=== PATIENT | male | born 1950 | race Hispanic/Latino ===

== ENCOUNTER 2019-09-12 13:08 | Outpatient (CLI) | payer MEDICARE ==
--- NOTE | 2019-09-12 13:29 | RAD ---
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 No joint effusion. No fracture or ma lalignment. 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
== END 2019-09-12 13:09 | disposition home or self-care (01) ==
LOC: RAD-FRANK 13:08
PROVIDERS: ATTEND Nurse Practitioner Family
DX: M25.561 Pain in right knee (principal); M17.11 Unilateral primary osteoarthritis, right knee

== ENCOUNTER 2020-03-18 12:38 | Inpatient (IN) | payer MEDICARE ==
[~2020-03-18 12:38] MED LIST: Iopamidol-370 76% 500 ML 1 ML ONE
[2020-03-18] MEDS ORDERED: Azithromycin 500 MG VIAL ONE (12:49)
[2020-03-18] MEDS ORDERED: cefTRIAXone\\ROCEPHIN 2 GM VIAL ONE (12:49)
[2020-03-18] MEDS ORDERED: Aspirin 300 MG Suppository ONE (12:49)
[2020-03-18] MEDS ORDERED: Acetaminophen 650 MG Suppository ONE (13:00)
[2020-03-18 13:13] LABS: #Lymphocytes 0.9 thou/uL (1.20-3.40); #Monocytes 0.2 thou/uL (0.11-0.59); #Neutrophils 6.7 thou/uL (1.40-6.50); %Lymphocytes 11.2 % (21.0-51.0); %Neutrophils 85.8 % (42.0-75.0); Hemoglobin 14.4 g/dL (14.0-18.0); Mean Corpuscular HGB CONC 33.8 g/dL (32.0-36.0); Mean Corpuscular Hemoglobin 32.2 pg (27.0-31.0); Mean Corpuscular Volume 95.3 fL (78.0-98.0); Mean Platelet Volume 7.8 fL (7.4-10.4); Platelet Count 397 thou/uL (130-400); RBC Distribution Width 12.3 % (11.5-14.5); Red Blood Cell (RBC) Count 4.46 mill/uL (4.70-6.10); White Blood Cell (WBC) Count 7.8 thou/uL (4.8-10.8)
[2020-03-18 13:24] LABS: PTT 34.7 sec (22.9-36.1); Prothrombin Time 13.7 sec (12.0-14.7)
[2020-03-18] MEDS ORDERED: Lorazepam 2 MG/ML VIAL ONE ×2 (13:24→13:36)
[2020-03-18] MEDS ORDERED: Morphine 4 MG/ML VIAL ONE (13:27)
[2020-03-18 13:32] LABS: ALT (SGPT) 68 U/L (8-55); AST (SGOT) 77 U/L (5-34); Albumin 3.3 g/dL (3.4-4.8); Alkaline Phosphatase 125 U/L (40-110); Anion Gap 24 mmol/L (10-20); BUN (Urea Nitrogen) 20 mg/dL (8.4-25.7); Bilirubin, Total 0.9 mg/dL (0.2-1.2); CK (CPK) 133 U/L (30-200); Calc. Creatinine Clearance 0 mL/min (70-130); Calcium 8.3 mg/dL (7.8-10.44); Carbon Dioxide 18 mmol/L (23-31); Chloride 97 mmol/L (98-107); Globulin 4.3 g/dL (2.4-3.5); Glucose 112 mg/dL (83-110); Potassium 3.4 mmol/L (3.5-5.1); Protein, Total 7.6 g/dL (5.8-8.1); Sodium 136 mmol/L (136-145)
[2020-03-18] MEDS ORDERED: Naloxone HCl 0.4 mg/ml Vial ONE (13:43)
[2020-03-18] MEDS ORDERED: Dexamethasone 4 mg/ml Vial ONE (14:08)
--- NOTE | 2020-03-18 14:20 | RAD ---
XR Chest 1 View Portable History: Cough Comparison: None. Findings: Patchy peripheral and perihilar airspace opacities. No pneumothorax or effusion. No acute o sseous abnormality. Impression: Commonly reported imaging findings of COVID 19 pneumonia.
--- NOTE | 2020-03-18 15:35 | CT ---
CT Brain WO Con History: Confusion. Altered mental status Comparison: None. Findings: Moderate microangiopathic changes. No midline shift or mass effect. No acute hemorrhage. No large territorial acute infarction. Calvarium is intact. Prominent arachnoid granulations right sphenoid greater wing. Impression: No acute hemorrhage. Moderate microvascular ischemic changes.
--- NOTE | 2020-03-18 15:51 | CT ---
CTA Angio Chest W WO Con History: Cough Comparison: Chest radiograph same day Findings: CT angiogram chest performed after the intravenous administration of contrast. 3-D renderin g provided. No pulmonary embolism. Severe airspace consolidation. No pneumothorax or pneumomediastinum. Sternum and manubrium are intact. Thoracic spine is intact. Impression: 1. No pulmonary embolism. 2. Severe COVID pneumonia. No pneumothorax or pneumomediastinum.
[2020-03-18] MEDS ORDERED: Rocuronium Bromide 10 MG/ML (10ML VIAL) ONE (16:20)
[2020-03-18] MEDS ORDERED: Ketamine 50 MG/ML (10ML VIAL) ONE (16:20)
[2020-03-18] MEDS ORDERED: Norepinephrine 8 MG/0.9% NS 250 ML ONE (16:21)
[2020-03-18] MEDS ORDERED: fentaNYL Citrate/PF 2,000 MCG in Sodium Chloride 0.9% 60 ML IV SCH (16:45)
[2020-03-18 17:34] LABS: Lactic Acid 1.8 mmol/L (0.5-2.2)
--- NOTE | 2020-03-18 17:40 | PDOC.HHP ---
Hospitalist HPI - History of Present Illness Shortness of breath and productive cough History of Present Illness: Patient is a 70-year-old male with no past medical history and currently not on medications who was brought in by EMS for evaluation of respiratory symptoms. The onset of his symptoms started at least before March 06 when he was having persistent fever episodes. His T-max at the time was 102.5 degrees. He tested positive for COVID-19 on March 06 and was discharged with alternating doses of ibuprofen and Tylenol. His symptoms progressed to then has developed persistent chills and subsequently productive cough. He failed conservative treatment with antitussive. Family finally called EMS due to worsening of symptoms. For the past 2 days, he has been very restless and d isoriented, unable to sleep at nights or try to get out of the house at night. Is also been very nonspecific and reporting symptoms sometimes back pain, shoulder pain or abdominal pain. History obtained from his son Liam Macias. As stated above patient has no past medical history does not take any medications. Last time he was hospitalized was 30 years ago for gallbladder surgery. ED Course: He arrived in the ER agitated and confused. Received 2 doses of IV Ativan. Fever of 104 degrees in the ER He was hypoxic on room air. He failed nonrebreather therapy as he could not get his oxygen saturation above mid 80s Tested positive for COVID-19 Basic labs significant for lactic acid of 7.9. He received approximately 3 L of IV fluid in the ER Intubated in the ER. Right femoral vein central line was placed. CT head and CTA unremarkable - Exam General - other findings: Sedated Eye: PERRL ENT - other findings: Endotracheal tube in place Gastrointestinal: soft, non-tender, non-distended Extremities: no cyanosis, no clubbing, no edema Skin - other findings: Warm Psychiatric - other findings: Sedated Hospitalist Results - Labs Result Diagrams: 03/18/20 12:57 03/18/20 12:57 Lab results: WBC 7.8 thou/uL (4.8-10.8) 03/18/20 12:57 Hgb 14.4 g/dL (14.0-18.0) 03/18/20 12:57 Hct 42.5 % (42.0-52.0) 03/18/20 12:57 MCV 95.3 fL (78.0-98.0) 03/18/20 12:57 Plt Count 397 thou/uL (130-400) 03/18/20 12:57 Neutrophils % 85.8 % (42.0-75.0) H 03/18/20 12:57 Sodium 136 mmol/L (136-145) 03/18/20 12:57 Potassium 3.4 mmol/L (3.5-5.1) L 03/18/20 12:57 Chloride 97 mmol/L (98-107) L 03/18/20 12:57 Carbon Dioxide 18 mmol/L (23-31) L 03/18/20 12:57 BUN 20 mg/dL (8.4-25.7) 03/18/20 12:57 Creatinine 0.95 mg/dL (0.7-1.3) 03/18/20 12:57 Glucose 112 mg/dL (83-110) H 03/18/20 12:57 Lactic Acid 1.8 mmol/L (0.5-2.2) 03/18/20 15:48 Calcium 8.3 mg/dL (7.8-10.44) 03/18/20 12:57 Total Bilirubin 0.9 mg/dL (0.2-1.2) 03/18/20 12:57 AST 77 U/L (5-34) H 03/18/20 12:57 ALT 68 U/L (8-55) H 03/18/20 12:57 Alkaline Phosphatase 125 U/L (40-110) H 03/18/20 12:57 Creatine Kinase 133 U/L (30-200) 03/18/20 12:57 Troponin I 0.016 ng/mL (< 0.028) 03/18/20 12:00 Serum Total Protein 7.6 g/dL (5.8-8.1) 03/18/20 12:57 Albumin 3.3 g/dL (3.4-4.8) L 03/18/20 12:57 Hospitalist H&P A/P - Problem (1) Septic shock Code(s): A41.9 - SEPSIS, UNSPECIFIED ORGANISM; R65.21 - SEVERE SEPSIS WITH SEPTIC SHOCK Status: Acute (2) Pneumonia due to COVID-19 virus Code(s): U07.1 - COVID-19; J12.82 - PNEUMONIA DUE TO CORONAVIRUS DISEASE 2019 Status: Acute (3) Acute hypoxemic respiratory failure due to COVID-19 Code(s): U07.1 - COVID-19; J96.01 - ACUTE RESPIRATORY FAILURE WITH HYPOXIA Status: Acute (4) Metabolic encephalopathy Code(s): G93.41 - METABOLIC ENCEPHALOPATHY Status: Acute - Plan Plan: Assessment 70-year-old male without past medical history currently admitted with acute hypoxemic respiratory failure secondary to COVID-19 pneumonia. There is a high chance of superimposed bacterial pneumonia given the degree of consolidation on chest imaging. He is currently intubated. He received 1 dose of IV dexamethasone 10 mg. Acute hypoxemic respiratory failure COVID-19 pneumonia Septic shock Metabolic encephalopathy Hypokalemia Plan: Admit to ICU Post intubation sedation with fentanyl and propofol. Order placed Follow-up post intubation ABG and adjust vent settings as needed. Empirically start patient on Zosyn for superimposed bacterial infection Follow-up blood and sputum cultures Also start patient on vitamins B1, C, D and zinc DVT prophylaxis with Lovenox Stress ulcer prophylaxis with famotidine Trend CRP and D-dimers daily Replace potassium Trend lactic acid every 4 hours until negative
[2020-03-18 17:42] LABS: Troponin I 0.067 ng/mL (< 0.028)
--- NOTE | 2020-03-18 17:43 | RAD ---
CHEST ONE VIEW: History: Covid pneumonia Comparison: Same day FINDINGS: Patient's endotracheal tube tip is above the eduardo 2 cm. Enteric tube tip in the gastric fundus. Ext ensive airspace opacities. No pneumothorax. IMPRESSION: Satisfactory appearance of enteric and endotracheal tubes. POS: HOME
[2020-03-18] MEDS ORDERED: Norepinephrine 8 MG/0.9% NS 250 ML IVPB PRN (17:49)
[2020-03-18] MEDS ORDERED: DISCONTINUE PREVIOUS NARCOTIC PAIN MEDICATIONS AND BENZODIAZEPINES FS SCH (18:00)
[2020-03-18] MEDS ORDERED: Fentanyl BOLUS 250 ML IVPB PRN (18:00)
[2020-03-18] MEDS ORDERED: Potassium Chloride 20 MEQ TAB PO SCH (18:00)
[2020-03-18] MEDS ORDERED: Propofol BOLUS 1,000 MG/100 ML VIAL IV PRN (18:00)
[2020-03-18] MEDS ORDERED: Morphine 2 MG/ML VIAL SLOW IVP PRN (18:00)
[2020-03-18] MEDS ORDERED: Ventilator Sedation Protocol 1 EACH FS SCH (18:00)
[2020-03-18 18:11] LABS: Lactic Acid 1.8 mmol/L (0.5-2.2)
[2020-03-18 19:07] LABS: Bacteria/HPF None Seen HPF (None Seen); Bilirubin Negative (Negative); Blood, Urine Trace (Negative); Clarity Clear (Clear); Glucose, Urine (Dipstick) Normal (Negative); Ketone, Urine Negative (Negative); Leukocyte Negative Leu/uL (Negative); Nitrite Negative (Negative); Protein, Urine (Dipstick) 30 mg/dL (Neg-Trace); RBC/HPF None Seen HPF (0-3); Squamous Epithelial None Seen HPF (0-3); WBC/HPF 0-3 HPF (0-3); pH, Urine 6.5 (5.0-9.0)
[2020-03-18 19:08] LABS: Specific Gravity, Urine 1.056 (1.002-1.036)
[2020-03-18 20:18] LABS: Troponin I 0.047 ng/mL (< 0.028)
[2020-03-18] MEDS: Famotidine/PF 20 mg/2ml Vial SLOW IVP SCH (21:55)
[2020-03-18] MEDS: Piperacillin/Tazobactam 3.375 GM in Sodium Chloride 0.9% 100 ML IVPB SCH (21:55)
[2020-03-18] MEDS: Enoxaparin Sodium 40 MG/0.4 ML SYRINGE SC SCH (21:55)
[2020-03-19] MEDS: Piperacillin/Tazobactam 3.375 GM in Sodium Chloride 0.9% 100 ML IVPB SCH (03:35)
--- NOTE | 2020-03-19 07:56 | RAD ---
Portable frontal chest radiograph: 03/19/2020 COMPARISON: 03/18/2020 HISTORY: Intubated patient FINDINGS: Stable endotracheal tube and nasogastric tube. The eduardo is difficult to visualize. The en dotracheal tube is probably within 1.7 cm of the eduardo. No discrete pneumothorax. Dense airspace disease noted bilaterally with a perihilar/bibasilar predominance, right greater than left, not signi ficantly changed. IMPRESSION: No significant interval change.
[2020-03-19] MEDS ORDERED: Dexamethasone 4 mg/ml Vial SLOW IVP SCH (09:00)
--- NOTE | 2020-03-19 09:14 | CON ---
DATE OF CONSULTATION: HISTORY OF PRESENT ILLNESS: Farrukh Macias is a 70-year-old gentleman, intubated in the vent, sedated. There is no number to contact any family members. He is admitted on the after he presented with severe hypoxemia, mental status change. His temperature 104, respiratory rate 28, his sats on room air 76, non-rebreather were 90%. He was intubated. Unable to get any additional information says that he apparently had some history of smoking in the past. It is unclear what medicine he was taking. I am in the process of contacting the Social Service Department to contact family members to get additional information. PHYSICAL EXAMINATION: VITAL SIGNS: Temperature 98, pulse 80, blood pressure 106/64, respiratory rate 18, he is on 50% FiO2, sats 95%. CHEST: No wheezing. No crackles. CARDIAC: Normal S1, S2. No gallops. ABDOMEN: No masses. LABORATORY DATA: His D-dimer is 17. His C-reactive protein is 29. X-ray shows diffuse infiltrates. Serology was positive. His renal function shows BUN and creatinine are normal. ASSESSMENT: 1. Simmons positive pneumonia. 2. Respiratory failure. 3. Metabolic encephalopathy. PLAN: I am in the process of trying to contact family members. In the meantime, he is on broad-spectrum antibiotics, high-dose steroids, supportive care. He is going to get a convalescent plasma. Infectious Disease has been consulted. He will be prone for 3 days to improve his oxygenation. His prognosis is grave. This is a 45-minute critical care time. Job ID: [id number]
[2020-03-19 09:40] LABS: #Lymphocytes 0.5 thou/uL (1.20-3.40); #Monocytes 0.2 thou/uL (0.11-0.59); %Basophils 0.5 % (0.0-1.0); %Eosinophils 0.1 % (0.0-10.0); %Lymphocytes 10.9 % (21.0-51.0); %Monocytes 3.7 % (0.0-10.0); %Neutrophils 84.8 % (42.0-75.0); Hemoglobin 11.4 g/dL (14.0-18.0); Mean Corpuscular HGB CONC 32.3 g/dL (32.0-36.0); Mean Corpuscular Hemoglobin 30.9 pg (27.0-31.0); Mean Corpuscular Volume 95.4 fL (78.0-98.0); Mean Platelet Volume 7.6 fL (7.4-10.4); Platelet Count 354 thou/uL (130-400); RBC Distribution Width 12.3 % (11.5-14.5); Red Blood Cell (RBC) Count 3.71 mill/uL (4.70-6.10); White Blood Cell (WBC) Count 4.7 thou/uL (4.8-10.8)
[2020-03-19 09:58] LABS: Anion Gap 14 mmol/L (10-20); BUN (Urea Nitrogen) 19 mg/dL (8.4-25.7); Calc. Creatinine Clearance 99 mL/min (70-130); Calcium 7.5 mg/dL (7.8-10.44); Carbon Dioxide 25 mmol/L (23-31); Chloride 108 mmol/L (98-107); Glucose 96 mg/dL (83-110); Potassium 3.8 mmol/L (3.5-5.1); Sodium 143 mmol/L (136-145)
[2020-03-19] MEDS: Zinc Sulfate 220 MG CAP PO SCH (11:09)
[2020-03-19] MEDS: Dexamethasone 4 mg/ml Vial SLOW IVP SCH ×2 (11:09→21:19)
[2020-03-19] MEDS: Thiamine 100 MG TAB PO SCH (11:12)
[2020-03-19] MEDS: Cholecalciferol (Vitamin D3) 400 UNITS TAB PO SCH (11:12)
[2020-03-19] MEDS: Ascorbic Acid 500 mg Chewable Tablet PO SCH (11:12)
[2020-03-19] MEDS: Famotidine/PF 20 mg/2ml Vial SLOW IVP SCH ×2 (11:12→21:20)
[2020-03-19] MEDS: Enoxaparin Sodium 40 MG/0.4 ML SYRINGE SC SCH ×2 (11:13→21:19)
[2020-03-19] MEDS: Cefepime 1 GM in Sodium Chloride 0.9% 100 ML IVPB SCH ×2 (11:14→22:11)
[2020-03-19] MEDS: Propofol 1,000 MG/100 ML VIAL IV PRN ×2 (11:29→16:41)
--- NOTE | 2020-03-19 14:52 | PDOC.HOSPP ---
- Subjective Encounter Date: 03/19/20 Subjective: Overnight. Patient is still on mechanical ventilator and sedated - Objective Vital Signs & Weight: Vital Signs (12 hours) Temp Pulse Resp BP Pulse Ox 03/19/20 14:00 20 03/19/20 12:10 95 03/19/20 12:00 101.4 F H 23 H 03/19/20 11:55 97 108/55 L 03/19/20 10:00 20 03/19/20 08:00 99.6 F 20 93 L 03/19/20 07:57 88 03/19/20 06:00 20 03/19/20 04:00 98.1 F 20 Weight Admit Weight 155 lb 6.814 oz Weight 155 lb 6.814 oz Most Recent Monitor Data Heart Rate from ECG 114 NIBP 127/76 NIBP BP-Mean 93 Respiration from ECG 22 SpO2 94 I&O: 03/18/20 03/19/20 03/20/20 06:59 06:59 06:59 Intake Total 482.2 Output Total 940 235 Balance -457.8 -235 Result Diagrams: 03/19/20 09:27 03/19/20 09:27 Hospitalist ROS - Review of Systems ROS unobtainable: due to endotracheal tube - Medication Medications: Active Medications Generic Name Dose Route Start Last Admin Trade Name Mila PRN Reason Stop Dose Admin Ascorbic Acid 500 mg 03/19/20 09:00 03/19/20 11:12 Ascorbic Acid 500 Mg Chewable Tablet PO 500 mg DAILY BETTY Administration Cholecalciferol 400 units 03/19/20 09:00 03/19/20 11:12 Cholecalciferol (Vitamin D3) 400 Units Tab PO 400 units DAILY BETTY Administration Dexamethasone 10 mg 03/19/20 09:00 03/19/20 11:09 Dexamethasone 4 Mg/Ml Vial SLOW IVP 10 mg BID BETTY Administration Enoxaparin Sodium 40 mg 03/18/20 21:00 03/19/20 11:13 Enoxaparin Sodium 40 Mg/0.4 Ml Syringe SC 40 mg 0900,2100 BETTY Administration Famotidine 20 mg 03/18/20 21:00 03/19/20 11:12 Famotidine/Pf 20 Mg/2ml Vial SLOW IVP 20 mg BID BETTY Administration Cefepime HCl 1 gm/ Sodium 100 mls @ 200 mls/hr 03/19/20 10:00 03/19/20 11:14 Chloride IVPB 100 mls 1000,2200 BETTY Administration Doxycycline Hyclate 100 mg/ 100 mls @ 100 mls/hr 03/19/20 09:00 03/19/20 11:16 Sodium Chloride IVPB 03/29/20 09:01 100 mls Q12HR BETTY Administration Propofol 1,000 mg 03/18/20 18:00 03/19/20 11:29 Propofol 1,000 Mg/100 Ml Vial IV 04/17/20 18:00 1,000 mg INF PRN Administration TO ACHIEVE GOAL RASS Protocol Sodium Chloride 10 ml 03/19/20 09:00 03/19/20 11:16 Flush - Normal Saline 10 Ml Syringe IVF 10 ml Q12HR BETTY Administration Thiamine HCl 100 mg 03/19/20 09:00 03/19/20 11:12 Thiamine 100 Mg Tab PO 100 mg DAILY BETTY Administration Zinc Sulfate 220 mg 03/19/20 09:00 03/19/20 11:09 Zinc Sulfate 220 Mg Cap PO 220 mg DAILY BETTY Administration - Exam General - other findings: Sedated Eye: anicteric sclera ENT: normocephalic atraumatic Heart: RRR, no murmur, no gallops, no rubs Heart - other findings: Left-sided subclavian vein central line Respiratory: no wheezes Respiratory - other findings: Bilateral crackles Gastrointestinal: soft, non-tender, non-distended, normal bowel sounds Extremities: no clubbing, no edema Psychiatric - other findings: Sedated Hosp A/P (1) Septic shock Code(s): A41.9 - SEPSIS, UNSPECIFIED ORGANISM; R65.21 - SEVERE SEPSIS WITH SEPTIC SHOCK Status: Acute (2) Pneumonia due to COVID-19 virus Code(s): U07.1 - COVID-19; J12.82 - PNEUMONIA DUE TO CORONAVIRUS DISEASE 2019 Status: Acute (3) Acute hypoxemic respiratory failure due to COVID-19 Code(s): U07.1 - COVID-19; J96.01 - ACUTE RESPIRATORY FAILURE WITH HYPOXIA Status: Acute (4) Metabolic encephalopathy Code(s): G93.41 - METABOLIC ENCEPHALOPATHY Status: Acute - Plan Assessment This is a 70-year-old male with no past medical history or chronic medications failed outpatient therapy for COVID-19 diagnosed on March 06, 2020. He presented to the ER with worsening shortness of breath and productive cough and was found to have septic shock with a lactic acid of 7.9. He had extensive airspace consolidation on his CT chest. Pulmonary embolism was ruled out. Is currently on mechanical ventilator acute hypoxemic respiratory failure and receiving systemic corticosteroids. Critical care is recommending convalescent plasma and prone positioning. Blood culture and urine cultures are negative to date Acute hypoxemic respiratory failure COVID-19 pneumonia Septic shock Plan: Vent settings as per critical care. Currently on respiratory rate of 12, tidal volume of 450, FiO2 of 50 and PEEP of 5 Day 2 of Zosyn for possible superimposed bacterial pneumonia Day 2 of dexamethasone along with thiamine, vitamin C, vitamin D and zinc Continue DVT prophylaxis PPI for stress ulcer prophylaxis Daily CRP, ABG and chest x-ray
[2020-03-19 15:30] LABS: Actual Bicarbonate (HCO3a) 24.3 mEq/L (22-28); Base Excess (BEa) 0.3 mEq/L (-2.0 to +3.0); CO2 Tension 37.7 mmHg (35.0-45.0); Calcium, Ionized (arterial) 1.13 mmol/L (1.12-1.30); Potassium - ABG Lab 3.93 mmol/L (3.70-5.30); pH, Arterial 7.43 (7.35-7.45)
[2020-03-19 15:33] LABS: Puncture Site RRA
[2020-03-19 15:34] LABS: ALV-art Gradient 181.075 mmHg (0-20)
[2020-03-19] MEDS ORDERED: Fentanyl CADD 100 ML ONE (16:05)
[2020-03-19] MEDS: Acetaminophen 325 MG TAB PO PRN (17:36)
[2020-03-19] MEDS: Lorazepam 2 MG/ML VIAL SLOW IVP PRN (23:28)
[2020-03-20] MEDS: Propofol 1,000 MG/100 ML VIAL IV PRN ×3 (01:06→17:05)
[2020-03-20 04:42] LABS: #Lymphocytes 0.5 thou/uL (1.20-3.40); #Monocytes 0.1 thou/uL (0.11-0.59); #Neutrophils 3.9 thou/uL (1.40-6.50); %Eosinophils 0.2 % (0.0-10.0); %Neutrophils 85.8 % (42.0-75.0); Hemoglobin 10.8 g/dL (14.0-18.0); Mean Corpuscular HGB CONC 33.4 g/dL (32.0-36.0); Mean Corpuscular Hemoglobin 31.3 pg (27.0-31.0); Mean Corpuscular Volume 93.9 fL (78.0-98.0); Mean Platelet Volume 8.1 fL (7.4-10.4); Platelet Count 386 thou/uL (130-400); RBC Distribution Width 12.5 % (11.5-14.5); Red Blood Cell (RBC) Count 3.44 mill/uL (4.70-6.10); White Blood Cell (WBC) Count 4.6 thou/uL (4.8-10.8)
[2020-03-20 05:10] LABS: Anion Gap 14 mmol/L (10-20); BUN (Urea Nitrogen) 26 mg/dL (8.4-25.7); CRP (Inflammatory) 16.48 mg/dL (= or < 0.5); Calc. Creatinine Clearance 103 mL/min (70-130); Calcium 7.6 mg/dL (7.8-10.44); Carbon Dioxide 24 mmol/L (23-31); Chloride 109 mmol/L (98-107); Glucose 188 mg/dL (83-110); Potassium 3.9 mmol/L (3.5-5.1); Sodium 143 mmol/L (136-145)
--- NOTE | 2020-03-20 08:05 | RAD ---
Portable frontal chest radiograph: 03/20/2020 COMPARISON: 03/18/2020 HISTORY: Ventilated patient FINDINGS: Stable endotracheal tube and nasogastric tube. No pneumothorax is evident. Extensive patchy airspace disease noted bilaterally, right greater than left, including both lung bases, the mid lung zones, and the right upper lobe region. IMPRESSION: No significant interval change.
--- NOTE | 2020-03-20 09:03 | PRG ---
DATE OF SERVICE: 03/20/2020 SUBJECTIVE: Farrukh Macias remains intubated in the vent, sedated. OBJECTIVE: VITAL SIGNS: Temperature 98, pulse is 90, sats are 90%, blood pressure 110/80. His I's and O's have been consistently even. CHEST: No wheezing. No crackles. CARDIAC: Normal S1, S2. No gallops. ABDOMEN: No masses. LABORATORY DATA: White count 4000, H and H 10 and 32, platelet count 386. His lytes are normal. His blood gas; PO2 was 57, pCO2 of 36.43 on 40% rate of 20, PEEP of 5, pressure support of 10. ASSESSMENT: Respiratory failure, krause positive pneumonia. PLAN: Vent is being adjusted. We will start nutrition and supportive care. Not weanable. One-half hour of critical time. Job ID: [id number]
[2020-03-20] MEDS: Dexamethasone 4 mg/ml Vial SLOW IVP SCH ×2 (09:31→20:31)
[2020-03-20] MEDS: Zinc Sulfate 220 MG CAP PO SCH (09:31)
[2020-03-20] MEDS: Famotidine/PF 20 mg/2ml Vial SLOW IVP SCH ×2 (09:31→20:32)
[2020-03-20] MEDS: Cholecalciferol (Vitamin D3) 400 UNITS TAB PO SCH (09:31)
[2020-03-20] MEDS: Ascorbic Acid 500 mg Chewable Tablet PO SCH (09:33)
[2020-03-20] MEDS: Thiamine 100 MG TAB PO SCH (09:33)
[2020-03-20] MEDS: Enoxaparin Sodium 40 MG/0.4 ML SYRINGE SC SCH ×2 (09:33→20:32)
[2020-03-20] MEDS: Cefepime 1 GM in Sodium Chloride 0.9% 100 ML IVPB SCH ×2 (11:11→22:41)
[2020-03-20] MEDS ORDERED: Sodium Bicarbonate Tab 325 MG TAB PER TUBE PRN (13:00)
[2020-03-20] MEDS ORDERED: Pancrelipase DR 12,000 1 CAP FS PRN (13:00)
[2020-03-20] MEDS ORDERED: Fentanyl CADD 100 ML ONE (13:23)
--- NOTE | 2020-03-20 13:31 | PDOC.HOSPP ---
- Subjective Encounter Date: 03/27/20 Subjective: Episodes of oxygen desaturation overnight. Lowest sat 86%. FiO2 and PEEP increased. - Objective Vital Signs & Weight: Vital Signs (12 hours) Temp Pulse Resp 03/20/20 12:00 96.7 F L 19 03/20/20 10:55 76 03/20/20 10:00 26 H 03/20/20 08:00 96.0 F L 22 H 03/20/20 07:13 100 03/20/20 06:00 20 03/20/20 04:00 97.5 F L 20 03/20/20 02:01 95 03/20/20 02:00 20 Weight Admit Weight 155 lb 6.814 oz Weight 156 lb 1.396 oz Most Recent Monitor Data Heart Rate from ECG 82 NIBP 105/72 NIBP BP-Mean 83 Respiration from ECG 20 SpO2 92 I&O: 03/19/20 03/20/20 03/21/20 06:59 06:59 06:59 Intake Total 482.2 491.3 134.5 Output Total 940 855 215 Balance -457.8 -363.7 -80.5 Result Diagrams: 03/20/20 03:00 03/20/20 03:00 Hospitalist ROS - Medication Medications: Active Medications Generic Name Dose Route Start Last Admin Trade Name Freq PRN Reason Stop Dose Admin Acetaminophen 650 mg 03/19/20 16:49 03/19/20 17:36 Acetaminophen 325 Mg Tab PO 650 mg Q6H PRN Administration Fever or Pain Ascorbic Acid 500 mg 03/19/20 09:00 03/20/20 09:33 Ascorbic Acid 500 Mg Chewable Tablet PO 500 mg DAILY BETTY Administration Cholecalciferol 400 units 03/19/20 09:00 03/20/20 09:31 Cholecalciferol (Vitamin D3) 400 Units Tab PO 400 units DAILY BETTY Administration Dexamethasone 10 mg 03/19/20 09:00 03/20/20 09:31 Dexamethasone 4 Mg/Ml Vial SLOW IVP 10 mg BID BETTY Administration Enoxaparin Sodium 40 mg 03/18/20 21:00 03/20/20 09:33 Enoxaparin Sodium 40 Mg/0.4 Ml Syringe SC 40 mg 0900,2100 BETTY Administration Famotidine 20 mg 03/18/20 21:00 03/20/20 09:31 Famotidine/Pf 20 Mg/2ml Vial SLOW IVP 20 mg BID BETTY Administration Cefepime HCl 1 gm/ Sodium 100 mls @ 200 mls/hr 03/19/20 10:00 03/20/20 11:11 Chloride IVPB 100 mls 1000,2200 BETTY Administration Doxycycline Hyclate 100 mg/ 100 mls @ 100 mls/hr 03/19/20 09:00 03/20/20 09:33 Sodium Chloride IVPB 03/29/20 09:01 100 mls Q12HR BETTY Administration Lorazepam 2 mg 03/18/20 18:00 03/19/20 23:28 Lorazepam 2 Mg/Ml Vial SLOW IVP 04/17/20 18:00 2 mg Q1H PRN Administration Breakthrough agitation Propofol 1,000 mg 03/18/20 18:00 03/20/20 08:20 Propofol 1,000 Mg/100 Ml Vial IV 04/17/20 18:00 1,000 mg INF PRN Administration TO ACHIEVE GOAL RASS Protocol Sodium Chloride 10 ml 03/19/20 09:00 03/20/20 09:33 Flush - Normal Saline 10 Ml Syringe IVF 10 ml Q12HR BETTY Administration Thiamine HCl 100 mg 03/19/20 09:00 03/20/20 09:33 Thiamine 100 Mg Tab PO 100 mg DAILY BETTY Administration Zinc Sulfate 220 mg 03/19/20 09:00 03/20/20 09:31 Zinc Sulfate 220 Mg Cap PO 220 mg DAILY BETTY Administration - Exam General - other findings: Sedated while on mechanical ventilation Eye: anicteric sclera ENT: normocephalic atraumatic Heart: RRR, no murmur, no gallops, no rubs Respiratory: no wheezes, rales Respiratory - other findings: Diminished air entry bilaterally Extremities: no clubbing, no edema Hosp A/P (1) Septic shock Code(s): A41.9 - SEPSIS, UNSPECIFIED ORGANISM; R65.21 - SEVERE SEPSIS WITH SEPTIC SHOCK Status: Acute (2) Pneumonia due to COVID-19 virus Code(s): U07.1 - COVID-19; J12.82 - PNEUMONIA DUE TO CORONAVIRUS DISEASE 2019 Status: Acute (3) Acute hypoxemic respiratory failure due to COVID-19 Code(s): U07.1 - COVID-19; J96.01 - ACUTE RESPIRATORY FAILURE WITH HYPOXIA Status: Acute (4) Metabolic encephalopathy Code(s): G93.41 - METABOLIC ENCEPHALOPATHY Status: Acute - Plan Assessment This is a 70-year-old male with no past medical history or chronic medications failed who outpatient therapy for COVID-19, which was diagnosed on March 06, 2020. He presented to the ER with worsening shortness of breath and productive cough and was found to have septic shock with a lactic acid of 7.9. He had extensive airspace consolidation on his CT chest. Pulmonary embolism was ruled out. He is still on mechanical ventilator for acute hypoxemic respiratory failure and receiving systemic corticosteroids. Blood culture and urine cultures are negative to date Acute hypoxemic respiratory failure COVID-19 pneumonia Septic shock Plan: Vent settings as per critical care. PEEP increased to 10, FiO2 increased to 50%. No ventilatory issues Day 3 of Zosyn for possible superimposed bacterial pneumonia Day 3 of dexamethasone along with thiamine, vitamin C, vitamin D and zinc Continue DVT prophylaxis PPI for stress ulcer prophylaxis Nutrition started Daily CRP, ABG and chest x-ray
--- NOTE | 2020-03-20 22:49 | CON ---
DATE OF CONSULTATION: 03/20/2020 REASON FOR CONSULTATION: COVID pneumonia. HISTORY OF PRESENT ILLNESS: A 70-year-old, looks like first admission to [facility], history of no past medical issues, who was not taking medication and then developed respiratory symptoms, which started before March 06. It basically started with fever initially and chills, temperature up to 102.5. He tested positive for COVID. He was discharged with symptomatic medication and then symptoms progressed with cough and dyspnea. So on arrival, his BP was 150/90, pulse 147, breathing 28 times a minute, temperature 104, saturating 90% on non- rebreather Ventimask. Subsequently, he had to be intubated and was saturating 95 on the ventilator, so he was intubated from the outset in the emergency room. He was given doxycycline, cefepime, famotidine, enoxaparin, thiamine, zinc sulfate, Decadron, not felt to be eligible for remdesivir. Over the past few days, the patient has remained on the mechanical ventilator. He is saturating kind of borderline 92-95. His FiO2 is at 60, heart rate 74. He has an indwelling Goetz catheter. He has a peripheral IV access as well as a triple-lumen catheter inserted on the . PAST MEDICAL HISTORY: Pretty much negative, which is surprising for men of his age. ALLERGY HISTORY: Negative. FAMILY HISTORY: Not available. CURRENT MEDICATIONS: 1. Cefepime. 2. Vitamin D. 3. Decadron. 4. Doxycycline. 5. Lovenox. 6. Pepcid. 7. Fentanyl. 8. Creon. 9. Ativan. 10. Morphine. 11. Levophed. 12. Diprivan. PHYSICAL EXAMINATION: VITAL SIGNS: T-max 101.4, he is now down to 97.6, blood pressure 102/68, 60% intubated FiO2, respiratory rate 26. SKIN: As above shows triple-lumen catheter, peripheral IV access, and Goetz catheter. HEENT: His pupils are constricted. Orotracheal intubation. LUNGS: With coarse breath sounds. HEART: S1, S2, regular rate. ABDOMEN: Soft, not distended or tender. Bowel sounds are not audible. GENITOURINARY: No genital abnormalities other than Goetz catheter. EXTREMITIES: Pulses are 1+ in dorsalis pedis. I cannot check his mobility due to sedation, neither mental state is assessable. LABORATORY DATA: WBC 7.8 and 4.6, hemoglobin 10.8, platelets 386, 85% neutrophils, creatinine 0.66, sodium 143. The CRP is down from 29 to 16. Urinalysis not remarkable. Microbiology, negative cultures thus far. CT angio, no evidence of deep vein thrombosis, pronounced areas of consolidation, ground-glass opacities throughout lung ruelas, but predominantly in dependent areas. ASSESSMENT: No major past medical history, now with severe COVID pneumonia requiring mechanical ventilation. DISCUSSION: The patient has been started on treatment with Decadron. He is on broad-spectrum coverage with antimicrobials too at this point in time, borderline saturation even with high levels of ventilatory support. Due to the distribution of the infiltrates, he might benefit significantly from prone positioning. I would recommend changing him to prone positioning to take advantage of the less involved areas of lung in the anterior locations that would be perfused with prone positioning and potentially lead to marked improvement in oxygenation. I think that is the main measure to be undertaken at this point. The antimicrobial therapy is probably not necessary and can be discontinued. Job ID: [id number] [facility]
[2020-03-21] MEDS: Propofol 1,000 MG/100 ML VIAL IV PRN (01:59)
[2020-03-21] MEDS: Lorazepam 2 MG/ML VIAL SLOW IVP PRN (03:01)
[2020-03-21 05:32] LABS: Hemoglobin 10.6 g/dL (14.0-18.0); Mean Corpuscular HGB CONC 32.5 g/dL (32.0-36.0); Mean Corpuscular Hemoglobin 30.5 pg (27.0-31.0); Mean Corpuscular Volume 93.7 fL (78.0-98.0); Mean Platelet Volume 7.9 fL (7.4-10.4); Platelet Count 460 thou/uL (130-400); RBC Distribution Width 12.5 % (11.5-14.5); Red Blood Cell (RBC) Count 3.49 mill/uL (4.70-6.10); White Blood Cell (WBC) Count 7.9 thou/uL (4.8-10.8)
[2020-03-21 05:44] LABS: Anion Gap 14 mmol/L (10-20); BUN (Urea Nitrogen) 30 mg/dL (8.4-25.7); CRP (Inflammatory) 6.55 mg/dL (= or < 0.5); Calc. Creatinine Clearance 98 mL/min (70-130); Carbon Dioxide 24 mmol/L (23-31); Chloride 111 mmol/L (98-107); Glucose 189 mg/dL (83-110); Potassium 4.1 mmol/L (3.5-5.1); Sodium 145 mmol/L (136-145)
[2020-03-21 06:11] LABS: Band 7 % (5-11); Lymphocytes 2 % (21-51); MDiff Complete? YES; Monocytes 3 % (0-10); Neutrophil 88 % (42-75); Nucleated RBC 2 % (0)
--- NOTE | 2020-03-21 08:01 | RAD ---
EXAM: Portable chest PROVIDED CLINICAL HISTORY: Respiratory insufficiency COMPARISON: 03/20/2020 FINDINGS: Significant interval change with respect to the prior examination is not apparent. IMPRESSION: As above.
[2020-03-21] MEDS ORDERED: Furosemide 20 MG/2 ML VIAL IVP SCH (08:30)
[2020-03-21] MEDS ORDERED: Fentanyl CADD 100 ML ONE (08:41)
[2020-03-21] MEDS: Fentanyl CADD 100 ML IV SCH (08:43)
[2020-03-21] MEDS: Zinc Sulfate 220 MG CAP PO SCH (08:45)
[2020-03-21] MEDS: Ascorbic Acid 500 mg Chewable Tablet PO SCH (08:45)
[2020-03-21] MEDS: Thiamine 100 MG TAB PO SCH (08:45)
[2020-03-21] MEDS: Dexamethasone 4 mg/ml Vial SLOW IVP SCH ×2 (08:45→21:32)
[2020-03-21] MEDS: Cholecalciferol (Vitamin D3) 400 UNITS TAB PO SCH (08:45)
[2020-03-21] MEDS ORDERED: Famotidine 20 MG TAB PER TUBE SCH (09:00)
--- NOTE | 2020-03-21 09:04 | PRG ---
DATE OF SERVICE: 03/21/2020 SUBJECTIVE: Farrukh Macias remains intubated in the vent. Unfortunately, his sats dropped last night. He is now on 70% and PEEP of 10. OBJECTIVE: VITAL SIGNS: Temperature 98, pulse 71, respirations 16, blood pressure 120/72. His I's and O's are slightly positive. CHEST: No wheezing, no crackles. CARDIAC: Normal S1. ABDOMEN: No masses. DIAGNOSTIC DATA: X-ray still shows bilateral infiltrates krause positive pneumonia, respiratory failure. PLAN: 1. Continue high-dose steroids, empiric antibiotics, supportive care. He received one bag of plasma. I am going to increase a dose of Lovenox. 2. Awaiting reports on his D-dimer. Try and adjust vent. 3. Otherwise, nutrition, PT. One-half hour of critical time. Job ID: [id number]
[2020-03-21] MEDS: Cefepime 1 GM in Sodium Chloride 0.9% 100 ML IVPB SCH ×2 (10:41→21:32)
--- NOTE | 2020-03-21 16:59 | PDOC.HOSPP ---
- Subjective Encounter Date: 03/21/20 Encounter Time: 13:00 Subjective: Patient continues to be intubated - Objective Vital Signs & Weight: Vital Signs (12 hours) Temp Pulse Resp Pulse Ox 03/21/20 16:00 22 H 03/21/20 15:10 93 03/21/20 15:00 98 F 03/21/20 14:00 21 H 03/21/20 12:00 97.6 F 28 H 03/21/20 11:32 83 03/21/20 10:00 22 H 03/21/20 08:00 18 92 L 03/21/20 07:32 71 03/21/20 07:00 98.0 F 03/21/20 06:00 16 Weight Admit Weight 155 lb 6.814 oz Weight 159 lb 6.307 oz Most Recent Monitor Data Heart Rate from ECG 81 NIBP 114/70 NIBP BP-Mean 84 Respiration from ECG 17 SpO2 90 I&O: 03/20/20 03/21/20 03/22/20 06:59 06:59 06:59 Intake Total 491.3 2002.7 3 Output Total 855 880 880 Balance -363.7 1122.7 -877 Result Diagrams: 03/21/20 05:00 03/21/20 05:00 Hospitalist ROS - Review of Systems Other: Intubated - Medication Medications: Active Medications Generic Name Dose Route Start Last Admin Trade Name Freq PRN Reason Stop Dose Admin Acetaminophen 650 mg 03/19/20 16:49 03/19/20 17:36 Acetaminophen 325 Mg Tab PO 650 mg Q6H PRN Administration Fever or Pain Ascorbic Acid 500 mg 03/19/20 09:00 03/21/20 08:45 Ascorbic Acid 500 Mg Chewable Tablet PO 500 mg DAILY BETTY Administration Cholecalciferol 400 units 03/19/20 09:00 03/21/20 08:45 Cholecalciferol (Vitamin D3) 400 Units Tab PO 400 units DAILY BETTY Administration Dexamethasone 10 mg 03/19/20 09:00 03/21/20 08:45 Dexamethasone 4 Mg/Ml Vial SLOW IVP 10 mg BID BETTY Administration Famotidine 20 mg 03/21/20 09:00 03/21/20 08:44 Famotidine 20 Mg Tab PER TUBE 20 mg BID BETTY Administration Fentanyl 100 mls @ 0 mls/hr 03/18/20 18:00 03/21/20 08:43 Fentanyl Cadd IV 04/17/20 18:00 100 mls INF BETTY Administration Protocol Per Protocol Cefepime HCl 1 gm/ Sodium 100 mls @ 200 mls/hr 03/19/20 10:00 03/21/20 10:41 Chloride IVPB 100 mls 1000,2200 BETTY Administration Doxycycline Hyclate 100 mg/ 100 mls @ 100 mls/hr 03/19/20 09:00 03/21/20 08:44 Sodium Chloride IVPB 03/29/20 09:01 100 mls Q12HR BETTY Administration Lorazepam 2 mg 03/18/20 18:00 03/21/20 03:01 Lorazepam 2 Mg/Ml Vial SLOW IVP 04/17/20 18:00 2 mg Q1H PRN Administration Breakthrough agitation Propofol 1,000 mg 03/18/20 18:00 03/21/20 01:59 Propofol 1,000 Mg/100 Ml Vial IV 04/17/20 18:00 1,000 mg INF PRN Administration TO ACHIEVE GOAL RASS Protocol Sodium Chloride 10 ml 03/19/20 09:00 03/21/20 08:45 Flush - Normal Saline 10 Ml Syringe IVF 10 ml Q12HR BETTY Administration Thiamine HCl 100 mg 03/19/20 09:00 03/21/20 08:45 Thiamine 100 Mg Tab PO 100 mg DAILY BETTY Administration Zinc Sulfate 220 mg 03/19/20 09:00 03/21/20 08:45 Zinc Sulfate 220 Mg Cap PO 220 mg DAILY BETTY Administration - Exam Neck: negative: supple, symmetric, no JVD, no thyromegaly, no lymphadenopathy, no carotid bruit, JVD Heart: negative: RRR, no murmur, no gallops, no rubs, normal peripheral pulses, irregular, diminshed peripheral pulses, murmur present, II/IV, III/IV Respiratory: negative: CTAB, no wheezes, no rales, no ronchi, normal chest expansion, no tachypnea, normal percussion, rales, rhonchi, tachypneic, wheezes Gastrointestinal: negative: soft, non-tender, non-distended, normal bowel sounds, no palpable masses, no hepatomegaly, no splenomegaly, no bruit, no guarding, no rigidity, tender to palpation, distended, diminished bowl sounds, voluntary guarding Hosp A/P - Plan (1) Septic shock Code(s): A41.9 - SEPSIS, UNSPECIFIED ORGANISM; R65.21 - SEVERE SEPSIS WITH SEPTIC SHOCK Status: Acute (2) Pneumonia due to COVID-19 virus Code(s): U07.1 - COVID-19; J12.82 - PNEUMONIA DUE TO CORONAVIRUS DISEASE 2018 Status: Acute (3) Acute hypoxemic respiratory failure due to COVID-19 Code(s): U07.1 - COVID-19; J96.01 - ACUTE RESPIRATORY FAILURE WITH HYPOXIA Status: Acute (4) Metabolic encephalopathy Code(s): G93.41 - METABOLIC ENCEPHALOPATHY Status: Acute - Plan Assessment This is a 70-year-old male with no past medical history or chronic medications failed who outpatient therapy for COVID-19, which was diagnosed on March 06, 2020. He presented to the ER with worsening shortness of breath and productive cough and was found to have septic shock with a lactic acid of 7.9. He had extensive airspace consolidation on his CT chest. Pulmonary embolism was ruled out. He is still on mechanical ventilator for acute hypoxemic respiratory failure and receiving systemic corticosteroids. Blood culture and urine cultures are negative to date Acute hypoxemic respiratory failure COVID-19 pneumonia Septic shock Plan: Vent settings as per critical care. PEEP increased to 10, FiO2 increased to 60% No ventilatory issues Day 3 of Zosyn for possible superimposed bacterial pneumonia Day 3 of dexamethasone along with thiamine, vitamin C, vitamin D and zinc Continue DVT prophylaxis PPI for stress ulcer prophylaxis Nutrition started Daily CRP, chest x-ray
[2020-03-21] MEDS: Enoxaparin Sodium 60 MG/0.6 ML SYRINGE SC SCH (21:38)
[2020-03-22] MEDS: Propofol 1,000 MG/100 ML VIAL IV PRN ×3 (02:44→22:11)
[2020-03-22] MEDS ORDERED: Fentanyl CADD 100 ML ONE (04:05)
[2020-03-22 05:48] LABS: Anion Gap 12 mmol/L (10-20); BUN (Urea Nitrogen) 27 mg/dL (8.4-25.7); CRP (Inflammatory) 2.74 mg/dL (= or < 0.5); Calc. Creatinine Clearance 99 mL/min (70-130); Calcium 7.7 mg/dL (7.8-10.44); Carbon Dioxide 26 mmol/L (23-31); Chloride 111 mmol/L (98-107); Glucose 183 mg/dL (83-110); Potassium 4.2 mmol/L (3.5-5.1); Sodium 145 mmol/L (136-145)
[2020-03-22 06:14] LABS: Band 10 % (5-11); Hemoglobin 10.9 g/dL (14.0-18.0); Lymphocytes 8 % (21-51); MDiff Complete? YES; Mean Corpuscular HGB CONC 32.6 g/dL (32.0-36.0); Mean Corpuscular Hemoglobin 30.6 pg (27.0-31.0); Mean Platelet Volume 7.8 fL (7.4-10.4); Monocytes 1 % (0-10); Myelocyte 2 % (0-0); Neutrophil 79 % (42-75); Platelet Count 496 thou/uL (130-400); RBC Distribution Width 12.6 % (11.5-14.5); Red Blood Cell (RBC) Count 3.57 mill/uL (4.70-6.10); White Blood Cell (WBC) Count 8.6 thou/uL (4.8-10.8)
[2020-03-22] MEDS: Dexamethasone 4 mg/ml Vial SLOW IVP SCH ×2 (07:29→22:09)
[2020-03-22] MEDS: Ascorbic Acid 500 mg Chewable Tablet PO SCH (07:30)
[2020-03-22] MEDS: Enoxaparin Sodium 60 MG/0.6 ML SYRINGE SC SCH ×2 (07:30→22:09)
[2020-03-22] MEDS: Zinc Sulfate 220 MG CAP PO SCH (07:30)
[2020-03-22] MEDS: Cholecalciferol (Vitamin D3) 400 UNITS TAB PO SCH (07:30)
[2020-03-22] MEDS: Thiamine 100 MG TAB PO SCH (07:30)
--- NOTE | 2020-03-22 08:24 | RAD ---
PORTABLE CHEST: HISTORY: Intubation. COMPARISON: 03/21/2020. FINDINGS: ET tube and NG tube remain in place. Patchy infiltrate throughout the right lung. There is patchy i nfiltrate in the left mid and lower lung. No significant change from yesterday. POS: AGW
[2020-03-22] MEDS: Cefepime 1 GM in Sodium Chloride 0.9% 100 ML IVPB SCH ×2 (09:25→22:03)
--- NOTE | 2020-03-22 09:35 | PRG ---
DATE OF SERVICE: 03/22/2020 SUBJECTIVE: Farrukh Macias is a 70-year-old gentleman. Last night, his oxygen had to be increased. OBJECTIVE: VITAL SIGNS: Temperature 97, saturations 100%, respiratory rate 18, and blood pressure 105/70. CHEST: Bilateral crackles. CARDIAC: Normal S1 and S2. No gallops. ABDOMEN: No masses. LABORATORY DATA: Unremarkable. X-ray shows worsening bilateral infiltrates. ASSESSMENT: 1. Respiratory failure. 2. Simmons positive pneumonia. PLAN: He is clearly not weanable. He is on high-dose Lovenox. Supportive care, antibiotics, and steroids. Vent being adjusted. TIME SPENT: One-half hour of critical care time. Job ID: [id number]
--- NOTE | 2020-03-22 18:46 | PDOC.HOSPP ---
- Subjective Encounter Date: 03/22/20 Encounter Time: 12:00 Subjective: pt intubated - Objective Vital Signs & Weight: Vital Signs (12 hours) Temp Pulse Resp BP Pulse Ox 03/22/20 18:00 22 H 03/22/20 16:00 97.6 F 22 H 03/22/20 14:50 85 130/79 03/22/20 14:00 22 H 03/22/20 12:00 98.1 F 27 H 03/22/20 11:22 99 127/73 03/22/20 10:00 23 H 03/22/20 08:00 97.8 F 18 03/22/20 07:51 96 03/22/20 07:33 83 121/77 Weight Admit Weight 155 lb 6.814 oz Weight 159 lb 6.307 oz Most Recent Monitor Data Heart Rate from ECG 91 NIBP 118/72 NIBP BP-Mean 87 Respiration from ECG 16 SpO2 92 I&O: 03/21/20 03/22/20 03/23/20 06:59 06:59 06:59 Intake Total 2002.7 1696 1026 Output Total 880 1575 575 Balance 1122.7 121 451 Result Diagrams: 04/11/20 04:05 04/11/20 04:05 Additional Labs: Accuchecks 03/21/20 22:09 POC Glucose 161 H Hospitalist ROS - Review of Systems Other: intubated - Medication Medications: Active Medications Generic Name Dose Route Start Last Admin Trade Name Freq PRN Reason Stop Dose Admin Acetaminophen 650 mg 03/19/20 16:49 03/19/20 17:36 Acetaminophen 325 Mg Tab PO 650 mg Q6H PRN Administration Fever or Pain Ascorbic Acid 500 mg 03/19/20 09:00 03/22/20 07:30 Ascorbic Acid 500 Mg Chewable Tablet PO 500 mg DAILY BETTY Administration Cholecalciferol 400 units 03/19/20 09:00 03/22/20 07:30 Cholecalciferol (Vitamin D3) 400 Units Tab PO 400 units DAILY BETTY Administration Dexamethasone 10 mg 03/19/20 09:00 03/22/20 07:29 Dexamethasone 4 Mg/Ml Vial SLOW IVP 10 mg BID BETTY Administration Enoxaparin Sodium 60 mg 03/21/20 21:00 03/22/20 07:30 Enoxaparin Sodium 60 Mg/0.6 Ml Syringe SC 60 mg 0900,2100 BETTY Administration Fentanyl 100 mls @ 0 mls/hr 03/18/20 18:00 03/21/20 08:43 Fentanyl Cadd IV 04/17/20 18:00 100 mls INF BETTY Administration Protocol Per Protocol Cefepime HCl 1 gm/ Sodium 100 mls @ 200 mls/hr 03/19/20 10:00 03/22/20 09:25 Chloride IVPB 100 mls 1000,2200 BETTY Administration Doxycycline Hyclate 100 mg/ 100 mls @ 100 mls/hr 03/19/20 09:00 03/22/20 09:25 Sodium Chloride IVPB 03/29/20 09:01 100 mls Q12HR BETTY Administration Lorazepam 2 mg 03/18/20 18:00 03/21/20 03:01 Lorazepam 2 Mg/Ml Vial SLOW IVP 04/17/20 18:00 2 mg Q1H PRN Administration Breakthrough agitation Pantoprazole Sodium 40 mg 03/21/20 21:00 03/22/20 07:32 Pantoprazole 40 Mg Tab PO 40 mg BID BETTY Administration Propofol 1,000 mg 03/18/20 18:00 03/22/20 09:27 Propofol 1,000 Mg/100 Ml Vial IV 04/17/20 18:00 1,000 mg INF PRN Administration TO ACHIEVE GOAL RASS Protocol Sodium Chloride 10 ml 03/19/20 09:00 03/22/20 07:32 Flush - Normal Saline 10 Ml Syringe IVF 10 ml Q12HR BETTY Administration Thiamine HCl 100 mg 03/19/20 09:00 03/22/20 07:30 Thiamine 100 Mg Tab PO 100 mg DAILY BETTY Administration Zinc Sulfate 220 mg 03/19/20 09:00 03/22/20 07:30 Zinc Sulfate 220 Mg Cap PO 220 mg DAILY BETTY Administration Hospitalist Exam Neck: negative: supple, symmetric, no JVD, no thyromegaly, no lymphadenopathy, no carotid bruit, JVD Heart: negative: RRR, no murmur, no gallops, no rubs, normal peripheral pulses, irregular, diminshed peripheral pulses, murmur present, II/IV, III/IV Respiratory: negative: CTAB, no wheezes, no rales, no ronchi, normal chest expansion, no tachypnea, normal percussion, rales, rhonchi, tachypneic, wheezes Gastrointestinal: negative: soft, non-tender, non-distended, normal bowel sounds, no palpable masses, no hepatomegaly, no splenomegaly, no bruit, no guarding, no rigidity, tender to palpation, distended, diminished bowl sounds, voluntary guarding Hosp A/P - Plan (1) Septic shock Code(s): A41.9 - SEPSIS, UNSPECIFIED ORGANISM; R65.21 - SEVERE SEPSIS WITH SEPTIC SHOCK Status: Acute (2) Pneumonia due to COVID-19 virus Code(s): U07.1 - COVID-19; J12.82 - PNEUMONIA DUE TO CORONAVIRUS DISEASE 2019 Status: Acute (3) Acute hypoxemic respiratory failure due to COVID-19 Code(s): U07.1 - COVID-19; J96.01 - ACUTE RESPIRATORY FAILURE WITH HYPOXIA Status: Acute (4) Metabolic encephalopathy Code(s): G93.41 - METABOLIC ENCEPHALOPATHY Status: Acute - Plan Assessment This is a 70-year-old male with no past medical history or chronic medications failed who outpatient therapy for COVID-19, which was diagnosed on March 06, 2020. He presented to the ER with worsening shortness of breath and productive cough and was found to have septic shock with a lactic acid of 7.9. He had extensive airspace consolidation on his CT chest. Pulmonary embolism was ruled out. He is still on mechanical ventilator for acute hypoxemic respiratory failure and receiving systemic corticosteroids. Blood culture and urine cultures are negative to date Acute hypoxemic respiratory failure COVID-19 pneumonia Septic shock Plan: Vent settings as per critical care. PEEP increased to 10, FiO2 increased to 60% No ventilatory issues Day 4of Zosyn for possible superimposed bacterial pneumonia Day 4 of dexamethasone along with thiamine, vitamin C, vitamin D and zinc Continue DVT prophylaxis PPI for stress ulcer prophylaxis Nutrition started Daily CRP, chest x-ray 03/22 pt intubated not weanable. will continue current tx.
[2020-03-22] MEDS: Fentanyl CADD 100 ML IV SCH (21:29)
[2020-03-23] MEDS: Acetaminophen 325 MG TAB PO PRN (04:11)
[2020-03-23] MEDS: Propofol 1,000 MG/100 ML VIAL IV PRN ×4 (05:00→22:41)
--- NOTE | 2020-03-23 08:12 | RAD ---
EXAM: CHEST ONE VIEW HISTORY: Intubated. Follow-up evaluation. COMPARISON: 03/22/2020 FINDINGS: Endotracheal tube and nasogastric tube remain in place. Tip of the endotracheal is tube just above th e level of the eduardo. Increased interstitial opacities are seen diffusely throughout the lungs. Greater degree of coarse interstitial and alveolar opacities were seen bilaterally on prior exam. The se alveolar opacities do appear mildly improved compared to prior study. No other interval change. IMPRESSION: Mild improvement in bilateral pneumonia.
--- NOTE | 2020-03-23 09:29 | PRG ---
DATE OF SERVICE: 03/23/2020 SUBJECTIVE: Farrukh Macias remains in the ICU on day #5, he is doing better. He has received a bag of convalescent plasma. His x-ray looks much improved. OBJECTIVE: VITAL SIGNS: His temperature is 100, blood pressure 109/77, and sats are 97%. CHEST: No wheezing. No crackles. CARDIAC: Normal S1 and S2. No gallops. ABDOMEN: No masses. ASSESSMENT AND PLAN: Simmons positive pneumonia, respiratory failure. Slightly better x-ray. Continue high-dose Decadron until Thursday. Thereafter, we will decrease the dose. Empiric antibiotics, supportive care, nutrition, PT. One-half hour of critical care time. Job ID: [id number]
[2020-03-23] MEDS: Thiamine 100 MG TAB PO SCH (09:35)
[2020-03-23] MEDS: Zinc Sulfate 220 MG CAP PO SCH (09:35)
[2020-03-23] MEDS: Ascorbic Acid 500 mg Chewable Tablet PO SCH (09:35)
[2020-03-23] MEDS: Cefepime 1 GM in Sodium Chloride 0.9% 100 ML IVPB SCH ×2 (09:35→20:52)
[2020-03-23] MEDS: Enoxaparin Sodium 60 MG/0.6 ML SYRINGE SC SCH ×2 (09:36→20:53)
[2020-03-23] MEDS: Dexamethasone 4 mg/ml Vial SLOW IVP SCH ×2 (09:36→20:53)
[2020-03-23] MEDS: Cholecalciferol (Vitamin D3) 400 UNITS TAB PO SCH (10:59)
[2020-03-23] MEDS ORDERED: Fentanyl CADD 100 ML ONE (14:11)
[2020-03-23] MEDS: Lorazepam 2 MG/ML VIAL SLOW IVP PRN (15:16)
--- NOTE | 2020-03-23 15:25 | PDOC.HOSPP ---
- Subjective Encounter Date: 03/23/20 Encounter Time: 10:30 Subjective: Patient continues to be intubated - Objective Vital Signs & Weight: Vital Signs (12 hours) Temp Pulse Resp BP Pulse Ox 03/23/20 15:05 110 H 03/23/20 12:00 19 03/23/20 11:24 94 03/23/20 10:00 28 H 03/23/20 08:00 90 L 03/23/20 07:55 21 H 03/23/20 07:29 85 03/23/20 06:00 100.0 F H 20 03/23/20 05:00 100.0 F H 03/23/20 04:41 100.0 F H 102 H 18 97/71 03/23/20 04:11 99.8 F H 102 H 20 93/65 03/23/20 04:00 99.8 F H 20 Weight Admit Weight 155 lb 6.814 oz Weight 158 lb 15.253 oz Most Recent Monitor Data Heart Rate from ECG 104 NIBP 173/113 NIBP BP-Mean 133 Respiration from ECG 19 SpO2 100 I&O: 03/22/20 03/23/20 03/24/20 06:59 06:59 06:59 Intake Total 1696 1958 294.7 Output Total 1575 1270 345 Balance 121 688 -50.3 Result Diagrams: 03/22/20 05:00 03/22/20 05:00 Additional Labs: Accuchecks 03/23/20 03/23/20 11:06 01:57 POC Glucose 166 H 149 H Hospitalist ROS - Review of Systems Other: Patient intubated - Medication Medications: Active Medications Generic Name Dose Route Start Last Admin Trade Name Freq PRN Reason Stop Dose Admin Acetaminophen 650 mg 03/19/20 16:49 03/23/20 04:11 Acetaminophen 325 Mg Tab PO 650 mg Q6H PRN Administration Fever or Pain Ascorbic Acid 500 mg 03/19/20 09:00 03/23/20 09:35 Ascorbic Acid 500 Mg Chewable Tablet PO 500 mg DAILY BETTY Administration Cholecalciferol 400 units 03/19/20 09:00 03/23/20 10:59 Cholecalciferol (Vitamin D3) 400 Units Tab PO Not Given DAILY BETTY Dexamethasone 10 mg 03/19/20 09:00 03/23/20 09:36 Dexamethasone 4 Mg/Ml Vial SLOW IVP 10 mg BID BETTY Administration Enoxaparin Sodium 60 mg 03/21/20 21:00 03/23/20 09:36 Enoxaparin Sodium 60 Mg/0.6 Ml Syringe SC 60 mg 0900,2100 BETTY Administration Fentanyl 100 mls @ 0 mls/hr 03/18/20 18:00 03/22/20 21:29 Fentanyl Cadd IV 04/17/20 18:00 100 mls INF BETTY Administration Protocol Per Protocol Cefepime HCl 1 gm/ Sodium 100 mls @ 200 mls/hr 03/19/20 10:00 03/23/20 09:35 Chloride IVPB 100 mls 1000,2200 BETTY Administration Doxycycline Hyclate 100 mg/ 100 mls @ 100 mls/hr 03/19/20 09:00 03/23/20 09:36 Sodium Chloride IVPB 03/29/20 09:01 100 mls Q12HR BETTY Administration Lorazepam 2 mg 03/18/20 18:00 03/23/20 15:16 Lorazepam 2 Mg/Ml Vial SLOW IVP 04/17/20 18:00 2 mg Q1H PRN Administration Breakthrough agitation Pantoprazole Sodium 40 mg 03/21/20 21:00 03/23/20 09:35 Pantoprazole 40 Mg Tab PO 40 mg BID BETTY Administration Propofol 1,000 mg 03/18/20 18:00 03/23/20 11:02 Propofol 1,000 Mg/100 Ml Vial IV 04/17/20 18:00 1,000 mg INF PRN Administration TO ACHIEVE GOAL RASS Protocol Sodium Chloride 10 ml 03/19/20 09:00 03/23/20 09:36 Flush - Normal Saline 10 Ml Syringe IVF 10 ml Q12HR BETTY Administration Thiamine HCl 100 mg 03/19/20 09:00 03/23/20 09:35 Thiamine 100 Mg Tab PO 100 mg DAILY BETTY Administration Zinc Sulfate 220 mg 03/19/20 09:00 03/23/20 09:35 Zinc Sulfate 220 Mg Cap PO 220 mg DAILY BETTY Administration - Exam Heart: negative: RRR, no murmur, no gallops, no rubs, normal peripheral pulses, irregular, diminshed peripheral pulses, murmur present, II/IV, III/IV Respiratory: negative: CTAB, no wheezes, no rales, no ronchi, normal chest expansion, no tachypnea, normal percussion, rales, rhonchi, tachypneic, wheezes Gastrointestinal: negative: soft, non-tender, non-distended, normal bowel sound s, no palpable masses, no hepatomegaly, no splenomegaly, no bruit, no guarding, no rigidity, tender to palpation, distended, diminished bowl sounds, voluntary guarding Extremities: negative: no cyanosis, no clubbing, no edema, 1+ LE edema, 2+ LE edema, clubbing Hosp A/P - Plan (1) Septic shock Code(s): A41.9 - SEPSIS, UNSPECIFIED ORGANISM; R65.21 - SEVERE SEPSIS WITH SEPTIC SHOCK Status: Acute (2) Pneumonia due to COVID-19 virus Code(s): U07.1 - COVID-19; J12.82 - PNEUMONIA DUE TO CORONAVIRUS DISEASE 2019 Status: Acute (3) Acute hypoxemic respiratory failure due to COVID-19 Code(s): U07.1 - COVID-19; J96.01 - ACUTE RESPIRATORY FAILURE WITH HYPOXIA Status: Acute (4) Metabolic encephalopathy Code(s): G93.41 - METABOLIC ENCEPHALOPATHY Status: Acute - Plan Assessment This is a 70-year-old male with no past medical history or chronic medications failed who outpatient therapy for COVID-19, which was diagnosed on March 06, 2020. He presented to the ER with worsening shortness of breath and productive cough and was found to have septic shock with a lactic acid of 7.9. He had extensive airspace consolidation on his CT chest. Pulmonary embolism was ruled out. He is still on mechanical ventilator for acute hypoxemic respiratory failure and receiving systemic corticosteroids. Blood culture and urine cultures are negative to date Acute hypoxemic respiratory failure COVID-19 pneumonia Septic shock Plan: Vent settings as per critical care. PEEP increased to 10, FiO2 increased to 60% No ventilatory issues Zosyn for possible superimposed bacterial pneumonia dexamethasone along with thiamine, vitamin C, vitamin D and zinc Continue DVT prophylaxis PPI for stress ulcer prophylaxis Nutrition started Daily CRP, chest x-ray 03/22 pt intubated not weanable. will continue current tx. 03/23 patient continues to be intubated. His PEEP has been decreased to 8 and FiO2 off 60%. We will continue to monitor.
[2020-03-24] MEDS ORDERED: Fentanyl CADD 100 ML ONE ×2 (00:13→11:33)
[2020-03-24] MEDS: Propofol 1,000 MG/100 ML VIAL IV PRN ×3 (04:55→15:45)
[2020-03-24] MEDS: Cholecalciferol (Vitamin D3) 400 UNITS TAB PO SCH (10:00)
[2020-03-24] MEDS: Thiamine 100 MG TAB PO SCH (10:00)
[2020-03-24] MEDS: Zinc Sulfate 220 MG CAP PO SCH (10:00)
[2020-03-24] MEDS: Enoxaparin Sodium 60 MG/0.6 ML SYRINGE SC SCH ×2 (10:00→21:05)
[2020-03-24] MEDS: Ascorbic Acid 500 mg Chewable Tablet PO SCH (10:01)
[2020-03-24] MEDS: Dexamethasone 4 mg/ml Vial SLOW IVP SCH ×2 (10:02→21:04)
[2020-03-24] MEDS: Cefepime 1 GM in Sodium Chloride 0.9% 100 ML IVPB SCH ×2 (10:06→21:04)
[2020-03-24] MEDS: Lorazepam 2 MG/ML VIAL SLOW IVP PRN ×3 (10:08→18:03)
--- NOTE | 2020-03-24 16:45 | PRG ---
DATE OF SERVICE: 03/24/2020 SUBJECTIVE: Farrukh Macias remains mechanically ventilated. He has had his PEEP at 8 today and decreased his FiO2 to 40%. OBJECTIVE: VITAL SIGNS: Heart rates in 80s, FiO2 was at 50 earlier, blood pressure 139/80, respiratory rates in the teens. LUNGS: Clear. HEART: Regular rhythm. ABDOMEN: Soft. LABORATORY DATA: There has been no lab for a couple of days. We will reorder lab and x-rays. IMPRESSION: COVID pneumonia, respiratory failure. Continue with supportive care. He appears to be stable at this time. Job ID: [id number]
--- NOTE | 2020-03-24 16:57 | PDOC.HOSPP ---
- Subjective Encounter Date: 03/24/20 Encounter Time: 10:30 Subjective: Patient intubated - Objective Vital Signs & Weight: Vital Signs (12 hours) Temp Pulse Resp 03/24/20 16:00 27 H 03/24/20 15:43 83 03/24/20 12:00 97.4 F L 22 H 03/24/20 11:56 83 03/24/20 10:00 26 H 03/24/20 08:00 98.4 F 21 H 03/24/20 07:18 69 03/24/20 06:00 97.2 F L 20 03/24/20 05:00 97.2 F L Weight Admit Weight 155 lb 6.814 oz Weight 160 lb 7.944 oz Most Recent Monitor Data Heart Rate from ECG 86 NIBP 109/68 NIBP BP-Mean 81 Respiration from ECG 16 SpO2 97 I&O: 03/23/20 03/24/20 03/25/20 06:59 06:59 06:59 Intake Total 1958 1337.2 157.8 Output Total 1270 1615 400 Balance 688 -277.8 -242.2 Result Diagrams: 03/22/20 05:00 03/22/20 05:00 Additional Labs: Accuchecks 03/23/20 21:48 POC Glucose 208 H Hospitalist ROS - Review of Systems Other: Patient intubated - Medication Medications: Active Medications Generic Name Dose Route Start Last Admin Trade Name Freq PRN Reason Stop Dose Admin Acetaminophen 650 mg 03/19/20 16:49 03/23/20 04:11 Acetaminophen 325 Mg Tab PO 650 mg Q6H PRN Administration Fever or Pain Ascorbic Acid 500 mg 03/19/20 09:00 03/24/20 10:01 Ascorbic Acid 500 Mg Chewable Tablet PO 500 mg DAILY BETTY Administration Cholecalciferol 400 units 03/19/20 09:00 03/24/20 10:00 Cholecalciferol (Vitamin D3) 400 Units Tab PO 400 units DAILY BETTY Administration Dexamethasone 10 mg 03/19/20 09:00 03/24/20 10:02 Dexamethasone 4 Mg/Ml Vial SLOW IVP 10 mg BID BETTY Administration Enoxaparin Sodium 60 mg 03/21/20 21:00 03/24/20 10:00 Enoxaparin Sodium 60 Mg/0.6 Ml Syringe SC 60 mg 0900,2100 BETTY Administration Fentanyl 100 mls @ 0 mls/hr 03/18/20 18:00 03/22/20 21:29 Fentanyl Cadd IV 04/17/20 18:00 100 mls INF BETTY Administration Protocol Per Protocol Cefepime HCl 1 gm/ Sodium 100 mls @ 200 mls/hr 03/19/20 10:00 03/24/20 10:06 Chloride IVPB 100 mls 1000,2200 BETTY Administration Doxycycline Hyclate 100 mg/ 100 mls @ 100 mls/hr 03/19/20 09:00 03/24/20 10:02 Sodium Chloride IVPB 03/29/20 09:01 100 mls Q12HR BETTY Administration Lorazepam 2 mg 03/18/20 18:00 03/24/20 12:49 Lorazepam 2 Mg/Ml Vial SLOW IVP 04/17/20 18:00 2 mg Q1H PRN Administration Breakthrough agitation Pantoprazole Sodium 40 mg 03/21/20 21:00 03/24/20 10:04 Pantoprazole 40 Mg Tab PO Not Given BID BETTY Propofol 1,000 mg 03/18/20 18:00 03/24/20 15:45 Propofol 1,000 Mg/100 Ml Vial IV 04/17/20 18:00 1,000 mg INF PRN Administration TO ACHIEVE GOAL RASS Protocol Sodium Chloride 10 ml 03/19/20 09:00 03/24/20 10:03 Flush - Normal Saline 10 Ml Syringe IVF 10 ml Q12HR BETTY Administration Thiamine HCl 100 mg 03/19/20 09:00 03/24/20 10:00 Thiamine 100 Mg Tab PO 100 mg DAILY BETTY Administration Zinc Sulfate 220 mg 03/19/20 09:00 03/24/20 10:00 Zinc Sulfate 220 Mg Cap PO 220 mg DAILY BETTY Administration - Exam Neck: negative: supple, symmetric, no JVD, no thyromegaly, no lymphadenopathy, no carotid bruit, JVD Heart: negative: RRR, no murmur, no gallops, no rubs, normal peripheral pulses, irregular, diminshed peripheral pulses, murmur present, II/IV, III/IV Respiratory: negative: CTAB, no wheezes, no rales, no ronchi, normal chest expansion, no tachypnea, normal percussion, rales, rhonchi, tachypneic, wheezes Gastrointestinal: negative: soft, non-tender, non-distended, normal bowel sounds, no palpable masses, no hepatomegaly, no splenomegaly, no bruit, no guarding, no rigidity, tender to palpation, distended, diminished bowl sounds, voluntary guarding Extremities: 1+ LE edema Hosp A/P - Plan (1) Septic shock Code(s): A41.9 - SEPSIS, UNSPECIFIED ORGANISM; R65.21 - SEVERE SEPSIS WITH SEPTIC SHOCK Status: Acute (2) Pneumonia due to COVID-19 virus Code(s): U07.1 - COVID-19; J12.82 - PNEUMONIA DUE TO CORONAVIRUS DISEASE 2019 Status: Acute (3) Acute hypoxemic respiratory failure due to COVID-19 Code(s): U07.1 - COVID-19; J96.01 - ACUTE RESPIRATORY FAILURE WITH HYPOXIA Status: Acute (4) Metabolic encephalopathy Code(s): G93.41 - METABOLIC ENCEPHALOPATHY Status: Acute - Plan Assessment This is a 70-year-old male with no past medical history or chronic medications failed who outpatient therapy for COVID-19, which was diagnosed on March 06, 2020. He presented to the ER with worsening shortness of breath and productive cough and was found to have septic shock with a lactic acid of 7.9. He had extensive airspace consolidation on his CT chest. Pulmonary embolism was ruled out. He is still on mechanical ventilator for acute hypoxemic respiratory failure and receiving systemic corticosteroids. Blood culture and urine cultures are negative to date Acute hypoxemic respiratory failure COVID-19 pneumonia Septic shock Plan: Vent settings as per critical care. PEEP increased to 10, FiO2 increased to 60% No ventilatory issues Zosyn for possible superimposed bacterial pneumonia dexamethasone along with thiamine, vitamin C, vitamin D and zinc Continue DVT prophylaxis PPI for stress ulcer prophylaxis Nutrition started Daily CRP, chest x-ray 03/22 pt intubated not weanable. will continue current tx. 03/23 patient continues to be intubated. His PEEP has been decreased to 8 and FiO2 off 60%. We will continue to monitor. 03/24 patient continues to be intubated. PEEP is currently at 8 FiO2 of 50%. Patient on DVT prophylaxis. We will call the son and updated him.
[2020-03-25] MEDS: Propofol 1,000 MG/100 ML VIAL IV PRN ×4 (00:26→18:03)
[2020-03-25] MEDS ORDERED: Fentanyl CADD 100 ML ONE ×2 (00:59→14:32)
[2020-03-25 05:03] LABS: Anion Gap 11 mmol/L (10-20); BUN (Urea Nitrogen) 33 mg/dL (8.4-25.7); Calc. Creatinine Clearance 111 mL/min (70-130); Calcium 7.8 mg/dL (7.8-10.44); Carbon Dioxide 27 mmol/L (23-31); Chloride 108 mmol/L (98-107); Glucose 246 mg/dL (83-110); Potassium 4.7 mmol/L (3.5-5.1); Sodium 141 mmol/L (136-145)
[2020-03-25 06:02] LABS: Hemoglobin 11.7 g/dL (14.0-18.0); Lymphocytes 2 % (21-51); MDiff Complete? YES; Mean Corpuscular HGB CONC 31.5 g/dL (32.0-36.0); Mean Corpuscular Hemoglobin 30.6 pg (27.0-31.0); Mean Platelet Volume 8.5 fL (7.4-10.4); Metamyelocyte 2 % (0-0); Monocytes 2 % (0-10); Neutrophil 94 % (42-75); Platelet Count 487 thou/uL (130-400); Platelet Morphology Comment Appears Increased; RBC Distribution Width 13.4 % (11.5-14.5); RBC Morphology Normal; Red Blood Cell (RBC) Count 3.82 mill/uL (4.70-6.10)
--- NOTE | 2020-03-25 09:10 | RAD ---
PORTABLE CHEST: 03/25/20 PROVIDED CLINICAL HISTORY: Respiratory insufficiency. COMPARISON: 03/23/2020 FINDINGS: There is more dense opacification of the right lung base with obscuration of the right hemidiaphragm. Additional significant interval change with respect to the prior study is not apparent. IMPRESSION: As above. POS: IVAN
[2020-03-25] MEDS: Ascorbic Acid 500 mg Chewable Tablet PO SCH (09:51)
[2020-03-25] MEDS: Dexamethasone 4 mg/ml Vial SLOW IVP SCH ×2 (09:52→21:29)
[2020-03-25] MEDS: Cholecalciferol (Vitamin D3) 400 UNITS TAB PO SCH (09:52)
[2020-03-25] MEDS: Thiamine 100 MG TAB PO SCH (09:52)
[2020-03-25] MEDS: Zinc Sulfate 220 MG CAP PO SCH (09:52)
[2020-03-25] MEDS: Enoxaparin Sodium 60 MG/0.6 ML SYRINGE SC SCH ×2 (09:54→21:28)
[2020-03-25] MEDS: Cefepime 1 GM in Sodium Chloride 0.9% 100 ML IVPB SCH ×2 (09:55→21:27)
--- NOTE | 2020-03-25 14:29 | PDOC.HOSPP ---
- Subjective Encounter Date: 03/25/20 Encounter Time: 10:00 Subjective: pt intubated - Objective Vital Signs & Weight: Vital Signs (12 hours) Temp Pulse Resp 03/25/20 12:00 98.3 F 17 03/25/20 11:37 75 03/25/20 10:00 21 H 03/25/20 08:00 98.1 F 21 H 03/25/20 06:46 82 03/25/20 06:00 98.6 F 16 03/25/20 05:00 98.6 F 03/25/20 04:00 98.7 F 16 03/25/20 03:09 79 03/25/20 03:00 98.7 F Weight Admit Weight 155 lb 6.814 oz Weight 2.593 oz Most Recent Monitor Data Heart Rate from ECG 70 NIBP 117/68 NIBP BP-Mean 84 Respiration from ECG 16 SpO2 100 I&O: 03/24/20 03/25/20 03/26/20 06:59 06:59 06:59 Intake Total 1337.2 2256.8 180 Output Total 1615 1515 345 Balance -277.8 741.8 -165 Result Diagrams: 03/25/20 04:22 03/25/20 04:22 Additional Labs: Accuchecks 03/24/20 21:51 POC Glucose 160 H Hospitalist ROS - Review of Systems Other: intubated - Medication Medications: Active Medications Generic Name Dose Route Start Last Admin Trade Name Freq PRN Reason Stop Dose Admin Acetaminophen 650 mg 03/19/20 16:49 03/23/20 04:11 Acetaminophen 325 Mg Tab PO 650 mg Q6H PRN Administration Fever or Pain Ascorbic Acid 500 mg 03/19/20 09:00 03/25/20 09:51 Ascorbic Acid 500 Mg Chewable Tablet PO 500 mg DAILY BETTY Administration Cholecalciferol 400 units 03/19/20 09:00 03/25/20 09:52 Cholecalciferol (Vitamin D3) 400 Units Tab PO 400 units DAILY BETTY Administration Dexamethasone 10 mg 03/19/20 09:00 03/25/20 09:52 Dexamethasone 4 Mg/Ml Vial SLOW IVP 10 mg BID BETTY Administration Enoxaparin Sodium 60 mg 03/21/20 21:00 03/25/20 09:54 Enoxaparin Sodium 60 Mg/0.6 Ml Syringe SC 60 mg 0900,2100 BETTY Administration Fentanyl 100 mls @ 0 mls/hr 03/18/20 18:00 03/22/20 21:29 Fentanyl Cadd IV 04/17/20 18:00 100 mls INF BETTY Administration Protocol Per Protocol Cefepime HCl 1 gm/ Sodium 100 mls @ 200 mls/hr 03/19/20 10:00 03/25/20 09:55 Chloride IVPB 100 mls 1000,2200 BETTY Administration Doxycycline Hyclate 100 mg/ 100 mls @ 100 mls/hr 03/19/20 09:00 03/25/20 09:54 Sodium Chloride IVPB 03/29/20 09:01 100 mls Q12HR BETTY Administration Lorazepam 2 mg 03/18/20 18:00 03/24/20 18:03 Lorazepam 2 Mg/Ml Vial SLOW IVP 04/17/20 18:00 2 mg Q1H PRN Administration Breakthrough agitation Pantoprazole Sodium 40 mg 03/21/20 21:00 03/25/20 09:56 Pantoprazole 40 Mg Tab PO Not Given BID BETTY Propofol 1,000 mg 03/18/20 18:00 03/25/20 08:55 Propofol 1,000 Mg/100 Ml Vial IV 04/17/20 18:00 1,000 mg INF PRN Administration TO ACHIEVE GOAL RASS Protocol Sodium Chloride 10 ml 03/19/20 09:00 03/25/20 09:54 Flush - Normal Saline 10 Ml Syringe IVF 10 ml Q12HR BETTY Administration Thiamine HCl 100 mg 03/19/20 09:00 03/25/20 09:52 Thiamine 100 Mg Tab PO 100 mg DAILY BETTY Administration Zinc Sulfate 220 mg 03/19/20 09:00 03/25/20 09:52 Zinc Sulfate 220 Mg Cap PO 220 mg DAILY BETTY Administration - Exam Neck: negative: supple, symmetric, no JVD, no thyromegaly, no lymphadenopathy, no carotid bruit, JVD Heart: negative: RRR, no murmur, no gallops, no rubs, normal peripheral pulses, irregular, diminshed peripheral pulses, murmur present, II/IV, III/IV Respiratory: negative: CTAB, no wheezes, no rales, no ronchi, normal chest expansion, no tachypnea, normal percussion, rales, rhonchi, tachypneic, wheezes Gastrointestinal: negative: soft, non-tender, non-distended, normal bowel sounds, no palpable masses, no hepatomegaly, no splenomegaly, no bruit, no guarding, no rigidity, tender to palpation, distended, diminished bowl sounds, voluntary guarding Hosp A/P - Plan (1) Septic shock Code(s): A41.9 - SEPSIS, UNSPECIFIED ORGANISM; R65.21 - SEVERE SEPSIS WITH SEPTIC SHOCK Status: Acute (2) Pneumonia due to COVID-19 virus Code(s): U07.1 - COVID-19; J12.82 - PNEUMONIA DUE TO CORONAVIRUS DISEASE 2019 Status: Acute (3) Acute hypoxemic respiratory failure due to COVID-19 Code(s): U07.1 - COVID-19; J96.01 - ACUTE RESPIRATORY FAILURE WITH HYPOXIA Status: Acute (4) Metabolic encephalopathy Code(s): G93.41 - METABOLIC ENCEPHALOPATHY Status: Acute - Plan Assessment This is a 70-year-old male with no past medical history or chronic medications failed who outpatient therapy for COVID-19, which was diagnosed on March 06, 2020. He presented to the ER with worsening shortness of breath and productive cough and was found to have septic shock with a lactic acid of 7 .9. He had extensive airspace consolidation on his CT chest. Pulmonary embolism was ruled out. He is still on mechanical ventilator for acute hypoxemic respiratory failure and receiving systemic corticosteroids. Blood culture and urine cultures are negative to date Acute hypoxemic respiratory failure COVID-19 pneumonia Septic shock Plan: Vent settings as per critical care. PEEP increased to 10, FiO2 increased to 60% No ventilatory issues Zosyn for possible superimposed bacterial pneumonia dexamethasone along with thiamine, vitamin C, vitamin D and zinc Continue DVT prophylaxis PPI for stress ulcer prophylaxis Nutrition started Daily CRP, chest x-ray 03/22 pt intubated not weanable. will continue current tx. 03/23 patient continues to be intubated. His PEEP has been decreased to 8 and FiO2 off 60%. We will continue to monitor. 03/24 patient continues to be intubated. PEEP is currently at 8 FiO2 of 50%. Patient on DVT prophylaxis. We will call the son and updated him. 03/25 pt is intubated. pulmonary is going down on his oxygen. pt on dvt ppx.
[2020-03-25] MEDS: Fentanyl CADD 100 ML IV SCH (14:46)
--- NOTE | 2020-03-25 15:36 | PRG ---
DATE OF SERVICE: 03/25/2020 SUBJECTIVE: Mr. Macias remains clinically stable. OBJECTIVE: VITAL SIGNS: Heart rate is in 70s, blood pressure 140/79, oximetry is 100%, FiO2 is at 45%. LUNGS: Remarkable for equal breath sounds. HEART: Regular rhythm. ABDOMEN: Soft, nontender. EXTREMITIES: Without edema. LABORATORY DATA: White count 9, hemoglobin 11.7, platelets 47. Sodium 141, potassium 4.7, chloride 108, bicarb 27, BUN 33, creatinine 0.63, glucose is 246 this morning. Chest radiograph shows bilateral infiltrates. IMPRESSION: COVID pneumonia and respiratory failure. He is relatively stable at this point in time. Job ID: [id number]
[2020-03-26] MEDS: Propofol 1,000 MG/100 ML VIAL IV PRN ×3 (01:31→17:39)
[2020-03-26 04:41] LABS: Band 9 % (5-11); Hemoglobin 11.4 g/dL (14.0-18.0); Lymphocytes 8 % (21-51); MDiff Complete? YES; Mean Corpuscular HGB CONC 32.5 g/dL (32.0-36.0); Mean Corpuscular Volume 95.5 fL (78.0-98.0); Mean Platelet Volume 8.5 fL (7.4-10.4); Metamyelocyte 2 % (0-0); Monocytes 2 % (0-10); Neutrophil 79 % (42-75); Platelet Count 470 thou/uL (130-400); Platelet Morphology Comment Appears Increased; RBC Distribution Width 13.3 % (11.5-14.5); Red Blood Cell (RBC) Count 3.68 mill/uL (4.70-6.10); White Blood Cell (WBC) Count 7.3 thou/uL (4.8-10.8)
[2020-03-26 04:46] LABS: Anion Gap 10 mmol/L (10-20); BUN (Urea Nitrogen) 30 mg/dL (8.4-25.7); Calc. Creatinine Clearance 0 mL/min (70-130); Calcium 7.8 mg/dL (7.8-10.44); Carbon Dioxide 29 mmol/L (23-31); Chloride 107 mmol/L (98-107); Glucose 241 mg/dL (83-110); Potassium 4.8 mmol/L (3.5-5.1); Sodium 141 mmol/L (136-145)
[2020-03-26] MEDS: Lorazepam 2 MG/ML VIAL SLOW IVP PRN ×2 (06:52→12:59)
--- NOTE | 2020-03-26 08:48 | PRG ---
DATE OF SERVICE: 03/26/2020 SUBJECTIVE: Mr. Macias this morning is intubated in the vent, sedated. His I's and O's have been good. OBJECTIVE: VITAL SIGNS: His temperature is 98, pulse 79, 40% FiO2, . CHEST: No wheezing, no crackles. CARDIAC: Normal S1. ABDOMEN: No masses. LABORATORY DATA: Unremarkable. BUN is 30. ASSESSMENT: 1. Respiratory failure. 2. Simmons positive pneumonia, slowly improving. PLAN: We will slowly try and decrease his sedation. Start wean the vent as tolerated. Otherwise, continue PT, supportive care. One-half hour of critical time. Job ID: [id number]
[2020-03-26] MEDS: Fentanyl CADD 100 ML IV SCH (09:05)
[2020-03-26] MEDS: Dexamethasone 4 mg/ml Vial SLOW IVP SCH ×2 (09:35→21:24)
[2020-03-26] MEDS: Cholecalciferol (Vitamin D3) 400 UNITS TAB PO SCH (09:35)
[2020-03-26] MEDS: Thiamine 100 MG TAB PO SCH (09:35)
[2020-03-26] MEDS: Zinc Sulfate 220 MG CAP PO SCH (09:35)
[2020-03-26] MEDS: Ascorbic Acid 500 mg Chewable Tablet PO SCH (09:35)
[2020-03-26] MEDS: Enoxaparin Sodium 60 MG/0.6 ML SYRINGE SC SCH ×2 (09:37→21:25)
[2020-03-26] MEDS: Cefepime 1 GM in Sodium Chloride 0.9% 100 ML IVPB SCH ×2 (09:40→21:25)
--- NOTE | 2020-03-26 09:50 | RAD ---
CHEST 1 VIEW: Date: 03/26/2020 HISTORY: Respiratory insufficiency. COMPARISON: 03/25/2020. FINDINGS: NG tube and endotracheal tube in position. The tip of the endotracheal tube appears to have advanced slightly into the distal trachea with the tip now approximately 1.0 cm from the level of the eduardo. Stable patchy bilateral linear, interstitial, and ground-glass opacity changes, particularly in the m id and lower lung zones. IMPRESSION: 1. Overall stable appearing bilateral pneumonia. 2. Endotracheal tube has advanced somewhat, the tip of which is now within 1.0 cm of the eduardo. POS: OFF
--- NOTE | 2020-03-26 12:56 | PDOC.HOSPP ---
- Subjective Encounter Date: 03/26/20 Encounter Time: 12:48 Subjective: intubated, sedated - Objective Vital Signs & Weight: Vital Signs (12 hours) Temp Pulse Resp BP 03/26/20 12:08 71 03/26/20 08:23 79 100/56 L 03/26/20 06:00 98.3 F 12 03/26/20 05:00 98.3 F 03/26/20 04:00 98.2 F 03/26/20 03:00 98.4 F 03/26/20 02:00 98.4 F 13 03/26/20 01:00 98.4 F Weight Admit Weight 155 lb 6.814 oz Weight 160 lb 14.999 oz Most Recent Monitor Data Heart Rate from ECG 69 NIBP 137/83 NIBP BP-Mean 101 Respiration from ECG 14 SpO2 95 I&O: 03/25/20 03/26/20 03/27/20 06:59 06:59 06:59 Intake Total 2256.8 2278.8 Output Total 1515 1655 Balance 741.8 623.8 Result Diagrams: 03/26/20 03:56 03/26/20 03:56 Radiology Reviewed by me: Yes (CXR- ET tube, decreased imfiltrate compared to 03/22) Hospitalist ROS - Medication Medications: Active Medications Generic Name Dose Route Start Last Admin Trade Name Freq PRN Reason Stop Dose Admin Acetaminophen 650 mg 03/19/20 16:49 03/23/20 04:11 Acetaminophen 325 Mg Tab PO 650 mg Q6H PRN Administration Fever or Pain Ascorbic Acid 500 mg 03/19/20 09:00 03/26/20 09:35 Ascorbic Acid 500 Mg Chewable Tablet PO 500 mg DAILY BETTY Administration Cholecalciferol 400 units 03/19/20 09:00 03/26/20 09:35 Cholecalciferol (Vitamin D3) 400 Units Tab PO 400 units DAILY BETTY Administration Dexamethasone 10 mg 03/19/20 09:00 03/26/20 09:35 Dexamethasone 4 Mg/Ml Vial SLOW IVP 10 mg BID BETTY Administration Enoxaparin Sodium 60 mg 03/21/20 21:00 03/26/20 09:37 Enoxaparin Sodium 60 Mg/0.6 Ml Syringe SC 60 mg 0900,2100 BETTY Administration Fentanyl 100 mls @ 0 mls/hr 03/18/20 18:00 03/26/20 09:05 Fentanyl Cadd IV 04/17/20 18:00 100 mls INF BETTY Administration Protocol Per Protocol Cefepime HCl 1 gm/ Sodium 100 mls @ 200 mls/hr 03/19/20 10:00 03/26/20 09:40 Chloride IVPB 100 mls 1000,2200 BETTY Administration Doxycycline Hyclate 100 mg/ 100 mls @ 100 mls/hr 03/19/20 09:00 03/26/20 09:40 Sodium Chloride IVPB 03/29/20 09:01 100 mls Q12HR BETTY Administration Lorazepam 2 mg 03/18/20 18:00 03/26/20 06:52 Lorazepam 2 Mg/Ml Vial SLOW IVP 04/17/20 18:00 2 mg Q1H PRN Administration Breakthrough agitation Pantoprazole Sodium 40 mg 03/21/20 21:00 03/26/20 09:42 Pantoprazole 40 Mg Tab PO Not Given BID BETTY Propofol 1,000 mg 03/18/20 18:00 03/26/20 09:43 Propofol 1,000 Mg/100 Ml Vial IV 04/17/20 18:00 1,000 mg INF PRN Administration TO ACHIEVE GOAL RASS Protocol Sodium Chloride 10 ml 03/19/20 09:00 03/26/20 09:36 Flush - Normal Saline 10 Ml Syringe IVF 10 ml Q12HR BETTY Administration Thiamine HCl 100 mg 03/19/20 09:00 03/26/20 09:35 Thiamine 100 Mg Tab PO 100 mg DAILY BETTY Administration Zinc Sulfate 220 mg 03/19/20 09:00 03/26/20 09:35 Zinc Sulfate 220 Mg Cap PO 220 mg DAILY BETTY Administration - Exam Neck: no JVD Heart: RRR, no murmur Respiratory - other findings: coarse BS with rhonchi bilat Gastrointestinal: soft, normal bowel sounds Extremities: 2+ LE edema Hosp A/P (1) Acute hypoxemic respiratory failure due to COVID-19 Code(s): U07.1 - COVID-19; J96.01 - ACUTE RESPIRATORY FAILURE WITH HYPOXIA Status: Acute (2) Metabolic encephalopathy Code(s): G93.41 - METABOLIC ENCEPHALOPATHY Status: Acute (3) Pneumonia due to COVID-19 virus Code(s): U07.1 - COVID-19; J12.82 - PNEUMONIA DUE TO CORONAVIRUS DISEASE 2019 Status: Acute (4) Septic shock Code(s): A41.9 - SEPSIS, UNSPECIFIED ORGANISM; R65.21 - SEVERE SEPSIS WITH SEPTIC SHOCK Status: Acute - Plan cont vent cont O2 support, cont iv steroids interval improvement in infiltrates, not weanable at this point
--- NOTE | 2020-03-26 13:17 | PDOC.PALCO ---
Palliative Care Consult - Consult Details Requesting Physician: Dr Martin/Hospitalist Reason for Consult: goals of care, complex decision-making - Pertinent HPI 70 year old male who had not significant medical history as per family. Onset of symptoms prior to Mar 06 include fever, when he tested positive for Covid. Symptoms progressed and cough paired with shortness of breath and chills onset. Despite conservative treatment his symptoms worsened and he was brought to the hospital by EMS secondary to confusion, and disorientation. Failed non rebreather in emergency room and was intubated. Admitted to CCU for higher level fo care and medical management. - Social History Smoking Status: Unknown if ever smoked Living Situation: - Medications MAR Reviewed: Yes - Allergies Allergies/Adverse Reactions: Allergies Allergy/AdvReac Type Severity Reaction Status Date / Time No Known Allergies Allergy Unverified 03/18/20 16:33 - Subjective Intubated with ventilatory support. Steroids, abx, DVT Prophylaxis, not currently weanable. - ROS Non Response: due to endotracheal tube, due to mental status - Objective Vital Signs: Vital Signs - Most Recent Temp Pulse Resp BP Pulse Ox 98.3 F 71 12 100/56 L 98 03/26/20 06:00 03/26/20 12:08 03/26/20 06:00 03/26/20 08:23 03/25/20 17:00 Palliative Performance Scale: 20 - Physical Exam Constitutional: encephalitic, ill appearing HEENT: moist MMs, sclera anicteric Respiratory: no rhonchi, no wheezing, diminished lung sound Deviation from normal: intubated Cardiovascular: RRR Gastrointestinal: soft, non-tender, no distention, positive bowel sounds Genitourinary: lópez catheter Musculoskeletal: no cyanosis, no clubbing Deviation from normal: Sedated Skin: cap refill <2 seconds, no lesions, no rash Deviation from normal: encephalopathic - Problem List (1) Palliative care encounter Code(s): Z51.5 - ENCOUNTER FOR PALLIATIVE CARE Current Visit: Yes Status: Acute (2) Acute hypoxemic respiratory failure due to COVID-19 Code(s): U07.1 - COVID-19; J96.01 - ACUTE RESPIRATORY FAILURE WITH HYPOXIA Current Visit: Yes Status: Acute (3) Metabolic encephalopathy Code(s): G93.41 - METABOLIC ENCEPHALOPATHY Current Visit: Yes Status: Acute (4) Pneumonia due to COVID-19 virus Code(s): U07.1 - COVID-19; J12.82 - PNEUMONIA DUE TO CORONAVIRUS DISEASE 2018 Current Visit: Yes Status: Acute (5) Septic shock Code(s): A41.9 - SEPSIS, UNSPECIFIED ORGANISM; R65.21 - SEVERE SEPSIS WITH SEPTIC SHOCK Current Visit: Yes Status: Acute - Plan/Recommendations Plan: Palliative care communicates with patient son as is Frisian speaking. GOALS: *Continue with full resuscitation *Hopeful for patient to tolerate being weaned from the vent with continued rec overy. *Reinforced long recovery process. Secondary to current goals established Palliative care will sign off. Should goals of care need to be revisited or complex decision making occur please reconsult our team. Thank you for this very appropriate consult, it has been our pleasure to participate in the care of Mr Macias [50] minutes spent on this encounter with >50% of the time in counseling and coordination of care. Thank you for this very appropriate consult.
[2020-03-26] MEDS: Pantoprazole 40 MG GRANULES PACKET PO SCH (21:26)
[2020-03-27] MEDS: Lorazepam 2 MG/ML VIAL SLOW IVP PRN ×3 (00:05→23:36)
[2020-03-27] MEDS: Propofol 1,000 MG/100 ML VIAL IV PRN ×4 (00:48→18:38)
[2020-03-27] MEDS ORDERED: Fentanyl CADD 100 ML ONE ×2 (03:25→23:15)
[2020-03-27 04:41] LABS: Band 4 % (5-11); Hemoglobin 12.1 g/dL (14.0-18.0); Hypochromia SLIGHT = 6-15 cells (100X) (0-5/hpf); Lymphocytes 13 % (21-51); MDiff Complete? YES; Mean Corpuscular HGB CONC 32.6 g/dL (32.0-36.0); Mean Corpuscular Hemoglobin 31.2 pg (27.0-31.0); Mean Corpuscular Volume 95.7 fL (78.0-98.0); Mean Platelet Volume 8.7 fL (7.4-10.4); Monocytes 8 % (0-10); Neutrophil 75 % (42-75); Nucleated RBC 1 % (0); Platelet Count 481 thou/uL (130-400); Platelet Morphology Comment Appears Increased; RBC Distribution Width 13.5 % (11.5-14.5); Red Blood Cell (RBC) Count 3.87 mill/uL (4.70-6.10); White Blood Cell (WBC) Count 8.9 thou/uL (4.8-10.8)
[2020-03-27 04:48] LABS: Anion Gap 11 mmol/L (10-20); BUN (Urea Nitrogen) 26 mg/dL (8.4-25.7); Calc. Creatinine Clearance 115 mL/min (70-130); Calcium 7.6 mg/dL (7.8-10.44); Carbon Dioxide 28 mmol/L (23-31); Chloride 104 mmol/L (98-107); Glucose 230 mg/dL (83-110); Sodium 138 mmol/L (136-145)
--- NOTE | 2020-03-27 09:05 | RAD ---
CHEST 1 VIEW PORTABLE: HISTORY: Respiratory insufficiency. COMPARISON: 03/27/2020. FINDINGS: Life support tubes remain in place and stable. Again noted are patchy interstitial alveolar ground-g lass opacity changes throughout both lungs, certainly evidence for bilateral COVID pneumonia. No sig nificant new process. IMPRESSION: Overall stable chest. Continue short-term followup. POS: OFF
--- NOTE | 2020-03-27 09:19 | PRG ---
DATE OF SERVICE: 03/27/2020 SUBJECTIVE: Farrukh Macias is a 70-year-old gentleman, remains intubated in the vent. He is doing better. OBJECTIVE: VITAL SIGNS: His temperature is 97, blood pressure 127/79, sats 90% on 30% FiO2. His I's and O's have been consistently positive. CHEST: No wheezing. No crackles. CARDIAC: Normal S1. ABDOMEN: No masses. LABORATORY DATA: Unremarkable. Potassium 5, sodium 138. ASSESSMENT: Simmons positive pneumonia, respiratory failure, encephalopathy. Did minimize sedation. Decrease steroids, complete antibiotics. Hopefully, we can start weaning the vent. One-half hour of critical time. Job ID: [id number]
[2020-03-27] MEDS: Pantoprazole 40 MG GRANULES PACKET PO SCH ×2 (09:54→21:06)
[2020-03-27] MEDS: Enoxaparin Sodium 60 MG/0.6 ML SYRINGE SC SCH ×2 (09:54→21:06)
[2020-03-27] MEDS: Ascorbic Acid 500 mg Chewable Tablet PO SCH (09:54)
[2020-03-27] MEDS: Cholecalciferol (Vitamin D3) 400 UNITS TAB PO SCH (09:54)
[2020-03-27] MEDS: Dexamethasone 4 mg/ml Vial SLOW IVP SCH ×2 (09:55→21:04)
[2020-03-27] MEDS: Thiamine 100 MG TAB PO SCH (09:56)
[2020-03-27] MEDS: Cefepime 1 GM in Sodium Chloride 0.9% 100 ML IVPB SCH ×2 (09:56→21:59)
[2020-03-27] MEDS: Zinc Sulfate 220 MG CAP PO SCH (09:57)
--- NOTE | 2020-03-27 17:11 | PDOC.HOSPP ---
- Subjective Encounter Date: 03/27/20 Encounter Time: 17:11 Subjective: intubated,sedated - Objective Vital Signs & Weight: Vital Signs (12 hours) Temp Pulse Resp BP Pulse Ox 03/27/20 17:00 97 03/27/20 16:00 17 03/27/20 15:06 67 132/83 03/27/20 14:00 15 03/27/20 12:00 99.2 F 24 H 03/27/20 10:53 73 124/82 03/27/20 10:00 14 03/27/20 08:00 97.0 F L 16 99 03/27/20 07:59 61 122/76 03/27/20 06:00 20 Weight Admit Weight 155 lb 6.814 oz Weight 2.561 oz Most Recent Monitor Data Heart Rate from ECG 65 NIBP 135/84 NIBP BP-Mean 101 Respiration from ECG 15 SpO2 98 I&O: 03/26/20 03/27/20 03/28/20 06:59 06:59 06:59 Intake Total 2278.8 2173.8 180 Output Total 1655 1775 620 Balance 623.8 398.8 -440 Result Diagrams: 03/27/20 04:00 03/27/20 04:00 Additional Labs: Accuchecks 03/26/20 21:51 POC Glucose 200 H Hospitalist ROS - Medication Medications: Active Medications Generic Name Dose Route Start Last Admin Trade Name Freq PRN Reason Stop Dose Admin Acetaminophen 650 mg 03/19/20 16:49 03/23/20 04:11 Acetaminophen 325 Mg Tab PO 650 mg Q6H PRN Administration Fever or Pain Ascorbic Acid 500 mg 03/19/20 09:00 03/27/20 09:54 Ascorbic Acid 500 Mg Chewable Tablet PO 500 mg DAILY BETTY Administration Cholecalciferol 400 units 03/19/20 09:00 03/27/20 09:54 Cholecalciferol (Vitamin D3) 400 Units Tab PO 400 units DAILY BETTY Administration Dexamethasone 6 mg 03/27/20 08:28 03/27/20 09:55 Dexamethasone 4 Mg/Ml Vial SLOW IVP 6 mg BID BETTY Administration Enoxaparin Sodium 60 mg 03/21/20 21:00 03/27/20 09:54 Enoxaparin Sodium 60 Mg/0.6 Ml Syringe SC 60 mg 0900,2100 BETTY Administration Fentanyl 100 mls @ 0 mls/hr 03/18/20 18:00 03/26/20 09:05 Fentanyl Cadd IV 04/17/20 18:00 100 mls INF BETTY Administration Protocol Per Protocol Cefepime HCl 1 gm/ Sodium 100 mls @ 200 mls/hr 03/19/20 10:00 03/27/20 09:56 Chloride IVPB 100 mls 1000,2200 BETTY Administration Doxycycline Hyclate 100 mg/ 100 mls @ 100 mls/hr 03/19/20 09:00 03/27/20 09:55 Sodium Chloride IVPB 03/29/20 09:01 100 mls Q12HR BETTY Administration Lorazepam 2 mg 03/18/20 18:00 03/27/20 13:05 Lorazepam 2 Mg/Ml Vial SLOW IVP 04/17/20 18:00 2 mg Q1H PRN Administration Breakthrough agitation Pantoprazole Sodium 40 mg 03/26/20 21:00 03/27/20 09:54 Pantoprazole 40 Mg Granules Packet PO 40 mg BID BETTY Administration Propofol 1,000 mg 03/18/20 18:00 03/27/20 14:11 Propofol 1,000 Mg/100 Ml Vial IV 04/17/20 18:00 1,000 mg INF PRN Administration TO ACHIEVE GOAL RASS Protocol Sodium Chloride 10 ml 03/19/20 09:00 03/27/20 09:56 Flush - Normal Saline 10 Ml Syringe IVF 10 ml Q12HR BETTY Administration Thiamine HCl 100 mg 03/19/20 09:00 03/27/20 09:56 Thiamine 100 Mg Tab PO 100 mg DAILY BETTY Administration Zinc Sulfate 220 mg 03/19/20 09:00 03/27/20 09:57 Zinc Sulfate 220 Mg Cap PO 220 mg DAILY BETTY Administration Hospitalist Exam Vitals: Vital Signs (12 hours) Temp Pulse Resp BP Pulse Ox 03/27/20 17:00 97 03/27/20 16:00 17 03/27/20 15:06 67 132/83 03/27/20 14:00 15 03/27/20 12:00 99.2 F 24 H 03/27/20 10:53 73 124/82 03/27/20 10:00 14 03/27/20 08:00 97.0 F L 16 99 03/27/20 07:59 61 122/76 01/26/21 06:00 20 Weight Admit Weight 155 lb 6.814 oz Weight 2.561 oz Most Recent Monitor Data Heart Rate from ECG 65 NIBP 135/84 NIBP BP-Mean 101 Respiration from ECG 15 SpO2 98 Neck: no JVD Heart: RRR, no murmur Respiratory - other findings: diffuse rhonchi Gastrointestinal: soft, non-tender, normal bowel sounds Extremities: 1+ LE edema Hosp A/P (1) Acute hypoxemic respiratory failure due to COVID-19 Code(s): U07.1 - COVID-19; J96.01 - ACUTE RESPIRATORY FAILURE WITH HYPOXIA Status: Acute (2) Metabolic encephalopathy Code(s): G93.41 - METABOLIC ENCEPHALOPATHY Status: Acute (3) Pneumonia due to COVID-19 virus Code(s): U07.1 - COVID-19; J12.82 - PNEUMONIA DUE TO CORONAVIRUS DISEASE 2019 Status: Acute (4) Septic shock Code(s): A41.9 - SEPSIS, UNSPECIFIED ORGANISM; R65.21 - SEVERE SEPSIS WITH SEPTIC SHOCK Status: Acute - Plan cont vent cont O2 support, cont iv steroids interval improvement in infiltrates, not weanable at this point
[2020-03-28] MEDS: Propofol 1,000 MG/100 ML VIAL IV PRN (03:13)
[2020-03-28 04:30] LABS: Band 3 % (5-11); Hemoglobin 12.3 g/dL (14.0-18.0); Lymphocytes 5 % (21-51); MDiff Complete? YES; Mean Corpuscular HGB CONC 33.1 g/dL (32.0-36.0); Mean Corpuscular Volume 96.9 fL (78.0-98.0); Mean Platelet Volume 8.7 fL (7.4-10.4); Monocytes 1 % (0-10); Neutrophil 91 % (42-75); Nucleated RBC 1 % (0); Platelet Count 424 thou/uL (130-400); Platelet Morphology Comment Appears Increased; RBC Distribution Width 13.3 % (11.5-14.5); Red Blood Cell (RBC) Count 3.83 mill/uL (4.70-6.10); White Blood Cell (WBC) Count 10.1 thou/uL (4.8-10.8)
[2020-03-28 04:41] LABS: Anion Gap 12 mmol/L (10-20); BUN (Urea Nitrogen) 23 mg/dL (8.4-25.7); Calc. Creatinine Clearance 0 mL/min (70-130); Calcium 7.6 mg/dL (7.8-10.44); Carbon Dioxide 27 mmol/L (23-31); Chloride 101 mmol/L (98-107); Glucose 228 mg/dL (83-110); Potassium 4.8 mmol/L (3.5-5.1); Sodium 135 mmol/L (136-145)
--- NOTE | 2020-03-28 08:38 | RAD ---
CHEST 1 VIEW: INDICATION: History of intubation. COMPARISON: Prior exam dated 03/27/2020. IMPRESSION: Interstitial and ground-glass airspace opacities affecting both lungs are similar. ET tube tip is at the eduardo. Gastric catheter projects in the region of the gastric body. Surgical clips are seen w ithin the right upper quadrant. No definite pneumothorax is evident. RECOMMENDATION: Recommend retraction of the ET tube tip approximately 9 mm which would put the catheter slightly over 1 cm from the level of the eduardo. Findings called to Adonay Sanchez RN caring for this patient, at 4:43 a.m. on 03/28/2020. CODE CR POS: BH
--- NOTE | 2020-03-28 08:39 | PRG ---
DATE OF SERVICE: 03/28/2020 SUBJECTIVE: This morning intubated on the vent. He is encephalopathic sedation. He is tachypneic, tachycardic. OBJECTIVE: VITAL SIGNS: Temperature 98, pulse 65, blood pressure 107/70, saturations are 90% on 40% FiO2, PEEP of 6. CHEST: No wheezing. No crackles. CARDIAC: Normal S1. ABDOMEN: No masses. LABORATORY DATA: X-ray looks much improved. ASSESSMENT: 1. Respiratory failure, krause positive pneumonia. 2. Encephalopathy. We want to minimize his sedation. I am going to start him on low-dose Demadex and risperidone day 10 in the hospital. Continue empiric antibiotics and supportive care. One-half hour of critical care time. Job ID: [id number]
[2020-03-28] MEDS: Enoxaparin Sodium 60 MG/0.6 ML SYRINGE SC SCH ×2 (09:54→21:18)
[2020-03-28] MEDS: Zinc Sulfate 220 MG CAP PO SCH (09:54)
[2020-03-28] MEDS: Thiamine 100 MG TAB PO SCH (09:54)
[2020-03-28] MEDS: Dexamethasone 4 mg/ml Vial SLOW IVP SCH ×2 (09:54→21:18)
[2020-03-28] MEDS: Cholecalciferol (Vitamin D3) 400 UNITS TAB PO SCH (09:54)
[2020-03-28] MEDS: Ascorbic Acid 500 mg Chewable Tablet PO SCH (09:54)
[2020-03-28] MEDS: Cefepime 1 GM in Sodium Chloride 0.9% 100 ML IVPB SCH ×2 (09:55→21:51)
[2020-03-28] MEDS: risperiDONE 0.25 MG TAB PO SCH ×2 (09:55→21:18)
[2020-03-28] MEDS: Pantoprazole 40 MG GRANULES PACKET PO SCH ×2 (09:55→21:18)
[2020-03-28] MEDS: Lorazepam 2 MG/ML VIAL SLOW IVP PRN (12:37)
--- NOTE | 2020-03-28 16:36 | PDOC.HOSPP ---
- Subjective Encounter Date: 03/28/20 Encounter Time: 16:34 Subjective: intubated, sedated - Objective Vital Signs & Weight: Vital Signs (12 hours) Temp Pulse Resp BP Pulse Ox 03/28/20 15:56 63 109/69 03/28/20 14:00 15 03/28/20 12:00 97.9 F 16 03/28/20 10:00 15 03/28/20 08:00 98.1 F 16 98 03/28/20 07:52 65 107/70 03/28/20 06:00 15 Weight Admit Weight 155 lb 6.814 oz Weight 2.571 oz Most Recent Monitor Data Heart Rate from ECG 65 NIBP 109/69 NIBP BP-Mean 82 Respiration from ECG 21 SpO2 95 I&O: 03/27/20 03/28/20 03/29/20 06:59 06:59 06:59 Intake Total 2173.8 2198.3 180 Output Total 1775 1970 600 Balance 398.8 228.3 -420 Result Diagrams: 03/28/20 03:30 03/28/20 03:30 Radiology Reviewed by me: Yes (cxr-dense bilat infiltrates persist) Hospitalist ROS - Medication Medications: Active Medications Generic Name Dose Route Start Last Admin Trade Name Freq PRN Reason Stop Dose Admin Acetaminophen 650 mg 03/19/20 16:49 03/23/20 04:11 Acetaminophen 325 Mg Tab PO 650 mg Q6H PRN Administration Fever or Pain Ascorbic Acid 500 mg 03/19/20 09:00 03/28/20 09:54 Ascorbic Acid 500 Mg Chewable Tablet PO 500 mg DAILY BETTY Administration Cholecalciferol 400 units 03/19/20 09:00 03/28/20 09:54 Cholecalciferol (Vitamin D3) 400 Units Tab PO 400 units DAILY BETTY Administration Dexamethasone 6 mg 03/27/20 08:28 03/28/20 09:54 Dexamethasone 4 Mg/Ml Vial SLOW IVP 6 mg BID BETTY Administration Enoxaparin Sodium 60 mg 03/21/20 21:00 03/28/20 09:54 Enoxaparin Sodium 60 Mg/0.6 Ml Syringe SC 60 mg 0900,2100 BETTY Administration Fentanyl 100 mls @ 0 mls/hr 03/18/20 18:00 03/26/20 09:05 Fentanyl Cadd IV 04/17/20 18:00 100 mls INF BETTY Administration Protocol Per Protocol Cefepime HCl 1 gm/ Sodium 100 mls @ 200 mls/hr 03/19/20 10:00 03/28/20 09:55 Chloride IVPB 100 mls 1000,2200 BETTY Administration Doxycycline Hyclate 100 mg/ 100 mls @ 100 mls/hr 03/19/20 09:00 03/28/20 09:59 Sodium Chloride IVPB 03/29/20 09:01 100 mls Q12HR BETTY Administration Dexmedetomidine HCl 400 mcg/ 100 mls @ 0 mls/hr 03/28/20 08:15 03/28/20 10:50 Sodium Chloride IVPB 100 mls INF BETTY Administration Protocol Per Protocol Lorazepam 2 mg 03/18/20 18:00 03/28/20 12:37 Lorazepam 2 Mg/Ml Vial SLOW IVP 04/17/20 18:00 2 mg Q1H PRN Administration Breakthrough agitation Pantoprazole Sodium 40 mg 03/26/20 21:00 03/28/20 09:55 Pantoprazole 40 Mg Granules Packet PO 40 mg BID BETTY Administration Propofol 1,000 mg 03/18/20 18:00 03/28/20 03:13 Propofol 1,000 Mg/100 Ml Vial IV 04/17/20 18:00 1,000 mg INF PRN Administration TO ACHIEVE GOAL RASS Protocol Risperidone 0.25 mg 03/28/20 09:00 03/28/20 09:55 Risperidone 0.25 Mg Tab PO 0.25 mg BID BETTY Administration Sodium Chloride 10 ml 03/19/20 09:00 03/28/20 09:55 Flush - Normal Saline 10 Ml Syringe IVF 10 ml Q12HR BETTY Administration Thiamine HCl 100 mg 03/19/20 09:00 03/28/20 09:54 Thiamine 100 Mg Tab PO 100 mg DAILY BETTY Administration Zinc Sulfate 220 mg 03/19/20 09:00 03/28/20 09:54 Zinc Sulfate 220 Mg Cap PO 220 mg DAILY BETTY Administration Hospitalist Exam Vitals: Vital Signs (12 hours) Temp Pulse Resp BP Pulse Ox 03/28/20 15:56 63 109/69 03/28/20 14:00 15 03/28/20 12:00 97.9 F 16 03/28/20 10:00 15 03/28/20 08:00 98.1 F 16 98 03/28/20 07:52 65 107/70 03/28/20 06:00 15 Weight Admit Weight 155 lb 6.814 oz Weight 2.571 oz Most Recent Monitor Data Heart Rate from ECG 65 NIBP 109/69 NIBP BP-Mean 82 Respiration from ECG 21 SpO2 95 Neck: no JVD Heart: RRR, no murmur Respiratory - other findings: coarse with rhonchi Gastrointestinal: soft, normal bowel sounds Extremities: no edema Hosp A/P (1) Acute hypoxemic respiratory failure due to COVID-19 Code(s): U07.1 - COVID-19; J96.01 - ACUTE RESPIRATORY FAILURE WITH HYPOXIA Status: Acute (2) Metabolic encephalopathy Code(s): G93.41 - METABOLIC ENCEPHALOPATHY Status: Acute (3) Pneumonia due to COVID-19 virus Code(s): U07.1 - COVID-19; J12.82 - PNEUMONIA DUE TO CORONAVIRUS DISEASE 2019 Status: Acute (4) Septic shock Code(s): A41.9 - SEPSIS, UNSPECIFIED ORGANISM; R65.21 - SEVERE SEPSIS WITH SEPTIC SHOCK Status: Acute - Plan cont vent cont O2 support, cont iv steroids cont nutrition i
[2020-03-28] MEDS ORDERED: Fentanyl CADD 100 ML ONE (19:50)
[2020-03-29] MEDS: Propofol 1,000 MG/100 ML VIAL IV PRN ×2 (04:00→14:32)
[2020-03-29 04:50] LABS: Band 15 % (5-11); Hemoglobin 12.7 g/dL (14.0-18.0); Hypochromia SLIGHT = 6-15 cells (100X) (0-5/hpf); Lymphocytes 9 % (21-51); MDiff Complete? YES; Mean Corpuscular HGB CONC 32.3 g/dL (32.0-36.0); Mean Corpuscular Hemoglobin 30.8 pg (27.0-31.0); Mean Corpuscular Volume 95.2 fL (78.0-98.0); Mean Platelet Volume 8.6 fL (7.4-10.4); Metamyelocyte 1 % (0-0); Monocytes 3 % (0-10); Neutrophil 70 % (42-75); Platelet Count 420 thou/uL (130-400); Platelet Morphology Comment Appears Adequate; RBC Distribution Width 13.6 % (11.5-14.5); Reactive Lymphocytes 2 % (0-10); Red Blood Cell (RBC) Count 4.12 mill/uL (4.70-6.10); White Blood Cell (WBC) Count 9.1 thou/uL (4.8-10.8)
[2020-03-29 04:55] LABS: Anion Gap 9 mmol/L (10-20); BUN (Urea Nitrogen) 22 mg/dL (8.4-25.7); Calc. Creatinine Clearance 0 mL/min (70-130); Calcium 7.5 mg/dL (7.8-10.44); Carbon Dioxide 28 mmol/L (23-31); Chloride 103 mmol/L (98-107); Glucose 186 mg/dL (83-110); Potassium 4.5 mmol/L (3.5-5.1); Sodium 135 mmol/L (136-145)
--- NOTE | 2020-03-29 08:34 | RAD ---
EXAM: CHEST ONE VIEW HISTORY: On ventilator. Follow-up evaluation. COMPARISON: 03/28/2020 FINDINGS: Endotracheal tube has been withdrawn with tip overlying the T6 vertebral body and above the level of the eduardo. The nasogastric tube remains unchanged in position. Cardiac silhouette is within normal limits. Interstitial and groundglass opacities in the lungs bilaterally are overall similar to prior exam. No other interval change. IMPRESSION: 1. Endotracheal tube has been slightly withdrawn and is now above the level of the eduardo. 2. Persistent interstitial and groundglass airspace opacities with radiographic appearance which can be seen with Covid pneumonia.
[2020-03-29] MEDS ORDERED: Fentanyl BOLUS 250 ML IVPB PRN ×3 (08:52)
[2020-03-29] MEDS ORDERED: Morphine 2 MG/ML VIAL SLOW IVP PRN (08:54)
--- NOTE | 2020-03-29 09:04 | PRG ---
DATE OF SERVICE: 03/29/2020 SUBJECTIVE: This morning, the patient is still on the vent. OBJECTIVE: VITAL SIGNS: Temperature is 98, pulse 90, respiratory rate 10, blood pressure , sats 100%, PEEP of 5. CHEST: Decreased breath sounds. No wheezing. CARDIAC: Normal S1, S2. ABDOMEN: No masses. LABORATORY DATA: White count 9000, H and H unremarkable. Lytes are normal. IMAGING STUDIES: X-ray still shows bilateral infiltrates, though somewhat stable. ASSESSMENT: Respiratory failure, Simmons-positive pneumonia. Continue empiric antibiotics. Minimize sedation. He was started on low-dose risperidone. I am going to start Reglan, improve GI motility. Still has a large residue. supportive care. One-half hour of critical time. Job ID: [id number]
[2020-03-29] MEDS: Cefepime 1 GM in Sodium Chloride 0.9% 100 ML IVPB SCH (09:56)
[2020-03-29] MEDS: Cholecalciferol (Vitamin D3) 400 UNITS TAB PO SCH (09:57)
[2020-03-29] MEDS: Zinc Sulfate 220 MG CAP PO SCH (09:57)
[2020-03-29] MEDS: risperiDONE 0.25 MG TAB PO SCH ×2 (09:57→20:58)
[2020-03-29] MEDS: Thiamine 100 MG TAB PO SCH (09:57)
[2020-03-29] MEDS: Ascorbic Acid 500 mg Chewable Tablet PO SCH (09:57)
[2020-03-29] MEDS: Pantoprazole 40 MG GRANULES PACKET PO SCH ×2 (09:58→20:58)
[2020-03-29] MEDS: Enoxaparin Sodium 60 MG/0.6 ML SYRINGE SC SCH ×2 (09:58→20:58)
[2020-03-29] MEDS: Dexamethasone 4 mg/ml Vial SLOW IVP SCH ×2 (10:38→20:57)
--- NOTE | 2020-03-29 14:24 | PDOC.HOSPP ---
- Subjective Encounter Date: 03/29/20 Encounter Time: 14:16 non-verbal Subjective: intubated - Objective Vital Signs & Weight: Vital Signs (12 hours) Temp Pulse Resp BP 03/29/20 12:00 98.7 F 03/29/20 10:43 88 112/75 03/29/20 08:00 98.6 F 10 L 03/29/20 07:27 59 L 121/70 03/29/20 05:51 14 03/29/20 04:00 98.3 F 25 H Weight Admit Weight 155 lb 6.814 oz Weight 167 lb 8.821 oz Most Recent Monitor Data Heart Rate from ECG 57 NIBP 133/84 NIBP BP-Mean 100 Respiration from ECG 14 SpO2 100 I&O: 03/28/20 03/29/20 03/30/20 06:59 06:59 06:59 Intake Total 2198.3 2156.5 270 Output Total 1970 2495 355 Balance 228.3 -338.5 -85 Result Diagrams: 03/29/20 03:30 03/29/20 03:30 Hospitalist ROS - Medication Medications: Active Medications Generic Name Dose Route Start Last Admin Trade Name Freq PRN Reason Stop Dose Admin Acetaminophen 650 mg 03/19/20 16:49 03/23/20 04:11 Acetaminophen 325 Mg Tab PO 650 mg Q6H PRN Administration Fever or Pain Ascorbic Acid 500 mg 03/19/20 09:00 03/29/20 09:57 Ascorbic Acid 500 Mg Chewable Tablet PO 500 mg DAILY BETTY Administration Cholecalciferol 400 units 03/19/20 09:00 03/29/20 09:57 Cholecalciferol (Vitamin D3) 400 Units Tab PO 400 units DAILY BETTY Administration Dexamethasone 6 mg 03/27/20 08:28 03/29/20 10:38 Dexamethasone 4 Mg/Ml Vial SLOW IVP 6 mg BID BETTY Administration Enoxaparin Sodium 60 mg 03/21/20 21:00 03/29/20 09:58 Enoxaparin Sodium 60 Mg/0.6 Ml Syringe SC 60 mg 0900,2100 BETTY Administration Cefepime HCl 1 gm/ Sodium 100 mls @ 200 mls/hr 03/19/20 10:00 03/29/20 09:56 Chloride IVPB 100 mls 1000,2200 BETTY Administration Dexmedetomidine HCl 400 mcg/ 100 mls @ 0 mls/hr 03/28/20 08:15 03/29/20 10:55 Sodium Chloride IVPB 100 mls INF BETTY Administration Protocol Per Protocol Pantoprazole Sodium 40 mg 03/26/20 21:00 03/29/20 09:58 Pantoprazole 40 Mg Granules Packet PO 40 mg BID BETTY Administration Propofol 1,000 mg 03/18/20 18:00 03/29/20 04:00 Propofol 1,000 Mg/100 Ml Vial IV 04/17/20 18:00 1,000 mg INF PRN Administration TO ACHIEVE GOAL RASS Protocol Risperidone 0.25 mg 03/28/20 09:00 03/29/20 09:57 Risperidone 0.25 Mg Tab PO 0.25 mg BID BETTY Administration Sodium Chloride 10 ml 03/19/20 09:00 03/29/20 09:58 Flush - Normal Saline 10 Ml Syringe IVF 10 ml Q12HR BETTY Administration Thiamine HCl 100 mg 03/19/20 09:00 03/29/20 09:57 Thiamine 100 Mg Tab PO 100 mg DAILY BETTY Administration Zinc Sulfate 220 mg 03/19/20 09:00 03/29/20 09:57 Zinc Sulfate 220 Mg Cap PO 220 mg DAILY BETTY Administration Hospitalist Exam Vitals: Vital Signs (12 hours) Temp Pulse Resp BP 03/29/20 12:00 98.7 F 03/29/20 10:43 88 112/75 03/29/20 08:00 98.6 F 10 L 03/29/20 07:27 59 L 121/70 03/29/20 05:51 14 03/29/20 04:00 98.3 F 25 H Weight Admit Weight 155 lb 6.814 oz Weight 167 lb 8.821 oz Most Recent Monitor Data Heart Rate from ECG 57 NIBP 133/84 NIBP BP-Mean 100 Respiration from ECG 14 SpO2 100 Neck: no JVD Heart: RRR, no murmur Respiratory - other findings: coarse BS, rhonchi Gastrointestinal: soft, diminished bowl sounds Extremities: 1+ LE edema Hosp A/P (1) Acute hypoxemic respiratory failure due to COVID-19 Code(s): U07.1 - COVID-19; J96.01 - ACUTE RESPIRATORY FAILURE WITH HYPOXIA Status: Acute (2) Metabolic encephalopathy Code(s): G93.41 - METABOLIC ENCEPHALOPATHY Status: Acute (3) Pneumonia due to COVID-19 virus Code(s): U07.1 - COVID-19; J12.82 - PNEUMONIA DUE TO CORONAVIRUS DISEASE 2018 Status: Acute (4) Septic shock Code(s): A41.9 - SEPSIS, UNSPECIFIED ORGANISM; R65.21 - SEVERE SEPSIS WITH SEPTIC SHOCK Status: Acute - Plan CXR- infiltrates diffuse, unchanged cont vent cont O2 support, cont iv steroids cont nutrition i
[2020-03-29] MEDS: Metoclopramide HCl 10 MG/2 ML VIAL IVP SCH ×2 (14:33→22:10)
[2020-03-29] MEDS ORDERED: Fentanyl CADD 100 ML ONE (20:55)
[2020-03-30] MEDS: Propofol 1,000 MG/100 ML VIAL IV PRN ×3 (01:41→20:31)
[2020-03-30 05:06] LABS: Anion Gap 10 mmol/L (10-20); BUN (Urea Nitrogen) 20 mg/dL (8.4-25.7); Calc. Creatinine Clearance 123 mL/min (70-130); Calcium 7.6 mg/dL (7.8-10.44); Carbon Dioxide 28 mmol/L (23-31); Chloride 103 mmol/L (98-107); Glucose 188 mg/dL (83-110); Potassium 4.6 mmol/L (3.5-5.1); Sodium 136 mmol/L (136-145)
[2020-03-30 05:09] LABS: Band 6 % (5-11); Hemoglobin 13.1 g/dL (14.0-18.0); Lymphocytes 3 % (21-51); MDiff Complete? YES; Mean Corpuscular HGB CONC 32.3 g/dL (32.0-36.0); Mean Corpuscular Hemoglobin 30.8 pg (27.0-31.0); Mean Corpuscular Volume 95.2 fL (78.0-98.0); Mean Platelet Volume 8.9 fL (7.4-10.4); Monocytes 1 % (0-10); Myelocyte 1 % (0-0); Neutrophil 89 % (42-75); Platelet Count 403 thou/uL (130-400); RBC Distribution Width 13.8 % (11.5-14.5); Red Blood Cell (RBC) Count 4.25 mill/uL (4.70-6.10); White Blood Cell (WBC) Count 11.5 thou/uL (4.8-10.8)
[2020-03-30] MEDS: Metoclopramide HCl 10 MG/2 ML VIAL IVP SCH ×3 (05:35→21:32)
[2020-03-30] MEDS ORDERED: Bisacodyl 5 MG TAB PO PRN (08:10)
[2020-03-30] MEDS ORDERED: GUAIFENESIN SF SOLN 200 MG/10 ML UDCUP PO PRN (08:10)
[2020-03-30] MEDS ORDERED: Loperamide HCl 2 MG CAP PO PRN (08:10)
[2020-03-30] MEDS ORDERED: Senokot S 8.6-50 MG TAB PO PRN (08:10)
[2020-03-30] MEDS ORDERED: Bisacodyl 10 MG SUPP PR PRN (08:10)
[2020-03-30] MEDS ORDERED: hydrALAZINE 20 MG/ML VIAL SLOW IVP PRN (08:10)
[2020-03-30] MEDS ORDERED: Polyethylene Glycol 3350 17 GM Packet PO PRN (08:11)
[2020-03-30] MEDS: Enoxaparin Sodium 60 MG/0.6 ML SYRINGE SC SCH ×2 (08:48→20:33)
[2020-03-30] MEDS: Zinc Sulfate 220 MG CAP PO SCH (08:49)
[2020-03-30] MEDS: Thiamine 100 MG TAB PO SCH (08:49)
[2020-03-30] MEDS: Cholecalciferol (Vitamin D3) 400 UNITS TAB PO SCH (08:49)
[2020-03-30] MEDS: Pantoprazole 40 MG GRANULES PACKET PO SCH ×2 (08:49→20:33)
[2020-03-30] MEDS: risperiDONE 0.25 MG TAB PO SCH ×2 (08:50→20:33)
[2020-03-30] MEDS: Dexamethasone 4 mg/ml Vial SLOW IVP SCH ×2 (08:50→20:32)
[2020-03-30] MEDS: Ascorbic Acid 500 mg Chewable Tablet PO SCH (08:50)
--- NOTE | 2020-03-30 09:06 | RAD ---
CHEST ONE VIEW: History: Ventilated patient. Comparison: Prior day. FINDINGS: Endotracheal tube tip just above the eduardo approximately 1.5 cm. Enteric tube tip below the diaphrag m out of the field of view. Airspace consolidation is similar. No pneumothorax. No acute osseous abno rmalities. IMPRESSION: No significant interval improvement of lung aeration. POS: HOME
--- NOTE | 2020-03-30 09:13 | PRG ---
DATE OF SERVICE: 03/30/2020 SUBJECTIVE: Farrukh Macias remains intubated in the vent, still encephalopathic. OBJECTIVE: VITAL SIGNS: Temperature 98, pulse 57, on 45% he saturates 98%, PEEP of 5, blood pressure 90/60. His I's and O's remain good. CHEST: No wheezing, no crackles. CARDIAC: Normal S1. ABDOMEN: No masses. IMAGING DATA: X-ray looks better. LABORATORY DATA: White count 11,000. ASSESSMENT: Simmons positive pneumonia, respiratory failure, encephalopathy. PLAN: Antibiotics have been discontinued. Started Demadex, can slow down his overall status. Hopefully, once the Respiratory is on board, we can start weaning his vent and his sedation. One-half hour of critical care time. Job ID: [id number]
--- NOTE | 2020-03-30 11:39 | PDOC.HOSPP ---
- Subjective Encounter Date: 03/30/20 Encounter Time: 10:00 Subjective: Patient seen and examined bedside today, patient is on ventilator, no overnight event - Objective Vital Signs & Weight: Vital Signs (12 hours) Temp Pulse Resp 03/30/20 10:28 55 L 03/30/20 08:00 98.6 F 03/30/20 06:52 57 L 03/30/20 05:47 16 03/30/20 04:00 97.9 F 19 03/30/20 02:26 60 03/30/20 02:00 20 03/30/20 00:44 60 03/30/20 00:00 98.8 F 03/29/20 23:58 13 Weight Admit Weight 155 lb 6.814 oz Weight 2.649 oz Most Recent Monitor Data Heart Rate from ECG 67 NIBP 90/57 NIBP BP-Mean 68 Respiration from ECG 11 SpO2 93 I&O: 03/29/20 03/30/20 03/31/20 06:59 06:59 06:59 Intake Total 2156.5 1495 30 Output Total 2495 2610 150 Balance -338.5 -1115 -120 Result Diagrams: 03/30/20 03:55 03/30/20 03:55 Radiology Reviewed by me: Yes (Chest x-ray reviewed) EKG Reviewed by me: Yes (Sinus rhythm) Hospitalist ROS - Review of Systems ROS unobtainable: due to endotracheal tube - Medication Medications: Active Medications Generic Name Dose Route Start Last Admin Trade Name Freq PRN Reason Stop Dose Admin Acetaminophen 650 mg 03/19/20 16:49 03/23/20 04:11 Acetaminophen 325 Mg Tab PO 650 mg Q6H PRN Administration Fever or Pain Ascorbic Acid 500 mg 03/19/20 09:00 03/30/20 08:50 Ascorbic Acid 500 Mg Chewable Tablet PO 500 mg DAILY BETTY Administration Cholecalciferol 400 units 03/19/20 09:00 03/30/20 08:49 Cholecalciferol (Vitamin D3) 400 Units Tab PO 400 units DAILY BETTY Administration Dexamethasone 6 mg 03/27/20 08:28 03/30/20 08:50 Dexamethasone 4 Mg/Ml Vial SLOW IVP 6 mg BID BETTY Administration Enoxaparin Sodium 60 mg 03/21/20 21:00 03/30/20 08:48 Enoxaparin Sodium 60 Mg/0.6 Ml Syringe SC 60 mg 0900,2100 BETTY Administration Dexmedetomidine HCl 400 mcg/ 100 mls @ 0 mls/hr 03/28/20 08:15 03/30/20 06:31 Sodium Chloride IVPB 100 mls INF BETTY Administration Protocol Per Protocol Metoclopramide HCl 10 mg 03/29/20 14:00 03/30/20 05:35 Metoclopramide Hcl 10 Mg/2 Ml Vial IVP 04/01/20 14:01 10 mg Q8HR BETTY Administration Pantoprazole Sodium 40 mg 03/26/20 21:00 03/30/20 08:49 Pantoprazole 40 Mg Granules Packet PO 40 mg BID BETTY Administration Propofol 1,000 mg 03/18/20 18:00 03/30/20 08:50 Propofol 1,000 Mg/100 Ml Vial IV 04/17/20 18:00 1,000 mg INF PRN Administration TO ACHIEVE GOAL RASS Protocol Risperidone 0.25 mg 03/28/20 09:00 03/30/20 08:50 Risperidone 0.25 Mg Tab PO 0.25 mg BID BETTY Administration Sodium Chloride 10 ml 03/19/20 09:00 03/30/20 08:51 Flush - Normal Saline 10 Ml Syringe IVF 10 ml Q12HR BETTY Administration Thiamine HCl 100 mg 03/19/20 09:00 03/30/20 08:49 Thiamine 100 Mg Tab PO 100 mg DAILY BETTY Administration Zinc Sulfate 220 mg 03/19/20 09:00 03/30/20 08:49 Zinc Sulfate 220 Mg Cap PO 220 mg DAILY BETTY Administration Hospitalist Exam Vitals: Vital Signs (12 hours) Temp Pulse Resp 03/30/20 10:28 55 L 03/30/20 08:00 98.6 F 03/30/20 06:52 57 L 03/30/20 05:47 16 03/30/20 04:00 97.9 F 19 03/30/20 02:26 60 03/30/20 02:00 20 03/30/20 00:44 60 03/30/20 00:00 98.8 F 03/29/20 23:58 13 Weight Admit Weight 155 lb 6.814 oz Weight 2.649 oz Most Recent Monitor Data Heart Rate from ECG 67 NIBP 90/57 NIBP BP-Mean 68 Respiration from ECG 11 SpO2 93 General Appearance: NAD Eye: PERRL Eye - other findings: Intubated ENT: normocephalic atraumatic Neck: supple, symmetric, no JVD Heart: RRR, no murmur, no gallops Respiratory: no wheezes, no rales, no ronchi Respiratory - other findings: Anterior auscultation appears normal Gastrointestinal: soft, non-distended, normal bowel sounds Extremities: no clubbing, no edema Skin: normal turgor Hosp A/P (1) Acute hypoxemic respiratory failure due to COVID-19 Code(s): U07.1 - COVID-19; J96.01 - ACUTE RESPIRATORY FAILURE WITH HYPOXIA [facility]: Acute (2) Metabolic encephalopathy Code(s): G93.41 - METABOLIC ENCEPHALOPATHY Status: Acute (3) Pneumonia due to COVID-19 virus Code(s): U07.1 - COVID-19; J12.82 - PNEUMONIA DUE TO CORONAVIRUS DISEASE 2019 Status: Acute - Plan old records reviewed/req, respiratory therapy, DVT proph w/lovenox Continue Precedex drip for sedation Continue vitamin supplementation Continue dexamethasone, patient did not qualify for remdesivir, he was given convalescent plasma Continue Lovenox therapeutic dose for elevated D-dimer Ventilator as per pulmonology Medication reviewed and continue for symptomatic and supportive care
[2020-03-30] MEDS ORDERED: Fentanyl CADD 100 ML ONE (17:57)
[2020-03-31 05:15] LABS: Anion Gap 11 mmol/L (10-20); BUN (Urea Nitrogen) 20 mg/dL (8.4-25.7); Calc. Creatinine Clearance 0 mL/min (70-130); Calcium 7.7 mg/dL (7.8-10.44); Carbon Dioxide 26 mmol/L (23-31); Chloride 102 mmol/L (98-107); Glucose 180 mg/dL (83-110); Potassium 4.8 mmol/L (3.5-5.1); Sodium 134 mmol/L (136-145)
[2020-03-31 05:27] LABS: Band 12 % (5-11); Lymphocytes 8 % (21-51); MDiff Complete? YES; Mean Corpuscular Hemoglobin 31.8 pg (27.0-31.0); Mean Corpuscular Volume 96.4 fL (78.0-98.0); Mean Platelet Volume 8.6 fL (7.4-10.4); Monocytes 5 % (0-10); Neutrophil 75 % (42-75); Platelet Count 369 thou/uL (130-400); RBC Distribution Width 13.9 % (11.5-14.5); White Blood Cell (WBC) Count 9.7 thou/uL (4.8-10.8)
[2020-03-31] MEDS: Propofol 1,000 MG/100 ML VIAL IV PRN ×2 (05:31→14:26)
[2020-03-31] MEDS: Metoclopramide HCl 10 MG/2 ML VIAL IVP SCH ×3 (05:44→22:15)
[2020-03-31] MEDS ORDERED: Dextrose 5% in Water 1,000 ML IV PRN (08:25)
[2020-03-31] MEDS ORDERED: Dextrose 50% Abboject 50 ML SYRINGE SLOW IVP PRN (08:25)
--- NOTE | 2020-03-31 08:41 | PRG ---
DATE OF SERVICE: 03/31/2020 SUBJECTIVE: The patient remains on mechanical ventilation through endotracheal tube. OBJECTIVE: VITAL SIGNS: Temperature 98.6, pulse 53, blood pressure 95/63. He is currently on a Precedex drip, propofol drip and fentanyl drip. His total intake for the last 24 hours has been 1816, output 2400. NEUROLOGICAL: He will wake up and shake his head and nod his head appropriately. He will follow commands by squeezing the extremities and pressing with his feet. HEENT: Otherwise unremarkable except for the endotracheal tube and orogastric tube in place. NECK: No JVD. LUNGS: Coarse rhonchi anteriorly. CARDIOVASCULAR: S1 and S2. Slightly tachycardic. ABDOMEN: Soft and nontender. EXTREMITIES: Trace edema throughout. LABORATORY DATA: White blood cell count 9.7, hematocrit 39.5, and platelet count 369. Sodium 134, potassium 4.8, chloride 102, CO2 of 26, BUN 20, creatinine 0.5, glucose 180. His x-ray shows diffuse bilateral infiltrates. His endotracheal tube is about 1 cm above the eduardo. ASSESSMENT: 1. Coronavirus pneumonia. 2. Acute hypoxic respiratory failure requiring mechanical ventilation. 3. Hyperglycemia from steroids. PLAN: 1. Increase his insulin. 2. I tried to go down his FiO2, but the patient desaturated. Therefore, I do not think any formal weaning is possible at this time. 3. He is on IV corticosteroid and full-dose anticoagulation. Prognosis is guarded. Job ID: [id number]
[2020-03-31] MEDS: Dexamethasone 4 mg/ml Vial SLOW IVP SCH ×2 (08:49→20:43)
[2020-03-31] MEDS: Lorazepam 2 MG/ML VIAL SLOW IVP PRN ×3 (08:49→23:25)
[2020-03-31] MEDS: Enoxaparin Sodium 60 MG/0.6 ML SYRINGE SC SCH (09:29)
[2020-03-31] MEDS: Ascorbic Acid 500 mg Chewable Tablet PO SCH (09:29)
[2020-03-31] MEDS: Zinc Sulfate 220 MG CAP PO SCH (09:30)
[2020-03-31] MEDS: Pantoprazole 40 MG GRANULES PACKET PO SCH ×2 (09:30→20:44)
[2020-03-31] MEDS: Cholecalciferol (Vitamin D3) 400 UNITS TAB PO SCH (09:30)
[2020-03-31] MEDS: Thiamine 100 MG TAB PO SCH (09:30)
[2020-03-31] MEDS: risperiDONE 0.25 MG TAB PO SCH ×2 (09:30→20:44)
--- NOTE | 2020-03-31 10:06 | PDOC.HOSPP ---
- Subjective Encounter Date: 03/31/20 Encounter Time: 09:20 Subjective: Patient seen and examined. Patient is on ventilator, no overnight events - Objective Vital Signs & Weight: Vital Signs (12 hours) Temp Pulse Resp 03/31/20 08:00 98.7 F 03/31/20 07:15 64 03/31/20 06:00 20 03/31/20 04:00 98.6 F 16 03/31/20 03:38 52 L 03/31/20 02:00 16 03/31/20 00:00 98.6 F 03/30/20 23:55 17 03/30/20 22:55 55 L Weight Admit Weight 155 lb 6.814 oz Weight 2.684 oz Most Recent Monitor Data Heart Rate from ECG 76 NIBP 84/67 NIBP BP-Mean 72 Respiration from ECG 18 SpO2 92 I&O: 03/30/20 03/31/20 04/01/20 06:59 06:59 06:59 Intake Total 1495 1816 Output Total 2610 2400 Balance -1115 -521 Result Diagrams: 03/31/20 04:15 03/31/20 03:30 Radiology Reviewed by me: Yes (Chest x-ray reviewed) EKG Reviewed by me: Yes (Sinus rhythm) Hospitalist ROS - Review of Systems ROS unobtainable: due to endotracheal tube - Medication Medications: Active Medications Generic Name Dose Route Start Last Admin Trade Name Freq PRN Reason Stop Dose Admin Acetaminophen 650 mg 03/19/20 16:49 03/23/20 04:11 Acetaminophen 325 Mg Tab PO 650 mg Q6H PRN Administration Fever or Pain Ascorbic Acid 500 mg 03/19/20 09:00 03/31/20 09:29 Ascorbic Acid 500 Mg Chewable Tablet PO 500 mg DAILY BETTY Administration Cholecalciferol 400 units 03/19/20 09:00 03/31/20 09:30 Cholecalciferol (Vitamin D3) 400 Units Tab PO 400 units DAILY BETTY Administration Dexamethasone 6 mg 03/27/20 08:28 03/31/20 08:49 Dexamethasone 4 Mg/Ml Vial SLOW IVP 6 mg BID BETTY Administration Dexmedetomidine HCl 400 mcg/ 100 mls @ 0 mls/hr 03/28/20 08:15 03/31/20 09:28 Sodium Chloride IVPB 100 mls INF BETTY Administration Protocol Per Protocol Lorazepam 2 mg 03/29/20 08:54 03/31/20 08:49 Lorazepam 2 Mg/Ml Vial SLOW IVP 2 mg Q1H PRN Administration Breakthrough agitation Metoclopramide HCl 10 mg 03/29/20 14:00 03/31/20 05:44 Metoclopramide Hcl 10 Mg/2 Ml Vial IVP 04/01/20 14:01 10 mg Q8HR BETTY Administration Pantoprazole Sodium 40 mg 03/26/20 21:00 03/31/20 09:30 Pantoprazole 40 Mg Granules Packet PO 40 mg BID BETTY Administration Propofol 1,000 mg 03/18/20 18:00 03/31/20 05:31 Propofol 1,000 Mg/100 Ml Vial IV 04/17/20 18:00 1,000 mg INF PRN Administration TO ACHIEVE GOAL RASS Protocol Risperidone 0.25 mg 03/28/20 09:00 03/31/20 09:30 Risperidone 0.25 Mg Tab PO 0.25 mg BID BETTY Administration Sodium Chloride 10 ml 03/19/20 09:00 03/31/20 09:30 Flush - Normal Saline 10 Ml Syringe IVF 10 ml Q12HR BETTY Administration Thiamine HCl 100 mg 03/19/20 09:00 03/31/20 09:30 Thiamine 100 Mg Tab PO 100 mg DAILY BETTY Administration Zinc Sulfate 220 mg 03/19/20 09:00 03/31/20 09:30 Zinc Sulfate 220 Mg Cap PO 220 mg DAILY BETTY Administration Hospitalist Exam Vitals: Vital Signs (12 hours) Temp Pulse Resp 03/31/20 08:00 98.7 F 03/31/20 07:15 64 03/31/20 06:00 20 03/31/20 04:00 98.6 F 16 03/31/20 03:38 52 L 03/31/20 02:00 16 03/31/20 00:00 98.6 F 03/30/20 23:55 17 03/30/20 22:55 55 L Weight Admit Weight 155 lb 6.814 oz Weight 2.684 oz Most Recent Monitor Data Heart Rate from ECG 76 NIBP 84/67 NIBP BP-Mean 72 Respiration from ECG 18 SpO2 92 General Appearance: NAD General - other findings: On ventilator Eye: PERRL ENT: normocephalic atraumatic Neck: symmetric, no JVD Heart: RRR, no murmur, no gallops Respiratory: no wheezes, no rales, no ronchi Gastrointestinal: soft, non-distended, normal bowel sounds Extremities: no clubbing, no edema Skin: normal turgor Hosp A/P (1) Acute hypoxemic respiratory failure due to COVID-19 Code(s): U07.1 - COVID-19; J96.01 - ACUTE RESPIRATORY FAILURE WITH HYPOXIA Status: Acute (2) Metabolic encephalopathy Code(s): G93.41 - METABOLIC ENCEPHALOPATHY Status: Acute (3) Pneumonia due to COVID-19 virus Code(s): U07.1 - COVID-19; J12.82 - PNEUMONIA DUE TO CORONAVIRUS DISEASE 2019 Status: Acute - Plan old records reviewed/req, respiratory therapy, DVT proph w/lovenox Continue Precedex drip for sedation Continue vitamin supplementation Continue dexamethasone, patient did not qualify for remdesivir, he was given convalescent plasma Continue Lovenox therapeutic dose for elevated D-dimer Ventilator as per pulmonology Medication reviewed and continue for symptomatic and supportive care Tomorrow we will repeat inflammatory markers along with routine laboratory test
[2020-03-31] MEDS: Insulin Regular 300 UNITS/3 ML VIAL SC PRN (12:30)
[2020-03-31] MEDS ORDERED: Pancrelipase DR 12,000 1 CAP FS PRN (13:45)
[2020-03-31] MEDS ORDERED: Sodium Bicarbonate Tab 325 MG TAB PER TUBE PRN (13:45)
[2020-03-31] MEDS ORDERED: Fentanyl CADD 100 ML ONE (14:41)
--- NOTE | 2020-03-31 15:20 | RAD ---
RADIOGRAPH CHEST 1 VIEW: DATE: 03/31/2020 TIME: 4:48 AM HISTORY: 70-year-old male in respiratory failure COMPARISON: 03/30/2020 FINDINGS: ETT distal tip is at or near the origin of the right mainstem bronchus. Esophagogastric tube remains. Diffuse bilateral mixed interstitial and alveolar infiltrates, right more extensive than left. No pneumothorax. No interval change in lungs. IMPRESSION: 1) endotracheal tube distal tip is directed at the right mainstem bronchus. 2) no interval change in the diffuse bilateral infiltrates
[2020-04-01] MEDS: Propofol 1,000 MG/100 ML VIAL IV PRN ×3 (00:35→17:13)
[2020-04-01 04:34] LABS: Anion Gap 9 mmol/L (10-20); BUN (Urea Nitrogen) 21 mg/dL (8.4-25.7); Calc. Creatinine Clearance 0 mL/min (70-130); Calcium 7.6 mg/dL (7.8-10.44); Carbon Dioxide 27 mmol/L (23-31); Chloride 102 mmol/L (98-107); Glucose 153 mg/dL (83-110); Potassium 4.4 mmol/L (3.5-5.1); Sodium 134 mmol/L (136-145)
[2020-04-01 04:38] LABS: ALT (SGPT) 108 U/L (8-55); AST (SGOT) 45 U/L (5-34); Albumin 2.5 g/dL (3.4-4.8); Alkaline Phosphatase 85 U/L (40-110); Bilirubin, Direct 0.3 mg/dL (0.1-0.3); Bilirubin, Total 0.4 mg/dL (0.2-1.2); Protein, Total 5.4 g/dL (5.8-8.1)
[2020-04-01 05:01] LABS: Band 7 % (5-11); Hemoglobin 12.4 g/dL (14.0-18.0); Lymphocytes 6 % (21-51); MDiff Complete? YES; Mean Corpuscular HGB CONC 33.9 g/dL (32.0-36.0); Mean Corpuscular Hemoglobin 32.6 pg (27.0-31.0); Mean Corpuscular Volume 96.4 fL (78.0-98.0); Monocytes 2 % (0-10); Neutrophil 85 % (42-75); Platelet Count 347 thou/uL (130-400); RBC Distribution Width 14.1 % (11.5-14.5); White Blood Cell (WBC) Count 10.8 thou/uL (4.8-10.8)
[2020-04-01] MEDS: Metoclopramide HCl 10 MG/2 ML VIAL IVP SCH ×2 (05:23→15:00)
[2020-04-01] MEDS: Dexamethasone 4 mg/ml Vial SLOW IVP SCH ×2 (09:10→20:49)
[2020-04-01] MEDS: Zinc Sulfate 220 MG CAP PO SCH (09:10)
[2020-04-01] MEDS: Thiamine 100 MG TAB PO SCH (09:10)
[2020-04-01] MEDS: risperiDONE 0.25 MG TAB PO SCH ×2 (09:10→20:49)
[2020-04-01] MEDS: Cholecalciferol (Vitamin D3) 400 UNITS TAB PO SCH (09:10)
[2020-04-01] MEDS: Pantoprazole 40 MG GRANULES PACKET PO SCH ×2 (09:10→20:49)
[2020-04-01] MEDS: Ascorbic Acid 500 mg Chewable Tablet PO SCH (09:11)
[2020-04-01] MEDS: Lorazepam 2 MG/ML VIAL SLOW IVP PRN ×2 (09:14→21:13)
--- NOTE | 2020-04-01 10:00 | PDOC.HOSPP ---
- Subjective Encounter Date: 04/01/20 Encounter Time: 09:10 Subjective: Patient seen and examined bedside today, patient is on ventilator, no overnight event, - Objective Vital Signs & Weight: Vital Signs (12 hours) Temp Pulse Resp BP 04/01/20 08:10 92 88/70 L 04/01/20 07:45 98.7 F 04/01/20 06:00 19 04/01/20 04:00 98.6 F 16 04/01/20 02:45 72 04/01/20 02:00 20 04/01/20 00:00 98.6 F 03/31/20 23:44 16 03/31/20 22:03 56 L 03/31/20 22:00 17 Weight Admit Weight 155 lb 6.814 oz Weight 2.677 oz Most Recent Monitor Data Heart Rate from ECG 64 NIBP 100/71 NIBP BP-Mean 80 Respiration from ECG 13 SpO2 98 I&O: 03/31/20 04/01/20 04/02/20 06:59 06:59 06:59 Intake Total 1816 1637 90 Output Total 2400 1470 140 Balance -584 167 -50 Result Diagrams: 04/01/20 04:00 04/01/20 04:00 Additional Labs: Accuchecks 03/31/20 03/31/20 23:32 12:10 POC Glucose 145 H 164 H EKG Reviewed by me: Yes (Sinus rhythm) Hospitalist ROS - Review of Systems ROS unobtainable: due to endotracheal tube - Medication Medications: Active Medications Generic Name Dose Route Start Last Admin Trade Name Freq PRN Reason Stop Dose Admin Acetaminophen 650 mg 03/19/20 16:49 03/23/20 04:11 Acetaminophen 325 Mg Tab PO 650 mg Q6H PRN Administration Fever or Pain Ascorbic Acid 500 mg 03/19/20 09:00 04/01/20 09:11 Ascorbic Acid 500 Mg Chewable Tablet PO 500 mg DAILY BETTY Administration Cholecalciferol 400 units 03/19/20 09:00 04/01/20 09:10 Cholecalciferol (Vitamin D3) 400 Units Tab PO 400 units DAILY BETTY Administration Dexamethasone 6 mg 03/27/20 08:28 04/01/20 09:10 Dexamethasone 4 Mg/Ml Vial SLOW IVP 6 mg BID BETTY Administration Guaifenesin 200 mg 03/30/20 08:10 04/01/20 00:06 Guaifenesin Sf Soln 200 Mg/10 Ml Udcup PO 200 mg Q4H PRN Administration Cough Dexmedetomidine HCl 400 mcg/ 100 mls @ 0 mls/hr 03/28/20 08:15 04/01/20 06:25 Sodium Chloride IVPB 100 mls INF BETTY Administration Protocol Per Protocol Insulin Human Regular 0 units 03/31/20 08:25 03/31/20 12:30 Insulin Regular 300 Units/3 Ml Vial SC 2 unit .MODERATE SLIDING SC PRN Administration Moderate Correctional Scale Lorazepam 2 mg 03/29/20 08:54 04/01/20 09:14 Lorazepam 2 Mg/Ml Vial SLOW IVP 2 mg Q1H PRN Administration Breakthrough agitation Metoclopramide HCl 10 mg 03/29/20 14:00 04/01/20 05:23 Metoclopramide Hcl 10 Mg/2 Ml Vial IVP 04/01/20 14:01 10 mg Q8HR BETTY Administration Pantoprazole Sodium 40 mg 03/26/20 21:00 04/01/20 09:10 Pantoprazole 40 Mg Granules Packet PO 40 mg BID BETTY Administration Polyethylene Glycol 17 gm 03/30/20 08:11 03/31/20 13:34 Polyethylene Glycol 3350 17 Gm Packet PO 17 gm DAILYPRN PRN Administration Constipation Propofol 1,000 mg 03/18/20 18:00 04/01/20 09:29 Propofol 1,000 Mg/100 Ml Vial IV 04/17/20 18:00 1,000 mg INF PRN Administration TO ACHIEVE GOAL RASS Protocol Risperidone 0.25 mg 03/28/20 09:00 04/01/20 09:10 Risperidone 0.25 Mg Tab PO 0.25 mg BID BETTY Administration Sodium Chloride 10 ml 03/19/20 09:00 04/01/20 09:11 Flush - Normal Saline 10 Ml Syringe IVF 10 ml Q12HR BETTY Administration Thiamine HCl 100 mg 03/19/20 09:00 04/01/20 09:10 Thiamine 100 Mg Tab PO 100 mg DAILY BETTY Administration Zinc Sulfate 220 mg 03/19/20 09:00 04/01/20 09:10 Zinc Sulfate 220 Mg Cap PO 220 mg DAILY BETTY Administration Hospitalist Exam Vitals: Vital Signs (12 hours) Temp Pulse Resp BP 04/01/20 08:10 92 88/70 L 04/01/20 07:45 98.7 F 04/01/20 06:00 19 04/01/20 04:00 98.6 F 16 04/01/20 02:45 72 04/01/20 02:00 20 04/01/20 00:00 98.6 F 03/31/20 23:44 16 03/31/20 22:03 56 L 03/31/20 22:00 17 Weight Admit Weight 155 lb 6.814 oz Weight 2.677 oz Most Recent Monitor Data Heart Rate from ECG 64 NIBP 100/71 NIBP BP-Mean 80 Respiration from ECG 13 SpO2 98 General Appearance: NAD General - other findings: On ventilator Eye: PERRL ENT: normocephalic atraumatic, no oropharyngeal lesions Neck: supple, symmetric, no JVD Heart: RRR, no murmur, no gallops, no rubs Respiratory: no wheezes, no rales, no ronchi Gastrointestinal: soft, non-distended, normal bowel sounds Extremities: no cyanosis, no clubbing, no edema Skin: normal turgor, no lesions Hosp A/P (1) Acute hypoxemic respiratory failure due to COVID-19 Code(s): U07.1 - COVID-19; J96.01 - ACUTE RESPIRATORY FAILURE WITH HYPOXIA Status: Acute Plan: On ventilator, (2) Metabolic encephalopathy Code(s): G93.41 - METABOLIC ENCEPHALOPATHY Status: Acute (3) Pneumonia due to COVID-19 virus Code(s): U07.1 - COVID-19; J12.82 - PNEUMONIA DUE TO CORONAVIRUS DISEASE 2019 Status: Acute Plan: S/p convalescent plasma (4) Transaminitis Code(s): R74.01 - ELEVATION OF LEVELS OF LIVER TRANSAMINASE LEVELS Status: Acute Plan: Due to COVID-19 (5) Low blood pressure Status: Acute Qualifiers: Hypotension type: idiopathic hypotension Qualified Code(s): I95.0 - Idiopathic hypotension (6) Elevated d-dimer Code(s): R79.89 - OTHER SPECIFIED ABNORMAL FINDINGS OF BLOOD CHEMISTRY Status: Acute Plan: Due to inflammatory process, continue therapeutic dose of Lovenox - Plan old records reviewed/req, plan discussed w/ family, DVT proph w/lovenox Ventilatory management as per pulmonology, Continue vitamin supplementation I have called his son and updated about plan of care Continue tube feeding
[2020-04-01] MEDS ORDERED: Fentanyl CADD 100 ML ONE (10:55)
--- NOTE | 2020-04-01 11:30 | PRG ---
DATE OF SERVICE: 04/01/2020 35 minutes critical care time. SUBJECTIVE: The patient remains intubated on mechanical ventilation for COVID-19 pneumonia. He is currently on SIMV rate 18, tidal volume 450, PEEP 10, pressure support 10, FiO2 of 65%. OBJECTIVE: VITAL SIGNS: His O2 saturations running around 91%, pulse is 99, blood pressure 101/72. He does have times where he becomes agitated through his propofol and fentanyl. HEENT: Otherwise unremarkable. NECK: No JVD. LUNGS: Inspiratory crackles bilaterally. CARDIAC: S1 and S2. Regular. ABDOMEN: Soft. EXTREMITIES: Edematous hands. LABORATORY DATA: Sodium 134, potassium 4.4, chloride 102, CO2 of 27, BUN 21, creatinine 0.6, glucose 153. Ferritin level is 464. White blood cell count 10.8, hematocrit 36.6, and platelet count 347. X-ray was not done today. ASSESSMENT: 1. COVID-19 pneumonia. 2. Acute hypoxic respiratory failure, requiring mechanical ventilation. 3. Hyperglycemia, that is under better control. PLAN: We will go ahead and add a Versed drip to help improve his sedation. This will probably allow the Precedex to be weaned off. Anticipate this gentleman being intubated for a long time. I have increased respiratory rate on the vent to compensate for his increased work of breathing. Job ID: [id number]
[2020-04-01] MEDS: Insulin Regular 300 UNITS/3 ML VIAL SC PRN (17:13)
[2020-04-01] MEDS: Enoxaparin Sodium 60 MG/0.6 ML SYRINGE SC SCH (20:49)
[2020-04-02] MEDS ORDERED: Fentanyl CADD 100 ML ONE ×2 (00:23→14:15)
[2020-04-02 04:54] LABS: Anion Gap 10 mmol/L (10-20); BUN (Urea Nitrogen) 20 mg/dL (8.4-25.7); Calc. Creatinine Clearance 137 mL/min (70-130); Calcium 7.4 mg/dL (7.8-10.44); Carbon Dioxide 27 mmol/L (23-31); Chloride 101 mmol/L (98-107); Glucose 134 mg/dL (83-110); Potassium 4.1 mmol/L (3.5-5.1); Sodium 134 mmol/L (136-145)
[2020-04-02 05:00] LABS: Band 26 % (5-11); Lymphocytes 3 % (21-51); MDiff Complete? YES; Mean Corpuscular HGB CONC 33.4 g/dL (32.0-36.0); Mean Corpuscular Hemoglobin 32.1 pg (27.0-31.0); Mean Corpuscular Volume 96.1 fL (78.0-98.0); Neutrophil 71 % (42-75); Platelet Count 297 thou/uL (130-400); RBC Distribution Width 13.9 % (11.5-14.5); Red Blood Cell (RBC) Count 3.74 mill/uL (4.70-6.10); White Blood Cell (WBC) Count 11.3 thou/uL (4.8-10.8)
[2020-04-02] MEDS: Propofol 1,000 MG/100 ML VIAL IV PRN ×2 (05:48→08:34)
--- NOTE | 2020-04-02 08:08 | RAD ---
Portable frontal chest radiograph: 04/02/2020 COMPARISON: 03/31/2020 HISTORY: Pneumonia FINDINGS: There is new subcutaneous emphysema within the neck/supraclavicular regions. Stable endotra cheal tube and nasogastric tube. Pneumomediastinum is again noted, more prominent than on the 03/31/2020 exam. There is interstitial and alveolar opacity consistent with the provided history of pn eumonia, presumably on the basis of Covid pneumonia. No obvious pneumothorax is seen although assessment is limited by subcutaneous gas. There is a area of linear density in the lateral upper rig ht hemithorax and the axillary region which could represent artifact or a very tiny pneumothorax. IMPRESSION: New subcutaneous emphysema in the supraclavicular regions and left chest wall. Worsening pneumomediastinum. Linear density in the lateral aspect of the right upper lobe region which could represent a very tiny pneumothorax or artifact. Dr. You made aware at 8:00 AM 04/02/2020 via [employer] connect
[2020-04-02] MEDS: Cholecalciferol (Vitamin D3) 400 UNITS TAB PO SCH (08:34)
[2020-04-02] MEDS: Thiamine 100 MG TAB PO SCH (08:34)
[2020-04-02] MEDS: risperiDONE 0.25 MG TAB PO SCH ×2 (08:34→20:53)
[2020-04-02] MEDS: Enoxaparin Sodium 60 MG/0.6 ML SYRINGE SC SCH ×2 (08:34→20:54)
[2020-04-02] MEDS: Ascorbic Acid 500 mg Chewable Tablet PO SCH (08:34)
[2020-04-02] MEDS: Dexamethasone 4 mg/ml Vial SLOW IVP SCH ×2 (08:35→20:53)
[2020-04-02] MEDS: Pantoprazole 40 MG GRANULES PACKET PO SCH ×2 (08:35→20:53)
[2020-04-02] MEDS: Zinc Sulfate 220 MG CAP PO SCH (08:38)
--- NOTE | 2020-04-02 09:15 | PRG ---
DATE OF SERVICE: 04/02/2020 SUBJECTIVE: Farrukh Macias remains in the ICU intubated in the vent. OBJECTIVE: VITAL SIGNS: Temperature 98, pulse 53, blood pressure 90/60. He is on 60% FiO2, saturations 98%, PEEP of 10. CHEST: Rhonchi, crackles. CARDIAC: Normal S1, S2. ABDOMEN: No masses. LABORATORY DATA: Labs are unremarkable. X-ray shows a small right-sided pneumothorax. ASSESSMENT: Respiratory failure, krause positive pneumonia, day 15 in the hospital. PLAN: Continue high-dose steroids. Supportive care. Decrease PEEP. Nutrition, PT. Less encephalopathic. One-half hour of critical care time. Job ID: [id number]
[2020-04-02] MEDS: Lorazepam 2 MG/ML VIAL SLOW IVP PRN (11:10)
--- NOTE | 2020-04-02 11:22 | PDOC.HOSPP ---
- Subjective Encounter Date: 04/02/20 Encounter Time: 09:40 Subjective: Patient seen and examined. Patient is on ventilator, today chest x-ray showing subcutaneous emphysema and pneumomediastinum, pulmonology adjusted ventilator today, - Objective Vital Signs & Weight: Vital Signs (12 hours) Temp Pulse Resp BP Pulse Ox 04/02/20 10:48 120 H 125/70 04/02/20 08:00 96.2 F L 100 04/02/20 07:42 53 L 93/62 04/02/20 05:58 18 04/02/20 04:00 98.3 F 18 04/02/20 02:16 67 103/66 04/02/20 02:00 19 04/02/20 00:00 99.2 F 19 Weight Admit Weight 155 lb 6.814 oz Weight 162 lb 0.636 oz Most Recent Monitor Data Heart Rate from ECG 108 NIBP 116/73 NIBP BP-Mean 87 Respiration from ECG 19 SpO2 93 I&O: 04/01/20 04/02/20 04/03/20 06:59 06:59 06:59 Intake Total 1637 1696.8 60 Output Total 1470 1665 100 Balance 167 31.8 -40 Result Diagrams: 04/02/20 04:00 04/02/20 04:00 Additional Labs: Accuchecks 04/02/20 04/02/20 04/02/20 08:45 06:14 00:06 POC Glucose 114 H 116 H 115 H 04/01/20 04/01/20 03/31/20 17:06 12:22 18:06 POC Glucose 176 H 156 H 147 H Radiology Reviewed by me: Yes (Chest x-ray showing subcutaneous emphysema and pneumomediastinum) EKG Reviewed by me: Yes (Sinus rhythm) Hospitalist ROS - Review of Systems ROS unobtainable: due to endotracheal tube - Medication Medications: Active Medications Generic Name Dose Route Start Last Admin Trade Name Freq PRN Reason Stop Dose Admin Acetaminophen 650 mg 03/19/20 16:49 03/23/20 04:11 Acetaminophen 325 Mg Tab PO 650 mg Q6H PRN Administration Fever or Pain Ascorbic Acid 500 mg 03/19/20 09:00 04/02/20 08:34 Ascorbic Acid 500 Mg Chewable Tablet PO 500 mg DAILY BETTY Administration Cholecalciferol 400 units 03/19/20 09:00 04/02/20 08:34 Cholecalciferol (Vitamin D3) 400 Units Tab PO 400 units DAILY BETTY Administration Dexamethasone 6 mg 03/27/20 08:28 04/02/20 08:35 Dexamethasone 4 Mg/Ml Vial SLOW IVP 6 mg BID BETTY Administration Enoxaparin Sodium 60 mg 04/01/20 21:00 04/02/20 08:34 Enoxaparin Sodium 60 Mg/0.6 Ml Syringe SC 60 mg 0900,2100 BETTY Administration Guaifenesin 200 mg 03/30/20 08:10 04/01/20 00:06 Guaifenesin Sf Soln 200 Mg/10 Ml Udcup PO 200 mg Q4H PRN Administration Cough Dexmedetomidine HCl 400 mcg/ 100 mls @ 0 mls/hr 03/28/20 08:15 04/02/20 09:42 Sodium Chloride IVPB 100 mls INF BETTY Administration Protocol Per Protocol Insulin Human Regular 0 units 03/31/20 08:25 04/01/20 17:13 Insulin Regular 300 Units/3 Ml Vial SC 2 unit .MODERATE SLIDING SC PRN Administration Moderate Correctional Scale Lorazepam 2 mg 03/29/20 08:54 04/02/20 11:10 Lorazepam 2 Mg/Ml Vial SLOW IVP 2 mg Q1H PRN Administration Breakthrough agitation Pantoprazole Sodium 40 mg 03/26/20 21:00 04/02/20 08:35 Pantoprazole 40 Mg Granules Packet PO 40 mg BID BETTY Administration Polyethylene Glycol 17 gm 03/30/20 08:11 03/31/20 13:34 Polyethylene Glycol 3350 17 Gm Packet PO 17 gm DAILYPRN PRN Administration Constipation Propofol 1,000 mg 03/18/20 18:00 04/02/20 08:34 Propofol 1,000 Mg/100 Ml Vial IV 04/17/20 18:00 1,000 mg INF PRN Administration TO ACHIEVE GOAL RASS Protocol Risperidone 0.25 mg 03/28/20 09:00 04/02/20 08:34 Risperidone 0.25 Mg Tab PO 0.25 mg BID BETTY Administration Sodium Chloride 10 ml 03/19/20 09:00 04/02/20 08:35 Flush - Normal Saline 10 Ml Syringe IVF 10 ml Q12HR BETTY Administration Thiamine HCl 100 mg 03/19/20 09:00 04/02/20 08:34 Thiamine 100 Mg Tab PO 100 mg DAILY BETTY Administration Zinc Sulfate 220 mg 03/19/20 09:00 04/02/20 08:38 Zinc Sulfate 220 Mg Cap PO 220 mg DAILY BETTY Administration Hospitalist Exam Vitals: Vital Signs (12 hours) Temp Pulse Resp BP Pulse Ox 04/02/20 10:48 120 H 125/70 04/02/20 08:00 96.2 F L 100 04/02/20 07:42 53 L 93/62 04/02/20 05:58 18 04/02/20 04:00 98.3 F 18 04/02/20 02:16 67 103/66 04/02/20 02:00 19 04/02/20 00:00 99.2 F 19 Weight Admit Weight 155 lb 6.814 oz Weight 162 lb 0.636 oz Most Recent Monitor Data Heart Rate from ECG 108 NIBP 116/73 NIBP BP-Mean 87 Respiration from ECG 19 SpO2 93 General Appearance: NAD General - other findings: On ventilator Eye: PERRL, anicteric sclera ENT: normocephalic atraumatic Neck: supple, symmetric, no JVD, no thyromegaly Heart: RRR, no murmur, no gallops, no rubs Respiratory: no wheezes, no rales, no ronchi Respiratory - other findings: Auscultation clear anteriorly, Gastrointestinal: soft, non-distended, normal bowel sounds Extremities: no edema Hosp A/P (1) Acute hypoxemic respiratory failure due to COVID-19 Code(s): U07.1 - COVID-19; J96.01 - ACUTE RESPIRATORY FAILURE WITH HYPOXIA Status: Acute (2) Metabolic encephalopathy Code(s): G93.41 - METABOLIC ENCEPHALOPATHY Status: Acute (3) Pneumonia due to COVID-19 virus Code(s): U07.1 - COVID-19; J12.82 - PNEUMONIA DUE TO CORONAVIRUS DISEASE 2019 Status: Acute (4) Transaminitis Code(s): R74.01 - ELEVATION OF LEVELS OF LIVER TRANSAMINASE LEVELS Status: Acute (5) Low blood pressure Status: Acute Qualifiers: Hypotension type: idiopathic hypotension Qualified Code(s): I95.0 - Idiopathic hypotension (6) Elevated d-dimer Code(s): R79.89 - OTHER SPECIFIED ABNORMAL FINDINGS OF BLOOD CHEMISTRY Status: Acute (7) Pneumomediastinum Code(s): J98.2 - INTERSTITIAL EMPHYSEMA Status: Acute - Plan old records reviewed/req, respiratory therapy, DVT proph w/lovenox Continue ventilator management as per pulmonology Patient is not amenable Plan of care updated to family member Medication reviewed and continue provide symptomatic and supportive care
[2020-04-02] MEDS: Fentanyl CADD 100 ML IV SCH (14:23)
[2020-04-03] MEDS: Propofol 1,000 MG/100 ML VIAL IV PRN ×2 (00:43→11:56)
[2020-04-03] MEDS ORDERED: Fentanyl CADD 100 ML ONE ×2 (02:53→15:49)
[2020-04-03 04:17] LABS: Anion Gap 14 mmol/L (10-20); BUN (Urea Nitrogen) 16 mg/dL (8.4-25.7); Calc. Creatinine Clearance 126 mL/min (70-130); Calcium 8.4 mg/dL (7.8-10.44); Carbon Dioxide 25 mmol/L (23-31); Chloride 99 mmol/L (98-107); Glucose 172 mg/dL (83-110); Potassium 4.2 mmol/L (3.5-5.1); Sodium 134 mmol/L (136-145)
[2020-04-03 04:23] LABS: Actual Bicarbonate (HCO3a) 26.5 mEq/L (22-28); Base Excess (BEa) 3.8 mEq/L (-2.0 to +3.0); CO2 Tension 33.7 mmHg (35.0-45.0); Calcium, Ionized (arterial) 1.16 mmol/L (1.12-1.30); Carboxyhemoglobin (COHb) 0.4 gm% (0.0-3.0); Hemoglobin (Hb) 13.8 g/dL (14.0-18.0); Potassium - ABG Lab 3.87 mmol/L (3.70-5.30); pH, Arterial 7.51 (7.35-7.45)
[2020-04-03 04:30] LABS: O2 Tension (PaO2), arterial 42.2 mmHg (> 70.0)
[2020-04-03 04:31] LABS: Puncture Site RRA
[2020-04-03 04:32] LABS: ALV-art Gradient 628.675 mmHg (0-20)
[2020-04-03] MEDS: Insulin Regular 300 UNITS/3 ML VIAL SC PRN ×2 (04:34→15:58)
[2020-04-03 04:51] LABS: Band 12 % (5-11); Hemoglobin 13.4 g/dL (14.0-18.0); Lymphocytes 2 % (21-51); MDiff Complete? YES; Mean Corpuscular HGB CONC 31.8 g/dL (32.0-36.0); Mean Corpuscular Hemoglobin 30.3 pg (27.0-31.0); Mean Corpuscular Volume 95.1 fL (78.0-98.0); Monocytes 2 % (0-10); Neutrophil 84 % (42-75); Platelet Count 374 thou/uL (130-400); RBC Distribution Width 14.1 % (11.5-14.5); Red Blood Cell (RBC) Count 4.41 mill/uL (4.70-6.10); White Blood Cell (WBC) Count 14.1 thou/uL (4.8-10.8)
[2020-04-03] MEDS: Vecuronium 10 MG VIAL IVP PRN ×3 (04:59→15:00)
--- NOTE | 2020-04-03 07:56 | RAD ---
XR Chest 1 View Portable HISTORY: Respiratory failure, pneumonia COMPARISON: Previous day FINDINGS: The probable tiny pneumothorax in the right lateral chest noted on the previous study is no t definitely seen on the current exam. Remainder the exam is otherwise stable.
[2020-04-03] MEDS: Ascorbic Acid 500 mg Chewable Tablet PO SCH (08:01)
[2020-04-03] MEDS: Enoxaparin Sodium 60 MG/0.6 ML SYRINGE SC SCH ×2 (08:01→20:40)
[2020-04-03] MEDS: risperiDONE 0.25 MG TAB PO SCH ×2 (08:01→20:40)
[2020-04-03] MEDS: Dexamethasone 4 mg/ml Vial SLOW IVP SCH ×2 (08:01→20:39)
[2020-04-03] MEDS: Cholecalciferol (Vitamin D3) 400 UNITS TAB PO SCH (08:01)
[2020-04-03] MEDS: Pantoprazole 40 MG GRANULES PACKET PO SCH ×2 (08:01→20:40)
[2020-04-03] MEDS: Zinc Sulfate 220 MG CAP PO SCH (08:01)
[2020-04-03] MEDS: Thiamine 100 MG TAB PO SCH (08:01)
[2020-04-03] MEDS: Norepinephrine 8 MG/0.9% NS 250 ML IVPB SCH (08:02)
--- NOTE | 2020-04-03 09:04 | PRG ---
DATE OF SERVICE: 04/03/2020 SUBJECTIVE: Farrukh Macias remains intubated in the vent. Apparently, he had a problem last night. He was placed back on 100%. ABG shows severe hypoxemia. He was paralyzed. OBJECTIVE: VITAL SIGNS: This morning, down to 55%, PEEP of 8, he is 100%, respirations 20, blood pressure 100/69. CHEST: No wheezing. No crackles. CARDIAC: Normal S1, S2. No gallops. ABDOMEN: No mass. LABORATORY DATA: White count 14,000, H and H are 13 and 42, and platelet count 374. His lytes are normal. Sodium 134. X-ray shows extensive infiltrate in the right lung. ASSESSMENT: Respiratory failure, krause positive pneumonia. PLAN: I have added meropenem for hospital-acquired infection . Continue supportive care, PT, high-dose steroids. He is day #16 in the hospital. One-half hour of critical care time. Job ID: [id number]
[2020-04-03 09:15] LABS: Phosphorus 2.6 mg/dL (2.3-4.7)
[2020-04-03] MEDS: MEROPENEM 1 GM/50 ML 1 GM in Premix Bag 1 BAG IVPB SCH ×2 (10:24→19:26)
--- NOTE | 2020-04-03 10:35 | PDOC.HOSPP ---
- Subjective Encounter Date: 04/03/20 Encounter Time: 09:30 Subjective: This morning patient was agitated, increased requirement for sedation and subsequently patient was hypotensive, Levophed drip started, - Objective Vital Signs & Weight: Vital Signs (12 hours) Temp Pulse Resp Pulse Ox 04/03/20 07:27 100 04/03/20 06:00 20 04/03/20 04:00 96.1 F L 20 04/03/20 02:56 137 H 04/03/20 02:00 24 H 04/03/20 00:00 96.9 F L 15 Weight Admit Weight 155 lb 6.814 oz Weight 160 lb 11.472 oz Most Recent Monitor Data Heart Rate from ECG 111 NIBP 101/69 NIBP BP-Mean 79 Respiration from ECG 19 SpO2 95 I&O: 04/02/20 04/03/20 04/04/20 06:59 06:59 06:59 Intake Total 1696.8 1655.4 30 Output Total 1665 2150 Balance 31.8 -494.6 30 Result Diagrams: 04/03/20 03:29 04/03/20 03:29 Additional Labs: Accuchecks 04/03/20 04/03/20 04/02/20 08:16 03:28 21:02 POC Glucose 110 H 178 H 150 H 04/02/20 04/02/20 16:49 11:49 POC Glucose 134 H 142 H Radiology Reviewed by me: Yes (Chest x-ray reviewed) EKG Reviewed by me: Yes Hospitalist ROS - Review of Systems ROS unobtainable: due to endotracheal tube - Medication Medications: Active Medications Generic Name Dose Route Start Last Admin Trade Name Freq PRN Reason Stop Dose Admin Acetaminophen 650 mg 03/19/20 16:49 03/23/20 04:11 Acetaminophen 325 Mg Tab PO 650 mg Q6H PRN Administration Fever or Pain Ascorbic Acid 500 mg 03/19/20 09:00 04/03/20 08:01 Ascorbic Acid 500 Mg Chewable Tablet PO 500 mg DAILY BETTY Administration Cholecalciferol 400 units 03/19/20 09:00 04/03/20 08:01 Cholecalciferol (Vitamin D3) 400 Units Tab PO 400 units DAILY BETTY Administration Dexamethasone 6 mg 03/27/20 08:28 04/03/20 08:01 Dexamethasone 4 Mg/Ml Vial SLOW IVP 6 mg BID BETTY Administration Enoxaparin Sodium 60 mg 04/01/20 21:00 04/03/20 08:01 Enoxaparin Sodium 60 Mg/0.6 Ml Syringe SC 60 mg 0900,2100 BETTY Administration Guaifenesin 200 mg 03/30/20 08:10 04/01/20 00:06 Guaifenesin Sf Soln 200 Mg/10 Ml Udcup PO 200 mg Q4H PRN Administration Cough Dexmedetomidine HCl 400 mcg/ 100 mls @ 0 mls/hr 03/28/20 08:15 04/03/20 05:15 Sodium Chloride IVPB 100 mls INF BETTY Administration Protocol Per Protocol Fentanyl 100 mls @ 0 mls/hr 03/29/20 09:00 04/02/20 14:23 Fentanyl Cadd IV 100 mls INF BETTY Administration Protocol Per Protocol Norepinephrine Bitartrate 250 mls @ 0 mls/hr 04/03/20 08:00 04/03/20 08:02 Levophed IVPB 250 mls INF BETTY Administration Protocol Titrate Meropenem 1 gm/ Device 50 mls @ 100 mls/hr 04/03/20 10:00 04/03/20 10:24 IVPB 50 mls 0200,1000,1800 BETTY Administration Insulin Human Regular 0 units 03/31/20 08:25 04/03/20 04:34 Insulin Regular 300 Units/3 Ml Vial SC 2 unit .MODERATE SLIDING SC PRN Administration Moderate Correctional Scale Lorazepam 2 mg 03/29/20 08:54 04/02/20 11:10 Lorazepam 2 Mg/Ml Vial SLOW IVP 2 mg Q1H PRN Administration Breakthrough agitation Pantoprazole Sodium 40 mg 03/26/20 21:00 04/03/20 08:01 Pantoprazole 40 Mg Granules Packet PO 40 mg BID BETTY Administration Polyethylene Glycol 17 gm 03/30/20 08:11 03/31/20 13:34 Polyethylene Glycol 3350 17 Gm Packet PO 17 gm DAILYPRN PRN Administration Constipation Propofol 1,000 mg 03/18/20 18:00 04/03/20 00:43 Propofol 1,000 Mg/100 Ml Vial IV 04/17/20 18:00 1,000 mg INF PRN Administration TO ACHIEVE GOAL RASS Protocol Risperidone 0.25 mg 03/28/20 09:00 04/03/20 08:01 Risperidone 0.25 Mg Tab PO 0.25 mg BID BETTY Administration Sodium Chloride 10 ml 03/19/20 09:00 04/03/20 08:02 Flush - Normal Saline 10 Ml Syringe IVF 10 ml Q12HR BETTY Administration Thiamine HCl 100 mg 03/19/20 09:00 04/03/20 08:01 Thiamine 100 Mg Tab PO 100 mg DAILY BETTY Administration Vecuronium [place] 10 mg 04/03/20 04:46 04/03/20 04:59 Vecuronium 10 Mg Vial IVP 10 mg Q1H PRN Administration MOVEMENT Zinc Sulfate 220 mg 03/19/20 09:00 04/03/20 08:01 Zinc Sulfate 220 Mg Cap PO 220 mg DAILY BETTY Administration Hospitalist Exam Vitals: Vital Signs (12 hours) Temp Pulse Resp Pulse Ox 04/03/20 07:27 100 04/03/20 06:00 20 04/03/20 04:00 96.1 F L 20 04/03/20 02:56 137 H 04/03/20 02:00 24 H 04/03/20 00:00 96.9 F L 15 Weight Admit Weight 155 lb 6.814 oz Weight 160 lb 11.472 oz Most Recent Monitor Data Heart Rate from ECG 111 NIBP 101/69 NIBP BP-Mean 79 Respiration from ECG 19 SpO2 95 General Appearance: NAD General - other findings: On ventilator Eye: PERRL, anicteric sclera ENT: normocephalic atraumatic, no oropharyngeal lesions Neck: symmetric, no JVD Heart: RRR, no murmur, no gallops, no rubs Respiratory: no wheezes, no rales, no ronchi Gastrointestinal: soft, non-distended, normal bowel sounds Extremities: no clubbing, no edema Hosp A/P (1) Septic shock Code(s): A41.9 - SEPSIS, UNSPECIFIED ORGANISM; R65.21 - SEVERE SEPSIS WITH SEPTIC SHOCK Status: Acute Plan: Sepsis with acute organ dysfunction due to COVID-19 infection, hypotension is also related with increased use of sedation (2) Acute hypoxemic respiratory failure due to COVID-19 Code(s): U07.1 - COVID-19; J96.01 - ACUTE RESPIRATORY FAILURE WITH HYPOXIA Status: Acute (3) Metabolic encephalopathy Code(s): G93.41 - METABOLIC ENCEPHALOPATHY Status: Acute (4) Pneumonia due to COVID-19 virus Code(s): U07.1 - COVID-19; J12.82 - PNEUMONIA DUE TO CORONAVIRUS DISEASE 2019 Status: Acute (5) Transaminitis Code(s): R74.01 - ELEVATION OF LEVELS OF LIVER TRANSAMINASE LEVELS Status: Acute (6) Elevated d-dimer Code(s): R79.89 - OTHER SPECIFIED ABNORMAL FINDINGS OF BLOOD CHEMISTRY Status: Acute (7) Pneumomediastinum Code(s): J98.2 - INTERSTITIAL EMPHYSEMA Status: Acute - Plan old records reviewed/req, continue antibiotics, DVT proph w/lovenox Levophed drip started Meropenem added Continue ventilator management as per pulmonology Patient is not amenable Medication reviewed and continue provide symptomatic and supportive care Prognosis guarded
[2020-04-03] MEDS: Fentanyl CADD 100 ML IV SCH (15:57)
[2020-04-04] MEDS ORDERED: Vecuronium 10 MG VIAL ONE (04:09)
[2020-04-04] MEDS ORDERED: Fentanyl CADD 100 ML ONE ×2 (04:09→17:36)
[2020-04-04] MEDS ORDERED: Bacteriostatic Normal Saline 30 ML VIAL ONE (04:09)
[2020-04-04 07:22] LABS: Anion Gap 13 mmol/L (10-20); BUN (Urea Nitrogen) 17 mg/dL (8.4-25.7); Calc. Creatinine Clearance 140 mL/min (70-130); Calcium 7.9 mg/dL (7.8-10.44); Carbon Dioxide 26 mmol/L (23-31); Chloride 100 mmol/L (98-107); Glucose 187 mg/dL (83-110); Potassium 4.1 mmol/L (3.5-5.1); Sodium 135 mmol/L (136-145)
--- NOTE | 2020-04-04 07:36 | RAD ---
Exam: Chest one view HISTORY:Ventilated patient. Respiratory distress. Pneumonia. Comparison: 04/03/2020 FINDINGS: Lines and tubes: Redemonstration of endotracheal tube, nasogastric tube. Cardiac silhouette: Normal Aorta: Unremarkable Pulmonary vessels: Normal Costophrenic angles: Small bibasilar effusions, once again demonstrated LUNGS: Stable multi lobar interstitial and alveolar opacities. Pneumothorax: No pneumothorax. Redemonstration of subcutaneous emphysema involving the chest soft tis sues and left and right lower neck. Osseous abnormalities: None IMPRESSION: No significant interval change.
--- NOTE | 2020-04-04 08:29 | PRG ---
DATE OF SERVICE: 04/04/2020 SUBJECTIVE: Farrukh Macias was intubated in the vent, sedated. OBJECTIVE: VITAL SIGNS: Temperature 97, saturations are 98% on 60% FiO2, blood pressure 114/72, pulse 80, and respiratory rate 20. CHEST: Rhonchi. No wheezing. CARDIAC: Normal S1 and S2. No gallops. ABDOMEN: No masses. LABORATORY DATA: Unremarkable. X-ray still shows mainly right-sided infiltrate, left side appears to be relatively clear. His I's and O's have been negative. ASSESSMENT: 1. Respiratory failure. 2. Simmons positive pneumonia. PLAN: Continue broad-spectrum antibiotics, steroids, supportive care, and PT. Still not weanable. TIME SPENT: One-half hour of critical care time. Job ID: [id number]
[2020-04-04 08:37] LABS: Hemoglobin 12.4 g/dL (14.0-18.0); Mean Corpuscular HGB CONC 32.9 g/dL (32.0-36.0); Mean Corpuscular Hemoglobin 31.4 pg (27.0-31.0); Mean Corpuscular Volume 95.4 fL (78.0-98.0); Platelet Count 301 thou/uL (130-400); RBC Distribution Width 14.3 % (11.5-14.5); Red Blood Cell (RBC) Count 3.94 mill/uL (4.70-6.10)
[2020-04-04 08:42] LABS: Band 18 % (5-11); Lymphocytes 4 % (21-51); MDiff Complete? YES; Neutrophil 76 % (42-75); RBC Morphology Normal; Reactive Lymphocytes 2 % (0-10)
[2020-04-04] MEDS: Enoxaparin Sodium 60 MG/0.6 ML SYRINGE SC SCH ×2 (09:02→21:00)
[2020-04-04] MEDS: Zinc Sulfate 220 MG CAP PO SCH (09:03)
[2020-04-04] MEDS: Propofol 1,000 MG/100 ML VIAL IV PRN ×2 (09:03→17:40)
[2020-04-04] MEDS: Thiamine 100 MG TAB PO SCH (09:03)
[2020-04-04] MEDS: Ascorbic Acid 500 mg Chewable Tablet PO SCH (09:03)
[2020-04-04] MEDS: Cholecalciferol (Vitamin D3) 400 UNITS TAB PO SCH (09:03)
[2020-04-04] MEDS: MEROPENEM 1 GM/50 ML 1 GM in Premix Bag 1 BAG IVPB SCH ×2 (09:03→17:41)
[2020-04-04] MEDS: Dexamethasone 4 mg/ml Vial SLOW IVP SCH ×2 (09:04→20:58)
[2020-04-04] MEDS: risperiDONE 0.25 MG TAB PO SCH ×2 (09:04→20:58)
[2020-04-04] MEDS: Pantoprazole 40 MG GRANULES PACKET PO SCH ×2 (09:04→20:58)
[2020-04-04] MEDS: Fentanyl CADD 100 ML IV SCH (17:40)
--- NOTE | 2020-04-04 18:31 | PDOC.HOSPP ---
- Subjective Encounter Date: 04/04/20 Subjective: sedated - Objective Vital Signs & Weight: Vital Signs (12 hours) Temp Pulse BP Pulse Ox 04/04/20 16:00 96.1 F L 04/04/20 15:12 119 H 04/04/20 12:00 96.5 F L 04/04/20 10:57 40 L 137/78 04/04/20 08:23 43 L 04/04/20 08:00 96.2 F L 04/04/20 07:59 98 Weight Admit Weight 155 lb 6.814 oz Weight 160 lb 11.472 oz Most Recent Monitor Data Heart Rate from ECG 58 NIBP 110/65 NIBP BP-Mean 80 Respiration from ECG 25 SpO2 99 I&O: 04/03/20 04/04/20 04/05/20 06:59 06:59 06:59 Intake Total 1655.4 636.8 580 Output Total 2150 1370 955 Balance -494.6 -733.2 -375 Result Diagrams: 04/04/20 03:36 04/04/20 03:30 Additional Labs: Accuchecks 04/04/20 04/03/20 09:15 20:47 POC Glucose 125 H 124 H Hospitalist ROS - Medication Medications: Active Medications Generic Name Dose Route Start Last Admin Trade Name Freq PRN Reason Stop Dose Admin Acetaminophen 650 mg 03/19/20 16:49 03/23/20 04:11 Acetaminophen 325 Mg Tab PO 650 mg Q6H PRN Administration Fever or Pain Ascorbic Acid 500 mg 03/19/20 09:00 04/04/20 09:03 Ascorbic Acid 500 Mg Chewable Tablet PO 500 mg DAILY BETTY Administration Cholecalciferol 400 units 03/19/20 09:00 04/04/20 09:03 Cholecalciferol (Vitamin D3) 400 Units Tab PO 400 units DAILY BETTY Administration Dexamethasone 6 mg 03/27/20 08:28 04/04/20 09:04 Dexamethasone 4 Mg/Ml Vial SLOW IVP 6 mg BID BETTY Administration Enoxaparin Sodium 60 mg 04/01/20 21:00 04/04/20 09:02 Enoxaparin Sodium 60 Mg/0.6 Ml Syringe SC 60 mg 0900,2100 BETTY Administration Guaifenesin 200 mg 03/30/20 08:10 04/01/20 00:06 Guaifenesin Sf Soln 200 Mg/10 Ml Udcup PO 200 mg Q4H PRN Administration Cough Dexmedetomidine HCl 400 mcg/ 100 mls @ 0 mls/hr 03/28/20 08:15 04/04/20 17:44 Sodium Chloride IVPB 100 mls INF BETTY Administration Protocol Per Protocol Fentanyl 100 mls @ 0 mls/hr 03/29/20 09:00 04/04/20 17:40 Fentanyl Cadd IV 100 mls INF BETTY Administration Protocol Per Protocol Midazolam HCl 100 mls @ 0 mls/hr 04/01/20 11:15 04/04/20 11:03 Versed IVPB 100 mls INF BETTY Administration Protocol Titrate Norepinephrine Bitartrate 250 mls @ 0 mls/hr 04/03/20 08:00 04/03/20 08:02 Levophed IVPB 250 mls INF BETTY Administration Protocol Titrate Meropenem 1 gm/ Device 50 mls @ 100 mls/hr 04/03/20 10:00 04/04/20 17:41 IVPB 50 mls 0200,1000,1800 BETTY Administration Insulin Human Regular 0 units 03/31/20 08:25 04/03/20 15:58 Insulin Regular 300 Units/3 Ml Vial SC 2 unit .MODERATE SLIDING SC PRN Administration Moderate Correctional Scale Lorazepam 2 mg 03/29/20 08:54 04/02/20 11:10 Lorazepam 2 Mg/Ml Vial SLOW IVP 2 mg Q1H PRN Administration Breakthrough agitation Pantoprazole Sodium 40 mg 03/26/20 21:00 04/04/20 09:04 Pantoprazole 40 Mg Granules Packet PO 40 mg BID BETTY Administration Polyethylene Glycol 17 gm 03/30/20 08:11 03/31/20 13:34 Polyethylene Glycol 3350 17 Gm Packet PO 17 gm DAILYPRN PRN Administration Constipation Propofol 1,000 mg 03/18/20 18:00 04/04/20 17:40 Propofol 1,000 Mg/100 Ml Vial IV 04/17/20 18:00 1,000 mg INF PRN Administration TO ACHIEVE GOAL RASS Protocol Risperidone 0.25 mg 03/28/20 09:00 04/04/20 09:04 Risperidone 0.25 Mg Tab PO 0.25 mg BID BETTY Administration Sodium Chloride 10 ml 03/19/20 09:00 04/04/20 09:04 Flush - Normal Saline 10 Ml Syringe IVF 10 ml Q12HR BETTY Administration Thiamine HCl 100 mg 03/19/20 09:00 04/04/20 09:03 Thiamine 100 Mg Tab PO 100 mg DAILY BETTY Administration Vecuronium [place] 10 mg 04/03/20 04:46 04/03/20 15:00 Vecuronium 10 Mg Vial IVP 10 mg Q1H PRN Administration MOVEMENT Zinc Sulfate 220 mg 03/19/20 09:00 04/04/20 09:03 Zinc Sulfate 220 Mg Cap PO 220 mg DAILY BETTY Administration Hospitalist Exam Vitals: Vital Signs (12 hours) Temp Pulse BP Pulse Ox 04/04/20 16:00 96.1 F L 04/04/20 15:12 119 H 04/04/20 12:00 96.5 F L 04/04/20 10:57 40 L 137/78 04/04/20 08:23 43 L 04/04/20 08:00 96.2 F L 04/04/20 07:59 98 Weight Admit Weight 155 lb 6.814 oz Weight 160 lb 11.472 oz Most Recent Monitor Data Heart Rate from ECG 58 NIBP 110/65 NIBP BP-Mean 80 Respiration from ECG 25 SpO2 99 General Appearance: NAD (sedated) Eye: PERRL ENT: normocephalic atraumatic Neck: supple, symmetric, no JVD, no thyromegaly Heart: RRR, no murmur, no gallops, no rubs Respiratory: CTAB, no wheezes, no rales, no ronchi Gastrointestinal: soft, non-tender, non-distended Extremities: no cyanosis, no clubbing Skin: normal turgor Hosp A/P (1) Acute hypoxemic respiratory failure due to COVID-19 Code(s): U07.1 - COVID-19; J96.01 - ACUTE RESPIRATORY FAILURE WITH HYPOXIA Status: Acute (2) Pneumonia due to COVID-19 virus Code(s): U07.1 - COVID-19; J12.82 - PNEUMONIA DUE TO CORONAVIRUS DISEASE 2019 Status: Acute (3) Septic shock Code(s): A41.9 - SEPSIS, UNSPECIFIED ORGANISM; R65.21 - SEVERE SEPSIS WITH SEPTIC SHOCK Status: Acute - Plan plan for today 2/3 Levophed drip Meropenem Continue ventilator management as per pulmonology IMV mode Medication reviewed and continue provide symptomatic and supportive care Prognosis guarded
[2020-04-05] MEDS: MEROPENEM 1 GM/50 ML 1 GM in Premix Bag 1 BAG IVPB SCH ×3 (01:48→19:40)
[2020-04-05] MEDS: Vecuronium 10 MG VIAL IVP PRN (04:20)
[2020-04-05] MEDS: Lorazepam 2 MG/ML VIAL SLOW IVP PRN ×2 (04:35→23:51)
[2020-04-05 04:36] LABS: Anion Gap 11 mmol/L (10-20); BUN (Urea Nitrogen) 17 mg/dL (8.4-25.7); Calc. Creatinine Clearance 125 mL/min (70-130); Calcium 8.2 mg/dL (7.8-10.44); Carbon Dioxide 29 mmol/L (23-31); Chloride 98 mmol/L (98-107); Glucose 140 mg/dL (83-110); Potassium 4.4 mmol/L (3.5-5.1); Sodium 134 mmol/L (136-145)
[2020-04-05 05:07] LABS: Band 7 % (5-11); Hemoglobin 12.7 g/dL (14.0-18.0); Lymphocytes 4 % (21-51); MDiff Complete? YES; Mean Corpuscular HGB CONC 32.6 g/dL (32.0-36.0); Mean Corpuscular Hemoglobin 31.5 pg (27.0-31.0); Mean Corpuscular Volume 96.6 fL (78.0-98.0); Mean Platelet Volume 8.7 fL (7.4-10.4); Monocytes 4 % (0-10); Neutrophil 85 % (42-75); Platelet Count 291 thou/uL (130-400); Red Blood Cell (RBC) Count 4.03 mill/uL (4.70-6.10); White Blood Cell (WBC) Count 14.2 thou/uL (4.8-10.8)
[2020-04-05] MEDS: Acetaminophen 650 MG/20.3 ML UDCUP PER TUBE PRN (05:09)
[2020-04-05] MEDS ORDERED: Metoprolol Tartrate 5 MG/5 ML VIAL IVP SCH (05:30)
[2020-04-05] MEDS ORDERED: Metoprolol Tartrate 5 MG/5 ML VIAL IVP PRN (05:35)
[2020-04-05] MEDS ORDERED: Fentanyl CADD 100 ML ONE ×2 (07:39→20:17)
[2020-04-05] MEDS: Fentanyl CADD 100 ML IV SCH ×2 (07:41→20:21)
[2020-04-05] MEDS: Propofol 1,000 MG/100 ML VIAL IV PRN ×3 (07:42→23:24)
--- NOTE | 2020-04-05 08:17 | RAD ---
PORTABLE CHEST: Date: 04/05/2020 HISTORY: Pneumonia. CCU follow-up. COMPARISON: 04/04/2020. FINDINGS: ET tube and NG tube unchanged. ET tube has tip at the eduardo. Hazy bilateral infiltrates, slightly more prominent in the right lung, again noted. Subcutaneous emph ysema in the neck and upper chest region again noted. IMPRESSION: No significant interval change. POS: AGW
[2020-04-05] MEDS: Dexamethasone 4 mg/ml Vial SLOW IVP SCH ×2 (09:01→20:22)
[2020-04-05] MEDS: Enoxaparin Sodium 60 MG/0.6 ML SYRINGE SC SCH ×2 (09:01→20:22)
[2020-04-05] MEDS: Ascorbic Acid 500 mg Chewable Tablet PO SCH (09:02)
[2020-04-05] MEDS: Zinc Sulfate 220 MG CAP PO SCH (09:02)
[2020-04-05] MEDS: Cholecalciferol (Vitamin D3) 400 UNITS TAB PO SCH (09:02)
[2020-04-05] MEDS: Pantoprazole 40 MG GRANULES PACKET PO SCH ×2 (09:02→20:22)
[2020-04-05] MEDS: risperiDONE 0.25 MG TAB PO SCH ×2 (09:02→20:22)
[2020-04-05] MEDS: Thiamine 100 MG TAB PO SCH (09:02)
--- NOTE | 2020-04-05 09:51 | PRG ---
DATE OF SERVICE: 04/05/2020 SUBJECTIVE: Farrukh Macias remains intubated on the vent. OBJECTIVE: VITAL SIGNS: Temperature 98, pulse 113, blood pressure respiratory rate 18. His I's and O's have been consistently negative. CHEST: No rhonchi or crackles. CARDIAC: Normal S1, S2. ABDOMEN: No masses. DIAGNOSTIC STUDIES: White count is unremarkable. X-ray still shows persistent right-sided infiltrate respiratory failure, krause positive pneumonia. PLAN: He is on Demadex and broad-spectrum antibiotics. PT supportive care. Still encephalopathic, still not weanable. We will follow. One-half hour of critical time. Job ID: [id number]
--- NOTE | 2020-04-05 18:10 | PDOC.HOSPP ---
- Subjective Encounter Date: 04/05/20 Subjective: still on sedation, but he does open his eyes. - Objective Vital Signs & Weight: Vital Signs (12 hours) Temp Pulse Resp Pulse Ox 04/05/20 16:00 98.1 F 04/05/20 14:52 56 L 04/05/20 12:00 97.5 F L 04/05/20 11:10 112 H 04/05/20 08:37 113 H 04/05/20 08:00 98.6 F 4 L 91 L Weight Admit Weight 155 lb 6.814 oz Weight 155 lb 3.287 oz Most Recent Monitor Data Heart Rate from ECG 108 NIBP 134/86 NIBP BP-Mean 102 Respiration from ECG 18 SpO2 96 I&O: 04/04/20 04/05/20 04/06/20 06:59 06:59 06:59 Intake Total 636.8 1354.8 389 Output Total 1370 2190 450 Balance -733.2 -835.2 -61 Result Diagrams: 04/05/20 03:40 04/05/20 03:40 Additional Labs: Accuchecks 04/05/20 04/04/20 09:10 21:05 POC Glucose 124 H 98 Hospitalist ROS - Medication Medications: Active Medications Generic Name Dose Route Start Last Admin Trade Name Freq PRN Reason Stop Dose Admin Acetaminophen 650 mg 04/05/20 05:02 04/05/20 05:09 Acetaminophen 650 Mg/20.3 Ml Udcup PER TUBE 650 mg Q6H PRN Administration Fever or Pain Ascorbic Acid 500 mg 03/19/20 09:00 04/05/20 09:02 Ascorbic Acid 500 Mg Chewable Tablet PO 500 mg DAILY BETTY Administration Bisacodyl 10 mg 03/30/20 08:10 04/05/20 05:09 Bisacodyl 10 Mg Supp MS 10 mg DAILYPRN PRN Administration Constipation Cholecalciferol 400 units 03/19/20 09:00 04/05/20 09:02 Cholecalciferol (Vitamin D3) 400 Units Tab PO 400 units DAILY BETTY Administration Dexamethasone 6 mg 03/27/20 08:28 04/05/20 09:01 Dexamethasone 4 Mg/Ml Vial SLOW IVP 6 mg BID BETTY Administration Enoxaparin Sodium 60 mg 04/01/20 21:00 04/05/20 09:01 Enoxaparin Sodium 60 Mg/0.6 Ml Syringe SC 60 mg 0900,2100 BETTY Administration Guaifenesin 200 mg 03/30/20 08:10 04/01/20 00:06 Guaifenesin Sf Soln 200 Mg/10 Ml Udcup PO 200 mg Q4H PRN Administration Cough Dexmedetomidine HCl 400 mcg/ 100 mls @ 0 mls/hr 03/28/20 08:15 04/05/20 17:08 Sodium Chloride IVPB 100 mls INF BETTY Administration Protocol Per Protocol Fentanyl 100 mls @ 0 mls/hr 03/29/20 09:00 04/05/20 07:41 Fentanyl Cadd IV 100 mls INF BETTY Administration Protocol Per Protocol Midazolam HCl 100 mls @ 0 mls/hr 04/01/20 11:15 04/04/20 11:03 Versed IVPB 100 mls INF BETTY Administration Protocol Titrate Norepinephrine Bitartrate 250 mls @ 0 mls/hr 04/03/20 08:00 04/03/20 08:02 Levophed IVPB 250 mls INF BETTY Administration Protocol Titrate Meropenem 1 gm/ Device 50 mls @ 100 mls/hr 04/03/20 10:00 04/05/20 09:00 IVPB 50 mls 0200,1000,1800 BETTY Administration Insulin Human Regular 0 units 03/31/20 08:25 04/03/20 15:58 Insulin Regular 300 Units/3 Ml Vial SC 2 unit .MODERATE SLIDING SC PRN Administration Moderate Correctional Scale Lorazepam 2 mg 03/29/20 08:54 04/05/20 04:35 Lorazepam 2 Mg/Ml Vial SLOW IVP 2 mg Q1H PRN Administration Breakthrough agitation Pantoprazole Sodium 40 mg 03/26/20 21:00 04/05/20 09:02 Pantoprazole 40 Mg Granules Packet PO 40 mg BID BETTY Administration Polyethylene Glycol 17 gm 03/30/20 08:11 03/31/20 13:34 Polyethylene Glycol 3350 17 Gm Packet PO 17 gm DAILYPRN PRN Administration Constipation Propofol 1,000 mg 03/18/20 18:00 04/05/20 17:08 Propofol 1,000 Mg/100 Ml Vial IV 04/17/20 18:00 1,000 mg INF PRN Administration TO ACHIEVE GOAL RASS Protocol Risperidone 0.25 mg 03/28/20 09:00 04/05/20 09:02 Risperidone 0.25 Mg Tab PO 0.25 mg BID BETTY Administration Sodium Chloride 10 ml 03/19/20 09:00 04/05/20 09:02 Flush - Normal Saline 10 Ml Syringe IVF 10 ml Q12HR BETTY Administration Thiamine HCl 100 mg 03/19/20 09:00 04/05/20 09:02 Thiamine 100 Mg Tab PO 100 mg DAILY BETTY Administration Vecuronium [place] 10 mg 04/03/20 04:46 04/05/20 04:20 Vecuronium 10 Mg Vial IVP 10 mg Q1H PRN Administration MOVEMENT Zinc Sulfate 220 mg 03/19/20 09:00 04/05/20 09:02 Zinc Sulfate 220 Mg Cap PO 220 mg DAILY BETTY Administration Hospitalist Exam Vitals: Vital Signs (12 hours) Temp Pulse Resp Pulse Ox 04/05/20 16:00 98.1 F 04/05/20 14:52 56 L 04/05/20 12:00 97.5 F L 04/05/20 11:10 112 H 04/05/20 08:37 113 H 04/05/20 08:00 98.6 F 4 L 91 L Weight Admit Weight 155 lb 6.814 oz Weight 155 lb 3.287 oz Most Recent Monitor Data Heart Rate from ECG 108 NIBP 134/86 NIBP BP-Mean 102 Respiration from ECG 18 SpO2 96 General Appearance: ill appearing (on sedation) Eye: PERRL ENT: normocephalic atraumatic Neck: supple Heart: RRR, no murmur Respiratory: CTAB, no wheezes Gastrointestinal: soft, non-tender Extremities: no cyanosis, no clubbing Hosp A/P (1) Acute hypoxemic respiratory failure due to COVID-19 Code(s): U07.1 - COVID-19; J96.01 - ACUTE RESPIRATORY FAILURE WITH HYPOXIA Status: Acute (2) Pneumonia due to COVID-19 virus Code(s): U07.1 - COVID-19; J12.82 - PNEUMONIA DUE TO CORONAVIRUS DISEASE 2019 Status: Acute (3) Septic shock Code(s): A41.9 - SEPSIS, UNSPECIFIED ORGANISM; R65.21 - SEVERE SEPSIS WITH SEPTIC SHOCK Status: Acute - Plan plan for today 2/3 Levophed drip Meropenem Continue ventilator management as per pulmonology IMV mode Medication reviewed and continue provide symptomatic and supportive care Prognosis guarded plan for today 04/05 he still requires sedation and his saturation do go own also he becomes tachycardic when off Precedex. He also still on Fentanyl, propofol.
[2020-04-06] MEDS: Vecuronium 10 MG VIAL IVP PRN ×3 (00:13→11:41)
[2020-04-06] MEDS: MEROPENEM 1 GM/50 ML 1 GM in Premix Bag 1 BAG IVPB SCH ×4 (02:31→17:33)
[2020-04-06 04:14] LABS: Band 9 % (5-11); Lymphocytes 3 % (21-51); MDiff Complete? YES; Mean Corpuscular Hemoglobin 30.6 pg (27.0-31.0); Mean Corpuscular Volume 95.7 fL (78.0-98.0); Mean Platelet Volume 8.4 fL (7.4-10.4); Metamyelocyte 1 % (0-0); Monocytes 2 % (0-10); Neutrophil 85 % (42-75); Platelet Count 302 thou/uL (130-400); Platelet Morphology Comment Appears Adequate; RBC Distribution Width 14.1 % (11.5-14.5); Red Blood Cell (RBC) Count 3.58 mill/uL (4.70-6.10); White Blood Cell (WBC) Count 10.1 thou/uL (4.8-10.8)
[2020-04-06 04:27] LABS: Anion Gap 12 mmol/L (10-20); BUN (Urea Nitrogen) 15 mg/dL (8.4-25.7); Calc. Creatinine Clearance 134 mL/min (70-130); Calcium 7.7 mg/dL (7.8-10.44); Carbon Dioxide 28 mmol/L (23-31); Chloride 100 mmol/L (98-107); Glucose 150 mg/dL (83-110); Potassium 4.1 mmol/L (3.5-5.1); Sodium 136 mmol/L (136-145)
[2020-04-06] MEDS: Propofol 1,000 MG/100 ML VIAL IV PRN ×3 (06:04→20:30)
[2020-04-06] MEDS: Enoxaparin Sodium 60 MG/0.6 ML SYRINGE SC SCH ×2 (08:33→20:25)
[2020-04-06] MEDS: risperiDONE 0.25 MG TAB PO SCH ×2 (08:33→20:25)
[2020-04-06] MEDS: Dexamethasone 4 mg/ml Vial SLOW IVP SCH ×2 (08:33→20:24)
[2020-04-06] MEDS: Thiamine 100 MG TAB PO SCH (08:34)
[2020-04-06] MEDS: Lorazepam 2 MG/ML VIAL SLOW IVP PRN (08:34)
[2020-04-06] MEDS: Pantoprazole 40 MG GRANULES PACKET PO SCH ×2 (08:34→20:25)
[2020-04-06] MEDS: Zinc Sulfate 220 MG CAP PO SCH (08:34)
[2020-04-06] MEDS: Ascorbic Acid 500 mg Chewable Tablet PO SCH (08:34)
[2020-04-06] MEDS: Cholecalciferol (Vitamin D3) 400 UNITS TAB PO SCH (09:03)
--- NOTE | 2020-04-06 09:39 | PRG ---
DATE OF SERVICE: 04/06/2020 SUBJECTIVE: Farrukh Macias remains in the ICU. OBJECTIVE: VITAL SIGNS: Pulse 50, sats are 90% on 50%, low PEEP of 8, blood pressure 101/65. He is on bilevel. CHEST: No wheezing. No crackles. CARDIAC: Normal S1, S2. No gallops. ABDOMEN: Soft. NEUROLOGIC: He is encephalopathic. IMAGING STUDIES: His x-ray today shows mainly right-sided infiltrate. ASSESSMENT: Respiratory failure, coronavirus positive pneumonia, prolonged intubation, and encephalopathy. PLAN: Still not sync with the vent, still on high-dose steroids, Lovenox, supportive care. We will probably plan a trach and a PEG next week. I told the nurse to minimize sedation if possible. One-half hour of critical care time. Job ID: [id number]
[2020-04-06] MEDS ORDERED: Fentanyl CADD 100 ML ONE ×2 (09:52→22:28)
[2020-04-06] MEDS: Fentanyl CADD 100 ML IV SCH ×2 (09:56→22:35)
--- NOTE | 2020-04-06 10:14 | RAD ---
SINGLE VIEW CHEST: Date; 04/06/2020 INDICATION: History of intubation. COMPARISON: Prior exam dated 04/05/2020. IMPRESSION: The ET tube tip is extending beyond into the right mainstem bronchus. Recommend retraction 2.5 cm. Fi ndings called to Shiela Nash RN, at 0814 hours on 04/06/2020. Bilateral pneumonia is stable. No pneumothorax is evident. Subcutaneous emphysema involving the neck base with mild pneumomediastinum is similar. CODE CR. POS: BH
--- NOTE | 2020-04-06 19:16 | PDOC.HOSPP ---
- Subjective Subjective: sedated - Objective Vital Signs & Weight: Vital Signs (12 hours) Temp Pulse Pulse Ox 04/06/20 16:00 98 F 04/06/20 14:50 72 04/06/20 12:00 97.6 F 04/06/20 10:37 101 H 04/06/20 08:00 98.1 F 04/06/20 07:33 99 04/06/20 07:30 40 L Weight Admit Weight 155 lb 6.814 oz Weight 151 lb 0.266 oz Most Recent Monitor Data Heart Rate from ECG 109 NIBP 128/76 NIBP BP-Mean 93 Respiration from ECG 18 SpO2 93 I&O: 04/05/20 04/06/20 04/07/20 06:59 06:59 06:59 Intake Total 1354.8 2040.4 628.2 Output Total 2190 2570 1230 Balance -835.2 -529.6 -601.8 Result Diagrams: 04/06/20 03:15 04/06/20 03:15 Additional Labs: Accuchecks 04/05/20 21:05 POC Glucose 132 H Hospitalist ROS - Medication Medications: Active Medications Generic Name Dose Route Start Last Admin Trade Name Freq PRN Reason Stop Dose Admin Acetaminophen 650 mg 04/05/20 05:02 04/05/20 05:09 Acetaminophen 650 Mg/20.3 Ml Udcup PER TUBE 650 mg Q6H PRN Administration Fever or Pain Ascorbic Acid 500 mg 03/19/20 09:00 04/06/20 08:34 Ascorbic Acid 500 Mg Chewable Tablet PO 500 mg DAILY BETTY Administration Bisacodyl 10 mg 03/30/20 08:10 04/05/20 05:09 Bisacodyl 10 Mg Supp [place] 10 mg DAILYPRN PRN Administration Constipation Cholecalciferol 400 units 03/19/20 09:00 04/06/20 09:03 Cholecalciferol (Vitamin D3) 400 Units Tab PO 400 units DAILY BETTY Administration Dexamethasone 6 mg 03/27/20 08:28 04/06/20 08:33 Dexamethasone 4 Mg/Ml Vial SLOW IVP 6 mg BID BETTY Administration Enoxaparin Sodium 60 mg 04/01/20 21:00 04/06/20 08:33 Enoxaparin Sodium 60 Mg/0.6 Ml Syringe SC 60 mg 0900,2100 BETTY Administration Guaifenesin 200 mg 03/30/20 08:10 04/01/20 00:06 Guaifenesin Sf Soln 200 Mg/10 Ml Udcup PO 200 mg Q4H PRN Administration Cough Dexmedetomidine HCl 400 mcg/ 100 mls @ 0 mls/hr 03/28/20 08:15 04/06/20 17:40 Sodium Chloride IVPB 100 mls INF BETTY Administration Protocol Per Protocol Fentanyl 100 mls @ 0 mls/hr 03/29/20 09:00 04/06/20 09:56 Fentanyl Cadd IV 100 mls INF BETTY Administration Protocol Per Protocol Midazolam HCl 100 mls @ 0 mls/hr 04/01/20 11:15 04/04/20 11:03 Versed IVPB 100 mls INF BETTY Administration Protocol Titrate Norepinephrine Bitartrate 250 mls @ 0 mls/hr 04/03/20 08:00 04/03/20 08:02 Levophed IVPB 250 mls INF BETTY Administration Protocol Titrate Meropenem 1 gm/ Device 50 mls @ 100 mls/hr 04/03/20 10:00 04/06/20 17:33 IVPB 50 mls 0200,1000,1800 BETTY Administration Insulin Human Regular 0 units 03/31/20 08:25 04/03/20 15:58 Insulin Regular 300 Units/3 Ml Vial SC 2 unit .MODERATE SLIDING SC PRN Administration Moderate Correctional Scale Lorazepam 2 mg 03/29/20 08:54 04/06/20 08:34 Lorazepam 2 Mg/Ml Vial SLOW IVP 2 mg Q1H PRN Administration Breakthrough agitation Pantoprazole Sodium 40 mg 03/26/20 21:00 04/06/20 08:34 Pantoprazole 40 Mg Granules Packet PO 40 mg BID BETTY Administration Polyethylene Glycol 17 gm 03/30/20 08:11 03/31/20 13:34 Polyethylene Glycol 3350 17 Gm Packet PO 17 gm DAILYPRN PRN Administration Constipation Propofol 1,000 mg 03/18/20 18:00 04/06/20 13:04 Propofol 1,000 Mg/100 Ml Vial IV 04/17/20 18:00 1,000 mg INF PRN Administration TO ACHIEVE GOAL RASS Protocol Sodium Chloride 10 ml 03/19/20 09:00 04/06/20 08:34 Flush - Normal Saline 10 Ml Syringe IVF 10 ml Q12HR BETTY Administration Thiamine HCl 100 mg 03/19/20 09:00 04/06/20 08:34 Thiamine 100 Mg Tab PO 100 mg DAILY BETTY Administration Vecuronium [place] 10 mg 04/03/20 04:46 04/06/20 11:41 Vecuronium 10 Mg Vial IVP 10 mg Q1H PRN Administration MOVEMENT Zinc Sulfate 220 mg 03/19/20 09:00 04/06/20 08:34 Zinc Sulfate 220 Mg Cap PO 220 mg DAILY BETTY Administration Hospitalist Exam Vitals: Vital Signs (12 hours) Temp Pulse Pulse Ox 04/06/20 16:00 98 F 04/06/20 14:50 72 04/06/20 12:00 97.6 F 04/06/20 10:37 101 H 04/06/20 08:00 98.1 F 04/06/20 07:33 99 04/06/20 07:30 40 L Weight Admit Weight 155 lb 6.814 oz Weight 151 lb 0.266 oz Most Recent Monitor Data Heart Rate from ECG 109 NIBP 128/76 NIBP BP-Mean 93 Respiration from ECG 18 SpO2 93 General Appearance: ill appearing Eye: PERRL ENT: normocephalic atraumatic Neck: supple, symmetric, no JVD Heart: RRR, no murmur, no gallops Respiratory: CTAB, no wheezes, no rales Gastrointestinal: soft, non-tender, non-distended Hosp A/P (1) Acute hypoxemic respiratory failure due to COVID-19 Code(s): U07.1 - COVID-19; J96.01 - ACUTE RESPIRATORY FAILURE WITH HYPOXIA Status: Acute (2) Pneumonia due to COVID-19 virus Code(s): U07.1 - COVID-19; J12.82 - PNEUMONIA DUE TO CORONAVIRUS DISEASE 2019 Status: Acute (3) Septic shock Code(s): A41.9 - SEPSIS, UNSPECIFIED ORGANISM; R65.21 - SEVERE SEPSIS WITH SEPTIC SHOCK Status: Acute - Plan plan for today 04/04 Levophed drip Meropenem Continue ventilator management as per pulmonology IMV mode Medication reviewed and continue provide symptomatic and supportive care Prognosis guarded plan for today 04/05 he still requires sedation and his saturation do go own also he becomes tachycardic when off Precedex. He also still on Fentanyl, propofol. plan for today 2/5 doing a bit better with the decrease of sedation, not getting as tachycardic. Levophed drip Meropenem will continue with IV steroids might need to be trached.
[2020-04-06] MEDS: Norepinephrine 8 MG/0.9% NS 250 ML IVPB SCH (20:34)
[2020-04-07] MEDS: MEROPENEM 1 GM/50 ML 1 GM in Premix Bag 1 BAG IVPB SCH ×3 (01:06→17:15)
[2020-04-07 04:30] LABS: Anion Gap 10 mmol/L (10-20); BUN (Urea Nitrogen) 15 mg/dL (8.4-25.7); Calc. Creatinine Clearance 131 mL/min (70-130); Calcium 7.8 mg/dL (7.8-10.44); Carbon Dioxide 30 mmol/L (23-31); Chloride 99 mmol/L (98-107); Glucose 132 mg/dL (83-110); Potassium 4.3 mmol/L (3.5-5.1); Sodium 135 mmol/L (136-145)
[2020-04-07 04:53] LABS: Band 3 % (5-11); Hemoglobin 11.1 g/dL (14.0-18.0); Hypochromia SLIGHT = 6-15 cells (100X) (0-5/hpf); Lymphocytes 13 % (21-51); MDiff Complete? YES; Mean Corpuscular HGB CONC 31.9 g/dL (32.0-36.0); Mean Corpuscular Hemoglobin 30.7 pg (27.0-31.0); Mean Corpuscular Volume 96.1 fL (78.0-98.0); Mean Platelet Volume 8.4 fL (7.4-10.4); Monocytes 5 % (0-10); Neutrophil 79 % (42-75); Platelet Count 277 thou/uL (130-400); Platelet Morphology Comment Appears Adequate; RBC Distribution Width 14.2 % (11.5-14.5); Red Blood Cell (RBC) Count 3.63 mill/uL (4.70-6.10); White Blood Cell (WBC) Count 11.2 thou/uL (4.8-10.8)
[2020-04-07] MEDS: Propofol 1,000 MG/100 ML VIAL IV PRN ×2 (05:18→12:08)
[2020-04-07] MEDS: Cholecalciferol (Vitamin D3) 400 UNITS TAB PO SCH (08:44)
[2020-04-07] MEDS: Enoxaparin Sodium 60 MG/0.6 ML SYRINGE SC SCH ×2 (08:44→21:02)
[2020-04-07] MEDS: Ascorbic Acid 500 mg Chewable Tablet PO SCH (08:44)
[2020-04-07] MEDS: Thiamine 100 MG TAB PO SCH (08:45)
[2020-04-07] MEDS: risperiDONE 0.25 MG TAB PO SCH ×2 (08:45→21:04)
[2020-04-07] MEDS: Pantoprazole 40 MG GRANULES PACKET PO SCH ×2 (08:45→21:03)
[2020-04-07] MEDS: Zinc Sulfate 220 MG CAP PO SCH (08:48)
[2020-04-07] MEDS: Dexamethasone 4 mg/ml Vial SLOW IVP SCH ×2 (08:48→21:03)
--- NOTE | 2020-04-07 09:18 | RAD ---
CHEST 1 VIEW: Date: 04/07/2020 INDICATION: History of pneumonia. COMPARISON: Prior exam dated 04/06/2020. IMPRESSION: The ET tube tip has been retracted. Gastric catheter is unchanged. Right lung and left lower lobe pne umonia is stable. No pneumothorax is evident. Osseous structures are unchanged. POS: BH
[2020-04-07] MEDS ORDERED: Fentanyl CADD 100 ML ONE (12:04)
[2020-04-07] MEDS: Fentanyl CADD 100 ML IV SCH (12:08)
--- NOTE | 2020-04-07 14:49 | PRG ---
DATE OF SERVICE: 04/07/2020 SUBJECTIVE: Farrukh Macias remains ventilated. OBJECTIVE: VITAL SIGNS: His heart rate is 114. Blood pressure 118/72, respiratory rates in the 20s, O2 saturations 90%. LUNGS: He has bilateral equal breath sounds. HEART: Regular rhythm. ABDOMEN: Soft. EXTREMITIES: Without edema. LABORATORY DATA: White count 11.2, hemoglobin 11.1, platelets 277. Sodium 135, potassium 4.3, chloride 99, bicarb 30, BUN 15, creatinine 0.5. IMPRESSION: COVID pneumonia, respiratory failure, currently not weanable. He will need a tracheostomy and PEG placement next week. Critical care time 30 min. Job ID: [id number] [id number]
--- NOTE | 2020-04-07 17:59 | PDOC.HOSPP ---
- Subjective Encounter Date: 04/07/20 Encounter Time: 10:00 Subjective: is on vent, sedated, does not respond to verbal stimuli (on precedex and fentanyl) - Objective Vital Signs & Weight: Vital Signs (12 hours) Temp Pulse Pulse Pulse Resp BP BP 04/07/20 16:33 81 04/07/20 16:00 12 04/07/20 15:15 104 H 107 H 103/70 113/69 04/07/20 15:08 81 04/07/20 14:00 13 04/07/20 12:00 97.5 F L 12 04/07/20 11:00 43 L 04/07/20 08:00 97.2 F L 04/07/20 07:33 04/07/20 06:46 49 L 04/07/20 06:00 15 Pulse Ox Pulse Ox Pulse Ox 04/07/20 16:33 04/07/20 16:00 04/07/20 15:15 95 95 04/07/20 15:08 04/07/20 14:00 04/07/20 12:00 04/07/20 11:00 04/07/20 08:00 04/07/20 07:33 100 04/07/20 06:46 04/07/20 06:00 Weight Admit Weight 155 lb 6.814 oz Weight 149 lb 7.574 oz Most Recent Monitor Data Heart Rate from ECG 67 NIBP 84/54 NIBP BP-Mean 64 Respiration from ECG 13 SpO2 100 I&O: 04/06/20 04/07/20 04/08/20 06:59 06:59 06:59 Intake Total 2040.4 1462.2 200 Output Total 3620 2995 1325 Balance -529.6 -1532.8 -1125 Result Diagrams: 04/07/20 03:20 04/07/20 03:20 Additional Labs: Accuchecks 04/06/20 21:21 POC Glucose 105 H Hospitalist ROS - Medication Medications: Active Medications Generic Name Dose Route Start Last Admin Trade Name Freq PRN Reason Stop Dose Admin Acetaminophen 650 mg 04/05/20 05:02 04/05/20 05:09 Acetaminophen 650 Mg/20.3 Ml Udcup PER TUBE 650 mg Q6H PRN Administration Fever or Pain Ascorbic Acid 500 mg 03/19/20 09:00 04/07/20 08:44 Ascorbic Acid 500 Mg Chewable Tablet PO 500 mg DAILY BETTY Administration Bisacodyl 10 mg 03/30/20 08:10 04/05/20 05:09 Bisacodyl 10 Mg Supp [place] 10 mg DAILYPRN PRN Administration Constipation Cholecalciferol 400 units 03/19/20 09:00 04/07/20 08:44 Cholecalciferol (Vitamin D3) 400 Units Tab PO 400 units DAILY BETTY Administration Dexamethasone 6 mg 03/27/20 08:28 04/07/20 08:48 Dexamethasone 4 Mg/Ml Vial SLOW IVP 6 mg BID BETTY Administration Enoxaparin Sodium 60 mg 04/01/20 21:00 04/07/20 08:44 Enoxaparin Sodium 60 Mg/0.6 Ml Syringe SC 60 mg 09,2099 BETTY Administration Guaifenesin 200 mg 03/30/20 08:10 04/01/20 00:06 Guaifenesin Sf Soln 200 Mg/10 Ml Udcup PO 200 mg Q4H PRN Administration Cough Dexmedetomidine HCl 400 mcg/ 100 mls @ 0 mls/hr 03/28/20 08:15 04/07/20 17:14 Sodium Chloride IVPB 100 mls INF BETTY Administration Protocol Per Protocol Fentanyl 100 mls @ 0 mls/hr 03/29/20 09:00 04/07/20 12:08 Fentanyl Cadd IV 100 mls INF BETTY Administration Protocol Per Protocol Midazolam HCl 100 mls @ 0 mls/hr 04/01/20 11:15 04/04/20 11:03 Versed IVPB 100 mls INF BETTY Administration Protocol Titrate Norepinephrine Bitartrate 250 mls @ 0 mls/hr 04/03/20 08:00 04/06/20 20:34 Levophed IVPB 250 mls INF BETTY Administration Protocol Titrate Meropenem 1 gm/ Device 50 mls @ 100 mls/hr 04/03/20 10:00 04/07/20 17:15 IVPB 50 mls 0200,1000,1800 EBTTY Administration Insulin Human Regular 0 units 03/31/20 08:25 04/03/20 15:58 Insulin Regular 300 Units/3 Ml Vial SC 2 unit .MODERATE SLIDING SC PRN Administration Moderate Correctional Scale Lorazepam 2 mg 03/29/20 08:54 04/06/20 08:34 Lorazepam 2 Mg/Ml Vial SLOW IVP 2 mg Q1H PRN Administration Breakthrough agitation Pantoprazole Sodium 40 mg 03/26/20 21:00 04/07/20 08:45 Pantoprazole 40 Mg Granules Packet PO 40 mg BID BETTY Administration Polyethylene Glycol 17 gm 03/30/20 08:11 03/31/20 13:34 Polyethylene Glycol 3350 17 Gm Packet PO 17 gm DAILYPRN PRN Administration Constipation Propofol 1,000 mg 03/18/20 18:00 04/07/20 12:08 Propofol 1,000 Mg/100 Ml Vial IV 04/17/20 18:00 1,000 mg INF PRN Administration TO ACHIEVE GOAL RASS Protocol Risperidone 0.5 mg 04/06/20 21:00 04/07/20 08:45 Risperidone 0.25 Mg Tab PO 0.5 mg BID BETTY Administration Sodium Chloride 10 ml 03/19/20 09:00 04/07/20 08:45 Flush - Normal Saline 10 Ml Syringe IVF 10 ml Q12HR BETTY Administration Thiamine HCl 100 mg 03/19/20 09:00 04/07/20 08:45 Thiamine 100 Mg Tab PO 100 mg DAILY BETTY Administration Vecuronium [place] 10 mg 04/03/20 04:46 04/06/20 11:41 Vecuronium 10 Mg Vial IVP 10 mg Q1H PRN Administration MOVEMENT Zinc Sulfate 220 mg 03/19/20 09:00 04/07/20 08:48 Zinc Sulfate 220 Mg Cap PO 220 mg DAILY BETTY Administration Hospitalist Exam Vitals: Vital Signs (12 hours) Temp Pulse Pulse Pulse Resp BP BP 04/07/20 16:33 81 04/07/20 16:00 12 04/07/20 15:15 104 H 107 H 103/70 113/69 04/07/20 15:08 81 04/07/20 14:00 13 04/07/20 12:00 97.5 F L 12 04/07/20 11:00 43 L 04/07/20 08:00 97.2 F L 04/07/20 07:33 04/07/20 06:46 49 L 04/07/20 06:00 15 Pulse Ox Pulse Ox Pulse Ox 04/07/20 16:33 04/07/20 16:00 04/07/20 15:15 95 95 04/07/20 15:08 04/07/20 14:00 04/07/20 12:00 04/07/20 11:00 04/07/20 08:00 04/07/20 07:33 100 04/07/20 06:46 04/07/20 06:00 Weight Admit Weight 155 lb 6.814 oz Weight 149 lb 7.574 oz Most Recent Monitor Data Heart Rate from ECG 67 NIBP 84/54 NIBP BP-Mean 64 Respiration from ECG 13 SpO2 100 Eye: PERRL, anicteric sclera ENT: no oropharyngeal lesions, moist mucosa Neck: supple, no JVD Heart: RRR, no murmur Respiratory: no wheezes, no rales, rhonchi Gastrointestinal: soft, non-tender, non-distended, normal bowel sounds Extremities: no cyanosis, no edema Neurological: cranial nerve grossly intact, no focal deficits Hosp A/P (1) Pneumonia due to COVID-19 virus Code(s): U07.1 - COVID-19; J12.82 - PNEUMONIA DUE TO CORONAVIRUS DISEASE 2019 Status: Acute (2) Acute respiratory failure with hypoxia Code(s): J96.01 - ACUTE RESPIRATORY FAILURE WITH HYPOXIA Status: Acute (3) Metabolic encephalopathy Code(s): G93.41 - METABOLIC ENCEPHALOPATHY Status: Acute (4) Pneumomediastinum Code(s): J98.2 - INTERSTITIAL EMPHYSEMA Status: Resolved (5) Septic shock Code(s): A41.9 - SEPSIS, UNSPECIFIED ORGANISM; R65.21 - SEVERE SEPSIS WITH SEPTIC SHOCK Status: Acute - Plan is on dexamethasone, merrem, protonix, precedex, lovenox full dose, risperdone bid, thiamine is coming off levophed with stable BP for trach and peg next week, he got intubated on 03/18/2020. is on simv, 50% fio2. crp is down to 4.4 from 30, bands have come down to 3% from 21%. d/w son [phone] and gave full updates including plans for trach and peg.
--- NOTE | 2020-04-07 19:11 | EKG ---
Test Reason : Blood Pressure : / mmHG Vent. Rate : 152 BPM Atrial Rate : 152 BPM P-R Int : 130 ms QRS Dur : 074 ms QT Int : 268 ms P-R-T Axes : 056 -34 059 degrees QTc Int : 426 ms Sinus tachycardia Left axis deviation Abnormal ECG Confirmed by JOSS MOURA DO ([id number]), news assignment editor JUMANA REGALADO ([id number]) on 04/07/2020 7:11:11 PM Referred By: Confirmed By:JOSS MOURA DO
[2020-04-07] MEDS: Lorazepam 2 MG/ML VIAL SLOW IVP PRN (22:37)
[2020-04-08] MEDS: MEROPENEM 1 GM/50 ML 1 GM in Premix Bag 1 BAG IVPB SCH ×3 (02:15→18:08)
[2020-04-08 04:33] LABS: Band 19 % (5-11); Hemoglobin 11.7 g/dL (14.0-18.0); Lymphocytes 6 % (21-51); MDiff Complete? YES; Mean Corpuscular HGB CONC 32.3 g/dL (32.0-36.0); Mean Corpuscular Hemoglobin 30.9 pg (27.0-31.0); Mean Corpuscular Volume 95.6 fL (78.0-98.0); Metamyelocyte 1 % (0-0); Monocytes 7 % (0-10); Neutrophil 67 % (42-75); Platelet Count 242 thou/uL (130-400); Platelet Morphology Comment Appears Adequate; RBC Distribution Width 14.2 % (11.5-14.5); Red Blood Cell (RBC) Count 3.78 mill/uL (4.70-6.10); White Blood Cell (WBC) Count 14.7 thou/uL (4.8-10.8)
[2020-04-08 04:35] LABS: Anion Gap 12 mmol/L (10-20); BUN (Urea Nitrogen) 15 mg/dL (8.4-25.7); Calc. Creatinine Clearance 125 mL/min (70-130); Calcium 7.7 mg/dL (7.8-10.44); Carbon Dioxide 28 mmol/L (23-31); Chloride 99 mmol/L (98-107); Glucose 129 mg/dL (83-110); Sodium 135 mmol/L (136-145)
[2020-04-08] MEDS: Fentanyl CADD 100 ML IV SCH (04:57)
[2020-04-08] MEDS: Propofol 1,000 MG/100 ML VIAL IV PRN (04:57)
[2020-04-08] MEDS: Acetaminophen 650 MG/20.3 ML UDCUP PER TUBE PRN ×2 (07:00→12:43)
[2020-04-08] MEDS: risperiDONE 0.25 MG TAB PO SCH ×2 (08:27→21:00)
[2020-04-08] MEDS: Dexamethasone 4 mg/ml Vial SLOW IVP SCH ×2 (08:28→20:59)
[2020-04-08] MEDS: Enoxaparin Sodium 60 MG/0.6 ML SYRINGE SC SCH ×2 (08:28→21:04)
[2020-04-08] MEDS: Thiamine 100 MG TAB PO SCH (08:28)
[2020-04-08] MEDS: Zinc Sulfate 220 MG CAP PO SCH (08:28)
[2020-04-08] MEDS: Pantoprazole 40 MG GRANULES PACKET PO SCH ×2 (08:28→21:00)
[2020-04-08] MEDS: Ascorbic Acid 500 mg Chewable Tablet PO SCH (08:28)
[2020-04-08] MEDS: Cholecalciferol (Vitamin D3) 400 UNITS TAB PO SCH (08:28)
[2020-04-08] MEDS ORDERED: Vancomycin 1.5 GRAM/300 ML BAG 1.5 GM in Premix Bag 1 BAG IVPB SCH (08:30)
--- NOTE | 2020-04-08 08:31 | RAD ---
CHEST 1 VIEW: Date: 04/08/2020 INDICATION: History of pneumonia. COMPARISON: Prior exam dated 04/07/2020. IMPRESSION: Bilateral pneumonia stable. Patient remains intubated with gastric catheter placement. No definite pn eumothorax is evident. Subcu emphysema involving the left neck base is similar. POS: BH
--- NOTE | 2020-04-08 14:47 | PRG ---
DATE OF SERVICE: 04/08/2020 SUBJECTIVE: The ventilatory mechanics seemed to have improved over the weekend. Still mechanically ventilated. He will awaken. He is febrile today. OBJECTIVE: VITAL SIGNS: Respiratory rate is 18, FiO2 is 50, blood pressure 121/73, heart rate 110. LUNGS: Clear. HEART: Regular rhythm. ABDOMEN: Soft. EXTREMITIES: Without asymmetry. IMAGING: Chest x-ray is essentially unchanged. LABORATORY DATA: White count 14.7. He has 19% bands on his peripheral smear, hemoglobin 11.7. Electrolytes are unremarkable. IMPRESSION: 1. COVID pneumonia, respiratory failure. 2. New fever. We will order cultures today. Critical care time 30 min. Job ID: [id number] MTDD
--- NOTE | 2020-04-08 16:08 | PDOC.HOSPP ---
- Subjective Encounter Date: 04/08/20 Encounter Time: 09:45 Subjective: is on vent, awakens to touch and moves extremities, is on sedation - Objective Vital Signs & Weight: Vital Signs (12 hours) Temp Pulse Resp BP Pulse Ox 04/08/20 14:00 14 04/08/20 13:13 99.2 F 04/08/20 12:00 101.1 F H 18 04/08/20 10:53 104 H 04/08/20 10:00 23 H 04/08/20 08:00 22 H 96 04/08/20 07:00 99.6 F 115 H 21 H 114/79 04/08/20 06:34 114 H Weight Admit Weight 2.392 oz Weight 148 lb 9.465 oz Most Recent Monitor Data Heart Rate from ECG 96 NIBP 112/75 NIBP BP-Mean 87 Respiration from ECG 13 SpO2 100 I&O: 04/07/20 04/08/20 04/09/20 06:59 06:59 06:59 Intake Total 1462.2 2480.7 595.5 Output Total 2995 2875 1560 Balance -1532.8 -394.3 -964.5 Result Diagrams: 04/08/20 03:25 04/08/20 03:25 Additional Labs: Accuchecks 04/08/20 04/08/20 04/08/20 12:17 05:43 00:51 POC Glucose 132 H 130 H 144 H 04/07/20 18:19 POC Glucose 130 H Hospitalist ROS - Medication Medications: Active Medications Generic Name Dose Route Start Last Admin Trade Name Freq PRN Reason Stop Dose Admin Acetaminophen 650 mg 04/05/20 05:02 04/08/20 12:43 Acetaminophen 650 Mg/20.3 Ml Udcup PER TUBE 650 mg Q6H PRN Administration Fever or Pain Ascorbic Acid 500 mg 03/19/20 09:00 04/08/20 08:28 Ascorbic Acid 500 Mg Chewable Tablet PO 500 mg DAILY BETTY Administration Bisacodyl 10 mg 03/30/20 08:10 04/05/20 05:09 Bisacodyl 10 Mg Supp [place] 10 mg DAILYPRN PRN Administration Constipation Cholecalciferol 400 units 03/19/20 09:00 04/08/20 08:28 Cholecalciferol (Vitamin D3) 400 Units Tab PO 400 units DAILY BETTY Administration Dexamethasone 6 mg 03/27/20 08:28 04/08/20 08:28 Dexamethasone 4 Mg/Ml Vial SLOW IVP 6 mg BID BETTY Administration Enoxaparin Sodium 60 mg 04/01/20 21:00 04/08/20 08:28 Enoxaparin Sodium 60 Mg/0.6 Ml Syringe SC 60 mg 0900,2100 BETTY Administration Guaifenesin 200 mg 03/30/20 08:10 04/01/20 00:06 Guaifenesin Sf Soln 200 Mg/10 Ml Udcup PO 200 mg Q4H PRN Administration Cough Dexmedetomidine HCl 400 mcg/ 100 mls @ 0 mls/hr 03/28/20 08:15 04/08/20 05:29 Sodium Chloride IVPB 100 mls INF BETTY Administration Protocol Per Protocol Midazolam HCl 100 mls @ 0 mls/hr 04/01/20 11:15 04/04/20 11:03 Versed IVPB 100 mls INF BETTY Administration Protocol Titrate Norepinephrine Bitartrate 250 mls @ 0 mls/hr 04/03/20 08:00 04/06/20 20:34 Levophed IVPB 250 mls INF BETTY Administration Protocol Titrate Meropenem 1 gm/ Device 50 mls @ 100 mls/hr 04/03/20 10:00 04/08/20 08:29 IVPB 50 mls 0200,1000,1800 BETTY Administration Insulin Human Regular 0 units 03/31/20 08:25 04/03/20 15:58 Insulin Regular 300 Units/3 Ml Vial SC 2 unit .MODERATE SLIDING SC PRN Administration Moderate Correctional Scale Pantoprazole Sodium 40 mg 03/26/20 21:00 04/08/20 08:28 Pantoprazole 40 Mg Granules Packet PO 40 mg BID BETTY Administration Polyethylene Glycol 17 gm 03/30/20 08:11 03/31/20 13:34 Polyethylene Glycol 3350 17 Gm Packet PO 17 gm DAILYPRN PRN Administration Constipation Propofol 1,000 mg 03/18/20 18:00 04/08/20 04:57 Propofol 1,000 Mg/100 Ml Vial IV 04/17/20 18:00 1,000 mg INF PRN Administration TO ACHIEVE GOAL RASS Protocol Risperidone 0.5 mg 04/06/20 21:00 04/08/20 08:27 Risperidone 0.25 Mg Tab PO 0.5 mg BID BETTY Administration Sodium Chloride 10 ml 03/19/20 09:00 04/08/20 08:29 Flush - Normal Saline 10 Ml Syringe IVF 10 ml Q12HR BETTY Administration Thiamine HCl 100 mg 03/19/20 09:00 04/08/20 08:28 Thiamine 100 Mg Tab PO 100 mg DAILY BETTY Administration Vecuronium [place] 10 mg 04/03/20 04:46 04/06/20 11:41 Vecuronium 10 Mg Vial IVP 10 mg Q1H PRN Administration MOVEMENT Zinc Sulfate 220 mg 03/19/20 09:00 04/08/20 08:28 Zinc Sulfate 220 Mg Cap PO 220 mg DAILY BETTY Administration Hospitalist Exam Vitals: Vital Signs (12 hours) Temp Pulse Resp BP Pulse Ox 04/08/20 14:00 14 04/08/20 13:13 99.2 F 04/08/20 12:00 101.1 F H 18 04/08/20 10:53 104 H 04/08/20 10:00 23 H 04/08/20 08:00 22 H 96 04/08/20 07:00 99.6 F 115 H 21 H 114/79 04/08/20 06:34 114 H Weight Admit Weight 2.392 oz Weight 148 lb 9.465 oz Most Recent Monitor Data Heart Rate from ECG 96 NIBP 112/75 NIBP BP-Mean 87 Respiration from ECG 13 SpO2 100 Eye: PERRL, anicteric sclera ENT: no oropharyngeal lesions, dry oral mucosa Neck: supple, no JVD Heart: RRR, no murmur Respiratory: no wheezes, no rales, rhonchi Gastrointestinal: soft, non-tender, non-distended, normal bowel sounds Extremities: no cyanosis, no edema Neurological: cranial nerve grossly intact, no focal deficits Hosp A/P (1) Pneumonia due to COVID-19 virus Code(s): U07.1 - COVID-19; J12.82 - PNEUMONIA DUE TO CORONAVIRUS DISEASE 2019 Status: Acute (2) Acute respiratory failure with hypoxia Code(s): J96.01 - ACUTE RESPIRATORY FAILURE WITH HYPOXIA Status: Acute (3) Metabolic encephalopathy Code(s): G93.41 - METABOLIC ENCEPHALOPATHY Status: Acute (4) Pneumomediastinum Code(s): J98.2 - INTERSTITIAL EMPHYSEMA Status: Resolved (5) Septic shock Code(s): A41.9 - SEPSIS, UNSPECIFIED ORGANISM; R65.21 - SEVERE SEPSIS WITH SEPTIC SHOCK Status: Acute - Plan is on dexamethasone, merrem, vanc, protonix, precedex, lovenox full dose, risperdone bid, thiamine for trach and peg this week, he got intubated on 03/18/2020. is on simv, 50% fio2. crp is down to 4.4 from 30, has fever with bands back into 17%, is on merrem from 04/03 and vanc was added 04/08. d/w Mr.Paul mondragon [phone] and gave full updates including plans for trach and peg 04/07, 04/08/20.
[2020-04-08] MEDS: Vancomycin 1 GM in Premix Bag 1 BAG IVPB SCH (21:00)
[2020-04-08] MEDS ORDERED: Fentanyl CADD 100 ML ONE (23:06)
[2020-04-09] MEDS: Propofol 1,000 MG/100 ML VIAL IV PRN ×2 (00:45→13:04)
[2020-04-09] MEDS: MEROPENEM 1 GM/50 ML 1 GM in Premix Bag 1 BAG IVPB SCH ×3 (02:35→18:30)
[2020-04-09 05:00] LABS: Hemoglobin 10.9 g/dL (14.0-18.0); Mean Corpuscular HGB CONC 32.2 g/dL (32.0-36.0); Mean Corpuscular Hemoglobin 30.9 pg (27.0-31.0); Mean Corpuscular Volume 95.9 fL (78.0-98.0); Mean Platelet Volume 7.9 fL (7.4-10.4); Platelet Count 223 thou/uL (130-400); RBC Distribution Width 14.4 % (11.5-14.5); Red Blood Cell (RBC) Count 3.53 mill/uL (4.70-6.10); White Blood Cell (WBC) Count 11.8 thou/uL (4.8-10.8)
[2020-04-09 05:01] LABS: Band 14 % (5-11); Eosinophils 1 % (0-10); Hypochromia SLIGHT = 6-15 cells (100X) (0-5/hpf); Lymphocytes 4 % (21-51); MDiff Complete? YES; Neutrophil 81 % (42-75); Nucleated RBC 1 % (0); Platelet Morphology Comment Appears Adequate
[2020-04-09 05:08] LABS: Anion Gap 10 mmol/L (10-20); BUN (Urea Nitrogen) 16 mg/dL (8.4-25.7); Calc. Creatinine Clearance 124 mL/min (70-130); Calcium 7.6 mg/dL (7.8-10.44); Carbon Dioxide 27 mmol/L (23-31); Chloride 100 mmol/L (98-107); Glucose 136 mg/dL (83-110); Sodium 133 mmol/L (136-145)
[2020-04-09] MEDS: Enoxaparin Sodium 60 MG/0.6 ML SYRINGE SC SCH ×2 (08:40→20:29)
[2020-04-09] MEDS: Dexamethasone 4 mg/ml Vial SLOW IVP SCH ×2 (08:41→20:29)
[2020-04-09] MEDS: Ascorbic Acid 500 mg Chewable Tablet PO SCH (08:41)
[2020-04-09] MEDS: risperiDONE 0.25 MG TAB PO SCH ×2 (08:41→20:30)
[2020-04-09] MEDS: Pantoprazole 40 MG GRANULES PACKET PO SCH ×2 (08:41→20:29)
[2020-04-09] MEDS: Cholecalciferol (Vitamin D3) 400 UNITS TAB PO SCH (08:41)
[2020-04-09] MEDS: Zinc Sulfate 220 MG CAP PO SCH (08:41)
[2020-04-09] MEDS: Thiamine 100 MG TAB PO SCH (08:41)
[2020-04-09] MEDS: Vancomycin 1 GM in Premix Bag 1 BAG IVPB SCH ×2 (09:04→20:30)
--- NOTE | 2020-04-09 09:06 | RAD ---
PORTABLE CHEST: HISTORY: Pneumonia. CCU followup. COMPARISON: 04/08/2020. FINDINGS: ET tube and NG tube unchanged. Bilateral infiltrates appear stable. IMPRESSION: Stable chest finding. POS: AGW
--- NOTE | 2020-04-09 09:47 | PRG ---
DATE OF SERVICE: 04/09/2020 SUBJECTIVE: Farrukh Macias is day #22 in the hospital. He is less encephalopathic this morning, but clearly de-saturating. OBJECTIVE: VITAL SIGNS: Temperature 101 yesterday, blood pressure 112/62, pulse 80, respiratory rate 18, sats are 99%, he is still on 70% FiO2, 70 PEEP. CHEST: Rhonchi, crackles. CARDIAC: Normal S1, S2. No gallops. ABDOMEN: No masses. LABORATORY DATA: White count 11,000. Lytes are normal. X-ray still shows bilateral infiltrates. ASSESSMENT: Coronavirus positive pneumonia, respiratory failure, prolonged intubation. PLAN: He is going to need a trach and PEG. Antibiotic, steroids on board. PT will follow. One-half hour of critical care time. Job ID: [id number]
[2020-04-09] MEDS ORDERED: Fentanyl BOLUS 250 ML IVPB PRN (10:47)
[2020-04-09] MEDS ORDERED: Lorazepam 2 MG/ML VIAL SLOW IVP PRN (10:48)
[2020-04-09] MEDS ORDERED: Morphine 2 MG/ML VIAL SLOW IVP PRN (10:48)
[2020-04-09] MEDS ORDERED: Fentanyl CADD 100 ML IV SCH (11:00)
[2020-04-09] MEDS ORDERED: Fentanyl CADD 100 ML ONE (15:16)
--- NOTE | 2020-04-09 16:09 | PDOC.HOSPP ---
- Subjective Encounter Date: 04/09/20 Encounter Time: 09:40 Subjective: is on vent, follows verbal stimuli, on mild sedation - Objective Vital Signs & Weight: Vital Signs (12 hours) Temp Pulse Pulse Pulse Resp BP BP 04/09/20 14:35 91 04/09/20 14:00 13 04/09/20 12:00 98.6 F 12 04/09/20 10:41 77 93 100/67 04/09/20 10:37 97 95/62 04/09/20 10:00 19 04/09/20 08:00 99.1 F 26 H 04/09/20 07:49 71 04/09/20 06:00 98.7 F 16 BP Pulse Ox Pulse Ox Pulse Ox 04/09/20 14:35 04/09/20 14:00 04/09/20 12:00 04/09/20 10:41 95/62 92 L 95 04/09/20 10:37 04/09/20 10:00 04/09/20 08:00 92 L 04/09/20 07:49 04/09/20 06:00 Weight Admit Weight 2.392 oz Weight 145 lb 15.136 oz Most Recent Monitor Data Heart Rate from ECG 89 NIBP 99/65 NIBP BP-Mean 76 Respiration from ECG 19 SpO2 89 I&O: 04/08/20 04/09/20 04/10/20 06:59 06:59 06:59 Intake Total 2480.7 2046.4 500.5 Output Total 2875 3050 935 Balance -394.3 -1003.6 -434.5 Result Diagrams: 04/09/20 04:00 04/09/20 04:00 Additional Labs: Accuchecks 04/09/20 04/09/20 04/08/20 12:37 06:19 23:52 POC Glucose 136 H 134 H 134 H Hospitalist ROS - Medication Medications: Active Medications Generic Name Dose Route Start Last Admin Trade Name Freq PRN Reason Stop Dose Admin Acetaminophen 650 mg 04/05/20 05:02 04/08/20 12:43 Acetaminophen 650 Mg/20.3 Ml Udcup PER TUBE 650 mg Q6H PRN Administration Fever or Pain Ascorbic Acid 500 mg 03/19/20 09:00 04/09/20 08:41 Ascorbic Acid 500 Mg Chewable Tablet PO 500 mg DAILY BETTY Administration Bisacodyl 10 mg 03/30/20 08:10 04/05/20 05:09 Bisacodyl 10 Mg Supp [place] 10 mg DAILYPRN PRN Administration Constipation Cholecalciferol 400 units 03/19/20 09:00 04/09/20 08:41 Cholecalciferol (Vitamin D3) 400 Units Tab PO 400 units DAILY BETTY Administration Dexamethasone 6 mg 03/27/20 08:28 04/09/20 08:41 Dexamethasone 4 Mg/Ml Vial SLOW IVP 6 mg BID BETTY Administration Enoxaparin Sodium 60 mg 04/01/20 21:00 04/09/20 08:40 Enoxaparin Sodium 60 Mg/0.6 Ml Syringe SC 60 mg 0900,2100 BETTY Administration Guaifenesin 200 mg 03/30/20 08:10 04/01/20 00:06 Guaifenesin Sf Soln 200 Mg/10 Ml Udcup PO 200 mg Q4H PRN Administration Cough Dexmedetomidine HCl 400 mcg/ 100 mls @ 0 mls/hr 03/28/20 08:15 04/09/20 14:44 Sodium Chloride IVPB 100 mls INF BETTY Administration Protocol Per Protocol Midazolam HCl 100 mls @ 0 mls/hr 04/01/20 11:15 04/04/20 11:03 Versed IVPB 100 mls INF BETTY Administration Protocol Titrate Norepinephrine Bitartrate 250 mls @ 0 mls/hr 04/03/20 08:00 04/06/20 20:34 Levophed IVPB 250 mls INF BETTY Administration Protocol Titrate Meropenem 1 gm/ Device 50 mls @ 100 mls/hr 04/03/20 10:00 04/09/20 08:40 IVPB 50 mls 0200,1000,1800 BETTY Administration Vancomycin HCl 1 gm/ Device 200 mls @ 200 mls/hr 04/08/20 21:00 04/09/20 09:04 IVPB 200 mls Q12HR BETTY Administration Insulin Human Regular 0 units 03/31/20 08:25 04/03/20 15:58 Insulin Regular 300 Units/3 Ml Vial SC 2 unit .MODERATE SLIDING SC PRN Administration Moderate Correctional Scale Pantoprazole Sodium 40 mg 03/26/20 21:00 04/09/20 08:41 Pantoprazole 40 Mg Granules Packet PO 40 mg BID BETTY Administration Polyethylene Glycol 17 gm 03/30/20 08:11 03/31/20 13:34 Polyethylene Glycol 3350 17 Gm Packet PO 17 gm DAILYPRN PRN Administration Constipation Propofol 1,000 mg 03/18/20 18:00 04/09/20 13:04 Propofol 1,000 Mg/100 Ml Vial IV 04/17/20 18:00 1,000 mg INF PRN Administration TO ACHIEVE GOAL RASS Protocol Risperidone 0.5 mg 04/06/20 21:00 04/09/20 08:41 Risperidone 0.25 Mg Tab PO 0.5 mg BID BETTY Administration Sodium Chloride 10 ml 03/19/20 09:00 04/09/20 08:42 Flush - Normal Saline 10 Ml Syringe IVF 10 ml Q12HR BETTY Administration Thiamine HCl 100 mg 03/19/20 09:00 04/09/20 08:41 Thiamine 100 Mg Tab PO 100 mg DAILY BETTY Administration Vecuronium [place] 10 mg 04/03/20 04:46 04/06/20 11:41 Vecuronium 10 Mg Vial IVP 10 mg Q1H PRN Administration MOVEMENT Zinc Sulfate 220 mg 03/19/20 09:00 04/09/20 08:41 Zinc Sulfate 220 Mg Cap PO 220 mg DAILY BETTY Administration Hospitalist Exam Vitals: Vital Signs (12 hours) Temp Pulse Pulse Pulse Resp BP BP 04/09/20 14:35 91 04/09/20 14:00 13 04/09/20 12:00 98.6 F 12 04/09/20 10:41 77 93 100/67 04/09/20 10:37 97 95/62 04/09/20 10:00 19 04/09/20 08:00 99.1 F 26 H 04/09/20 07:49 71 04/09/20 06:00 98.7 F 16 BP Pulse Ox Pulse Ox Pulse Ox 04/09/20 14:35 04/09/20 14:00 04/09/20 12:00 04/09/20 10:41 95/62 92 L 95 04/09/20 10:37 04/09/20 10:00 04/09/20 08:00 92 L 04/09/20 07:49 04/09/20 06:00 Weight Admit Weight 2.392 oz Weight 145 lb 15.136 oz Most Recent Monitor Data Heart Rate from ECG 89 NIBP 99/65 NIBP BP-Mean 76 Respiration from ECG 19 SpO2 89 Eye: PERRL, anicteric sclera ENT: no oropharyngeal lesions, moist mucosa Neck: supple, no JVD Heart: RRR, no murmur Respiratory: no wheezes, no rales, rhonchi Gastrointestinal: soft, non-tender, non-distended, normal bowel sounds Extremities: no cyanosis, no edema Neurological: cranial nerve grossly intact, no focal deficits Hosp A/P (1) Pneumonia due to COVID-19 virus Code(s): U07.1 - COVID-19; J12.82 - PNEUMONIA DUE TO CORONAVIRUS DISEASE 2019 Status: Acute (2) Acute respiratory failure with hypoxia Code(s): J96.01 - ACUTE RESPIRATORY FAILURE WITH HYPOXIA Status: Acute (3) Metabolic encephalopathy Code(s): G93.41 - METABOLIC ENCEPHALOPATHY Status: Acute (4) Pneumomediastinum Code(s): J98.2 - INTERSTITIAL EMPHYSEMA Status: Resolved (5) Septic shock Code(s): A41.9 - SEPSIS, UNSPECIFIED ORGANISM; R65.21 - SEVERE SEPSIS WITH S EPTIC SHOCK Status: Resolved - Plan is on dexamethasone, merrem, vanc, protonix, precedex, lovenox full dose, risperdone bid, thiamine for trach and peg this week likely thursday per staff, he got intubated on 03/18/2020. is on simv, 50% fio2. crp is down to 4.4 from 30, is on merrem from 04/03 and vanc was added 04/08. d/w Mr.Paul mondragon [phone] and gave full updates including plans for trach and peg 04/07, 04/08/20, 04/09 (discussed code status, wants everything done for now).
[2020-04-10] MEDS: Propofol 1,000 MG/100 ML VIAL IV PRN (00:52)
[2020-04-10] MEDS: MEROPENEM 1 GM/50 ML 1 GM in Premix Bag 1 BAG IVPB SCH ×3 (01:28→17:31)
[2020-04-10 04:30] LABS: Anion Gap 12 mmol/L (10-20); BUN (Urea Nitrogen) 12 mg/dL (8.4-25.7); Calc. Creatinine Clearance 122 mL/min (70-130); Calcium 8.1 mg/dL (7.8-10.44); Carbon Dioxide 28 mmol/L (23-31); Chloride 98 mmol/L (98-107); Glucose 149 mg/dL (83-110); Sodium 134 mmol/L (136-145)
[2020-04-10 04:35] LABS: Band 5 % (5-11); Hemoglobin 12.6 g/dL (14.0-18.0); Lymphocytes 6 % (21-51); MDiff Complete? YES; Mean Corpuscular HGB CONC 33.3 g/dL (32.0-36.0); Mean Corpuscular Hemoglobin 31.5 pg (27.0-31.0); Mean Corpuscular Volume 94.6 fL (78.0-98.0); Mean Platelet Volume 7.8 fL (7.4-10.4); Monocytes 1 % (0-10); Neutrophil 88 % (42-75); Platelet Count 263 thou/uL (130-400); Platelet Morphology Comment Appears Adequate; RBC Distribution Width 14.3 % (11.5-14.5); Red Blood Cell (RBC) Count 3.99 mill/uL (4.70-6.10); White Blood Cell (WBC) Count 12.9 thou/uL (4.8-10.8)
[2020-04-10] MEDS ORDERED: Fentanyl CADD 100 ML ONE ×2 (04:37→23:23)
--- NOTE | 2020-04-10 08:13 | RAD ---
Portable chest: HISTORY: CCU follow-up with pneumonia COMPARISON: 04/09/2020 FINDINGS:Bilateral lung infiltrates again noted. ET tube and NG tube unchanged. IMPRESSION:No significant interval change
[2020-04-10] MEDS: Cholecalciferol (Vitamin D3) 400 UNITS TAB PO SCH (08:38)
[2020-04-10] MEDS: Enoxaparin Sodium 60 MG/0.6 ML SYRINGE SC SCH ×2 (08:38→20:33)
[2020-04-10] MEDS: Pantoprazole 40 MG GRANULES PACKET PO SCH ×2 (08:39→20:33)
[2020-04-10] MEDS: Ascorbic Acid 500 mg Chewable Tablet PO SCH (08:39)
[2020-04-10] MEDS: Zinc Sulfate 220 MG CAP PO SCH (08:39)
[2020-04-10] MEDS: risperiDONE 0.25 MG TAB PO SCH ×2 (08:39→20:33)
[2020-04-10] MEDS: Thiamine 100 MG TAB PO SCH (08:39)
[2020-04-10] MEDS: Dexamethasone 4 mg/ml Vial SLOW IVP SCH ×2 (08:40→20:34)
[2020-04-10] MEDS: Vancomycin 1.5 GRAM/300 ML BAG 1.5 GM in Premix Bag 1 BAG IVPB SCH ×2 (08:41→20:50)
--- NOTE | 2020-04-10 09:31 | PRG ---
DATE OF SERVICE: 04/10/2020 SUBJECTIVE: This morning, he is awake, alert, responsive, less agitated. OBJECTIVE: VITAL SIGNS: His temperature is 98, pulse 86, blood pressure 101/73, sats are 90% on 50%, PEEP of 5. I's and O's have been negative. CHEST: Rhonchi, crackles. CARDIAC: Normal S1, S2. No gallops. ABDOMEN: No masses. IMPRESSION: Respiratory failure; krause positive pneumonia; prolonged intubation; encephalopathy, much improved. PLAN: Continue high-dose steroids. He trach and a PEG, thereafter wean as tolerated, eventually placement. One-half hour of critical time. Job ID: [id number]
--- NOTE | 2020-04-10 14:31 | PDOC.HOSPP ---
- Subjective Encounter Date: 04/10/20 Encounter Time: 09:25 Subjective: is on vent, min sedation, follows verbal stimuli - Objective Vital Signs & Weight: Vital Signs (12 hours) Pulse Pulse Pulse Resp BP BP Pulse Ox 04/10/20 14:00 14 04/10/20 12:00 14 04/10/20 11:06 71 04/10/20 10:11 86 87 102/65 116/69 04/10/20 10:00 11 L 04/10/20 08:00 96 04/10/20 07:58 86 04/10/20 07:53 15 04/10/20 06:00 13 04/10/20 04:00 16 Pulse Ox Pulse Ox 04/10/20 14:00 04/10/20 12:00 04/10/20 11:06 04/10/20 10:11 100 97 04/10/20 10:00 04/10/20 08:00 04/10/20 07:58 04/10/20 07:53 04/10/20 06:00 04/10/20 04:00 Weight Admit Weight 2.392 oz Weight 145 lb 15.136 oz Most Recent Monitor Data Heart Rate from ECG 47 NIBP 116/70 NIBP BP-Mean 85 Respiration from ECG 16 SpO2 100 I&O: 04/09/20 04/10/20 04/11/20 06:59 06:59 06:59 Intake Total 2046.4 2529.7 575.0 Output Total 3050 2585 650 Balance -1003.6 -55.3 -75.0 Result Diagrams: 04/10/20 03:50 04/10/20 03:50 Additional Labs: Accuchecks 04/10/20 04/10/20 05:43 00:15 POC Glucose 116 H 140 H Hospitalist ROS - Medication Medications: Active Medications Generic Name Dose Route Start Last Admin Trade Name Freq PRN Reason Stop Dose Admin Acetaminophen 650 mg 04/05/20 05:02 04/08/20 12:43 Acetaminophen 650 Mg/20.3 Ml Udcup PER TUBE 650 mg Q6H PRN Administration Fever or Pain Ascorbic Acid 500 mg 03/19/20 09:00 04/10/20 08:39 Ascorbic Acid 500 Mg Chewable Tablet PO 500 mg DAILY BETTY Administration Bisacodyl 10 mg 03/30/20 08:10 04/05/20 05:09 Bisacodyl 10 Mg Supp [place] 10 mg DAILYPRN PRN Administration Constipation Cholecalciferol 400 units 03/19/20 09:00 04/10/20 08:38 Cholecalciferol (Vitamin D3) 400 Units Tab PO 400 units DAILY BETTY Administration Dexamethasone 6 mg 03/27/20 08:28 04/10/20 08:40 Dexamethasone 4 Mg/Ml Vial SLOW IVP 6 mg BID BETTY Administration Enoxaparin Sodium 60 mg 04/01/20 21:00 04/10/20 08:38 Enoxaparin Sodium 60 Mg/0.6 Ml Syringe SC 60 mg 09,2100 BETTY Administration Guaifenesin 200 mg 03/30/20 08:10 04/01/20 00:06 Guaifenesin Sf Soln 200 Mg/10 Ml Udcup PO 200 mg Q4H PRN Administration Cough Dexmedetomidine HCl 400 mcg/ 100 mls @ 0 mls/hr 03/28/20 08:15 04/10/20 03:05 Sodium Chloride IVPB 100 mls INF BETTY Administration Protocol Per Protocol Midazolam HCl 100 mls @ 0 mls/hr 04/01/20 11:15 04/04/20 11:03 Versed IVPB 100 mls INF BETTY Administration Protocol Titrate Norepinephrine Bitartrate 250 mls @ 0 mls/hr 04/03/20 08:00 04/06/20 20:34 Levophed IVPB 250 mls INF BETTY Administration Protocol Titrate Meropenem 1 gm/ Device 50 mls @ 100 mls/hr 04/03/20 10:00 04/10/20 08:41 IVPB 50 mls 0200,1000,1800 BETTY Administration Fentanyl 100 mls @ 0 mls/hr 04/09/20 11:00 04/10/20 04:46 Fentanyl Cadd IV 100 mls INF BETTY Administration Protocol Per Protocol Vancomycin HCl 1.5 gm/ Device 300 mls @ 200 mls/hr 04/10/20 09:00 04/10/20 08:41 IVPB 300 mls Q12HR BETTY Administration Insulin Human Regular 0 units 03/31/20 08:25 04/03/20 15:58 Insulin Regular 300 Units/3 Ml Vial SC 2 unit .MODERATE SLIDING SC PRN Administration Moderate Correctional Scale Lorazepam 2 mg 04/09/20 10:48 04/10/20 09:54 Lorazepam 2 Mg/Ml Vial SLOW IVP 2 mg Q1H PRN Administration Breakthrough agitation Pantoprazole Sodium 40 mg 03/26/20 21:00 04/10/20 08:39 Pantoprazole 40 Mg Granules Packet PO 40 mg BID BETTY Administration Polyethylene Glycol 17 gm 03/30/20 08:11 03/31/20 13:34 Polyethylene Glycol 3350 17 Gm Packet PO 17 gm DAILYPRN PRN Administration Constipation Propofol 1,000 mg 03/18/20 18:00 04/10/20 00:52 Propofol 1,000 Mg/100 Ml Vial IV 04/17/20 18:00 1,000 mg INF PRN Administration TO ACHIEVE GOAL RASS Protocol Risperidone 0.5 mg 04/06/20 21:00 04/10/20 08:39 Risperidone 0.25 Mg Tab PO 0.5 mg BID BETTY Administration Sodium Chloride 10 ml 03/19/20 09:00 04/10/20 08:41 Flush - Normal Saline 10 Ml Syringe IVF 10 ml Q12HR BETTY Administration Thiamine HCl 100 mg 03/19/20 09:00 04/10/20 08:39 Thiamine 100 Mg Tab PO 100 mg DAILY BETTY Administration Vecuronium [place] 10 mg 04/03/20 04:46 04/06/20 11:41 Vecuronium 10 Mg Vial IVP 10 mg Q1H PRN Administration MOVEMENT Zinc Sulfate 220 mg 03/19/20 09:00 04/10/20 08:39 Zinc Sulfate 220 Mg Cap PO 220 mg DAILY BETTY Administration Hospitalist Exam Vitals: Vital Signs (12 hours) Pulse Pulse Pulse Resp BP BP Pulse Ox 04/10/20 14:00 14 04/10/20 12:00 14 04/10/20 11:06 71 04/10/20 10:11 86 87 102/65 116/69 04/10/20 10:00 11 L 04/10/20 08:00 96 04/10/20 07:58 86 04/10/20 07:53 15 04/10/20 06:00 13 04/10/20 04:00 16 Pulse Ox Pulse Ox 04/10/20 14:00 04/10/20 12:00 04/10/20 11:06 04/10/20 10:11 100 97 04/10/20 10:00 04/10/20 08:00 04/10/20 07:58 04/10/20 07:53 04/10/20 06:00 04/10/20 04:00 Weight Admit Weight 2.392 oz Weight 145 lb 15.136 oz Most Recent Monitor Data Heart Rate from ECG 47 NIBP 116/70 NIBP BP-Mean 85 Respiration from ECG 16 SpO2 100 Eye: PERRL, anicteric sclera ENT: no oropharyngeal lesions, moist mucosa Neck: supple, no JVD Heart: RRR, no murmur Respiratory: no wheezes, no rales, rhonchi Gastrointestinal: soft, non-tender, non-distended, normal bowel sounds Extremities: no cyanosis, no edema Neurological: cranial nerve grossly intact, no focal deficits Hosp A/P (1) Pneumonia due to COVID-19 virus Code(s): U07.1 - COVID-19; J12.82 - PNEUMONIA DUE TO CORONAVIRUS DISEASE 2019 Status: Acute (2) Acute respiratory failure with hypoxia Code(s): J96.01 - ACUTE RESPIRATORY FAILURE WITH HYPOXIA Status: Acute (3) Metabolic encephalopathy Code(s): G93.41 - METABOLIC ENCEPHALOPATHY Status: Acute (4) Pneumomediastinum Code(s): J98.2 - INTERSTITIAL EMPHYSEMA Status: Resolved (5) Septic shock Code(s): A41.9 - SEPSIS, UNSPECIFIED ORGANISM; R65.21 - SEVERE SEPSIS WITH SEPTIC SHOCK Status: Resolved - Plan is on dexamethasone, merrem, vanc, protonix, precedex, lovenox full dose, risperdone bid, thiamine for trach and peg this week likely am per staff, he got intubated on 03/18/2020. is on simv crp is down to 4.4 from 30, is on merrem from 04/03 and vanc was added 04/08. d/w Mr.Paul mondragon [phone] and gave full updates including plans for trach and peg....04/07, 04/08/20, 04/09 (discussed code status, wants everything done for now), 04/10.
--- NOTE | 2020-04-10 14:52 | PDOC.PALPN ---
Palliative Progress Note - Subjective Intubate, FiO2 50% Peep 5. Responds to stimuli. Continues to receive high dose steroids - Objective Vital Signs: Vital Signs - Most Recent Temp Pulse Resp BP Pulse Ox 98.2 F 71 14 102/65 100 04/09/20 20:00 04/10/20 11:06 04/10/20 14:00 04/10/20 10:11 04/10/20 10:11 - Physical Exam Constitutional: encephalitic, ill appearing HEENT: moist MMs Respiratory: no wheezing, diminished lung sound Deviation from normal: Bilaterally adventicious Cardiovascular: RRR Gastrointestinal: soft, non-tender, incontinent Genitourinary: lópez catheter Musculoskeletal: no cyanosis, no clubbing, diffuse muscle atrophy Neurology: moves all 4 limbs, no focal deficits Skin: cap refill <2 seconds, no lesions, no rash Deviation from normal: Alert, unable to fully appreciate orientation - Assessment (1) Palliative care encounter Code(s): Z51.5 - ENCOUNTER FOR PALLIATIVE CARE Current Visit: Yes Status: Acute (2) Acute hypoxemic respiratory failure due to COVID-19 Code(s): U07.1 - COVID-19; J96.01 - ACUTE RESPIRATORY FAILURE WITH HYPOXIA Current Visit: Yes Status: Acute (3) Metabolic encephalopathy Code(s): G93.41 - METABOLIC ENCEPHALOPATHY Current Visit: Yes Status: Acute (4) Pneumonia due to COVID-19 virus Code(s): U07.1 - COVID-19; J12.82 - PNEUMONIA DUE TO CORONAVIRUS DISEASE 2019 Current Visit: Yes Status: Acute (5) Septic shock Code(s): A41.9 - SEPSIS, UNSPECIFIED ORGANISM; R65.21 - SEVERE SEPSIS WITH SEPTIC SHOCK Current Visit: Yes Status: Resolved - Plan Plan: family has had conversations in relation to PEG/Trach secondary to continued inability to maintain optimal lung function without vent support. Family has relayed prior to Covid Mr Macias was independent and able to perform ADL. Goals: Trach/Peg LTAC Continued recovery with hopes of returning to base line. Continue all aggressive measures to facilitate recovery. Palliative care will sign off as goals have been addressed. Should it be necessary to revisit goal of care, assist with complex decision making, or prognosis disease assist in the future please re consult our team. Please also refer to Palliative care notes in note section. Thank you for this very appropriate consult. [30] minutes spent on this encounter with >50% of the time in counseling and coordination of care. - ROS Non Response: due to endotracheal tube, due to mental status
--- NOTE | 2020-04-10 17:06 | CON ---
DATE OF CONSULTATION: 04/10/2020 CHIEF COMPLAINT: COVID pneumonia. HISTORY OF PRESENT ILLNESS: This is a 70-year-old male with a history of admission in respiratory failure for COVID pneumonia. He has now improved clinically, but not able to be weaned from the ventilator. I have been consulted for tracheostomy and feeding tube secondary to risk for long-term protein-calorie malnutrition. PAST MEDICAL HISTORY: Otherwise, none. ALLERGIES: NO KNOWN DRUG ALLERGIES. SOCIAL HISTORY: Previously, no smoking, alcohol, or other drugs. REVIEW OF SYSTEMS: Unable to obtain. PHYSICAL EXAMINATION: VITAL SIGNS: Blood pressure is 108/72. His heart rate is 48, respirations 19, vent. HEENT: Pupils 4 mm, reactive bilateral. NECK: No neck incisions. CHEST: Coarse breath sounds bilateral. HEART: Regular rate. ABDOMEN: Soft, nontender, and nondistended. No hernias. EXTREMITIES: No ischemia or edema to extremities. LABORATORY DATA: White blood cell count is 12, hemoglobin 12. Creatinine 0.52. IMAGING DATA: Chest x-ray on 04/10 revealed bilateral lung infiltrates. No significant change. ASSESSMENT: 1. Respiratory failure. 2. Protein-calorie malnutrition. PLAN: Tracheostomy and PEG feeding tube tomorrow. Risks, benefits, and alternatives discussed with the family, plan tomorrow. Job ID: [id number]
[2020-04-10] MEDS: Acetaminophen 650 MG/20.3 ML UDCUP PER TUBE PRN (17:30)
[2020-04-11] MEDS: MEROPENEM 1 GM/50 ML 1 GM in Premix Bag 1 BAG IVPB SCH ×3 (02:33→18:13)
[2020-04-11 05:02] LABS: Anion Gap 12 mmol/L (10-20); BUN (Urea Nitrogen) 11 mg/dL (8.4-25.7); Calc. Creatinine Clearance 122 mL/min (70-130); Calcium 7.9 mg/dL (7.8-10.44); Carbon Dioxide 28 mmol/L (23-31); Chloride 100 mmol/L (98-107); Glucose 147 mg/dL (83-110); Potassium 3.8 mmol/L (3.5-5.1); Sodium 136 mmol/L (136-145)
[2020-04-11 05:20] LABS: Band 3 % (5-11); Hemoglobin 12.9 g/dL (14.0-18.0); Hypochromia SLIGHT = 6-15 cells (100X) (0-5/hpf); Lymphocytes 7 % (21-51); MDiff Complete? YES; Mean Corpuscular HGB CONC 32.3 g/dL (32.0-36.0); Mean Corpuscular Hemoglobin 30.8 pg (27.0-31.0); Mean Corpuscular Volume 95.1 fL (78.0-98.0); Monocytes 6 % (0-10); Neutrophil 84 % (42-75); Platelet Count 304 thou/uL (130-400); Platelet Morphology Comment Appears Adequate; RBC Distribution Width 14.5 % (11.5-14.5); White Blood Cell (WBC) Count 13.3 thou/uL (4.8-10.8)
[2020-04-11] MEDS: Propofol 1,000 MG/100 ML VIAL IV PRN ×2 (07:29→18:43)
[2020-04-11 08:18] LABS: Vancomycin, Trough 13.4 ug/mL
[2020-04-11] MEDS: Vancomycin 1.5 GRAM/300 ML BAG 1.5 GM in Premix Bag 1 BAG IVPB SCH (08:25)
[2020-04-11] MEDS: Pantoprazole 40 MG GRANULES PACKET PO SCH ×2 (08:26→20:56)
[2020-04-11] MEDS: Cholecalciferol (Vitamin D3) 400 UNITS TAB PO SCH (08:26)
[2020-04-11] MEDS: risperiDONE 0.25 MG TAB PO SCH ×2 (08:26→20:56)
[2020-04-11] MEDS: Ascorbic Acid 500 mg Chewable Tablet PO SCH (08:26)
[2020-04-11] MEDS: Dexamethasone 4 mg/ml Vial SLOW IVP SCH ×2 (08:26→20:56)
[2020-04-11] MEDS: Zinc Sulfate 220 MG CAP PO SCH (08:27)
[2020-04-11] MEDS: Thiamine 100 MG TAB PO SCH (08:27)
--- NOTE | 2020-04-11 08:52 | PRG ---
DATE OF SERVICE: 04/11/2020 SUBJECTIVE: Farrukh Macias actually looks much improved, though he is still desatting when he wakes up. OBJECTIVE: VITAL SIGNS: His pulse 131, his temperature is 98, blood pressure 127/97, sats 98% on low PEEP of 10, 50%. CHEST: Rhonchi and crackles. CARDIAC: Normal S1 gallops. ABDOMEN: Soft. IMPRESSION: Prolonged intubation, respiratory failure, encephalopathy. PLAN: Trach and PEG today. Hopefully, we can wean him and placement. Eventually, rehab long-term placement. One-half hour of critical care time. Job ID: [id number]
--- NOTE | 2020-04-11 09:03 | RAD ---
ONE VIEW CHEST: COMPARISON: 04/10/2020. HISTORY: Pneumonia. FINDINGS: Stable endotracheal and nasogastric tube. Stable cardiac silhouette. Multilobar interstitial and al veolar opacities do remain. No pneumothorax or pleural effusion. IMPRESSION: Stable multilobar pneumonia. POS: PPP
[2020-04-11] MEDS ORDERED: Dexamethasone 20 MG/5 ML VIAL ONE (09:19)
[2020-04-11] MEDS ORDERED: Ondansetron PF 4 MG/2 ML Vial ONE (09:19)
[2020-04-11] MEDS ORDERED: Rocuronium Bromide 10 MG/ML (10ML VIAL) ONE (09:19)
[2020-04-11] MEDS: Norepinephrine 8 MG/0.9% NS 250 ML IVPB SCH (12:49)
[2020-04-11] MEDS ORDERED: Fentanyl 100 MCG/2 ML VIAL ONE (13:02)
[2020-04-11] MEDS ORDERED: Midazolam HCl 2 mg/2 ml Vial ONE (13:02)
[2020-04-11] MEDS ORDERED: Bupivacaine 0.25% HCL 30 ML VIAL ONE (13:05)
[2020-04-11] MEDS ORDERED: XYLOCAINE 2%-EPI 1:100,000 20 ML VIAL ONE (13:05)
[2020-04-11] MEDS ORDERED: Sodium Chloride 0.9% 30 ML ONE (13:12)
[2020-04-11] MEDS ORDERED: Fentanyl CADD 100 ML ONE (14:45)
--- NOTE | 2020-04-11 14:58 | RAD ---
EXAM: Single view of the chest HISTORY: Status post tracheostomy and line placement COMPARISON: 04/11/2020 at 4:58 AM FINDINGS: Single view of the chest shows a normal sized cardiomediastinal silhouette. A tracheostomy is seen with its tip in good position overlying the trachea. There is a right IJ central venous catheter with its tip in the superior vena cava. The endotracheal tube and NG tube have been removed. No pneumothorax is seen. Scattered multifocal infiltrates are seen in the lungs. Degenerative changes are seen in the spine. Surgical clips are seen in the right upper quadrant of the abdomen. IMPRESSION: 1. Status post line placement and tracheostomy without evidence of complication 2. Stable multifocal pneumonia
--- NOTE | 2020-04-11 15:17 | PDOC.HOSPP ---
- Subjective Encounter Date: 04/11/20 Encounter Time: 10:00 Subjective: is on vent with minimal sedation and son at bedside - Objective Vital Signs & Weight: Vital Signs (12 hours) Temp Pulse Pulse Pulse Resp BP BP 04/11/20 14:47 96 04/11/20 13:11 85 122/82 04/11/20 12:00 20 04/11/20 11:09 71 04/11/20 10:00 22 H 04/11/20 09:32 100 104 H 98/73 04/11/20 08:00 18 04/11/20 07:48 131 H 04/11/20 04:00 98.9 F BP Pulse Ox Pulse Ox Pulse Ox 04/11/20 14:47 04/11/20 13:11 04/11/20 12:00 04/11/20 11:09 04/11/20 10:00 04/11/20 09:32 105/73 97 99 04/11/20 08:00 98 04/11/20 07:48 04/11/20 04:00 Weight Admit Weight 155 lb Weight 145 lb 14.4 oz Most Recent Monitor Data Heart Rate from ECG 95 NIBP 129/79 NIBP BP-Mean 95 Respiration from ECG 24 SpO2 86 I&O: 04/10/20 04/11/20 04/12/20 06:59 06:59 06:59 Intake Total 2529.7 1089.6 542.4 Output Total 2585 3310 520 Balance -55.3 -2220.4 22.4 Result Diagrams: 04/11/20 04:05 04/11/20 04:05 Hospitalist ROS - Medication Medications: Active Medications Generic Name Dose Route Start Last Admin Trade Name Freq PRN Reason Stop Dose Admin Acetaminophen 650 mg 04/05/20 05:02 04/10/20 17:30 Acetaminophen 650 Mg/20.3 Ml Udcup PER TUBE 650 mg Q6H PRN Administration Fever or Pain Ascorbic Acid 500 mg 03/19/20 09:00 04/11/20 08:26 Ascorbic Acid 500 Mg Chewable Tablet PO Not Given DAILY BETTY Bisacodyl 10 mg 03/30/20 08:10 04/05/20 05:09 Bisacodyl 10 Mg Supp [place] 10 mg DAILYPRN PRN Administration Constipation Cholecalciferol 400 units 03/19/20 09:00 04/11/20 08:26 Cholecalciferol (Vitamin D3) 400 Units Tab PO Not Given DAILY BETTY Dexamethasone 6 mg 03/27/20 08:28 04/11/20 08:26 Dexamethasone 4 Mg/Ml Vial SLOW IVP 6 mg BID BETTY Administration Enoxaparin Sodium 60 mg 04/01/20 21:00 04/10/20 20:33 Enoxaparin Sodium 60 Mg/0.6 Ml Syringe SC 60 mg 0900,2100 BETTY Administration Guaifenesin 200 mg 03/30/20 08:10 04/01/20 00:06 Guaifenesin Sf Soln 200 Mg/10 Ml Udcup PO 200 mg Q4H PRN Administration Cough Dexmedetomidine HCl 400 mcg/ 100 mls @ 0 mls/hr 03/28/20 08:15 04/11/20 11:41 Sodium Chloride IVPB 100 mls INF BETTY Administration Protocol Per Protocol Midazolam HCl 100 mls @ 0 mls/hr 04/01/20 11:15 04/04/20 11:03 Versed IVPB 100 mls INF BETTY Administration Protocol Titrate Norepinephrine Bitartrate 250 mls @ 0 mls/hr 04/03/20 08:00 04/11/20 12:49 Levophed IVPB 250 mls INF BETTY Administration Protocol Titrate Meropenem 1 gm/ Device 50 mls @ 100 mls/hr 04/03/20 10:00 04/11/20 08:25 IVPB 50 mls 0200,1000,1800 BETTY Administration Fentanyl 100 mls @ 0 mls/hr 04/09/20 11:00 04/10/20 04:46 Fentanyl Cadd IV 100 mls INF BETTY Administration Protocol Per Protocol Insulin Human Regular 0 units 03/31/20 08:25 04/03/20 15:58 Insulin Regular 300 Units/3 Ml Vial SC 2 unit .MODERATE SLIDING SC PRN Administration Moderate Correctional Scale Lorazepam 2 mg 04/09/20 10:48 04/10/20 09:54 Lorazepam 2 Mg/Ml Vial SLOW IVP 2 mg Q1H PRN Administration Breakthrough agitation Pantoprazole Sodium 40 mg 03/26/20 21:00 04/11/20 08:26 Pantoprazole 40 Mg Granules Packet PO Not Given BID BETTY Polyethylene Glycol 17 gm 03/30/20 08:11 03/31/20 13:34 Polyethylene Glycol 3350 17 Gm Packet PO 17 gm DAILYPRN PRN Administration Constipation Propofol 1,000 mg 03/18/20 18:00 04/11/20 07:29 Propofol 1,000 Mg/100 Ml Vial IV 04/17/20 18:00 1,000 mg INF PRN Administration TO ACHIEVE GOAL RASS Protocol Risperidone 0.5 mg 04/06/20 21:00 04/11/20 08:26 Risperidone 0.25 Mg Tab PO Not Given BID BETTY Sodium Chloride 10 ml 03/19/20 09:00 04/11/20 08:27 Flush - Normal Saline 10 Ml Syringe IVF Not Given Q12HR BETTY Thiamine HCl 100 mg 03/19/20 09:00 04/11/20 08:27 Thiamine 100 Mg Tab PO Not Given DAILY BETTY Vecuronium [place] 10 mg 04/03/20 04:46 04/06/20 11:41 Vecuronium 10 Mg Vial IVP 10 mg Q1H PRN Administration MOVEMENT Zinc Sulfate 220 mg 03/19/20 09:00 04/11/20 08:27 Zinc Sulfate 220 Mg Cap PO Not Given DAILY [facility] Hospitalist Exam Vitals: Vital Signs (12 hours) Temp Pulse Pulse Pulse Resp BP BP 04/11/20 14:47 96 04/11/20 13:11 85 122/82 04/11/20 12:00 20 04/11/20 11:09 71 04/11/20 10:00 22 H 04/11/20 09:32 100 104 H 98/73 04/11/20 08:00 18 04/11/20 07:48 131 H 04/11/20 04:00 98.9 F BP Pulse Ox Pulse Ox Pulse Ox 04/11/20 14:47 04/11/20 13:11 04/11/20 12:00 04/11/20 11:09 04/11/20 10:00 04/11/20 09:32 105/73 97 99 04/11/20 08:00 98 04/11/20 07:48 04/11/20 04:00 Weight Admit Weight 155 lb Weight 145 lb 14.4 oz Most Recent Monitor Data Heart Rate from ECG 95 NIBP 129/79 NIBP BP-Mean 95 Respiration from ECG 24 SpO2 86 General Appearance: awake alert Eye: PERRL, anicteric sclera ENT: no oropharyngeal lesions, moist mucosa Neck: supple, no JVD Heart: RRR, no murmur Respiratory: no wheezes, no rales, rhonchi Gastrointestinal: soft, non-tender, non-distended, normal bowel sounds Extremities: no cyanosis, no edema Neurological: cranial nerve grossly intact, no focal deficits Hosp A/P (1) Pneumonia due to COVID-19 virus Code(s): U07.1 - COVID-19; J12.82 - PNEUMONIA DUE TO CORONAVIRUS DISEASE 2018 Status: Acute (2) Acute respiratory failure with hypoxia Code(s): J96.01 - ACUTE RESPIRATORY FAILURE WITH HYPOXIA Status: Acute (3) Metabolic encephalopathy Code(s): G93.41 - METABOLIC ENCEPHALOPATHY Status: Acute (4) Pneumomediastinum Code(s): J98.2 - INTERSTITIAL EMPHYSEMA Status: Resolved (5) Septic shock Code(s): A41.9 - SEPSIS, UNSPECIFIED ORGANISM; R65.21 - SEVERE SEPSIS WITH SEPTIC SHOCK Status: Resolved - Plan is on dexamethasone, merrem, vanc, protonix, precedex, lovenox full dose held for trach, risperdone bid, thiamine for trach and peg today, he got intubated on 03/18/2020. is on simv crp is down to 4.4 from 30, is on merrem from 04/03 and vanc was added 04/08, will dc both on 04/13 d/w and son Liam at bedside 04/11/20 d/w Mr.Paul mondragon [phone] and gave full updates including plans for trach and peg....04/07, 04/08/20, 04/09 (discussed code status, wants everything done for now), 04/10.
[2020-04-11] MEDS: VANCOMYCIN 1.75 GM/350 ML BAG 1.75 GM in Premix Bag 1 BAG IVPB SCH (20:56)
[2020-04-12] MEDS: MEROPENEM 1 GM/50 ML 1 GM in Premix Bag 1 BAG IVPB SCH ×3 (02:33→17:37)
[2020-04-12] MEDS ORDERED: Fentanyl CADD 100 ML ONE ×2 (04:26→15:04)
[2020-04-12 05:00] LABS: #Monocytes 0.4 thou/uL (0.11-0.59); #Neutrophils 9.7 thou/uL (1.40-6.50); %Basophils 0.1 % (0.0-1.0); %Eosinophils 0.2 % (0.0-10.0); %Lymphocytes 8.7 % (21.0-51.0); %Monocytes 3.3 % (0.0-10.0); %Neutrophils 87.6 % (42.0-75.0); Hemoglobin 11.8 g/dL (14.0-18.0); Mean Corpuscular HGB CONC 32.3 g/dL (32.0-36.0); Mean Corpuscular Hemoglobin 30.9 pg (27.0-31.0); Mean Corpuscular Volume 95.6 fL (78.0-98.0); Mean Platelet Volume 7.2 fL (7.4-10.4); Platelet Count 254 thou/uL (130-400); RBC Distribution Width 14.3 % (11.5-14.5); Red Blood Cell (RBC) Count 3.81 mill/uL (4.70-6.10)
[2020-04-12 05:19] LABS: Anion Gap 12 mmol/L (10-20); BUN (Urea Nitrogen) 14 mg/dL (8.4-25.7); Calc. Creatinine Clearance 0 mL/min (70-130); Calcium 7.8 mg/dL (7.8-10.44); Carbon Dioxide 26 mmol/L (23-31); Chloride 101 mmol/L (98-107); Glucose 128 mg/dL (83-110); Potassium 3.6 mmol/L (3.5-5.1); Sodium 135 mmol/L (136-145)
--- NOTE | 2020-04-12 07:22 | OP ---
DATE OF PROCEDURE: 04/11/2020 PREOPERATIVE DIAGNOSES: Respiratory failure, protein-calorie malnutrition. POSTOPERATIVE DIAGNOSES: Respiratory failure, protein-calorie malnutrition. PROCEDURES PERFORMED: 1. Tracheostomy 8 [employer]. 2. Central line placement, right internal jugular vein. 3. Esophagogastroduodenoscopy and percutaneous endoscopic gastrostomy tube (PEG tube). ANESTHESIA: General. ESTIMATED BLOOD LOSS: Minimal. COMPLICATIONS: None. DESCRIPTION OF PROCEDURE: The patient was taken to the operating room and laid supine on the operating room table. After general anesthetic was obtained, his bilateral neck and chest was prepped and draped in a sterile fashion. Local anesthetic infiltrated over the right internal jugular vein. Internal jugular vein was cannulated using a 22-gauge Finder needle followed by a Seldinger needle. Wire was passed under no tension in the superior vena cava. A small minnie was made at the wire entrance site. The wire was used a guided to get dilate the internal jugular vein. Triple-lumen catheter was threaded to 16 cm sewn to the neck using close silk and connector. All ports flushed and drawn blood without difficulty, just flushed with a saline solution. Sterile dressings were placed. Incision was made over the second tracheal ring transversely, cautery dissected down to the strap muscles. Strap muscles were split in the midline exposing the tracheostomy. Second tracheal ring was found. 2-0 Prolene placed on each side. This was used to retract the trachea up. Middle box of the anterior second tracheal ring was removed using a trach butadiene convertor operator and a knife. As the ET tube was removed, the 8 [employer] with the inner cannula removed and the obturator placed. The balloon was inflated without leak. The inner cannula was replaced as the obturator was removed. Ernestina was placed on each side of the open wound. The trach ties were affixed to the neck using Steri-Strips. Velcro trach ties were placed around the neck. Next, the upper abdomen was prepped and draped in a sterile fashion. The EGD scope was passed esophagus, stomach to the level of the duodenum. There was mild gastritis, mild esophagitis present, but no ulcerated disease. Skin wheal raised in the left upper quadrant. There was good transillumination of light seen. Skin wheal was raised. An incision was made. The introducer needle was placed into the stomach. Wires passed, snared from above. Snare brought out through the mouth with the wire, connected to the PEG. The PEG was then pulled through the oropharynx, esophagus, and out the stomach, held to the abdominal wall using the enclosed connector. [place] tree adapter was placed as well as the clamp. Antibiotic ointment placed at the exit site. No complications of the procedures. The patient was sent to Recovery in stable condition. All instrument counts, needle counts, and lap counts were correct. Job ID: [id number]
--- NOTE | 2020-04-12 08:01 | RAD ---
AP CHEST: Date: 04/12/2020 HISTORY: Pneumonia follow-up. COMPARISON: 04/11/2020. FINDINGS: Tracheostomy device and central line unchanged. Hazy alveolar infiltrate throughout the right lung. P atchy infiltrate in the left lower lung. IMPRESSION: Bilateral infiltrates, not significantly changed in appearance. POS: AGW
--- NOTE | 2020-04-12 08:32 | PRG ---
DATE OF SERVICE: 04/12/2020 SUBJECTIVE: Awake, alert, responsive, trach and PEG on board. X-ray looks better. OBJECTIVE: VITAL SIGNS: Temperature 98, pulse 101, respirations 18, 40%, PEEP of 5, blood pressure 100/62. CHEST: No wheezing, no crackles. CARDIAC: Normal S1, S2. ABDOMEN: No masses. IMPRESSION: Respiratory failure, krause positive pneumonia, status post trach and PEG, encephalopathy. He is much improved. Trying to slowly adjust his vent, trying to have a trach collar, eventually placement, start decreasing the steroids in the next 24 to 48 hours. One-half hour of critical time. Job ID: [id number]
[2020-04-12] MEDS: Propofol 1,000 MG/100 ML VIAL IV PRN (08:58)
[2020-04-12] MEDS: VANCOMYCIN 1.75 GM/350 ML BAG 1.75 GM in Premix Bag 1 BAG IVPB SCH ×2 (09:19→20:17)
[2020-04-12] MEDS: Dexamethasone 4 mg/ml Vial SLOW IVP SCH ×2 (09:21→20:18)
[2020-04-12] MEDS: Pantoprazole 40 MG GRANULES PACKET PO SCH ×2 (09:23→20:17)
[2020-04-12] MEDS: Cholecalciferol (Vitamin D3) 400 UNITS TAB PO SCH (09:23)
[2020-04-12] MEDS: Zinc Sulfate 220 MG CAP PO SCH (09:23)
[2020-04-12] MEDS: risperiDONE 0.25 MG TAB PO SCH ×2 (09:23→20:17)
[2020-04-12] MEDS: Thiamine 100 MG TAB PO SCH (09:24)
[2020-04-12] MEDS: Ascorbic Acid 500 mg Chewable Tablet PO SCH (09:24)
[2020-04-12] MEDS ORDERED: Propofol BOLUS 1,000 MG/100 ML VIAL IV PRN (13:00)
--- NOTE | 2020-04-12 16:34 | PDOC.HOSPP ---
- Subjective Encounter Date: 04/12/20 Encounter Time: 09:40 Subjective: awakens easily, is on trach and vent, moves all extremities - Objective Vital Signs & Weight: Vital Signs (12 hours) Temp Pulse Pulse Pulse Resp BP BP 04/12/20 16:00 20 04/12/20 14:51 127 H 100/72 04/12/20 14:00 20 04/12/20 12:00 18 04/12/20 11:00 99.0 F 04/12/20 10:23 111 H 109/69 04/12/20 09:56 15 04/12/20 09:21 127 H 110 H 120/86 04/12/20 08:00 20 04/12/20 07:14 101 H 04/12/20 07:00 98.5 F BP Pulse Ox Pulse Ox Pulse Ox 04/12/20 16:00 04/12/20 14:51 04/12/20 14:00 04/12/20 12:00 04/12/20 11:00 04/12/20 10:23 04/12/20 09:56 04/12/20 09:21 175/74 H 90 L 90 L 04/12/20 08:00 92 L 04/12/20 07:14 04/12/20 07:00 Weight Admit Weight 155 lb Weight 2.201 oz Most Recent Monitor Data Heart Rate from ECG 101 NIBP 95/64 NIBP BP-Mean 74 Respiration from ECG 17 SpO2 98 I&O: 04/11/20 04/12/20 04/13/20 06:59 06:59 06:59 Intake Total 1089.6 1622.2 150 Output Total 3310 1770 288 Balance -2220.4 -147.8 -138 Result Diagrams: 04/12/20 04:45 04/12/20 04:45 Hospitalist ROS - Medication Medications: Active Medications Generic Name Dose Route Start Last Admin Trade Name Freq PRN Reason Stop Dose Admin Acetaminophen 650 mg 04/05/20 05:02 04/10/20 17:30 Acetaminophen 650 Mg/20.3 Ml Udcup PER TUBE 650 mg Q6H PRN Administration Fever or Pain Ascorbic Acid 500 mg 03/19/20 09:00 04/12/20 09:24 Ascorbic Acid 500 Mg Chewable Tablet PO 500 mg DAILY BETTY Administration Bisacodyl 10 mg 03/30/20 08:10 02/04/21 05:09 Bisacodyl 10 Mg Supp [place] 10 mg DAILYPRN PRN Administration Constipation Cholecalciferol 400 units 03/19/20 09:00 04/12/20 09:23 Cholecalciferol (Vitamin D3) 400 Units Tab PO 400 units DAILY BETTY Administration Dexamethasone 6 mg 03/27/20 08:28 04/12/20 09:21 Dexamethasone 4 Mg/Ml Vial SLOW IVP 6 mg BID BETTY Administration Enoxaparin Sodium 60 mg 04/01/20 21:00 04/10/20 20:33 Enoxaparin Sodium 60 Mg/0.6 Ml Syringe SC 60 mg 0900,2100 BETTY Administration Guaifenesin 200 mg 03/30/20 08:10 04/01/20 00:06 Guaifenesin Sf Soln 200 Mg/10 Ml Udcup PO 200 mg Q4H PRN Administration Cough Dexmedetomidine HCl 400 mcg/ 100 mls @ 0 mls/hr 03/28/20 08:15 04/12/20 15:13 Sodium Chloride IVPB 100 mls INF BETTY Administration Protocol Per Protocol Norepinephrine Bitartrate 250 mls @ 0 mls/hr 04/03/20 08:00 04/11/20 12:49 Levophed IVPB 250 mls INF BETTY Administration Protocol Titrate Meropenem 1 gm/ Device 50 mls @ 100 mls/hr 04/03/20 10:00 04/12/20 09:24 IVPB 50 mls 0200,1000,1800 BETTY Administration Fentanyl 100 mls @ 0 mls/hr 04/09/20 11:00 04/10/20 04:46 Fentanyl Cadd IV 100 mls INF BETTY Administration Protocol Per Protocol Vancomycin HCl 1.75 gm/ Device 350 mls @ 175 mls/hr 04/11/20 21:00 04/12/20 09:19 IVPB 350 mls Q12HR BETTY Administration Insulin Human Regular 0 units 03/31/20 08:25 04/03/20 15:58 Insulin Regular 300 Units/3 Ml Vial SC 2 unit .MODERATE SLIDING SC PRN Administration Moderate Correctional Scale Pantoprazole Sodium 40 mg 03/26/20 21:00 04/12/20 09:23 Pantoprazole 40 Mg Granules Packet PO 40 mg BID BETTY Administration Polyethylene Glycol 17 gm 03/30/20 08:11 03/31/20 13:34 Polyethylene Glycol 3350 17 Gm Packet PO 17 gm DAILYPRN PRN Administration Constipation Propofol 1,000 mg 03/18/20 18:00 04/12/20 08:58 Propofol 1,000 Mg/100 Ml Vial IV 04/17/20 18:00 1,000 mg INF PRN Administration TO ACHIEVE GOAL RASS Protocol Risperidone 0.5 mg 04/06/20 21:00 04/12/20 09:23 Risperidone 0.25 Mg Tab PO 0.5 mg BID BETTY Administration Sodium Chloride 10 ml 03/19/20 09:00 04/12/20 09:24 Flush - Normal Saline 10 Ml Syringe IVF 10 ml Q12HR BETTY Administration Thiamine HCl 100 mg 03/19/20 09:00 04/12/20 09:24 Thiamine 100 Mg Tab PO 100 mg DAILY BETTY Administration Zinc Sulfate 220 mg 03/19/20 09:00 04/12/20 09:23 Zinc Sulfate 220 Mg Cap PO 220 mg DAILY BETTY Administration Hospitalist Exam Vitals: Vital Signs (12 hours) Temp Pulse Pulse Pulse Resp BP BP 04/12/20 16:00 20 04/12/20 14:51 127 H 100/72 04/12/20 14:00 20 04/12/20 12:00 18 04/12/20 11:00 99.0 F 04/12/20 10:23 111 H 109/69 04/12/20 09:56 15 04/12/20 09:21 127 H 110 H 120/86 04/12/20 08:00 20 04/12/20 07:14 101 H 04/12/20 07:00 98.5 F BP Pulse Ox Pulse Ox Pulse Ox 04/12/20 16:00 04/12/20 14:51 04/12/20 14:00 04/12/20 12:00 04/12/20 11:00 04/12/20 10:23 04/12/20 09:56 04/12/20 09:21 175/74 H 90 L 90 L 04/12/20 08:00 92 L 04/12/20 07:14 04/12/20 07:00 Weight Admit Weight 155 lb Weight 2.201 oz Most Recent Monitor Data Heart Rate from ECG 101 NIBP 95/64 NIBP BP-Mean 74 Respiration from ECG 17 SpO2 98 Eye: PERRL, anicteric sclera ENT: no oropharyngeal lesions, dry oral mucosa Neck: no JVD Neck - other findings: trach+ Heart: RRR, no murmur Respiratory: no wheezes, no rales, rhonchi Gastrointestinal: soft, non-tender, non-distended, normal bowel sounds Gastrointestinal - other findings: peg+ Extremities: no cyanosis, no edema Neurological: cranial nerve grossly intact, no focal deficits Hosp A/P (1) Pneumonia due to COVID-19 virus Code(s): U07.1 - COVID-19; J12.82 - PNEUMONIA DUE TO CORONAVIRUS DISEASE 2019 Status: Acute (2) Acute respiratory failure with hypoxia Code(s): J96.01 - ACUTE RESPIRATORY FAILURE WITH HYPOXIA Status: Acute (3) Metabolic encephalopathy Code(s): G93.41 - METABOLIC ENCEPHALOPATHY Status: Acute (4) Pneumomediastinum Code(s): J98.2 - INTERSTITIAL EMPHYSEMA Status: Resolved (5) Septic shock Code(s): A41.9 - SEPSIS, UNSPECIFIED ORGANISM; R65.21 - SEVERE SEPSIS WITH SEPTIC SHOCK Status: Resolved - Plan is on dexamethasone, merrem, vanc, protonix, precedex, lovenox, risperdone bid, thiamine is s/p trach and peg 04/11/20, he got intubated on 03/18/2020. is on simv, fio2 60% this am crp is down to 4.4 from 30, is on merrem from 04/03 and vanc was added 04/08, will d c both on 04/13 d/w and son Liam at bedside 04/11/20 d/w son [phone] and gave full updates including plans for trach and peg....04/07, 04/08/20, 04/09 (discussed code status, wants everything done for now), 04/10, 04/12/20.
[2020-04-13] MEDS ORDERED: Fentanyl CADD 100 ML ONE ×2 (01:15→11:51)
[2020-04-13] MEDS: MEROPENEM 1 GM/50 ML 1 GM in Premix Bag 1 BAG IVPB SCH ×3 (01:40→17:18)
[2020-04-13 04:56] LABS: Anion Gap 10 mmol/L (10-20); BUN (Urea Nitrogen) 12 mg/dL (8.4-25.7); Calc. Creatinine Clearance 0 mL/min (70-130); Calcium 7.8 mg/dL (7.8-10.44); Carbon Dioxide 28 mmol/L (23-31); Chloride 99 mmol/L (98-107); Glucose 134 mg/dL (83-110); Potassium 3.5 mmol/L (3.5-5.1); Sodium 133 mmol/L (136-145)
[2020-04-13 05:08] LABS: Band 15 % (5-11); Hemoglobin 11.3 g/dL (14.0-18.0); Lymphocytes 6 % (21-51); MDiff Complete? YES; Mean Corpuscular HGB CONC 32.6 g/dL (32.0-36.0); Mean Corpuscular Hemoglobin 30.9 pg (27.0-31.0); Mean Corpuscular Volume 94.9 fL (78.0-98.0); Mean Platelet Volume 7.4 fL (7.4-10.4); Monocytes 2 % (0-10); Neutrophil 77 % (42-75); Platelet Count 268 thou/uL (130-400); RBC Distribution Width 14.5 % (11.5-14.5); Red Blood Cell (RBC) Count 3.67 mill/uL (4.70-6.10); White Blood Cell (WBC) Count 13.2 thou/uL (4.8-10.8)
[2020-04-13] MEDS: Dexamethasone 4 mg/ml Vial SLOW IVP SCH ×2 (08:38→20:57)
[2020-04-13] MEDS: Acetaminophen 650 MG/20.3 ML UDCUP PER TUBE PRN (08:38)
[2020-04-13] MEDS: Cholecalciferol (Vitamin D3) 400 UNITS TAB PO SCH (08:40)
[2020-04-13] MEDS: Enoxaparin Sodium 60 MG/0.6 ML SYRINGE SC SCH ×2 (08:40→20:58)
[2020-04-13] MEDS: Thiamine 100 MG TAB PO SCH (08:40)
[2020-04-13] MEDS: Zinc Sulfate 220 MG CAP PO SCH (08:40)
[2020-04-13] MEDS: risperiDONE 0.25 MG TAB PO SCH ×2 (08:40→20:57)
[2020-04-13] MEDS: Pantoprazole 40 MG GRANULES PACKET PO SCH ×2 (08:40→20:57)
[2020-04-13] MEDS: Ascorbic Acid 500 mg Chewable Tablet PO SCH (08:40)
[2020-04-13] MEDS: VANCOMYCIN 1.75 GM/350 ML BAG 1.75 GM in Premix Bag 1 BAG IVPB SCH (08:41)
[2020-04-13] MEDS: Linezolid 600 MG in Premix Bag 1 BAG IVPB SCH ×2 (09:02→20:58)
[2020-04-13] MEDS: ALPRAZolam 0.5 MG TAB PO SCH ×4 (09:02→21:50)
--- NOTE | 2020-04-13 09:06 | PRG ---
DATE OF SERVICE: 04/13/2020 SUBJECTIVE: Farrukh Macias remains intubated in the vent, trach, PEG. He still remains very agitated, encephalopathic. OBJECTIVE: VITAL SIGNS: His maximum temperature has been 99. Blood pressure 147/100, sats 100% on a PEEP of 5, 40%. His I's and O's have been good. CHEST: Rhonchi and crackles, right greater than left. CARDIAC: Normal S1, S2. No gallops. ABDOMEN: No masses. LABORATORY DATA: Unremarkable. White count 44412. ASSESSMENT AND PLAN: Respiratory failure, krause positive pneumonia, encephalopathy. He is on scheduled Xanax, scheduled risperidone, Demadex, Diprivan. I consider his long-term prognosis is guarded. We will try and get him a placement. X-ray still shows significant right-sided infiltrate, may be hospital-acquired infection. We will add anti-Staph antibiotic. Job ID: [id number]
--- NOTE | 2020-04-13 09:25 | RAD ---
PORTABLE CHEST: Date: 04/13/2020 HISTORY: Pneumonia follow-up in CCU. COMPARISON: 04/12/2020. FINDINGS: Tracheostomy device and central line again noted. Diffuse hazy with somewhat patchy areas of alveolar infiltrate throughout the right lung. Areas of mo re dense consolidation in the right mid and lower lung. Hazy interstitial and alveolar infiltrate in the left lung base. IMPRESSION: Bilateral infiltrates, more extensive on the right. Similar to yesterday. POS: AGW
[2020-04-13] MEDS: Propofol 1,000 MG/100 ML VIAL IV PRN (09:36)
--- NOTE | 2020-04-13 16:14 | PDOC.HOSPP ---
- Subjective Encounter Date: 04/13/20 Encounter Time: 08:45 Subjective: is on vent, awakens, is on sedation - Objective Vital Signs & Weight: Vital Signs (12 hours) Temp Pulse Pulse Pulse Resp BP BP 04/13/20 14:31 107 H 04/13/20 14:00 18 04/13/20 12:00 23 H 04/13/20 11:00 98.7 F 04/13/20 10:53 79 85 105/67 04/13/20 10:13 96 04/13/20 10:00 17 04/13/20 08:00 99.5 F 04/13/20 07:47 14 04/13/20 07:28 122 H 147/109 H BP Pulse Ox Pulse Ox Pulse Ox 04/13/20 14:31 04/13/20 14:00 04/13/20 12:00 04/13/20 11:00 04/13/20 10:53 115/71 100 99 04/13/20 10:13 04/13/20 10:00 04/13/20 08:00 98 04/13/20 07:47 04/13/20 07:28 Weight Admit Weight 155 lb Weight 2.201 oz Most Recent Monitor Data Heart Rate from ECG 91 NIBP 115/71 NIBP BP-Mean 85 Respiration from ECG 12 SpO2 100 I&O: 04/12/20 04/13/20 04/14/20 06:59 06:59 06:59 Intake Total 1622.2 2933.9 266.5 Output Total 1770 1713 475 Balance -147.8 1220.9 -208.5 Result Diagrams: 04/13/20 04:15 04/13/20 04:15 Hospitalist ROS - Medication Medications: Active Medications Generic Name Dose Route Start Last Admin Trade Name Freq PRN Reason Stop Dose Admin Acetaminophen 650 mg 04/05/20 05:02 04/13/20 08:38 Acetaminophen 650 Mg/20.3 Ml Udcup PER TUBE 650 mg Q6H PRN Administration Fever or Pain Alprazolam 0.5 mg 04/13/20 09:00 04/13/20 12:08 Alprazolam 0.5 Mg Tab PO 0.5 mg QID BETTY Administration Ascorbic Acid 500 mg 03/19/20 09:00 04/13/20 08:40 Ascorbic Acid 500 Mg Chewable Tablet PO 500 mg DAILY BETTY Administration Bisacodyl 10 mg 03/30/20 08:10 04/05/20 05:09 Bisacodyl [address] 10 mg DAILYPRN PRN Administration Constipation Cholecalciferol 400 units 03/19/20 09:00 04/13/20 08:40 Cholecalciferol (Vitamin D3) 400 Units Tab PO 400 units DAILY BETTY Administration Dexamethasone 6 mg 03/27/20 08:28 04/13/20 08:38 Dexamethasone 4 Mg/Ml Vial SLOW IVP 6 mg BID BETTY Administration Enoxaparin Sodium 60 mg 04/01/20 21:00 04/13/20 08:40 Enoxaparin Sodium 60 Mg/0.6 Ml Syringe SC 60 mg 09,2100 BETTY Administration Guaifenesin 200 mg 03/30/20 08:10 04/01/20 00:06 Guaifenesin Sf Soln 200 Mg/10 Ml Udcup PO 200 mg Q4H PRN Administration Cough Dexmedetomidine HCl 400 mcg/ 100 mls @ 0 mls/hr 03/28/20 08:15 04/13/20 09:33 Sodium Chloride IVPB 100 mls INF BETTY Administration Protocol Per Protocol Norepinephrine Bitartrate 250 mls @ 0 mls/hr 04/03/20 08:00 04/11/20 12:49 Levophed IVPB 250 mls INF BETTY Administration Protocol Titrate Meropenem 1 gm/ Device 50 mls @ 100 mls/hr 04/03/20 10:00 04/13/20 08:44 IVPB 50 mls 0200,1000,1800 BETTY Administration Fentanyl 100 mls @ 0 mls/hr 04/09/20 11:00 04/10/20 04:46 Fentanyl Cadd IV 100 mls INF BETTY Administration Protocol Per Protocol Linezolid 600 mg/ Device 300 mls @ 150 mls/hr 04/13/20 09:00 04/13/20 09:02 IVPB 04/20/20 09:01 300 mls Q12HR BETTY Administration Insulin Human Regular 0 units 03/31/20 08:25 04/03/20 15:58 Insulin Regular 300 Units/3 Ml Vial SC 2 unit .MODERATE SLIDING SC PRN Administration Moderate Correctional Scale Pantoprazole Sodium 40 mg 03/26/20 21:00 04/13/20 08:40 Pantoprazole 40 Mg Granules Packet PO 40 mg BID BETTY Administration Polyethylene Glycol 17 gm 03/30/20 08:11 03/31/20 13:34 Polyethylene Glycol 3350 17 Gm Packet PO 17 gm DAILYPRN PRN Administration Constipation Propofol 1,000 mg 03/18/20 18:00 04/13/20 09:36 Propofol 1,000 Mg/100 Ml Vial IV 04/17/20 18:00 1,000 mg INF PRN Administration TO ACHIEVE GOAL RASS Protocol Risperidone 0.5 mg 04/06/20 21:00 04/13/20 08:40 Risperidone 0.25 Mg Tab PO 0.5 mg BID BETTY Administration Sodium Chloride 10 ml 03/19/20 09:00 04/13/20 08:41 Flush - Normal Saline 10 Ml Syringe IVF 10 ml Q12HR BETTY Administration Thiamine HCl 100 mg 03/19/20 09:00 04/13/20 08:40 Thiamine 100 Mg Tab PO 100 mg DAILY BETTY Administration Zinc Sulfate 220 mg 03/19/20 09:00 04/13/20 08:40 Zinc Sulfate 220 Mg Cap PO 220 mg DAILY BETTY Administration Hospitalist Exam Vitals: Vital Signs (12 hours) Temp Pulse Pulse Pulse Resp BP BP 04/13/20 14:31 107 H 04/13/20 14:00 18 04/13/20 12:00 23 H 04/13/20 11:00 98.7 F 04/13/20 10:53 79 85 105/67 04/13/20 10:13 96 04/13/20 10:00 17 04/13/20 08:00 99.5 F 04/13/20 07:47 14 04/13/20 07:28 122 H 147/109 H BP Pulse Ox Pulse Ox Pulse Ox 04/13/20 14:31 04/13/20 14:00 04/13/20 12:00 04/13/20 11:00 04/13/20 10:53 115/71 100 99 04/13/20 10:13 04/13/20 10:00 04/13/20 08:00 98 04/13/20 07:47 04/13/20 07:28 Weight Admit Weight 155 lb Weight 2.201 oz Most Recent Monitor Data Heart Rate from ECG 91 NIBP 115/71 NIBP BP-Mean 85 Respiration from ECG 12 SpO2 100 Eye: PERRL, anicteric sclera ENT: no oropharyngeal lesions, dry oral mucosa Neck: no JVD Neck - other findings: trach+ Heart: RRR, no murmur Respiratory: no wheezes, no rales Gastrointestinal: soft, non-tender, non-distended, normal bowel sounds Gastrointestinal - other findings: peg+ Extremities: no cyanosis, no edema Neurological: cranial nerve grossly intact, no focal deficits Hosp A/P (1) Pneumonia due to COVID-19 virus Code(s): U07.1 - COVID-19; J12.82 - PNEUMONIA DUE TO CORONAVIRUS DISEASE 2019 Status: Acute (2) Acute respiratory failure with hypoxia Code(s): J96.01 - ACUTE RESPIRATORY FAILURE WITH HYPOXIA Status: Acute (3) Metabolic encephalopathy Code(s): G93.41 - METABOLIC ENCEPHALOPATHY Status: Acute (4) Pneumomediastinum Code(s): J98.2 - INTERSTITIAL EMPHYSEMA Status: Resolved (5) Septic shock Code(s): A41.9 - SEPSIS, UNSPECIFIED ORGANISM; R65.21 - SEVERE SEPSIS WITH SEPTIC SHOCK Status: Resolved - Plan is on dexamethasone, zyvox, protonix, lovenox, risperdone bid, thiamine is s/p trach and peg 04/11/20, he got intubated on 03/18/2020. is on simv, fio2 40% crp is down to 4.4 from , is on merrem from 04/03 and vanc was added 04/08, will dc both on 04/13 d/w and son Liam at bedside 04/11/20 d/w son [phone] and gave full updates including plans for trach and peg....04/07, 04/08/20, 04/09 (discussed code status, wants everything done for now), 04/10, 04/12/20, 04/13/20. LTAC placement is getting ready, meds reconciled, paper work for dc ready, I have updated son he may get transfered anytime to ltac if a bed becomes available.
[2020-04-14 05:12] LABS: Band 11 % (5-11); Eosinophils 1 % (0-10); Hemoglobin 12.2 g/dL (14.0-18.0); Lymphocytes 5 % (21-51); MDiff Complete? YES; Mean Corpuscular HGB CONC 33.1 g/dL (32.0-36.0); Mean Corpuscular Hemoglobin 31.9 pg (27.0-31.0); Mean Corpuscular Volume 96.4 fL (78.0-98.0); Mean Platelet Volume 7.7 fL (7.4-10.4); Monocytes 5 % (0-10); Neutrophil 78 % (42-75); Platelet Count 304 thou/uL (130-400); RBC Distribution Width 14.4 % (11.5-14.5); Red Blood Cell (RBC) Count 3.82 mill/uL (4.70-6.10); White Blood Cell (WBC) Count 13.8 thou/uL (4.8-10.8)
[2020-04-14 05:13] LABS: Anion Gap 13 mmol/L (10-20); BUN (Urea Nitrogen) 16 mg/dL (8.4-25.7); Calc. Creatinine Clearance 0 mL/min (70-130); Calcium 7.8 mg/dL (7.8-10.44); Carbon Dioxide 27 mmol/L (23-31); Chloride 100 mmol/L (98-107); Glucose 153 mg/dL (83-110); Potassium 3.6 mmol/L (3.5-5.1); Sodium 136 mmol/L (136-145)
[2020-04-14] MEDS ORDERED: Fentanyl CADD 100 ML ONE (08:36)
[2020-04-14 09:12] LABS: Magnesium 2.1 mg/dL (1.6-2.6)
[2020-04-14 09:15] LABS: Phosphorus 1.3 mg/dL (2.3-4.7)
[2020-04-14] MEDS ORDERED: Potassium Phosphate 30 MMOL in Sodium Chloride 0.9% 250 ML 250 ML IVPB SCH (10:15)
[2020-04-14] MEDS: Pantoprazole 40 MG GRANULES PACKET PO SCH ×2 (10:32→20:52)
[2020-04-14] MEDS: Acetaminophen 650 MG/20.3 ML UDCUP PER TUBE PRN ×2 (10:32→16:30)
[2020-04-14] MEDS: Cholecalciferol (Vitamin D3) 400 UNITS TAB PO SCH (10:33)
[2020-04-14] MEDS: risperiDONE 0.25 MG TAB PO SCH ×2 (10:33→20:51)
[2020-04-14] MEDS: Zinc Sulfate 220 MG CAP PO SCH (10:34)
[2020-04-14] MEDS: Dexamethasone 4 mg/ml Vial SLOW IVP SCH ×2 (10:34→20:52)
[2020-04-14] MEDS: Ascorbic Acid 500 mg Chewable Tablet PO SCH (10:34)
[2020-04-14] MEDS: Thiamine 100 MG TAB PO SCH (10:34)
[2020-04-14] MEDS: ALPRAZolam 0.5 MG TAB PO SCH ×4 (10:34→20:51)
[2020-04-14] MEDS: Enoxaparin Sodium 60 MG/0.6 ML SYRINGE SC SCH ×2 (10:36→20:52)
[2020-04-14] MEDS: Linezolid 600 MG in Premix Bag 1 BAG IVPB SCH ×2 (10:36→20:52)
[2020-04-14] MEDS: Lorazepam 2 MG/ML VIAL SLOW IVP PRN (11:41)
--- NOTE | 2020-04-14 12:10 | RAD ---
SINGLE VIEW CHEST: Date: 04/14/2020 COMPARISON: 04/13/2020. HISTORY: COVID pneumonia. FINDINGS: Single view of the chest shows normal sized cardiomediastinal silhouette. The lines are tubes are unc hanged in position. There are scattered stable multifocal infiltrates in the lungs. Degenerative escalona ges are seen in the spine. Surgical clips are seen in the upper abdomen. IMPRESSION: Stable multifocal infiltrates. POS: EAA
--- NOTE | 2020-04-14 16:34 | PDOC.HOSPP ---
- Subjective Encounter Date: 04/14/20 Encounter Time: 11:30 non-verbal Subjective: Patient seen and examined for respiratory failure. Remains on mechanical ventilation. Had brief run of SVT earlier per RN. Low-grade temperature reported. Tolerating tube feeds. - Objective Vital Signs & Weight: Vital Signs (12 hours) Temp Pulse Resp Pulse Ox 04/14/20 16:00 16 04/14/20 14:00 20 04/14/20 12:00 18 04/14/20 11:16 119 H 04/14/20 11:00 100.2 F H 04/14/20 10:00 28 H 04/14/20 08:00 23 H 96 04/14/20 07:46 132 H 04/14/20 07:00 100.6 F H Weight Admit Weight 155 lb Weight 2.328 oz Most Recent Monitor Data Heart Rate from ECG 100 NIBP 115/78 NIBP BP-Mean 90 Respiration from ECG 16 SpO2 100 I&O: 04/13/20 04/14/20 04/15/20 06:59 06:59 06:59 Intake Total 2933.9 3602.5 180 Output Total 1713 1887 261 Balance 1220.9 1715.5 -81 Result Diagrams: 04/14/20 04:29 04/14/20 04:29 Additional Labs: Abnormal Lab Results - Last 48 hrs 04/13/20 04:15: Sodium 133 L, Creatinine 0.43 L 04/13/20 04:15: WBC 13.2 H, RBC 3.67 L, Hgb 11.3 L, Hct 34.9 L, Neutrophils % (Manual) 77 H, Band Neuts % (Manual) 15 H, Lymphocytes % (Manual) 6 L 04/14/20 04:29: Creatinine 0.47 L 04/14/20 04:29: WBC 13.8 H, RBC 3.82 L, Hgb 12.2 L, Hct 36.9 L, MCH 31.9 H, Neutrophils % (Manual) 78 H, Lymphocytes % (Manual) 5 L 04/14/20 04:29: Phosphorus 1.3 L Microbiology - Entire Visit 04/08/20 14:19 Central Line - Right Common Femoral Vein Blood Culture - Final NO GROWTH IN 5 DAYS 04/08/20 14:19 Venous blood - Left Arm Blood Culture - Final NO GROWTH IN 5 DAYS 04/04/20 08:30 Sputum Respiratory Culture - Final 03/18/20 13:02 Venous blood - Left Arm Blood Culture - Final NO GROWTH IN 5 DAYS 03/18/20 12:57 Venous blood - Right Arm Blood Culture - Final NO GROWTH IN 5 DAYS 03/19/20 11:40 Bronchial Washing Respiratory Culture - Final 03/18/20 18:53 Urine lópez catheter Urine Culture - Final NO GROWTH AT 36 HOURS Vent - Assess Status Start: 03/18/20 22:01 Freq: Q2HR Status: Active Protocol: Document 04/14/20 16:00 (Rec: 04/14/20 16:13 [id number]) Ventilator Status/Info Patient/Vent Settings Endotracheal Tube Insertion Site Tracheostomy ETT Position (cm) Trach Cuff Inflated Yes Ventilator Mode SIMV FIO2 40 Vent TV Set 500 Delivered TV 538 Patient TV (Spontaneous) 539 Vent RR 10 Patient RR (12-20) 16 Peak Pressure (cmH2O) 16 PEEP (cm H2O) 5 PSV 10 Sedation (RASS) Bond Agitation-Sedation Scale (RASS): +4 = Combative: Combative, violent, immediate danger to staff +3 = Very agitated: Pulls to remove tubes or catheter; aggressive +2 = Agitated: Frequent non-purposeful movement, fights ventilator +1 = Restless: Anxious, apprehensive, movements not aggressive 0 = Alert and Calm: Spontaneously pays attention to caregiver -1 = Drowsy: Not fully alert, but has sustained awakening to voice -2 = Light sedation: Briefly awakens to voice (eyes contact < 10 secs) -3 = Moderate sedation: Movement or eye opening to voice (no eye contact) -4 = Deep sedation: No response to voice, but movement or eye opening to physical stimulation -5 = Unarousable: No response to voice or physical stimulation Sedation Yes Sedation Type fentanyl, precedex RASS Goal Score 0 RASS Actual Score [+1] Restless Intervention to attain goal fent. bolus given Comfort Care Call Greene Within Reach Yes Oral Care HOB Angle (degrees) 30 Patient Turned Right *If no, document why not Radiology Reviewed by me: Yes (Chest x-rayno new changes) EKG Reviewed by me: Yes (Sinus rhythm on telemetry, SVT earlier) Hospitalist ROS - Review of Systems ROS unobtainable: due to mental status - Medication Medications: Active Medications Generic Name Dose Route Start Last Admin Trade Name Freq PRN Reason Stop Dose Admin Acetaminophen 650 mg 04/05/20 05:02 04/14/20 16:30 Acetaminophen 650 Mg/20.3 Ml Udcup PER TUBE 650 mg Q6H PRN Administration Fever or Pain Alprazolam 0.5 mg 04/13/20 09:00 04/14/20 16:30 Alprazolam 0.5 Mg Tab PO 0.5 mg QID BETTY Administration Ascorbic Acid 500 mg 03/19/20 09:00 04/14/20 10:34 Ascorbic Acid 500 Mg Chewable Tablet PO 500 mg DAILY BETTY Administration Bisacodyl 10 mg 03/30/20 08:10 04/05/20 05:09 Bisacodyl 10 Mg Supp [place] 10 mg DAILYPRN PRN Administration Constipation Cholecalciferol 400 units 03/19/20 09:00 04/14/20 10:33 Cholecalciferol (Vitamin D3) 400 Units Tab PO 400 units DAILY BETTY Administration Dexamethasone 6 mg 03/27/20 08:28 04/14/20 10:34 Dexamethasone 4 Mg/Ml Vial SLOW IVP 6 mg BID BETTY Administration Enoxaparin Sodium 60 mg 04/01/20 21:00 04/14/20 10:36 Enoxaparin Sodium 60 Mg/0.6 Ml Syringe SC 60 mg 0900,2100 BETTY Administration Guaifenesin 200 mg 03/30/20 08:10 04/01/20 00:06 Guaifenesin Sf Soln 200 Mg/10 Ml Udcup PO 200 mg Q4H PRN Administration Cough Dexmedetomidine HCl 400 mcg/ 100 mls @ 0 mls/hr 03/28/20 08:15 04/14/20 08:18 Sodium Chloride IVPB 100 mls INF BETTY Administration Protocol Per Protocol Norepinephrine Bitartrate 250 mls @ 0 mls/hr 04/03/20 08:00 04/11/20 12:49 Levophed IVPB 250 mls INF BETTY Administration Protocol Titrate Fentanyl 100 mls @ 0 mls/hr 04/09/20 11:00 04/10/20 04:46 Fentanyl Cadd IV 100 mls INF BETTY Administration Protocol Per Protocol Linezolid 600 mg/ Device 300 mls @ 150 mls/hr 04/13/20 09:00 04/14/20 10:36 IVPB 04/20/20 09:01 300 mls Q12HR BETTY Administration Potassium Phosphate 30 mmol/ 260 mls @ 41.7 mls/hr 04/14/20 10:15 04/14/20 10:29 Sodium Chloride IVPB 04/14/20 17:00 260 mls NOW BETTY Administration Insulin Human Regular 0 units 03/31/20 08:25 04/03/20 15:58 Insulin Regular 300 Units/3 Ml Vial SC 2 unit .MODERATE SLIDING SC PRN Administration Moderate Correctional Scale Lorazepam 1 mg 04/14/20 09:01 04/14/20 11:41 Lorazepam 2 Mg/Ml Vial SLOW IVP 1 mg Q4H PRN Administration Agitation Pantoprazole Sodium 40 mg 03/26/20 21:00 04/14/20 10:32 Pantoprazole 40 Mg Granules Packet PO 40 mg BID BETTY Administration Polyethylene Glycol 17 gm 03/30/20 08:11 03/31/20 13:34 Polyethylene Glycol 3350 17 Gm Packet PO 17 gm DAILYPRN PRN Administration Constipation Propofol 1,000 mg 03/18/20 18:00 04/13/20 09:36 Propofol 1,000 Mg/100 Ml Vial IV 04/17/20 18:00 1,000 mg INF PRN Administration TO ACHIEVE GOAL RASS Protocol Risperidone 0.5 mg 04/06/20 21:00 04/14/20 10:33 Risperidone 0.25 Mg Tab PO 0.5 mg BID BETTY Administration Sodium Chloride 10 ml 03/19/20 09:00 04/14/20 10:37 Flush - Normal Saline 10 Ml Syringe IVF 10 ml Q12HR BETTY Administration Thiamine HCl 100 mg 03/19/20 09:00 04/14/20 10:34 Thiamine 100 Mg Tab PO 100 mg DAILY BETTY Administration Zinc Sulfate 220 mg 03/19/20 09:00 04/14/20 10:34 Zinc Sulfate 220 Mg Cap PO 220 mg DAILY BETTY Administration Hospitalist Exam Vitals: Vital Signs (12 hours) Temp Pulse Resp Pulse Ox 04/14/20 16:00 16 04/14/20 14:00 20 04/14/20 12:00 18 04/14/20 11:16 119 H 04/14/20 11:00 100.2 F H 04/14/20 10:00 28 H 04/14/20 08:00 23 H 96 04/14/20 07:46 132 H 04/14/20 07:00 100.6 F H Weight Admit Weight 155 lb Weight 2.328 oz Most Recent Monitor Data Heart Rate from ECG 100 NIBP 115/78 NIBP BP-Mean 90 Respiration from ECG 16 SpO2 100 General Appearance: ill appearing General - other findings: Awake Heart: RRR, no gallops Respiratory: rales, rhonchi Gastrointestinal: soft, non-distended, normal bowel sounds Extremities: no cyanosis Neurological - other findings: Neuro/psychexam limited due to current mentation Hosp A/P (1) Acute hypoxemic respiratory failure due to COVID-19 Code(s): U07.1 - COVID-19; J96.01 - ACUTE RESPIRATORY FAILURE WITH HYPOXIA Status: Acute (2) Pneumonia due to COVID-19 virus Code(s): U07.1 - COVID-19; J12.82 - PNEUMONIA DUE TO CORONAVIRUS DISEASE 2019 Status: Acute - Plan DVT proph w/SCDs 70-year-old male with no past presented on 03/18 with shortness of breath along with productive cough. He tested positive for COVID-19 on 03/06. He was intubate d in the ER on 03/18. Underwent tracheostomy and PEG tube placement on 04/11. Severe sepsis/septic shock/acute hypoxic respiratory failure due to COVID-19 pneumonia Plan: Continue supportive care. Wean O2 as tolerated. Continue empiric antibiotics per pulmonaryZyvox/meropenem on dexamethasone Electrolyte abnormalityhyponatremia, hypophosphatemia Plan: Replace phosphorus Physical deconditioning Plan: Continue physical therapy Restraints renewed Diet: Continue tube feeding A.m. labs including imaging ordered DVT prophylaxis: Continue Lovenox GI prophylaxis: Continue PPI Pressure ulcer precautions Discharge planning: Await LTAC placement
--- NOTE | 2020-04-14 19:05 | PDOC.PULCC ---
CCU Progress Note: Subj/Obj - Subjective Date: 04/14/20 Time: 17:00 Narrative: last 24 hours no significant changes, remains on vent with trach, more aler - Objective Allergies/Adverse Reactions: Allergies Allergy/AdvReac Type Severity Reaction Status Date / Time No Known Allergies Allergy Unverified 03/18/20 16:33 Medications: Current Medications Acetaminophen (Acetaminophen 650 Mg/20.3 Ml Udcup) 650 mg PER TUBE Q6H PRN PRN Reason: Fever or Pain Last Admin: 04/14/20 16:30 Dose: 650 mg Documented by: Alprazolam (Alprazolam 0.5 Mg Tab) 0.5 mg PO QID [facility] Last Admin: 04/14/20 16:30 Dose: 0.5 mg Documented by: Lipase/Protease/Amylase (Pancrelipase Dr 12,000 1 Cap) 1 cap FS .PER PROTOCOL PRN PRN Reason: TUBE OCCLUSION PROTOCOL Ascorbic Acid (Ascorbic Acid 500 Mg Chewable Tablet) 500 mg PO DAILY [facility] Last Admin: 04/14/20 10:34 Dose: 500 mg Documented by: Bisacodyl (Bisacodyl 5 Mg Tab) 10 mg PO DAILYPRN PRN PRN Reason: Constipation Bisacodyl (Bisacodyl 10 Mg Supp) 10 mg UT DAILYPRN PRN PRN Reason: Constipation Last Admin: 04/05/20 05:09 Dose: 10 mg Documented by: Cholecalciferol (Cholecalciferol (Vitamin D3) 400 Units Tab) 400 units PO DAILY [facility] Last Admin: 04/14/20 10:33 Dose: 400 units Documented by: Dexamethasone (Dexamethasone 4 Mg/Ml Vial) 6 mg SLOW IVP BID [facility] Last Admin: 04/14/20 10:34 Dose: 6 mg Documented by: Dextrose/Water (Dextrose 50% Abboject 50 Ml Syringe) 25 gm SLOW IVP PRN PRN PRN Reason: Hypoglycemia Enoxaparin Sodium (Enoxaparin Sodium 60 Mg/0.6 Ml Syringe) 60 mg SC 0900,2100 [facility] Last Admin: 04/14/20 10:36 Dose: 60 mg Documented by: Glucagon (Glucagon 1 Mg/Ml Vial) 1 mg IM PRN PRN PRN Reason: Hypoglycemia Guaifenesin (Guaifenesin Sf Soln 200 Mg/10 Ml Udcup) 200 mg PO Q4H PRN PRN Reason: Cough Last Admin: 04/01/20 00:06 Dose: 200 mg Documented by: Hydralazine HCl (Hydralazine 20 Mg/Ml Vial) 10 mg SLOW IVP Q4H PRN PRN Reason: SBP > 180 and HR < 70 Dexmedetomidine HCl 400 mcg/ (Sodium Chloride) 100 mls @ 0 mls/hr IVPB INF [facility]; Protocol Last Admin: 04/14/20 08:18 Dose: 100 mls Documented by: Dextrose/Water (D5w) 1,000 mls @ 0 mls/hr IV .Q0M PRN PRN Reason: Hypoglycemia Fentanyl Citrate (Fentanyl Bolus) 250 mls @ 0 mls/hr IVPB PRN PRN PRN Reason: Breakthrough pain/agitation Fentanyl (Fentanyl Cadd) 100 mls @ 0 mls/hr IV INF [facility]; Protocol Last Admin: 04/10/20 04:46 Dose: 100 mls Documented by: Linezolid 600 mg/ Device 300 mls @ 150 mls/hr IVPB Q12HR [facility] Stop: 04/20/20 09:01 Last Admin: 04/14/20 10:36 Dose: 300 mls Documented by: Insulin Human Regular (Insulin Regular 300 Units/3 Ml Vial) 0 units SC .MODERATE SLIDING SC PRN PRN Reason: Moderate Correctional Scale Last Admin: 04/03/20 15:58 Dose: 2 unit Documented by: Loperamide HCl (Loperamide Hcl 2 Mg Cap) 2 mg PO PRN PRN PRN Reason: Diarrhea/Loose Stools Lorazepam (Lorazepam 2 Mg/Ml Vial) 1 mg SLOW IVP Q4H PRN PRN Reason: Agitation Last Admin: 04/14/20 11:41 Dose: 1 mg Documented by: Morphine Sulfate (Morphine 2 Mg/Ml Vial) 4 mg SLOW IVP Q1H PRN PRN Reason: Breakthrough Pain/Agitation Discontinue Previous Narcotic Pain Medications And Benzodiazepines 1 each FS .ONE [facility] Stop: 04/17/20 18:00 Pantoprazole Sodium (Pantoprazole 40 Mg Granules Packet) 40 mg PO BID [facility] Last Admin: 04/14/20 10:32 Dose: 40 mg Documented by: Polyethylene Glycol (Polyethylene Glycol 3350 17 Gm Packet) 17 gm PO DAILYPRN PRN PRN Reason: Constipation Last Admin: 03/31/20 13:34 Dose: 17 gm Documented by: Propofol (Propofol 1,000 Mg/100 Ml Vial) 1,000 mg IV INF PRN; Protocol PRN Reason: TO ACHIEVE GOAL RASS Stop: 04/17/20 18:00 Last Admin: 04/13/20 09:36 Dose: 1,000 mg Documented by: Propofol (Propofol Bolus 1,000 Mg/100 Ml Vial) 20 mg IV Q5MIN PRN PRN Reason: BREAKTHROUGH AGITATION Stop: 05/12/20 13:00 Risperidone (Risperidone 0.25 Mg Tab) 0.5 mg PO BID [facility] Last Admin: 04/14/20 10:33 Dose: 0.5 mg Documented by: Senna/Docusate Sodium (Senokot S 8.6-50 Mg Tab) 2 tab PO BID PRN PRN Reason: Constipation Sodium Bicarbonate (Sodium Bicarbonate Tab 325 Mg Tab) 650 mg PER TUBE .PER P ROTOCOL PRN PRN Reason: ENTERAL TUBE OCCLUSION Sodium Chloride (Flush - Normal Saline 10 Ml Syringe) 10 ml IVF Q12HR [facility] Last Admin: 04/14/20 10:37 Dose: 10 ml Documented by: Sodium Chloride (Flush - Normal Saline 10 Ml Syringe) 10 ml IVF PRN PRN PRN Reason: Saline Flush Thiamine HCl (Thiamine 100 Mg Tab) 100 mg PO DAILY [facility] Last Admin: 04/14/20 10:34 Dose: 100 mg Documented by: Zinc Sulfate (Zinc Sulfate 220 Mg Cap) 220 mg PO DAILY [facility] Last Admin: 04/14/20 10:34 Dose: 220 mg Documented by: Vital Signs and I&O: Vital Signs Temp 99 F 04/14/20 16:00 Pulse 115 H 04/14/20 18:22 Resp 16 04/14/20 16:00 BP 127/98 H 04/14/20 18:22 Pulse Ox 96 04/14/20 08:00 Intake & Output 04/14/20 04/14/20 04/15/20 06:59 18:59 06:59 Intake Total 2021.7 290 Output Total 470 423 Balance 1551.7 -133 Weight 2.328 oz Intake: Intake, IV Amount 1601.7 Dexmedetomidine 400 mcg 32.7 In Sodium Chloride 0.9% 96 ml @ Per Protocol IVPB INF [facility] Rx#:[id number] Fentanyl CADD 100 ml @ 61 Per Protocol IV INF [facility] Rx#:[id number] Linezolid 600 mg In 300 Premix Bag 1 bag @ 150 mls/hr IVPB Q12HR [facility] Rx# :[id number] Sodium Chloride 0.9% 10 1208 ml IVF PRN PRN Rx#: [id number] Tube Feeding 270 Tube Irrigant 150 290 Output: Output, [place] 470 423 Other: Voiding Method Indwelling Catheter Indwelling Catheter CCU Progress Note: Exam - Physical Exam Deviation from normal: trach with purulent secretions, trach care ordered as per surgery Deviation from normal: trach Deviation from normal: sinus tachycardia Respiratory: decreased breath sounds, rhonchi Focused Respiratory Location: rhonchi: Right, Left, Upper Gastrointestinal: soft, non-tender, no distention, positive bowel sounds Deviation from normal: peg site clean and dry Musculoskeletal: no edema, pulses present Neurological: non-focal Deviation from normal: very weak, nods head to yes no questions Deviation from normal: depressed Skin: no rash, cap refill <2 seconds CCU Progress Note: Data - Labs Result Diagrams: 04/14/20 04:29 04/14/20 04:29 Lab results: Laboratory Results 04/13/20 04/13/20 04/14/20 04:15 04:15 04:29 WBC 13.2 H RBC 3.67 L Hgb 11.3 L Hct 34.9 L MCV 94.9 MCH 30.9 MCHC 32.6 RDW 14.5 Plt Count 268 MPV 7.4 Neutrophils % (Manual) 77 H Band Neuts % (Manual) 15 H Lymphocytes % (Manual) 6 L Monocytes % (Manual) 2 Eosinophils % (Manual) Sodium 133 L 136 Potassium 3.5 3.6 Chloride 99 100 Carbon Dioxide 28 27 Anion Gap 10 13 BUN 12 16 Creatinine 0.43 L 0.47 L Estimated GFR (MDRD) Greater than 90 Greater than 90 Glucose 134 H 153 H Calcium 7.8 7.8 Phosphorus Magnesium 04/14/20 04/14/20 04:29 04:29 WBC 13.8 H RBC 3.82 L Hgb 12.2 L Hct 36.9 L MCV 96.4 MCH 31.9 H MCHC 33.1 RDW 14.4 Plt Count 304 MPV 7.7 Neutrophils % (Manual) 78 H Band Neuts % (Manual) 11 Lymphocytes % (Manual) 5 L Monocytes % (Manual) 5 Eosinophils % (Manual) 1 Sodium Potassium Chloride Carbon Dioxide Anion Gap BUN Creatinine Estimated GFR (MDRD) Glucose Calcium Phosphorus 1.3 L Magnesium 2.1 - ABG Interpretation ABG Results: ABG pH 7.51 (7.35-7.45) H 04/03/20 04:21 ABG pCO2 33.7 mmHg (35.0-45.0) L 04/03/20 04:21 ABG Base Excess 3.8 mEq/L (-2.0 to +3.0) H 04/03/20 04:21 CCU Progress Note: A/P - Time Spent with Patient Time (minutes): 40 - Plan Plan: Assess 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
[2020-04-15] MEDS ORDERED: Fentanyl CADD 100 ML ONE ×2 (00:41→15:22)
[2020-04-15] MEDS: Lorazepam 2 MG/ML VIAL SLOW IVP PRN ×2 (03:56→09:10)
[2020-04-15] MEDS ORDERED: Ondansetron PF 4 MG/2 ML Vial IVP SCH ×2 (04:15→06:45)
[2020-04-15 05:42] LABS: Anion Gap 15 mmol/L (10-20); BUN (Urea Nitrogen) 12 mg/dL (8.4-25.7); Calc. Creatinine Clearance 0 mL/min (70-130); Calcium 8.1 mg/dL (7.8-10.44); Carbon Dioxide 24 mmol/L (23-31); Chloride 97 mmol/L (98-107); Glucose 167 mg/dL (83-110); Magnesium 1.8 mg/dL (1.6-2.6); Sodium 133 mmol/L (136-145)
[2020-04-15 05:49] LABS: Phosphorus 1.3 mg/dL (2.3-4.7); Potassium 2.9 mmol/L (3.5-5.1)
[2020-04-15] MEDS: Acetaminophen 650 MG/20.3 ML UDCUP PER TUBE PRN (06:12)
[2020-04-15] MEDS ORDERED: Electrolyte Replacement Protocol FS PRN (06:30)
[2020-04-15] MEDS ORDERED: Potassium Phosphate 22 MMOL in Sodium Chloride 0.9% 250 ML 250 ML IVPB SCH (06:45)
[2020-04-15] MEDS ORDERED: Magnesium 2 GM/50 ML 2 GM in Premix Bag 1 BAG IVPB SCH (06:45)
[2020-04-15 06:49] LABS: Band 35 % (5-11); Hemoglobin 12.6 g/dL (14.0-18.0); Lymphocytes 6 % (21-51); MDiff Complete? YES; Mean Corpuscular HGB CONC 32.3 g/dL (32.0-36.0); Mean Corpuscular Hemoglobin 30.9 pg (27.0-31.0); Mean Corpuscular Volume 95.5 fL (78.0-98.0); Mean Platelet Volume 8.1 fL (7.4-10.4); Monocytes 3 % (0-10); Neutrophil 56 % (42-75); Platelet Count 340 thou/uL (130-400); RBC Distribution Width 14.9 % (11.5-14.5); Red Blood Cell (RBC) Count 4.08 mill/uL (4.70-6.10); White Blood Cell (WBC) Count 10.2 thou/uL (4.8-10.8)
[2020-04-15] MEDS ORDERED: Norepinephrine 8 MG/0.9% NS 250 ML IVPB SCH (07:30)
[2020-04-15] MEDS ORDERED: Acetaminophen 650 MG Suppository PR PRN (07:30)
[2020-04-15] MEDS ORDERED: Sodium Chloride 0.9% 500 ML IVPB SCH ×2 (07:30→08:00)
[2020-04-15] MEDS: POTASSIUM CHLORIDE IVPB SCH ×2 (07:34→10:50)
[2020-04-15] MEDS: SODIUM CHLORIDE 0.9% IVPB SCH ×2 (07:34→10:50)
[2020-04-15] MEDS: Dexamethasone 4 mg/ml Vial SLOW IVP SCH (08:11)
[2020-04-15] MEDS: MEROPENEM 1 GM/50 ML 1 GM in Premix Bag 1 BAG IVPB SCH ×3 (08:40→23:28)
[2020-04-15] MEDS: Pantoprazole 40 MG GRANULES PACKET PO SCH (08:41)
[2020-04-15] MEDS: ALPRAZolam 0.5 MG TAB PO SCH ×4 (08:41→20:58)
[2020-04-15] MEDS: risperiDONE 0.25 MG TAB PO SCH ×2 (08:41→20:58)
[2020-04-15] MEDS: Ascorbic Acid 500 mg Chewable Tablet PO SCH (08:41)
[2020-04-15] MEDS: Cholecalciferol (Vitamin D3) 400 UNITS TAB PO SCH (08:41)
[2020-04-15] MEDS: Thiamine 100 MG TAB PO SCH (08:42)
[2020-04-15] MEDS: Zinc Sulfate 220 MG CAP PO SCH (08:42)
[2020-04-15] MEDS: Linezolid 600 MG in Premix Bag 1 BAG IVPB SCH ×2 (09:09→20:58)
[2020-04-15 09:18] LABS: Bilirubin Negative (Negative); Blood, Urine 2+ (Negative); Clarity Turbid (Clear); Glucose, Urine (Dipstick) Normal (Negative); Ketone, Urine Negative (Negative); Leukocyte Negative Leu/uL (Negative); Nitrite Negative (Negative); Protein, Urine (Dipstick) 30 mg/dL (Neg-Trace); RBC/HPF Greater than 50 HPF (0-3); Specific Gravity, Urine 1.016 (1.002-1.036); Squamous Epithelial None Seen HPF (0-3)
[2020-04-15 09:21] LABS: Bacteria/HPF 1+ HPF (None Seen)
[2020-04-15 09:22] LABS: Urine Culture Reflex Yes Yes
[2020-04-15] MEDS ORDERED: NS 0.9% w/ 20 MEQ KCL 1,000 ML/1,000 ML BAG IV SCH (10:00)
--- NOTE | 2020-04-15 10:17 | RAD ---
Exam: Chest one view HISTORY:COVID pneumonia Comparison: 04/14/2020 FINDINGS: Lines and tubes: Stable tracheostomy and right-sided vascular catheter. Cardiac silhouette:Stable cardiac silhouette Aorta: Unremarkable Pulmonary vessels: Normal Costophrenic angles: Clear LUNGS: Focal interstitial and alveolar opacities, unchanged Pneumothorax: None Osseous abnormalities: None IMPRESSION: Stable multi lobar COVID pneumonia
[2020-04-15] MEDS ORDERED: Dextrose 50% Abboject 50 ML SYRINGE SLOW IVP PRN (10:32)
[2020-04-15] MEDS ORDERED: Dextrose 5% in Water 1,000 ML IV PRN (10:32)
[2020-04-15] MEDS ORDERED: Insulin Regular 300 UNITS/3 ML VIAL SC PRN (10:33)
[2020-04-15] MEDS: Enoxaparin Sodium 60 MG/0.6 ML SYRINGE SC SCH ×2 (10:49→20:57)
--- NOTE | 2020-04-15 11:38 | RAD ---
ABDOMEN ONE VIEW: HISTORY: Nausea and vomiting. FINDINGS: Monitor leads overly the upper chest. Probable PEG tube overlying the abdomen. There is some gas with in the colon, which is borderline distended. There is also some nondilated small bowel gas. There is some gas into the rectum. IMPRESSION: Moderate gas within the colon and rectum with some nondilated small bowel gas, nonspecific, possibly some mild ileus. Continued short-term followup. Consider follow-up flat and upright studies for further assessment. POS: RRE
--- NOTE | 2020-04-15 13:54 | PDOC.PULCC ---
CCU Progress Note: Subj/Obj - Subjective Date: 04/15/20 Time: 10:00 Subjective: sedated on ventilator . febrile, was tachycardic and vomited during night, report of tube feeds in trach secretions, normal exam of abd Narrative: unable to do ROS on vent sedated - Objective Allergies/Adverse Reactions: Allergies Allergy/AdvReac Type Severity Reaction Status Date / Time No Known Allergies Allergy Unverified 03/18/20 16:33 Medications: Current Medications Acetaminophen (Acetaminophen 650 Mg/20.3 Ml Udcup) 650 mg PER TUBE Q6H PRN PRN Reason: Fever or Pain Last Admin: 04/15/20 06:12 Dose: 650 mg Documented by: Acetaminophen (Acetaminophen 650 Mg Suppository) 650 mg NC Q4H PRN PRN Reason: Headache/Fever or Pain Last Admin: 04/15/20 07:47 Dose: 650 mg Documented by: Alprazolam (Alprazolam 0.5 Mg Tab) 0.5 mg PO QID [facility] Last Admin: 04/15/20 12:40 Dose: Not Given Documented by: Lipase/Protease/Amylase (Pancrelipase Dr 12,000 1 Cap) 1 cap FS .PER PROTOCOL PRN PRN Reason: TUBE OCCLUSION PROTOCOL Ascorbic Acid (Ascorbic Acid 500 Mg Chewable Tablet) 500 mg PO DAILY [facility] Last Admin: 04/15/20 08:41 Dose: Not Given Documented by: Bisacodyl (Bisacodyl 5 Mg Tab) 10 mg PO DAILYPRN PRN PRN Reason: Constipation Bisacodyl (Bisacodyl 10 Mg Supp) 10 mg [place] DAILYPRN PRN PRN Reason: Constipation Last Admin: 04/05/20 05:09 Dose: 10 mg Documented by: Cholecalciferol (Cholecalciferol (Vitamin D3) 400 Units Tab) 400 units PO DAILY [facility] Last Admin: 04/15/20 08:41 Dose: Not Given Documented by: Dexamethasone (Dexamethasone 4 Mg Tab) 0 mg PO QAM-WM [facility] Dexamethasone (Dexamethasone 4 Mg Tab) 4 mg PER TUBE QAM-[facility] Dextrose/Water (Dextrose 50% Abboject 50 Ml Syringe) 25 gm SLOW IVP PRN PRN PRN Reason: Hypoglycemia Enoxaparin Sodium (Enoxaparin Sodium 60 Mg/0.6 Ml Syringe) 60 mg SC 0900,2100 [facility] Last Admin: 04/15/20 10:49 Dose: 60 mg Documented by: Glucagon (Glucagon 1 Mg/Ml Vial) 1 mg IM PRN PRN PRN Reason: Hypoglycemia Guaifenesin (Guaifenesin Sf Soln 200 Mg/10 Ml Udcup) 200 mg PO Q4H PRN PRN Reason: Cough Last Admin: 04/01/20 00:06 Dose: 200 mg Documented by: Hydralazine HCl (Hydralazine 20 Mg/Ml Vial) 10 mg SLOW IVP Q4H PRN PRN Reason: SBP > 180 and HR < 70 Dexmedetomidine HCl 400 mcg/ (Sodium Chloride) 100 mls @ 0 mls/hr IVPB INF [facility]; Protocol Last Admin: 04/14/20 08:18 Dose: 100 mls Documented by: Dextrose/Water (D5w) 1,000 mls @ 0 mls/hr IV .Q0M PRN PRN Reason: Hypoglycemia Fentanyl Citrate (Fentanyl Bolus) 250 mls @ 0 mls/hr IVPB PRN PRN PRN Reason: Breakthrough pain/agitation Fentanyl (Fentanyl Cadd) 100 mls @ 0 mls/hr IV INF [facility]; Protocol Last Admin: 04/10/20 04:46 Dose: 100 mls Documented by: Linezolid 600 mg/ Device 300 mls @ 150 mls/hr IVPB Q12HR [facility] Stop: 04/20/20 09:01 Last Admin: 04/15/20 09:09 Dose: 300 mls Documented by: Potassium Chloride 24 meq/ (Sodium Chloride) 112 mls @ 28 mls/hr IVPB Q4H [facility] Stop: 04/15/20 14:44 Last Admin: 04/15/20 10:50 Dose: 112 mls Documented by: Meropenem 1 gm/ Device 50 mls @ 100 mls/hr IVPB 0800,1600,2200 [facility] Last Admin: 04/15/20 08:40 Dose: 50 mls Documented by: Norepinephrine Bitartrate (Levophed) 250 mls @ 0 mls/hr IVPB INF [facility]; Protocol Potassium Chloride/Sodium Chloride (Ns 0.9% W/ 20 Meq Kcl) 1,000 ml in 1,000 mls @ 100 mls/hr IV .Q10H [facility] Last Admin: 04/15/20 10:50 Dose: 1,000 mls Documented by: Insulin Human Regular (Insulin Regular 300 Units/3 Ml Vial) 0 units SC .MILD SLIDING SCALE PRN PRN Reason: Mild Correctional Scale Loperamide HCl (Loperamide Hcl 2 Mg Cap) 2 mg PO PRN PRN PRN Reason: Diarrhea/Loose Stools Lorazepam (Lorazepam 2 Mg/Ml Vial) 1 mg SLOW IVP Q4H PRN PRN Reason: Agitation Last Admin: 04/15/20 09:10 Dose: 1 mg Documented by: Miscellaneous Medication (Electrolyte Replacement Protocol) 0 each FS ASDIR PRN; Protocol PRN Reason: ELECTROLYTE REPLACEMENT Morphine Sulfate (Morphine 2 Mg/Ml Vial) 4 mg SLOW IVP Q1H PRN PRN Reason: Breakthrough Pain/Agitation Discontinue Previous Narcotic Pain Medications And Benzodiazepines 1 each FS .ONE [facility] Stop: 04/17/20 18:00 Pantoprazole Sodium (Pantoprazole 40 Mg Vial) 40 mg IVP Q12HR [facility] Polyethylene Glycol (Polyethylene Glycol 3350 17 Gm Packet) 17 gm PO DAILYPRN PRN PRN Reason: Constipation Last Admin: 03/31/20 13:34 Dose: 17 gm Documented by: Propofol (Propofol 1,000 Mg/100 Ml Vial) 1,000 mg IV INF PRN; Protocol PRN Reason: TO ACHIEVE GOAL [facility] Stop: 04/17/20 18:00 Last Admin: 04/13/20 09:36 Dose: 1,000 mg Documented by: Propofol (Propofol Bolus 1,000 Mg/100 Ml Vial) 20 mg IV Q5MIN PRN PRN Reason: BREAKTHROUGH AGITATION Stop: 05/12/20 13:00 Risperidone (Risperidone 0.25 Mg Tab) 0.5 mg PO BID [facility] Last Admin: 04/15/20 08:41 Dose: Not Given Documented by: Senna/Docusate Sodium (Senokot S 8.6-50 Mg Tab) 2 tab PO BID PRN PRN Reason: Constipation Sodium Bicarbonate (Sodium Bicarbonate Tab 325 Mg Tab) 650 mg PER TUBE .PER PROTOCOL PRN PRN Reason: ENTERAL TUBE OCCLUSION Sodium Chloride (Flush - Normal Saline 10 Ml Syringe) 10 ml IVF Q12HR [facility] Last Admin: 04/15/20 08:42 Dose: 10 ml Documented by: Sodium Chloride (Flush - Normal Saline 10 Ml Syringe) 10 ml IVF PRN PRN PRN Reason: Saline Flush Thiamine HCl (Thiamine 100 Mg Tab) 100 mg PO DAILY [facility] Last Admin: 04/15/20 08:42 Dose: Not Given Documented by: Zinc Sulfate (Zinc Sulfate 220 Mg Cap) 220 mg PO DAILY [facility] Last Admin: 04/15/20 08:42 Dose: Not Given Documented by: MAXWELL Reviewed: Yes Vital Signs and I&O: Vital Signs Temp 100.1 F H 04/15/20 12:00 Pulse 109 H 04/15/20 10:53 Resp 14 04/15/20 12:00 BP 113/70 04/14/20 22:16 Pulse Ox 100 04/15/20 08:00 Intake & Output 04/14/20 04/15/20 04/15/20 18:59 06:59 18:59 Intake Total 1536.0 1252.1 1250 Output Total 468 630 430 Balance 1068.0 622.1 820 Intake: Intake, IV Amount 983.0 944.1 1250 Dexmedetomidine 400 mcg 95.8 62.1 In Sodium Chloride 0.9% 96 ml @ Per Protocol IVPB INF [facility] Rx#:[id number] Fentanyl CADD 100 ml @ 75.2 Per Protocol IV INF [facility] Rx#:[id number] Potassium Phosphate 22 250 mmol In Sodium Chloride 0 .9% 250 ML 250 ml @ 64. 333 mls/hr IVPB NOW [facility] Rx#:[id number] Potassium Phosphate 30 250 mmol In Sodium Chloride 0 .9% 250 ML 250 ml @ 41.7 mls/hr IVPB NOW [facility] Rx#: [id number] Sodium Chloride 0.9% 10 262 285 5385 ml IVF PRN PRN Rx#: [id number] Tube Feeding 263 188 Tube Irrigant 290 120 Output: Output, [place] [phone] Emesis 40 Other: Voiding Method Indwelling Catheter Indwelling Catheter Indwelling Catheter # Bowel Movements 2 Spontaneous Breathing Test: other (ACPC 23/5/PS10/40% vt over 500, Ve 9 to 10 liters) CCU Progress Note: Data - Labs Result Diagrams: 04/15/20 04:00 04/15/20 04:00 Lab results: Laboratory Results 04/14/20 04/14/20 04/14/20 04:29 04:29 04:29 WBC 13.8 H RBC 3.82 L Hgb 12.2 L Hct 36.9 L MCV 96.4 MCH 31.9 H MCHC 33.1 RDW 14.4 Plt Count 304 MPV 7.7 Neutrophils % (Manual) 78 H Band Neuts % (Manual) 11 Lymphocytes % (Manual) 5 L Monocytes % (Manual) 5 Eosinophils % (Manual) 1 Sodium 136 Potassium 3.6 Chloride 100 Carbon Dioxide 27 Anion Gap 13 BUN 16 Creatinine 0.47 L Estimated GFR (MDRD) Greater than 90 Glucose 153 H POC Glucose Lactic Acid Calcium 7.8 Phosphorus 1.3 L Magnesium 2.1 Urine Color Urine Clarity Urine pH Ur Specific [place] Urine Protein Urine Glucose (UA) Urine Ketones Urine Blood Urine Nitrite Urine Bilirubin Urine Urobilinogen Ur Leukocyte Esterase Urine RBC Urine WBC Ur Squamous Epith Cells Urine Bacteria Urine Culture Reflexed 04/15/20 04/15/20 04/15/20 04:00 04:00 04:00 WBC 10.2 RBC 4.08 L Hgb 12.6 L Hct 39.0 L MCV 95.5 MCH 30.9 MCHC 32.3 RDW 14.9 H Plt Count 340 MPV 8.1 Neutrophils % (Manual) 56 Band Neuts % (Manual) 35 H Lymphocytes % (Manual) 6 L Monocytes % (Manual) 3 Eosinophils % (Manual) Sodium 133 L Potassium 2.9 L* Chloride 97 L Carbon Dioxide 24 Anion Gap 15 BUN 12 Creatinine 0.46 L Estimated GFR (MDRD) Greater than 90 Glucose 167 H POC Glucose Lactic Acid Calcium 8.1 Phosphorus 1.3 L Magnesium 1.8 Urine Color Urine Clarity Urine pH Ur Specific [place] Urine Protein Urine Glucose (UA) Urine Ketones Urine Blood Urine Nitrite Urine Bilirubin Urine Urobilinogen Ur Leukocyte Esterase Urine RBC Urine WBC Ur Squamous Epith Cells Urine Bacteria Urine Culture Reflexed 04/15/20 04/15/20 04/15/20 07:30 08:24 08:50 WBC RBC Hgb Hct MCV MCH MCHC RDW Plt Count MPV Neutrophils % (Manual) Band Neuts % (Manual) Lymphocytes % (Manual) Monocytes % (Manual) Eosinophils % (Manual) Sodium Potassium Chloride Carbon Dioxide Anion Gap BUN Creatinine Estimated GFR (MDRD) Glucose POC Glucose 108 H Lactic Acid 3.0 H Calcium Phosphorus Magnesium Urine Color Yellow Urine Clarity Turbid A Urine pH 6.0 Ur Specific [place] 1.016 Urine Protein 30 A Urine Glucose (UA) Normal Urine Ketones Negative Urine Blood 2+ A Urine Nitrite Negative Urine Bilirubin Negative Urine Urobilinogen 2.0 A Ur Leukocyte Esterase Negative Urine RBC Greater than 50 A Urine WBC 4-6 A Ur Squamous Epith Cells None Seen Urine Bacteria 1+ A Urine Culture Reflexed Yes A - ABG Interpretation ABG Results: ABG pH 7.51 (7.35-7.45) H 04/03/20 04:21 ABG pCO2 33.7 mmHg (35.0-45.0) L 04/03/20 04:21 ABG Base Excess 3.8 mEq/L (-2.0 to +3.0) H 04/03/20 04:21 CCU Progress Note: A/P - Plan Plan: Assess Acute resp failure due o to COVID pneumonia reduced decadron, has been on 6mg bid for weeks chest xray unchaged after aspiration during night continue vent wean off sedation Ileus hold tube feeds start liter of NS follow up labs Hyponatremeia ns ordered Hyperglycemia should improve with reduction in decadron he is out of the inflammatory/organizational phase of COVID now Critical care time 40 mins
[2020-04-15] MEDS ORDERED: Sodium Chloride 0.9% 1,000 ML IV SCH (14:00)
--- NOTE | 2020-04-15 14:09 | PDOC.HOSPP ---
- Subjective Encounter Date: 04/15/20 Encounter Time: 10:30 non-verbal Subjective: Patient seen and examined for respiratory failure due to COVID-19. Overnight events noted. Patient had an episode of vomiting along with fever. Tube feeding on hold. - Objective Vital Signs & Weight: Vital Signs (12 hours) Temp Pulse Resp Pulse Ox 04/15/20 12:00 100.1 F H 14 04/15/20 10:53 109 H 04/15/20 10:00 16 04/15/20 08:00 100.9 F H 126 H 20 100 04/15/20 07:47 101.5 F H 04/15/20 06:12 102.5 F H 140 H 30 H 04/15/20 06:00 102.5 F H 30 H 04/15/20 04:00 19 04/15/20 02:30 121 H Weight Admit Weight 155 lb Weight 2.328 oz Most Recent Monitor Data Heart Rate from ECG 87 NIBP 87/61 NIBP BP-Mean 69 Respiration from ECG 16 SpO2 100 I&O: 04/14/20 04/15/20 04/16/20 06:59 06:59 06:59 Intake Total 3602.5 2788.1 1250 Output Total 1887 1098 430 Balance 1715.5 1690.1 820 Result Diagrams: 04/15/20 04:00 04/15/20 04:00 Additional Labs: Accuchecks 04/15/20 08:24 POC Glucose 108 H Abnormal Lab Results - Last 48 hrs 04/14/20 04:29: Creatinine 0.47 L 04/14/20 04:29: WBC 13.8 H, RBC 3.82 L, Hgb 12.2 L, Hct 36.9 L, MCH 31.9 H, Neutrophils % (Manual) 78 H, Lymphocytes % (Manual) 5 L 04/14/20 04:29: Phosphorus 1.3 L 04/15/20 04:00: Sodium 133 L, Potassium 2.9 L*, Chloride 97 L, Creatinine 0.46 L 04/15/20 04:00: RBC 4.08 L, Hgb 12.6 L, Hct 39.0 L, RDW 14.9 H, Band Neuts % (Manual) 35 H, Lymphocytes % (Manual) 6 L 04/15/20 04:00: Phosphorus 1.3 L 04/15/20 07:30: Lactic Acid 3.0 H 04/15/20 08:50: Urine Clarity Turbid A, Urine Protein 30 A, Urine Blood 2+ A, Urine Urobilinogen 2.0 A, Urine RBC Greater than 50 A, Urine WBC 4-6 A, Urine Bacteria 1+ A, Urine Culture Reflexed Yes A Microbiology - Entire Visit 04/08/20 14:19 Central Line - Right Common Femoral Vein Blood Culture - Final NO GROWTH IN 5 DAYS 04/08/20 14:19 Venous blood - Left Arm Blood Culture - Final NO GROWTH IN 5 DAYS 04/04/20 08:30 Sputum Respiratory Culture - Final 03/18/20 13:02 Venous blood - Left Arm Blood Culture - Final NO GROWTH IN 5 DAYS 03/18/20 12:57 Venous blood - Right Arm Blood Culture - Final NO GROWTH IN 5 DAYS 03/19/20 11:40 Bronchial Washing Respiratory Culture - Final 03/18/20 18:53 Urine lópez catheter Urine Culture - Final NO GROWTH AT 36 HOURS Vent - Assess Status Start: 03/18/20 22:01 Freq: Q2HR Status: Active Protocol: Document 04/15/20 12:00 [facility] (Rec: 04/15/20 12:20 [facility] [id number]) Ventilator Status/Info Patient/Vent Settings Endotracheal Tube Insertion Site Tracheostomy ETT Position (cm) Trach Cuff Inflated Yes Ventilator Mode AC FIO2 55 Vent TV Set 500 Delivered TV 515 Patient TV (Spontaneous) Vent RR 10 Patient RR (12-20) 14 Peak Pressure (cmH2O) 15 PEEP (cm H2O) 5 PSV Sedation (RASS) Bond Agitation-Sedation Scale (RASS): +4 = Combative: Combative, violent, immediate danger to staff +3 = Very agitated: Pulls to remove tubes or catheter; aggressive +2 = Agitated: Frequent non-purposeful movement, fights ventilator +1 = Restless: Anxious, apprehensive, movements not aggressive 0 = Alert and Calm: Spontaneously pays attention to caregiver -1 = Drowsy: Not fully alert, but has sustained awakening to voice -2 = Light sedation: Briefly awakens to voice (eyes contact < 10 secs) -3 = Moderate sedation: Movement or eye opening to voice (no eye contact) -4 = Deep sedation: No response to voice, but movement or eye opening to physical stimulation -5 = Unarousable: No response to voice or physical stimulation Sedation Yes Sedation Type SAME RASS Goal Score 0 RASS Actual Score [-1] Drowsy Intervention to attain goal Comfort Care Call Greene Within Reach Oral Care Antiseptic Oral Rinse, Clorhexidine Oral Rinse,Oral Cavity Moisturizer HOB Angle (degrees) 40 Patient Turned Left *If no, document why not Radiology Reviewed by me: Yes (KUBileus) EKG Reviewed by me: Yes (Sinus tachycardia on telemetry) Hospitalist ROS - Review of Systems ROS unobtainable: due to mental status - Medication Medications: Active Medications Generic Name Dose Route Start Last Admin Trade Name Freq PRN Reason Stop Dose Admin Acetaminophen 650 mg 04/05/20 05:02 04/15/20 06:12 Acetaminophen 650 Mg/20.3 Ml Udcup PER TUBE 650 mg Q6H PRN Administration Fever or Pain Acetaminophen 650 mg 04/15/20 07:30 04/15/20 07:47 Acetaminophen 650 Mg Suppository ND 650 mg Q4H PRN Administration Headache/Fever or Pain Alprazolam 0.5 mg 04/13/20 09:00 04/15/20 12:40 Alprazolam 0.5 Mg Tab PO Not Given QID BETTY Ascorbic Acid 500 mg 03/19/20 09:00 04/15/20 08:41 Ascorbic Acid 500 Mg Chewable Tablet PO Not Given DAILY BETTY Bisacodyl 10 mg 03/30/20 08:10 04/05/20 05:09 Bisacodyl 10 Mg Supp ND 10 mg DAILYPRN PRN Administration Constipation Cholecalciferol 400 units 03/19/20 09:00 04/15/20 08:41 Cholecalciferol (Vitamin D3) 400 Units Tab PO Not Given DAILY BETTY Enoxaparin Sodium 60 mg 04/01/20 21:00 04/15/20 10:49 Enoxaparin Sodium 60 Mg/0.6 Ml Syringe SC 60 mg 0900,2100 BETTY Administration Guaifenesin 200 mg 03/30/20 08:10 04/01/20 00:06 Guaifenesin Sf Soln 200 Mg/10 Ml Udcup PO 200 mg Q4H PRN Administration Cough Dexmedetomidine HCl 400 mcg/ 100 mls @ 0 mls/hr 03/28/20 08:15 04/14/20 08:18 Sodium Chloride IVPB 100 mls INF BETTY Administration Protocol Per Protocol Fentanyl 100 mls @ 0 mls/hr 04/09/20 11:00 04/10/20 04:46 Fentanyl Cadd IV 100 mls INF BETTY Administration Protocol Per Protocol Linezolid 600 mg/ Device 300 mls @ 150 mls/hr 04/13/20 09:00 04/15/20 09:09 IVPB 04/20/20 09:01 300 mls Q12HR BETTY Administration Potassium Chloride 24 meq/ 112 mls @ 28 mls/hr 04/15/20 06:45 04/15/20 10:50 Sodium Chloride IVPB 04/15/20 14:44 112 mls Q4H BETTY Administration Meropenem 1 gm/ Device 50 mls @ 100 mls/hr 04/15/20 08:00 04/15/20 08:40 IVPB 50 mls 0800,1600,2200 BETTY Administration Lorazepam 1 mg 04/14/20 09:01 04/15/20 09:10 Lorazepam 2 Mg/Ml Vial SLOW IVP 1 mg Q4H PRN Administration Agitation Polyethylene Glycol 17 gm 03/30/20 08:11 03/31/20 13:34 Polyethylene Glycol 3350 17 Gm Packet PO 17 gm DAILYPRN PRN Administration Constipation Propofol 1,000 mg 03/18/20 18:00 04/13/20 09:36 Propofol 1,000 Mg/100 Ml Vial IV 04/17/20 18:00 1,000 mg INF PRN Administration TO ACHIEVE GOAL RASS Protocol Risperidone 0.5 mg 04/06/20 21:00 04/15/20 08:41 Risperidone 0.25 Mg Tab PO Not Given BID BETTY Sodium Chloride 10 ml 03/19/20 09:00 04/15/20 08:42 Flush - Normal Saline 10 Ml Syringe IVF 10 ml Q12HR BETTY Administration Thiamine HCl 100 mg 03/19/20 09:00 04/15/20 08:42 Thiamine 100 Mg Tab PO Not Given DAILY BETTY Zinc Sulfate 220 mg 03/19/20 09:00 04/15/20 08:42 Zinc Sulfate 220 Mg Cap PO Not Given DAILY BETTY Hospitalist Exam Vitals: Vital Signs (12 hours) Temp Pulse Resp Pulse Ox 04/15/20 12:00 100.1 F H 14 04/15/20 10:53 109 H 02/14/21 10:00 16 04/15/20 08:00 100.9 F H 126 H 20 100 04/15/20 07:47 101.5 F H 04/15/20 06:12 102.5 F H 140 H 30 H 04/15/20 06:00 102.5 F H 30 H 04/15/20 04:00 19 04/15/20 02:30 121 H Weight Admit Weight 155 lb Weight 2.328 oz Most Recent Monitor Data Heart Rate from ECG 87 NIBP 87/61 NIBP BP-Mean 69 Respiration from ECG 16 SpO2 100 General Appearance: ill appearing Heart: RRR, no gallops Respiratory: no wheezes, rhonchi Gastrointestinal: no guarding, no rigidity, diminished bowl sounds Extremities: no cyanosis Neurological - other findings: Neuro/psychunable to assess due to current mentation Hosp A/P (1) Acute hypoxemic respiratory failure due to COVID-19 Code(s): U07.1 - COVID-19; J96.01 - ACUTE RESPIRATORY FAILURE WITH HYPOXIA Status: Acute (2) Pneumonia due to COVID-19 virus Code(s): U07.1 - COVID-19; J12.82 - PNEUMONIA DUE TO CORONAVIRUS DISEASE 2019 Status: Acute (3) Ileus Code(s): K56.7 - ILEUS, UNSPECIFIED Status: Acute - Plan DVT proph w/lovenox, DVT proph w/SCDs 70-year-old male with no past history presented on 03/18 with shortness of breath along with productive cough. He tested positive for COVID-19 on 03/06. He was intubated in the ER on 03/18. Underwent tracheostomy and PEG tube placement on 04/11. Severe sepsis/septic shock/acute hypoxic respiratory failure due to COVID-19 pneumonia Plan: Continue supportive care. Wean O2 as tolerated. Continue empiric antibiotics per pulmonaryZyvox/meropenem with dexamethasone Electrolyte abnormalityhyponatremia, hypophosphatemia, hypokalemia Plan: Replace electrolytes Ileus Plan: Tube feeding on hold, place PEG tube on low intermittent suction, supportive care, IV fluids, check KUB in a.m., change PPIs to IV Physical deconditioning Plan: Continue physical therapy Restraints renewed Diet: Tube feeding on hold A.m. labs including imaging ordered DVT prophylaxis: Continue Lovenox GI prophylaxis: Continue PPI Pressure ulcer precautions Discharge planning: DC to LTAC when stable
[2020-04-15 15:15] LABS: Potassium 4.1 mmol/L (3.5-5.1)
[2020-04-15] MEDS: NS 0.9% w/ 20 MEQ KCL 1,000 ML/1,000 ML BAG IV SCH (17:05)
[2020-04-15] MEDS: Pantoprazole 40 MG VIAL IVP SCH (20:57)
[2020-04-16] MEDS: NS 0.9% w/ 20 MEQ KCL 1,000 ML/1,000 ML BAG IV SCH ×2 (01:20→14:19)
[2020-04-16] MEDS ORDERED: Acetaminophen 650 MG Suppository ONE (02:04)
[2020-04-16] MEDS ORDERED: Dexamethasone 4 MG TAB PER TUBE SCH (08:00)
--- NOTE | 2020-04-16 11:20 | RAD ---
Portable frontal chest radiograph: 04/16/2020 COMPARISON: 04/15/2020 HISTORY: Pneumonia FINDINGS: Stable right-sided vascular catheter and tracheostomy tube. Clips in the right upper quadra nt suggest prior cholecystectomy. There is extensive interstitial and alveolar opacity with a perihilar/bibasilar predominance, right greater than left, not significantly changed. This includes f ocal opacity in the mid right lung zone laterally, stable. IMPRESSION: No significant interval change.
--- NOTE | 2020-04-16 11:20 | RAD ---
EXAM: XR Abdomen 1 View/KUB PROVIDED CLINICAL HISTORY: Ileus COMPARISON: 04/15/2020 FINDINGS: Gastrostomy tube again overlies left upper quadrant. Surgical clips again overlie the right upper timmy drant. There is gaseous distention of the colon greatest involving the ascending colon. Gas-filled loops of small bowel are less apparent on today's exam. No suspicious calcifications are seen. Temper ature probe overlies the pelvis. No other interval change. IMPRESSION: Persistent gaseous distention of the colon greater involving the ascending colon.
--- NOTE | 2020-04-16 12:14 | PRG ---
DATE OF SERVICE: 04/16/2020 SUBJECTIVE: Farrukh Macias is a gentleman, status post trach and PEG, still remains encephalopathic. Pulse 114. He vomited yesterday. OBJECTIVE: VITAL SIGNS: Sats on 55% FiO2 is 96%, blood pressure 118/68, respiratory rate 18. CHEST: No wheezing. No crackles. CARDIAC: Normal S1, S2. No gallops. ABDOMEN: No masses. LABORATORY DATA: His labs are unremarkable. Unfortunately, computers unable to see any x-rays. ASSESSMENT: Respiratory failure, krause positive pneumonia, metabolic encephalopathy, electrolyte imbalance. PLAN: In the process of trying to get a transfer, otherwise we are going to continue all other supportive care. He is on broad-spectrum antibiotics, Xanax, dexamethasone, Zyvox, and meropenem, which we will continue. One-half hour of critical care time. Job ID: [id number]
[2020-04-16] MEDS ORDERED: Acetaminophen 650 MG/20.3 ML UDCUP PO SCH (12:30)
[2020-04-16] MEDS ORDERED: Potassium Phosphate 22 MMOL in Sodium Chloride 0.9% 250 ML 250 ML IVPB SCH (12:30)
[2020-04-16] MEDS: MEROPENEM 1 GM/50 ML 1 GM in Premix Bag 1 BAG IVPB SCH ×3 (14:16→23:23)
[2020-04-16] MEDS: Dexamethasone 4 MG TAB PER TUBE SCH (14:16)
[2020-04-16] MEDS: ALPRAZolam 0.5 MG TAB PO SCH ×4 (14:16→20:40)
[2020-04-16] MEDS: Enoxaparin Sodium 60 MG/0.6 ML SYRINGE SC SCH ×2 (14:17→20:40)
[2020-04-16] MEDS: Linezolid 600 MG in Premix Bag 1 BAG IVPB SCH ×2 (14:17→20:40)
[2020-04-16] MEDS: Ascorbic Acid 500 mg Chewable Tablet PO SCH (14:17)
[2020-04-16] MEDS: Cholecalciferol (Vitamin D3) 400 UNITS TAB PO SCH (14:17)
[2020-04-16] MEDS: Pantoprazole 40 MG VIAL IVP SCH ×2 (14:18→20:41)
[2020-04-16] MEDS: Zinc Sulfate 220 MG CAP PO SCH (14:18)
[2020-04-16] MEDS: Thiamine 100 MG TAB PO SCH (14:18)
[2020-04-16] MEDS: risperiDONE 0.25 MG TAB PO SCH ×2 (14:18→20:41)
[2020-04-16 15:53] LABS: Anion Gap 12 mmol/L (10-20); BUN (Urea Nitrogen) 8 mg/dL (8.4-25.7); Calc. Creatinine Clearance 0 mL/min (70-130); Calcium 7.5 mg/dL (7.8-10.44); Carbon Dioxide 25 mmol/L (23-31); Chloride 99 mmol/L (98-107); Glucose 84 mg/dL (83-110); Magnesium 2.1 mg/dL (1.6-2.6); Sodium 132 mmol/L (136-145)
[2020-04-16 16:20] LABS: Lactic Acid 1.2 mmol/L (0.5-2.2)
[2020-04-16 17:35] LABS: Hemoglobin 10.8 g/dL (14.0-18.0); Mean Corpuscular HGB CONC 32.7 g/dL (32.0-36.0); Mean Corpuscular Hemoglobin 31.7 pg (27.0-31.0); Mean Corpuscular Volume 96.8 fL (78.0-98.0); Platelet Count 318 thou/uL (130-400); RBC Distribution Width 14.7 % (11.5-14.5); Red Blood Cell (RBC) Count 3.41 mill/uL (4.70-6.10); White Blood Cell (WBC) Count 8.3 thou/uL (4.8-10.8)
--- NOTE | 2020-04-16 18:08 | PDOC.HOSPP ---
- Subjective Encounter Date: 04/16/20 Encounter Time: 10:30 non-verbal Subjective: Patient seen and examined for respiratory failure. No new overnight events. Tube feeding on hold. - Objective Vital Signs & Weight: Vital Signs (12 hours) Pulse Pulse Pulse BP BP Pulse Ox Pulse Ox 04/16/20 14:20 92 04/16/20 09:12 105 H 108 H 133/75 105/70 99 99 Weight Admit Weight 155 lb Weight 2.328 oz Most Recent Monitor Data Heart Rate from ECG 79 NIBP 98/64 NIBP BP-Mean 75 Respiration from ECG 15 SpO2 100 I&O: 04/15/20 04/16/20 04/17/20 06:59 06:59 06:59 Intake Total 2788.1 2430 Output Total 1098 1455 Balance 1690.1 975 Result Diagrams: 04/16/20 04:15 04/16/20 04:15 Additional Labs: Accuchecks 04/16/20 04/16/20 04/16/20 16:24 12:12 06:16 POC Glucose 109 H 91 92 04/16/20 04/16/20 03:23 01:53 POC Glucose 96 101 H Abnormal Lab Results - Last 48 hrs 04/15/20 04:00: Sodium 133 L, Potassium 2.9 L*, Chloride 97 L, Creatinine 0.46 L 04/15/20 04:00: RBC 4.08 L, Hgb 12.6 L, Hct 39.0 L, RDW 14.9 H, Band Neuts % (Manual) 35 H, Lymphocytes % (Manual) 6 L 04/15/20 04:00: Phosphorus 1.3 L 04/15/20 07:30: Lactic Acid 3.0 H 04/15/20 08:50: Urine Clarity Turbid A, Urine Protein 30 A, Urine Blood 2+ A, Urine Urobilinogen 2.0 A, Urine RBC Greater than 50 A, Urine WBC 4-6 A, Urine B acteria 1+ A, Urine Culture Reflexed Yes A 04/16/20 04:15: Sodium 132 L, BUN 8 L, Creatinine Less than 0.40 L, Calcium 7.5 L 04/16/20 04:15: RBC 3.41 L, Hgb 10.8 L, Hct 33.0 L, MCH 31.7 H, RDW 14.7 H 04/16/20 04:15: Phosphorus 1.0 L* 04/16/20 04:15: C-Reactive Protein 23.08 H Microbiology - Entire Visit 04/15/20 07:50 Venous blood - Right Arm Blood Culture - Preliminary Specimen has been received and culture in progress. No Growth to date. 04/15/20 07:30 Venous blood - Right Arm Blood Culture - Preliminary Specimen has been received and culture in progress. No Growth to date. 04/15/20 08:31 Sputum Respiratory Culture - Preliminary Mouna albicans 04/15/20 09:22 Urine Straight Catheter Urine Culture - Preliminary NO GROWTH AT 24 HOURS 04/08/20 14:19 Central Line - Right Common Femoral Vein Blood Culture - Final NO GROWTH IN 5 DAYS 04/08/20 14:19 Venous blood - Left Arm Blood Culture - Final NO GROWTH IN 5 DAYS 04/04/20 08:30 Sputum Respiratory Culture - Final 03/18/20 13:02 Venous blood - Left Arm Blood Culture - Final NO GROWTH IN 5 DAYS 03/18/20 12:57 Venous blood - Right Arm Blood Culture - Final NO GROWTH IN 5 DAYS 03/19/20 11:40 Bronchial Washing Respiratory Culture - Final 03/18/20 18:53 Urine lópez catheter Urine Culture - Final NO GROWTH AT 36 HOURS Vent - Assess Status Start: 03/18/20 22:01 Freq: Q2HR Status: Active Protocol: Document 04/16/20 00:00 NATHANIEL (Rec: 04/16/20 00:08 NATHANIEL [id number]) Ventilator Status/Info Patient/Vent Settings Endotracheal Tube Insertion Site Tracheostomy ETT Position (cm) Trach Cuff Inflated Yes Ventilator Mode AC FIO2 55 Vent TV Set 500 Delivered TV 596 Patient TV (Spontaneous) Vent RR 10 Patient RR (12-20 breaths/min) 18 Peak Pressure (cmH2O) 15 PEEP (cm H2O) 5 PSV Sedation (RASS) Bond Agitation-Sedation Scale (RASS): +4 = Combative: Combative, violent, immediate danger to staff +3 = Very agitated: Pulls to remove tubes or catheter; aggressive +2 = Agitated: Frequent non-purposeful movement, fights ventilator +1 = Restless: Anxious, apprehensive, movements not aggressive 0 = Alert and Calm: Spontaneously pays attention to caregiver -1 = Drowsy: Not fully alert, but has sustained awakening to voice -2 = Light sedation: Briefly awakens to voice (eyes contact < 10 secs) -3 = Moderate sedation: Movement or eye opening to voice (no eye contact) -4 = Deep sedation: No response to voice, but movement or eye opening to physical stimulation -5 = Unarousable: No response to voice or physical stimulation Sedation Yes Sedation Type fent RASS Goal Score 0 RASS Actual Score [-1] Drowsy Intervention to attain goal Comfort Care Call Greene Within Reach Oral Care Oral Cavity Moisturizer HOB Angle (degrees) 30 Patient Turned Left *If no, document why not EKG Reviewed by me: Yes (Sinus rhythm on telemetry) Hospitalist ROS - Review of Systems ROS unobtainable: due to mental status - Medication Medications: Active Medications Generic Name Dose Route Start Last Admin Trade Name Freq PRN Reason Stop Dose Admin Acetaminophen 650 mg 04/05/20 05:02 04/15/20 06:12 Acetaminophen 650 Mg/20.3 Ml Udcup PER TUBE 650 mg Q6H PRN Administration Fever or Pain Acetaminophen 650 mg 04/15/20 07:30 04/15/20 07:47 Acetaminophen 650 Mg Suppository MS 650 mg Q4H PRN Administration Headache/Fever or Pain Alprazolam 0.5 mg 04/13/20 09:00 04/16/20 16:15 Alprazolam 0.5 Mg Tab PO 0.5 mg QID BETTY Administration Ascorbic Acid 500 mg 03/19/20 09:00 04/16/20 14:17 Ascorbic Acid 500 Mg Chewable Tablet PO Not Given DAILY BETTY Bisacodyl 10 mg 03/30/20 08:10 04/05/20 05:09 Bisacodyl 10 Mg Supp MS 10 mg DAILYPRN PRN Administration Constipation Cholecalciferol 400 units 03/19/20 09:00 04/16/20 14:17 Cholecalciferol (Vitamin D3) 400 Units Tab PO Not Given DAILY [facility] Dexamethasone 6 mg 04/16/20 08:00 04/16/20 14:16 Dexamethasone 4 Mg Tab PER TUBE Not Given [facility] Enoxaparin Sodium 60 mg 04/01/20 21:00 04/16/20 14:17 Enoxaparin Sodium 60 Mg/0.6 Ml Syringe SC Not Given 0900,2100 [facility] Guaifenesin 200 mg 03/30/20 08:10 04/01/20 00:06 Guaifenesin Sf Soln 200 Mg/10 Ml Udcup PO 200 mg Q4H PRN Administration Cough Dexmedetomidine HCl 400 mcg/ 100 mls @ 0 mls/hr 03/28/20 08:15 04/16/20 00:33 Sodium Chloride IVPB 100 mls INF BETTY Administration Protocol Per Protocol Fentanyl 100 mls @ 0 mls/hr 04/09/20 11:00 04/10/20 04:46 Fentanyl Cadd IV 100 mls INF BETTY Administration Protocol Per Protocol Linezolid 600 mg/ Device 300 mls @ 150 mls/hr 04/13/20 09:00 04/16/20 14:17 IVPB 04/20/20 09:01 Not Given Q12HR BETTY Meropenem 1 gm/ Device 50 mls @ 100 mls/hr 04/15/20 08:00 04/16/20 16:51 IVPB 50 mls 0800,1600,2200 BETTY Administration Potassium Chloride/Sodium Chloride 1,000 ml in 1,000 mls @ 100 mls/hr 04/15/20 16:45 04/16/20 14:19 Ns 0.9% W/ 20 Meq Kcl IV Not Given .Q10H BETTY Lorazepam 1 mg 04/14/20 09:01 04/15/20 09:10 Lorazepam 2 Mg/Ml Vial SLOW IVP 1 mg Q4H PRN Administration Agitation Pantoprazole Sodium 40 mg 04/15/20 21:00 04/16/20 14:18 Pantoprazole 40 Mg Vial IVP Not Given Q12HR BETTY Polyethylene Glycol 17 gm 03/30/20 08:11 03/31/20 13:34 Polyethylene Glycol 3350 17 Gm Packet PO 17 gm DAILYPRN PRN Administration Constipation Propofol 1,000 mg 03/18/20 18:00 04/13/20 09:36 Propofol 1,000 Mg/100 Ml Vial IV 04/17/20 18:00 1,000 mg INF PRN Administration TO ACHIEVE GOAL RASS Protocol Risperidone 0.5 mg 04/06/20 21:00 04/16/20 14:18 Risperidone 0.25 Mg Tab PO Not Given BID BETTY Sodium Chloride 10 ml 03/19/20 09:00 04/16/20 14:18 Flush - Normal Saline 10 Ml Syringe IVF Not Given Q12HR BETTY Thiamine HCl 100 mg 03/19/20 09:00 02/15/21 14:18 Thiamine 100 Mg Tab PO Not Given DAILY BETTY Zinc Sulfate 220 mg 03/19/20 09:00 04/16/20 14:18 Zinc Sulfate 220 Mg Cap PO Not Given DAILY [facility] Hospitalist Exam Vitals: Vital Signs (12 hours) Pulse Pulse Pulse BP BP Pulse Ox Pulse Ox 04/16/20 14:20 92 04/16/20 09:12 105 H 108 H 133/75 105/70 99 99 Weight Admit Weight 155 lb Weight 2.328 oz Most Recent Monitor Data Heart Rate from ECG 79 NIBP 98/64 NIBP BP-Mean 75 Respiration from ECG 15 SpO2 100 General Appearance: ill appearing Neck - other findings: Trach present Heart: RRR, no gallops Respiratory: no wheezes, rhonchi Gastrointestinal: soft, no guarding, no rigidity, diminished bowl sounds Extremities: no cyanosis Neurological - other findings: Neuro/psychcannot assess due to current mentation Hosp A/P (1) Septic shock Code(s): A41.9 - SEPSIS, UNSPECIFIED ORGANISM; R65.21 - SEVERE SEPSIS WITH SEPTIC SHOCK Status: Resolved (2) Severe sepsis Code(s): A41.9 - SEPSIS, UNSPECIFIED ORGANISM; R65.20 - SEVERE SEPSIS WITHOUT SEPTIC SHOCK Status: Acute (3) Acute hypoxemic respiratory failure due to COVID-19 Code(s): U07.1 - COVID-19; J96.01 - ACUTE RESPIRATORY FAILURE WITH HYPOXIA Status: Acute (4) Pneumonia due to COVID-19 virus Code(s): U07.1 - COVID-19; J12.82 - PNEUMONIA DUE TO CORONAVIRUS DISEASE 2019 Status: Acute (5) Ileus Code(s): K56.7 - ILEUS, UNSPECIFIED Status: Acute (6) Electrolyte abnormality Code(s): E87.8 - OTH DISORDERS OF ELECTROLYTE AND FLUID BALANCE, NEC Status: Acute - Plan 70-year-old male with no past history presented on 03/18 with shortness of breath along with productive cough. He tested positive for COVID-19 on 03/06. He was intubated in the ER on 03/18. Underwent tracheostomy and PEG tube placement on 04/11. Plan: T-max 100.6 in the last 24 hours. Continue empiric antibiotics with steroids per critical care. PEG tube feeding on hold due to ileus. Await report from KUB from today. Replace phosphorus which was 1.0 today. CRP was 23.0 from 4.4 on 04/01. Continue DVT and GI prophylaxis continue gentle hydration. Continue blood sugar check for now. Attempted to call family at both numbers on facesheet with no answer
[2020-04-16 18:24] LABS: Band 59 % (5-11); Eosinophils 5 % (0-10); Lymphocytes 13 % (21-51); MDiff Complete? YES; Monocytes 3 % (0-10); Neutrophil 16 % (42-75); Platelet Morphology Comment Appears Adequate; Polychromasia SLIGHT = 2-3 cells (100X) (0-2/hpf); Reactive Lymphocytes 4 % (0-10)
[2020-04-16] MEDS ORDERED: Potassium Phosphate 15 MMOL in Sodium Chloride 0.9% 100 ML IVPB SCH (21:00)
[2020-04-16] MEDS: Acetaminophen 650 MG/20.3 ML UDCUP PER TUBE PRN (23:36)
[2020-04-17] MEDS: NS 0.9% w/ 20 MEQ KCL 1,000 ML/1,000 ML BAG IV SCH ×3 (02:15→18:18)
[2020-04-17 04:51] LABS: ALT (SGPT) 70 U/L (8-55); AST (SGOT) 42 U/L (5-34); Albumin 2.2 g/dL (3.4-4.8); Alkaline Phosphatase 85 U/L (40-110); Bilirubin, Direct 0.2 mg/dL (0.1-0.3); Bilirubin, Total 0.4 mg/dL (0.2-1.2); Protein, Total 5.1 g/dL (5.8-8.1)
[2020-04-17 05:03] LABS: Phosphorus 1.7 mg/dL (2.3-4.7)
[2020-04-17 05:17] LABS: Band 35 % (5-11); Eosinophils 4 % (0-10); Hemoglobin 9.8 g/dL (14.0-18.0); Lymphocytes 10 % (21-51); MDiff Complete? YES; Mean Corpuscular HGB CONC 33.1 g/dL (32.0-36.0); Mean Corpuscular Hemoglobin 31.8 pg (27.0-31.0); Mean Platelet Volume 7.8 fL (7.4-10.4); Monocytes 2 % (0-10); Myelocyte 2 % (0-0); Neutrophil 46 % (42-75); Nucleated RBC 1 % (0); Platelet Count 329 thou/uL (130-400); RBC Distribution Width 14.4 % (11.5-14.5); Reactive Lymphocytes 1 % (0-10); Red Blood Cell (RBC) Count 3.09 mill/uL (4.70-6.10); White Blood Cell (WBC) Count 7.3 thou/uL (4.8-10.8)
[2020-04-17 05:59] LABS: Anion Gap 11 mmol/L (10-20); BUN (Urea Nitrogen) 8 mg/dL (8.4-25.7); Calc. Creatinine Clearance 0 mL/min (70-130); Calcium 7.4 mg/dL (7.8-10.44); Carbon Dioxide 26 mmol/L (23-31); Chloride 101 mmol/L (98-107); Glucose 78 mg/dL (83-110); Potassium 4.2 mmol/L (3.5-5.1); Sodium 134 mmol/L (136-145)
[2020-04-17] MEDS: Acetaminophen 650 MG/20.3 ML UDCUP PER TUBE PRN (06:28)
[2020-04-17] MEDS: Lorazepam 2 MG/ML VIAL SLOW IVP PRN (06:32)
[2020-04-17] MEDS: PHOS-NAK 1 PKT PACK PO SCH ×2 (06:32→11:13)
[2020-04-17] MEDS ORDERED: Magnesium 2 GM/50 ML 2 GM in Premix Bag 1 BAG IVPB SCH (06:45)
--- NOTE | 2020-04-17 07:57 | RAD ---
XR Chest 1 View Portable HISTORY: Follow-up pneumonia. COMPARISON: Prior day study. FINDINGS: Tracheostomy tube and right-sided central line are unchanged in position. Lung infiltrates are stable. IMPRESSION: Stable exam.
[2020-04-17] MEDS: Morphine 2 MG/ML VIAL SLOW IVP PRN (08:39)
[2020-04-17] MEDS: MEROPENEM 1 GM/50 ML 1 GM in Premix Bag 1 BAG IVPB SCH ×3 (08:42→21:26)
[2020-04-17] MEDS: Linezolid 600 MG in Premix Bag 1 BAG IVPB SCH ×2 (08:45→20:06)
[2020-04-17] MEDS: Enoxaparin Sodium 60 MG/0.6 ML SYRINGE SC SCH ×2 (08:45→20:07)
[2020-04-17] MEDS: Dexamethasone 4 MG TAB PER TUBE SCH (08:46)
[2020-04-17] MEDS: Cholecalciferol (Vitamin D3) 400 UNITS TAB PO SCH (08:46)
[2020-04-17] MEDS: ALPRAZolam 0.5 MG TAB PO SCH ×4 (08:46→20:06)
[2020-04-17] MEDS: Thiamine 100 MG TAB PO SCH (08:46)
[2020-04-17] MEDS: Zinc Sulfate 220 MG CAP PO SCH (08:46)
[2020-04-17] MEDS: risperiDONE 0.25 MG TAB PO SCH ×2 (08:46→20:07)
[2020-04-17] MEDS: Ascorbic Acid 500 mg Chewable Tablet PO SCH (08:46)
[2020-04-17] MEDS: Pantoprazole 40 MG VIAL IVP SCH ×2 (08:47→20:10)
[2020-04-17] MEDS ORDERED: PHOS-NAK 1 PKT PACK PO SCH (10:30)
--- NOTE | 2020-04-17 10:34 | PRG ---
DATE OF SERVICE: 04/17/2020 SUBJECTIVE: Farrukh Macias still remains encephalopathic. He is on Demadex, Xanax, and risperidone. Unfortunately, he is still running fever. Apparently, it was up to 101.2. He is on Zyvox and meropenem. Cultures so far negative except for Mouna in his sputum. OBJECTIVE: VITAL SIGNS: Respiratory rate 22, blood pressure 89/58, pulse 80, temperature . GENERAL: All his lines are new. He has a slight decubitus. CHEST: Rhonchi and crackles. CARDIAC: Normal S1, S2. No gallops. ABDOMEN: No masses. LABORATORY DATA: 35 bands, 7.3 white count. Lytes are normal. X-ray still shows mainly right-sided infiltrate. ASSESSMENT: Respiratory failure, krause positive pneumonia, encephalopathy. PLAN: I am going to add micafungin to his present treatment. Otherwise, supportive care, eventually placement. One-half hour of critical care time. Job ID: [id number]
[2020-04-17] MEDS ORDERED: Micafungin 100 MG in Sodium Chloride 0.9% 100 ML IVPB SCH (11:00)
[2020-04-17] MEDS: Micafungin 100 MG in Sodium Chloride 0.9% 100 ML IVPB SCH (11:12)
--- NOTE | 2020-04-17 18:53 | PDOC.HOSPP ---
- Subjective Encounter Date: 04/17/20 Encounter Time: 11:30 Subjective: Patient seen and examined for respiratory failure due to COVID-19. Had a temperature of 101.3 this morning. No other overnight events. Tolerating tube feeds - Objective Vital Signs & Weight: Vital Signs (12 hours) Temp Pulse Pulse Pulse Resp BP BP 04/17/20 18:00 97.1 F L 24 H 04/17/20 16:00 30 H 04/17/20 15:03 69 74 86/53 L 91/52 L 04/17/20 15:00 73 04/17/20 14:00 30 H 04/17/20 12:00 99.6 F 24 H 04/17/20 11:50 74 04/17/20 10:00 100.2 F H 22 H 04/17/20 09:00 101.8 F H 04/17/20 08:00 102.7 F H 27 H 04/17/20 07:50 120 H Pulse Ox Pulse Ox Pulse Ox 04/17/20 18:00 04/17/20 16:00 04/17/20 15:03 94 L 94 L 04/17/20 15:00 04/17/20 14:00 04/17/20 12:00 04/17/20 11:50 04/17/20 10:00 04/17/20 09:00 04/17/20 08:00 96 04/17/20 07:50 Weight Admit Weight 155 lb Weight 143 lb 8.335 oz Most Recent Monitor Data Heart Rate from ECG 60 NIBP 95/59 NIBP BP-Mean 71 Respiration from ECG 26 SpO2 100 I&O: 04/16/20 04/17/20 04/18/20 06:59 06:59 06:59 Intake Total 2430 3242.9 2075 Output Total 1455 2905 1920 Balance 975 337.9 155 Result Diagrams: 04/17/20 03:21 04/17/20 03:21 Additional Labs: Accuchecks 04/17/20 04/16/20 04/15/20 10:11 23:36 21:21 POC Glucose 90 133 H 124 H 04/14/20 21:03 POC Glucose 140 H Abnormal Lab Results - Last 48 hrs 04/16/20 04:15: Sodium 132 L, BUN 8 L, Creatinine Less than 0.40 L, Calcium 7.5 L 04/16/20 04:15: RBC 3.41 L, Hgb 10.8 L, Hct 33.0 L, MCH 31.7 H, RDW 14.7 H, Neutrophils % (Manual) 16 L, Band Neuts % (Manual) 59 H, Lymphocytes % (Manual) 13 L 04/16/20 04:15: Phosphorus 1.0 L* 04/16/20 04:15: C-Reactive Protein 23.08 H 04/16/20 18:40: Phosphorus 2.0 L 04/17/20 03:21: Sodium 134 L, BUN 8 L, Creatinine Less than 0.40 L, Calcium 7.4 L 04/17/20 03:21: RBC 3.09 L, Hgb 9.8 L, Hct 29.7 L, MCH 31.8 H, Band Neuts % (Manual) 35 H, Lymphocytes % (Manual) 10 L, Myelocytes % 2 H, Nucleated RBCs # (Man) 1 H 04/17/20 03:21: Phosphorus 1.7 L 04/17/20 03:21: AST 42 H, ALT 70 H, Serum Total Protein 5.1 L, Albumin 2.2 L Microbiology - Entire Visit 04/15/20 08:31 Sputum Respiratory Culture - Final Mouna albicans 04/15/20 07:50 Venous blood - Right Arm Blood Culture - Preliminary NO GROWTH AT 48 HOURS 04/15/20 07:30 Venous blood - Right Arm Blood Culture - Preliminary NO GROWTH AT 48 HOURS 04/15/20 09:22 Urine Straight Catheter Urine Culture - Final NO GROWTH AT 48 HOURS 04/08/20 14:19 Central Line - Right Common Femoral Vein Blood Culture - Joseline l NO GROWTH IN 5 DAYS 04/08/20 14:19 Venous blood - Left Arm Blood Culture - Final NO GROWTH IN 5 DAYS 04/04/20 08:30 Sputum Respiratory Culture - Final 03/18/20 13:02 Venous blood - Left Arm Blood Culture - Final NO GROWTH IN 5 DAYS 03/18/20 12:57 Venous blood - Right Arm Blood Culture - Final NO GROWTH IN 5 DAYS 03/19/20 11:40 Bronchial Washing Respiratory Culture - Final 03/18/20 18:53 Urine lópez catheter Urine Culture - Final NO GROWTH AT 36 HOURS Vent - Assess Status Start: 03/18/20 22:01 Freq: Q2HR Status: Active Protocol: Document 04/17/20 18:00 JO (Rec: 04/17/20 18:26 A [id number]) Ventilator Status/Info Patient/Vent Settings Endotracheal Tube Insertion Site Tracheostomy ETT Position (cm) Trach Cuff Inflated Yes Ventilator Mode SIMV FIO2 40 Vent TV Set 500 Delivered TV 437 Patient TV (Spontaneous) 425 Vent RR 10 Patient RR (12-20) 24 Peak Pressure (cmH2O) 20 PEEP (cm H2O) 5 PSV 10 Sedation (RASS) Bond Agitation-Sedation Scale (RASS): +4 = Combative: Combative, violent, immediate danger to staff +3 = Very agitated: Pulls to remove tubes or catheter; aggressive +2 = Agitated: Frequent non-purposeful movement, fights ventilator +1 = Restless: Anxious, apprehensive, movements not aggressive 0 = Alert and Calm: Spontaneously pays attention to caregiver -1 = Drowsy: Not fully alert, but has sustained awakening to voice -2 = Light sedation: Briefly awakens to voice (eyes contact < 10 secs) -3 = Moderate sedation: Movement or eye opening to voice (no eye contact) -4 = Deep sedation: No response to voice, but movement or eye opening to physical stimulation -5 = Unarousable: No response to voice or physical stimulation Sedation Yes Sedation Type same RASS Goal Score 0 RASS Actual Score [-1] Drowsy Intervention to attain goal Comfort Care Call Greene Within Reach Oral Care Oral Cavity Moisturizer HOB Angle (degrees) 40 Patient Turned Right *If no, document why not EKG Reviewed by me: Yes (Tele SR) Hospitalist ROS - Review of Systems ROS unobtainable: due to mental status - Medication Medications: Active Medications Generic Name Dose Route Start Last Admin Trade Name Freq PRN Reason Stop Dose Admin Acetaminophen 650 mg 04/05/20 05:02 04/17/20 06:28 Acetaminophen 650 Mg/20.3 Ml Udcup PER TUBE 650 mg Q6H PRN Administration Fever or Pain Acetaminophen 650 mg 04/15/20 07:30 04/15/20 07:47 Acetaminophen 650 Mg Suppository PA 650 mg Q4H PRN Administration Headache/Fever or Pain Alprazolam 0.5 mg 04/13/20 09:00 04/17/20 16:45 Alprazolam 0.5 Mg Tab PO 0.5 mg QID BETTY Administration Ascorbic Acid 500 mg 03/19/20 09:00 04/17/20 08:46 Ascorbic Acid 500 Mg Chewable Tablet PO 500 mg DAILY BETTY Administration Bisacodyl 10 mg 03/30/20 08:10 04/05/20 05:09 Bisacodyl 10 Mg Supp PA 10 mg DAILYPRN PRN Administration Constipation Cholecalciferol 400 units 03/19/20 09:00 04/17/20 08:46 Cholecalciferol (Vitamin D3) 400 Units Tab PO 400 units DAILY BETTY Administration Dexamethasone 6 mg 04/16/20 08:00 04/17/20 08:46 Dexamethasone 4 Mg Tab PER TUBE 6 mg QAM-WM BETTY Administration Enoxaparin Sodium 60 mg 04/01/20 21:00 04/17/20 08:45 Enoxaparin Sodium 60 Mg/0.6 Ml Syringe SC 60 mg 0900,2100 BETTY Administration Guaifenesin 200 mg 03/30/20 08:10 04/01/20 00:06 Guaifenesin Sf Soln 200 Mg/10 Ml Udcup PO 200 mg Q4H PRN Administration Cough Dexmedetomidine HCl 400 mcg/ 100 mls @ 0 mls/hr 03/28/20 08:15 04/17/20 16:45 Sodium Chloride IVPB 100 mls INF BETTY Administration Protocol Per Protocol Fentanyl 100 mls @ 0 mls/hr 04/09/20 11:00 04/10/20 04:46 Fentanyl Cadd IV 100 mls INF BETTY Administration Protocol Per Protocol Linezolid 600 mg/ Device 300 mls @ 150 mls/hr 04/13/20 09:00 04/17/20 08:45 IVPB 04/20/20 09:01 300 mls Q12HR BETTY Administration Meropenem 1 gm/ Device 50 mls @ 100 mls/hr 04/15/20 08:00 04/17/20 16:45 IVPB 50 mls 0800,1600,2200 BETTY Administration Potassium Chloride/Sodium Chloride 1,000 ml in 1,000 mls @ 100 mls/hr 04/15/20 16:45 04/17/20 18:18 Ns 0.9% W/ 20 Meq Kcl IV 1,000 mls .Q10H BETTY Administration Micafungin Sodium 100 mg/ 100 mls @ 100 mls/hr 04/17/20 11:00 04/17/20 11:12 Sodium Chloride IVPB 100 mls 1100 BETTY Administration Lorazepam 1 mg 04/14/20 09:01 04/17/20 06:32 Lorazepam 2 Mg/Ml Vial SLOW IVP 1 mg Q4H PRN Administration Agitation Morphine Sulfate 4 mg 04/13/20 08:44 04/17/20 08:39 Morphine 2 Mg/Ml Vial SLOW IVP 4 mg Q1H PRN Administration Breakthrough Pain/Agitation Pantoprazole Sodium 40 mg 04/15/20 21:00 04/17/20 08:47 Pantoprazole 40 Mg Vial IVP 40 mg Q12HR BETTY Administration Polyethylene Glycol 17 gm 03/30/20 08:11 03/31/20 13:34 Polyethylene Glycol 3350 17 Gm Packet PO 17 gm DAILYPRN PRN Administration Constipation Risperidone 0.5 mg 04/06/20 21:00 04/17/20 08:46 Risperidone 0.25 Mg Tab PO 0.5 mg BID BETTY Administration Sodium Chloride 10 ml 03/19/20 09:00 04/17/20 08:47 Flush - Normal Saline 10 Ml Syringe IVF 10 ml Q12HR BETTY Administration Thiamine HCl 100 mg 03/19/20 09:00 04/17/20 08:46 Thiamine 100 Mg Tab PO 100 mg DAILY BETTY Administration Zinc Sulfate 220 mg 03/19/20 09:00 04/17/20 08:46 Zinc Sulfate 220 Mg Cap PO 220 mg DAILY BETTY Administration Hospitalist Exam Vitals: Vital Signs (12 hours) Temp Pulse Pulse Pulse Resp BP BP 04/17/20 18:00 97.1 F L 24 H 04/17/20 16:00 30 H 04/17/20 15:03 69 74 86/53 L 91/52 L 04/17/20 15:00 73 04/17/20 14:00 30 H 04/17/20 12:00 99.6 F 24 H 04/17/20 11:50 74 04/17/20 10:00 100.2 F H 22 H 04/17/20 09:00 101.8 F H 04/17/20 08:00 102.7 F H 27 H 04/17/20 07:50 120 H Pulse Ox Pulse Ox Pulse Ox 04/17/20 18:00 04/17/20 16:00 04/17/20 15:03 94 L 94 L 04/17/20 15:00 04/17/20 14:00 04/17/20 12:00 04/17/20 11:50 04/17/20 10:00 04/17/20 09:00 04/17/20 08:00 96 04/17/20 07:50 Weight Admit Weight 155 lb Weight 143 lb 8.335 oz Most Recent Monitor Data Heart Rate from ECG 60 NIBP 95/59 NIBP BP-Mean 71 Respiration from ECG 26 SpO2 100 General Appearance: ill appearing General - other findings: On mechanical ventilation Heart: RRR, no gallops Respiratory: rales, rhonchi Gastrointestinal: soft, no guarding, no rigidity Extremities: no cyanosis Neurological: no new deficit Hosp A/P (1) Septic shock Code(s): A41.9 - SEPSIS, UNSPECIFIED ORGANISM; R65.21 - SEVERE SEPSIS WITH SEPTIC SHOCK Status: Resolved (2) Severe sepsis Code(s): A41.9 - SEPSIS, UNSPECIFIED ORGANISM; R65.20 - SEVERE SEPSIS WITHOUT SEPTIC SHOCK Status: Acute (3) Acute hypoxemic respiratory failure due to COVID-19 Code(s): U07.1 - COVID-19; J96.01 - ACUTE RESPIRATORY FAILURE WITH HYPOXIA Status: Acute (4) Pneumonia due to COVID-19 virus Code(s): U07.1 - COVID-19; J12.82 - PNEUMONIA DUE TO CORONAVIRUS DISEASE 2019 Status: Acute (5) Ileus Code(s): K56.7 - ILEUS, UNSPECIFIED Status: Acute (6) Electrolyte abnormality Code(s): E87.8 - OTH DISORDERS OF ELECTROLYTE AND FLUID BALANCE, NEC Status: Acute - Plan DVT proph w/SCDs 70-year-old male with no past history presented on 03/18 with shortness of breath along with productive cough. He tested positive for COVID-19 on 03/06. He was intubated in the ER on 03/18. Underwent tracheostomy and PEG tube placement on 04/11. Plan: Patient on Zyvox with meropenem. Micafungin started today. Continue IV fluids until patient is tolerating tube feeds well. On Lovenox for DVT prophylaxis. Labs electrolytes. Recheck labs in a.m. Chest x-ray showed no new changes
[2020-04-18] MEDS: Lorazepam 2 MG/ML VIAL SLOW IVP PRN ×3 (02:13→09:06)
[2020-04-18 05:07] LABS: Anion Gap 11 mmol/L (10-20); BUN (Urea Nitrogen) 9 mg/dL (8.4-25.7); Calc. Creatinine Clearance 159 mL/min (70-130); Calcium 7.7 mg/dL (7.8-10.44); Carbon Dioxide 25 mmol/L (23-31); Chloride 101 mmol/L (98-107); Glucose 99 mg/dL (83-110); Phosphorus 1.3 mg/dL (2.3-4.7); Sodium 133 mmol/L (136-145)
[2020-04-18 05:31] LABS: Band 38 % (5-11); Hemoglobin 10.7 g/dL (14.0-18.0); Lymphocytes 2 % (21-51); MDiff Complete? YES; Mean Corpuscular HGB CONC 33.1 g/dL (32.0-36.0); Mean Corpuscular Hemoglobin 31.9 pg (27.0-31.0); Mean Corpuscular Volume 96.6 fL (78.0-98.0); Mean Platelet Volume 7.9 fL (7.4-10.4); Metamyelocyte 2 % (0-0); Myelocyte 2 % (0-0); Neutrophil 56 % (42-75); Platelet Count 365 thou/uL (130-400); RBC Distribution Width 14.4 % (11.5-14.5); Red Blood Cell (RBC) Count 3.34 mill/uL (4.70-6.10); White Blood Cell (WBC) Count 10.2 thou/uL (4.8-10.8)
--- NOTE | 2020-04-18 07:54 | RAD ---
Portable frontal chest radiograph: 04/18/2020 COMPARISON: 04/17/2020 HISTORY: Pneumonia FINDINGS: Stable tracheostomy tube and right vascular catheter. Extensive interstitial and alveolar o pacities noted throughout both lungs with a perihilar/bibasilar predominance, right greater than left. These findings are not significantly changed. IMPRESSION: Stable appearance of the chest as detailed above.
[2020-04-18] MEDS: NS 0.9% w/ 20 MEQ KCL 1,000 ML/1,000 ML BAG IV SCH ×2 (08:55→16:53)
[2020-04-18] MEDS: MEROPENEM 1 GM/50 ML 1 GM in Premix Bag 1 BAG IVPB SCH ×3 (08:56→22:31)
[2020-04-18] MEDS: Linezolid 600 MG in Premix Bag 1 BAG IVPB SCH ×2 (08:57→20:37)
[2020-04-18] MEDS: Enoxaparin Sodium 60 MG/0.6 ML SYRINGE SC SCH ×2 (09:00→20:37)
[2020-04-18] MEDS: Pantoprazole 40 MG VIAL IVP SCH ×2 (09:00→20:38)
[2020-04-18] MEDS: Acetaminophen 650 MG/20.3 ML UDCUP PER TUBE PRN (09:03)
[2020-04-18] MEDS: risperiDONE 0.25 MG TAB PO SCH ×2 (09:04→20:36)
[2020-04-18] MEDS: Ascorbic Acid 500 mg Chewable Tablet PO SCH (09:04)
[2020-04-18] MEDS: ALPRAZolam 0.5 MG TAB PO SCH ×4 (09:04→20:37)
[2020-04-18] MEDS: Dexamethasone 4 MG TAB PER TUBE SCH (09:05)
[2020-04-18] MEDS: Cholecalciferol (Vitamin D3) 400 UNITS TAB PO SCH (09:05)
[2020-04-18] MEDS: Thiamine 100 MG TAB PO SCH (09:05)
[2020-04-18] MEDS: Zinc Sulfate 220 MG CAP PO SCH (09:06)
--- NOTE | 2020-04-18 10:49 | PRG ---
DATE OF SERVICE: SUBJECTIVE: Farrukh Macias remains in the ICU, still very encephalopathic. OBJECTIVE: VITAL SIGNS: Temperature was 103 degrees Fahrenheit this morning with a respiratory rate of 40, blood pressure 90/80, sats 100%, PEEP of 5, 40%, respirations 20 to 30 to 40 sometimes. CHEST: Rhonchi, crackles. CARDIAC: Normal S1, S2. No gallops. ABDOMEN: No masses. LABORATORY DATA: Sodium 133. White count 10,000, big left shift. All cultures, multiple, negative. ASSESSMENT AND PLAN: He is having profuse diarrhea secondary to Clostridium difficile, prolonged respiratory failure secondary to krause-positive pneumonia, diarrhea, encephalopathy. Broad-spectrum antibiotics including meropenem, micafungin, and Zyvox. Trying to get a placement for him. His long-term prognosis is grave. One half hour of critical care time. Job ID: [id number]
[2020-04-18] MEDS ORDERED: Magnesium 2 GM/50 ML 2 GM in Premix Bag 1 BAG IVPB SCH (11:00)
[2020-04-18] MEDS: PHOS-NAK 1 PKT PACK PO SCH ×4 (11:26→22:31)
[2020-04-18] MEDS: Micafungin 100 MG in Sodium Chloride 0.9% 100 ML IVPB SCH (11:27)
--- NOTE | 2020-04-18 15:24 | EKG ---
Test Reason : TACHYCARDIA Blood Pressure : / mmHG Vent. Rate : 158 BPM Atrial Rate : 159 BPM P-R Int : 000 ms QRS Dur : 066 ms QT Int : 320 ms P-R-T Axes : 000 -38 069 degrees QTc Int : 518 ms Supraventricular tachycardia Left axis deviation Nonspecific ST and T wave abnormality Abnormal ECG When compared with ECG of 18-MAR-2020 12:50, Nonspecific T wave abnormality, worse in Lateral leads Confirmed by ARTURO MORAN (2) on 04/18/2020 3:24:10 PM Referred By: HARSH Confirmed By:ARTURO MORAN
--- NOTE | 2020-04-18 19:03 | PDOC.HOSPP ---
- Subjective Encounter Date: 04/18/20 Encounter Time: 14:00 non-verbal Subjective: Patient seen and examined for respiratory failure. Remains on mechanical ventilation. Requiring sedation due to restlessness. Events noted. - Objective Vital Signs & Weight: Vital Signs (12 hours) Temp Pulse Resp BP BP BP Pulse Ox 04/18/20 18:28 76 99/55 L 04/18/20 16:00 97.7 F 27 H 04/18/20 14:59 66 04/18/20 14:07 80/54 L 81/55 L 04/18/20 12:00 97.8 F 34 H 04/18/20 10:40 98 04/18/20 10:00 24 H 04/18/20 09:20 99.7 F H 04/18/20 09:03 103.0 F H 04/18/20 08:00 101.4 F H 04/18/20 07:48 30 H 92 L 04/18/20 07:05 103 H Weight Admit Weight 155 lb Weight 146 lb 9.718 oz Most Recent Monitor Data Heart Rate from ECG 78 NIBP 89/55 NIBP BP-Mean 69 Respiration from ECG 28 SpO2 94 I&O: 04/17/20 04/18/20 04/19/20 06:59 06:59 06:59 Intake Total 3242.9 4177.2 2784 Output Total 2905 2785 2100 Balance 337.9 1392.2 684 Result Diagrams: 04/18/20 04:22 04/18/20 04:22 Additional Labs: 04/18/20 04:22 04/18/20 04:22 Abnormal Lab Results - Last 48 hrs 04/16/20 18:40: Phosphorus 2.0 L 04/17/20 03:21: Sodium 134 L, BUN 8 L, Creatinine Less than 0.40 L, Calcium 7.4 L 04/17/20 03:21: RBC 3.09 L, Hgb 9.8 L, Hct 29.7 L, MCH 31.8 H, Band Neuts % (Manual) 35 H, Lymphocytes % (Manual) 10 L, Myelocytes % 2 H, Nucleated RBCs # (Man) 1 H 04/17/20 03:21: Phosphorus 1.7 L 04/17/20 03:21: AST 42 H, ALT 70 H, Serum Total Protein 5.1 L, Albumin 2.2 L 04/18/20 04:22: Sodium 133 L, Creatinine Less than 0.40 L, Calcium 7.7 L, Phosphorus 1.3 L 04/18/20 04:22: RBC 3.34 L, Hgb 10.7 L, Hct 32.3 L, MCH 31.9 H, Band Neuts % (M anual) 38 H, Lymphocytes % (Manual) 2 L, Myelocytes % 2 H Microbiology - Entire Visit 04/15/20 08:31 Sputum Respiratory Culture - Final Mouna albicans 04/15/20 07:50 Venous blood - Right Arm Blood Culture - Preliminary NO GROWTH AT 48 HOURS 04/15/20 07:30 Venous blood - Right Arm Blood Culture - Preliminary NO GROWTH AT 48 HOURS 04/15/20 09:22 Urine Straight Catheter Urine Culture - Final NO GROWTH AT 48 HOURS 04/08/20 14:19 Central Line - Right Common Femoral Vein Blood Culture - Final NO GROWTH IN 5 DAYS 04/08/20 14:19 Venous blood - Left Arm Blood Culture - Final NO GROWTH IN 5 DAYS 04/04/20 08:30 Sputum Respiratory Culture - Final 03/18/20 13:02 Venous blood - Left Arm Blood Culture - Final NO GROWTH IN 5 DAYS 03/18/20 12:57 Venous blood - Right Arm Blood Culture - Final NO GROWTH IN 5 DAYS 03/19/20 11:40 Bronchial Washing Respiratory Culture - Final 03/18/20 18:53 Urine lópez catheter Urine Culture - Final NO GROWTH AT 36 HOURS Vent - Assess Status Start: 03/18/20 22:01 Freq: 12,16,00,04 Status: Active Protocol: Document 04/18/20 10:00 RVP (Rec: 04/18/20 10:20 RVP [id number]) Ventilator Status/Info Patient/Vent Settings Endotracheal Tube Insertion Site Tracheostomy ETT Position (cm) Trach Cuff Inflated Yes Ventilator Mode SIMV FIO2 40 Vent TV Set 500 Delivered TV 513 Patient TV (Spontaneous) 452 Vent RR 10 Patient RR (12-20) 24 Peak Pressure (cmH2O) 20 PEEP (cm H2O) 5 PSV 10 Sedation (RASS) Bond Agitation-Sedation Scale (RASS): +4 = Combative: Combative, violent, immediate danger to staff +3 = Very agitated: Pulls to remove tubes or catheter; aggressive +2 = Agitated: Frequent non-purposeful movement, fights ventilator +1 = Restless: Anxious, apprehensive, movements not aggressive 0 = Alert and Calm: Spontaneously pays attention to caregiver -1 = Drowsy: Not fully alert, but has sustained awakening to voice -2 = Light sedation: Briefly awakens to voice (eyes contact < 10 secs) -3 = Moderate sedation: Movement or eye opening to voice (no eye contact) -4 = Deep sedation: No response to voice, but movement or eye opening to physical stimulation -5 = Unarousable: No response to voice or physical stimulation Sedation Yes Sedation Type ativan;precedex RASS Goal Score -2 RASS Actual Score [-2] Light sedation Intervention to attain goal Comfort Care Call Greene Within Reach Oral Care HOB Angle (degrees) 30 Patient Turned Left *If no, document why not Vent - Assess Status Start: 04/18/20 09:19 Freq: Q2H Status: Active Protocol: Document 04/18/20 16:00 RVP (Rec: 04/18/20 17:13 RVP [id number]) Ventilator Status/Info Patient/Vent Settings Endotracheal Tube Insertion Site Tracheostomy ETT Position (cm) Trach Cuff Inflated Yes Ventilator Mode SIMV FIO2 35 Vent TV Set 470 Delivered TV 603 Patient TV (Spontaneous) 514 Vent RR 10 Patient RR (12-20) 27 Peak Pressure (cmH2O) 22 PEEP (cm H2O) 5 PSV 10 Sedation (RASS) Bond Agitation-Sedation Scale (RASS): +4 = Combative: Combative, violent, immediate danger to staff +3 = Very agitated: Pulls to remove tubes or catheter; aggressive +2 = Agitated: Frequent non-purposeful movement, fights ventilator +1 = Restless: Anxious, apprehensive, movements not aggressive 0 = Alert and Calm: Spontaneously pays attention to caregiver -1 = Drowsy: Not fully alert, but has sustained awakening to voice -2 = Light sedation: Briefly awakens to voice (eyes contact < 10 secs) -3 = Moderate sedation: Movement or eye opening to voice (no eye contact) -4 = Deep sedation: No response to voice, but movement or eye opening to physical stimulation -5 = Unarousable: No response to voice or physical stimulation Sedation Yes Sedation Type precedex RASS Goal Score -2 RASS Actual Score [-2] Light sedation Intervention to attain goal Comfort Care Call [place] Within Reach Oral Care Teeth Brushing,Clorhexidine Oral Rinse,Oral Cavity Moisturizer HOB Angle (degrees) 45 Patient Turned Midline *If no, document why not EKG Reviewed by me: Yes (Sinus rhythm on telemetry) Hospitalist ROS - Review of Systems ROS unobtainable: due to mental status - Medication Medications: Active Medications Generic Name Dose Route Start Last Admin Trade Name Freq PRN Reason Stop Dose Admin Acetaminophen 650 mg 04/05/20 05:02 04/18/20 09:03 Acetaminophen 650 Mg/20.3 Ml Udcup PER TUBE 650 mg Q6H PRN Administration Fever or Pain Acetaminophen 650 mg 04/15/20 07:30 04/15/20 07:47 Acetaminophen 650 Mg Suppository DE 650 mg Q4H PRN Administration Headache/Fever or Pain Alprazolam 0.5 mg 04/13/20 09:00 04/18/20 16:53 Alprazolam 0.5 Mg Tab PO 0.5 mg QID BETTY Administration Ascorbic Acid 500 mg 03/19/20 09:00 04/18/20 09:04 Ascorbic Acid 500 Mg Chewable Tablet PO 500 mg DAILY BETTY Administration Bisacodyl 10 mg 03/30/20 08:10 04/05/20 05:09 Bisacodyl 10 Mg Supp DE 10 mg DAILYPRN PRN Administration Constipation Cholecalciferol 400 units 03/19/20 09:00 04/18/20 09:05 Cholecalciferol (Vitamin D3) 400 Units Tab PO 400 units DAILY BETTY Administration Dexamethasone 6 mg 04/16/20 08:00 04/18/20 09:05 Dexamethasone 4 Mg Tab PER TUBE 6 mg QAM-WM BETTY Administration Enoxaparin Sodium 60 mg 04/01/20 21:00 04/18/20 09:00 Enoxaparin Sodium 60 Mg/0.6 Ml Syringe SC 60 mg 0900,2100 BETTY Administration Guaifenesin 200 mg 03/30/20 08:10 04/01/20 00:06 Guaifenesin Sf Soln 200 Mg/10 Ml Udcup PO 200 mg Q4H PRN Administration Cough Dexmedetomidine HCl 400 mcg/ 100 mls @ 0 mls/hr 03/28/20 08:15 04/18/20 15:51 Sodium Chloride IVPB 100 mls INF BETTY Administration Protocol Per Protocol Fentanyl 100 mls @ 0 mls/hr 04/09/20 11:00 04/10/20 04:46 Fentanyl Cadd IV 100 mls INF BETTY Administration Protocol Per Protocol Linezolid 600 mg/ Device 300 mls @ 150 mls/hr 04/13/20 09:00 04/18/20 08:57 IVPB 04/20/20 09:01 300 mls Q12HR BETTY Administration Meropenem 1 gm/ Device 50 mls @ 100 mls/hr 04/15/20 08:00 04/18/20 16:53 IVPB 50 mls 0800,1600,2200 BETTY Administration Potassium Chloride/Sodium Chloride 1,000 ml in 1,000 mls @ 100 mls/hr 04/15/20 16:45 04/18/20 16:53 Ns 0.9% W/ 20 Meq Kcl IV 1,000 mls .Q10H BETTY Administration Micafungin Sodium 100 mg/ 100 mls @ 100 mls/hr 04/17/20 11:00 04/18/20 11:27 Sodium Chloride IVPB 100 mls 1100 BETTY Administration Lorazepam 1 mg 04/14/20 09:01 04/18/20 09:06 Lorazepam 2 Mg/Ml Vial SLOW IVP 1 mg Q4H PRN Administration Agitation Miscellaneous Medication 2 pkt 04/18/20 11:00 04/18/20 16:54 Phos-Nak 1 Pkt Pack PO 04/18/20 23:01 2 pkt Q4H BETTY Administration Morphine Sulfate 4 mg 04/13/20 08:44 04/17/20 08:39 Morphine 2 Mg/Ml Vial SLOW IVP 4 mg Q1H PRN Administration Breakthrough Pain/Agitation Pantoprazole Sodium 40 mg 04/15/20 21:00 04/18/20 09:00 Pantoprazole 40 Mg Vial IVP 40 mg Q12HR BETTY Administration Polyethylene Glycol 17 gm 03/30/20 08:11 03/31/20 13:34 Polyethylene Glycol 3350 17 Gm Packet PO 17 gm DAILYPRN PRN Administration Constipation Risperidone 0.5 mg 04/06/20 21:00 04/18/20 09:04 Risperidone 0.25 Mg Tab PO 0.5 mg BID BETTY Administration Sodium Chloride 10 ml 03/19/20 09:00 04/18/20 09:06 Flush - Normal Saline 10 Ml Syringe IVF 10 ml Q12HR BETTY Administration Thiamine HCl 100 mg 03/19/20 09:00 04/18/20 09:05 Thiamine 100 Mg Tab PO 100 mg DAILY BETTY Administration Zinc Sulfate 220 mg 03/19/20 09:00 04/18/20 09:06 Zinc Sulfate 220 Mg Cap PO 220 mg DAILY BETTY Administration Hospitalist Exam Vitals: Vital Signs (12 hours) Temp Pulse Resp BP BP BP Pulse Ox 04/18/20 18:28 76 99/55 L 04/18/20 16:00 97.7 F 27 H 04/18/20 14:59 66 04/18/20 14:07 80/54 L 81/55 L 04/18/20 12:00 97.8 F 34 H 04/18/20 10:40 98 04/18/20 10:00 24 H 04/18/20 09:20 99.7 F H 04/18/20 09:03 103.0 F H 04/18/20 08:00 101.4 F H 04/18/20 07:48 30 H 92 L 04/18/20 07:05 103 H Weight Admit Weight 155 lb Weight 146 lb 9.718 oz Most Recent Monitor Data Heart Rate from ECG 78 NIBP 89/55 NIBP BP-Mean 69 Respiration from ECG 28 SpO2 94 General Appearance: ill appearing Neck: supple, no JVD Heart: RRR, no gallops Respiratory: no wheezes, rales, rhonchi Gastrointestinal: soft, non-distended, no guarding, no rigidity Extremities: no cyanosis Neurological - other findings: Neuro/psychexam limited due to current mentation Hosp A/P (1) Septic shock Code(s): A41.9 - SEPSIS, UNSPECIFIED ORGANISM; R65.21 - SEVERE SEPSIS WITH SEPTIC SHOCK Status: Resolved (2) Severe sepsis Code(s): A41.9 - SEPSIS, UNSPECIFIED ORGANISM; R65.20 - SEVERE SEPSIS WITHOUT SEPTIC SHOCK Status: Acute (3) Acute hypoxemic respiratory failure due to COVID-19 Code(s): U07.1 - COVID-19; J96.01 - ACUTE RESPIRATORY FAILURE WITH HYPOXIA Status: Acute (4) Pneumonia due to COVID-19 virus Code(s): U07.1 - COVID-19; J12.82 - PNEUMONIA DUE TO CORONAVIRUS DISEASE 2019 Status: Acute (5) Ileus Code(s): K56.7 - ILEUS, UNSPECIFIED Status: Acute (6) Electrolyte abnormality Code(s): E87.8 - OTH DISORDERS OF ELECTROLYTE AND FLUID BALANCE, NEC Status: Acute - Plan 70-year-old male with no past history presented on 03/18 with shortness of breath along with productive cough. He tested positive for COVID-19 on 03/06. He was intubated in the ER on 03/18. Underwent tracheostomy and PEG tube placement on 04/11. 70-year-old male with no past medical history presented to the hospital on 03/18 with shortness of breath and productive cough. He was diagnosed with COVID-19 12 days prior to admission. Patient was intubated on the day of admission. He was started on broad-spectrum antibiotics along with steroids w ith intermittent pressors. He subsequently underwent tracheostomy and PEG tube placement on 04/11. Severe sepsis/septic shock with acute hypoxic respiratory failure due to COVID- 19 pneumonia. Patient requiring ventilatory support. Currently on SIMV mode with 35% FiO2. Had fever of 103 this morning. He was started on micafungin yesterday. He remains on Zyvox along with meropenem. Patient also on steroids. Continue vitamin C/zinc supplement Hypomagnesemia/hypophosphatemia Patient will receive 2 g of magnesium today. Replace phosphorus Ileus Tube feeding on hold. We will continue gentle hydration until tube feeding resumed. Stool for C. difficile ordered Diet: Tube feeding on hold Restraints renewed A.m. labs ordered DVT prophylaxis: On Lovenox GI prophylaxis: On IV PPI Pressure ulcer precautions Discharge planning: Once medically stable Palliative care: Palliative care following
[2020-04-19] MEDS: NS 0.9% w/ 20 MEQ KCL 1,000 ML/1,000 ML BAG IV SCH ×2 (00:41→11:50)
[2020-04-19 04:27] LABS: Anion Gap 10 mmol/L (10-20); BUN (Urea Nitrogen) 9 mg/dL (8.4-25.7); Calc. Creatinine Clearance 159 mL/min (70-130); Calcium 7.4 mg/dL (7.8-10.44); Carbon Dioxide 26 mmol/L (23-31); Chloride 103 mmol/L (98-107); Glucose 99 mg/dL (83-110); Potassium 4.5 mmol/L (3.5-5.1); Sodium 134 mmol/L (136-145)
[2020-04-19 04:44] LABS: Hemoglobin 9.5 g/dL (14.0-18.0); MDiff Complete? YES; Mean Corpuscular HGB CONC 32.8 g/dL (32.0-36.0); Mean Corpuscular Hemoglobin 31.2 pg (27.0-31.0); Mean Corpuscular Volume 95.1 fL (78.0-98.0); Mean Platelet Volume 7.2 fL (7.4-10.4); Platelet Count 357 thou/uL (130-400); RBC Distribution Width 14.5 % (11.5-14.5); Red Blood Cell (RBC) Count 3.03 mill/uL (4.70-6.10); White Blood Cell (WBC) Count 8.8 thou/uL (4.8-10.8)
[2020-04-19 04:45] LABS: Band 28 % (5-11); Lymphocytes 10 % (21-51); Monocytes 2 % (0-10); Neutrophil 60 % (42-75)
[2020-04-19] MEDS: Lorazepam 2 MG/ML VIAL SLOW IVP PRN ×2 (07:58→13:27)
[2020-04-19] MEDS: Ascorbic Acid 500 mg Chewable Tablet PO SCH (08:10)
[2020-04-19] MEDS: Cholecalciferol (Vitamin D3) 400 UNITS TAB PO SCH (08:10)
[2020-04-19] MEDS: risperiDONE 0.25 MG TAB PO SCH (08:11)
[2020-04-19] MEDS: Dexamethasone 4 MG TAB PER TUBE SCH (08:12)
[2020-04-19] MEDS: ALPRAZolam 0.5 MG TAB PO SCH ×4 (08:12→21:18)
[2020-04-19] MEDS: Zinc Sulfate 220 MG CAP PO SCH (08:12)
[2020-04-19] MEDS: Thiamine 100 MG TAB PO SCH (08:12)
[2020-04-19] MEDS: Pantoprazole 40 MG VIAL IVP SCH ×2 (08:13→21:18)
[2020-04-19] MEDS: Enoxaparin Sodium 60 MG/0.6 ML SYRINGE SC SCH ×2 (08:13→21:17)
[2020-04-19] MEDS: Linezolid 600 MG in Premix Bag 1 BAG IVPB SCH ×2 (08:13→21:18)
[2020-04-19] MEDS: Morphine 2 MG/ML VIAL SLOW IVP PRN (09:03)
[2020-04-19] MEDS ORDERED: Propofol 1,000 MG/100 ML VIAL IV ONE (09:14)
[2020-04-19] MEDS ORDERED: Vecuronium 10 MG VIAL ONE (09:20)
--- NOTE | 2020-04-19 09:30 | RAD ---
PORTABLE CHEST: DATE: 04/19/2020. PROVIDED CLINICAL HISTORY: Pneumonia. FINDINGS: Comparison 04/18/2020. Significant interval change with respect to the prior examination is not appar ent. IMPRESSION: As above. POS: IVAN
--- NOTE | 2020-04-19 10:05 | PRG ---
DATE OF SERVICE: 04/19/2020 SUBJECTIVE: Farrukh Macias remains in the ICU, intubated, trach, PEG, is very encephalopathic. OBJECTIVE: VITAL SIGNS: His temperature in Fahrenheit is 97, blood pressure 106/84, , saturations 97%, but it gradually dropped in the 70s. CHEST: No wheezing. No crackles. CARDIAC: Unremarkable. ABDOMEN: Unremarkable. LABORATORY DATA: X-ray still shows extensive right-sided infiltrate. Left lung is relatively unremarkable. White count 8000. Still got bandemia. ASSESSMENT: Respiratory failure, krause positive pneumonia, metabolic encephalopathy. PLAN: We are going to increase his risperidone twice a day. Continue broad-spectrum antibiotics, PT, eventually placement. One-half hour of critical care time. Job ID: [id number]
[2020-04-19] MEDS: Micafungin 100 MG in Sodium Chloride 0.9% 100 ML IVPB SCH (11:54)
[2020-04-19] MEDS: risperiDONE 1 MG TAB PO SCH ×2 (11:54→21:18)
[2020-04-19 12:03] LABS: Phosphorus 2.5 mg/dL (2.3-4.7)
[2020-04-19] MEDS: MEROPENEM 1 GM/50 ML 1 GM in Premix Bag 1 BAG IVPB SCH ×3 (13:41→22:14)
[2020-04-19] MEDS: Propofol 1,000 MG/100 ML VIAL IV PRN ×2 (17:08→23:50)
--- NOTE | 2020-04-19 19:40 | PDOC.HOSPP ---
- Subjective Encounter Date: 04/19/20 Encounter Time: 14:00 non-verbal Subjective: Patient seen and examined for respiratory failure. Events noted. On ventilator - Objective Vital Signs & Weight: Vital Signs (12 hours) Temp Pulse Resp BP Pulse Ox 04/19/20 18:41 106 H 81/61 L 04/19/20 16:00 98.6 F 36 H 04/19/20 14:25 81 04/19/20 12:00 98.6 F 19 04/19/20 11:40 84 04/19/20 08:00 85 L Weight Admit Weight 155 lb Weight 147 lb 4.301 oz Most Recent Monitor Data Heart Rate from ECG 105 NIBP 98/60 NIBP BP-Mean 72 Respiration from ECG 38 SpO2 97 I&O: 04/18/20 04/19/20 04/20/20 06:59 06:59 06:59 Intake Total 4177.2 4963 2249.2 Output Total 2785 3860 4220 Balance 1392.2 1103 -1970.8 Result Diagrams: 04/19/20 03:48 04/19/20 03:48 Additional Labs: Accuchecks 04/19/20 09:25 POC Glucose 103 H Vent - Assess Status Start: 03/18/20 22: 01 Freq: 12,16,00,04 Status: Active Protocol: Document 04/19/20 16:00 [facility] (Rec: 04/19/20 17:13 [facility] [id number]) Ventilator Status/Info Patient/Vent Settings Endotracheal Tube Insertion Site Tracheostomy ETT Position (cm) Trach Cuff Inflated ye Ventilator Mode SIMV FIO2 50 Vent TV Set 470 Delivered TV 567 Patient TV (Spontaneous) Vent RR 12 Patient RR (12-20) 36 Peak Pressure (cmH2O) 30 PEEP (cm H2O) 5 PSV 10 Sedation (RASS) Bond Agitation-Sedation Scale (RASS): +4 = Combative: Combative, violent, immediate danger to staff +3 = Very agitated: Pulls to remove tubes or catheter; aggressive +2 = Agitated: Frequent non-purposeful movement, fights ventilator +1 = Restless: Anxious, apprehensive, movements not aggressive 0 = Alert and Calm: Spontaneously pays attention to caregiver -1 = Drowsy: Not fully alert, but has sustained awakening to voice -2 = Light sedation: Briefly awakens to voice (eyes contact < 10 secs) -3 = Moderate sedation: Movement or eye opening to voice (no eye contact) -4 = Deep sedation: No response to voice, but movement or eye opening to physical stimulation -5 = Unarousable: No response to voice or physical stimulation Sedation Yes Sedation Type precedx RASS Goal Score -2 RASS Actual Score [-2] Light sedation Intervention to attain goal Comfort Care Call Greene Within Reach Oral Care Antiseptic Oral Rinse, Clorhexidine Oral Rinse HOB Angle (degrees) 30 Patient Turned Midline *If no, document why not Vent - Assess Status Start: 04/18/20 09:19 Freq: Q2H Status: Active Protocol: Document 04/18/20 16:00 [facility] (Rec: 04/18/20 17:13 [facility] [id number]) Ventilator Status/Info Patient/Vent Settings Endotracheal Tube Insertion Site Tracheostomy ETT Position (cm) Trach Cuff Inflated Yes Ventilator Mode SIMV FIO2 35 Vent TV Set 470 Delivered TV 603 Patient TV (Spontaneous) 514 Vent RR 10 Patient RR (12-20) 27 Peak Pressure (cmH2O) 22 PEEP (cm H2O) 5 PSV 10 Sedation (RASS) Bond Agitation-Sedation Scale (RASS): +4 = Combative: Combative, violent, immediate danger to staff +3 = Very agitated: Pulls to remove tubes or catheter; aggressive +2 = Agitated: Frequent non-purposeful movement, fights ventilator +1 = Restless: Anxious, apprehensive, movements not aggressive 0 = Alert and Calm: Spontaneously pays attention to caregiver -1 = Drowsy: Not fully alert, but has sustained awakening to voice -2 = Light sedation: Briefly awakens to voice (eyes contact < 10 secs) -3 = Moderate sedation: Movement or eye opening to voice (no eye contact) -4 = Deep sedation: No response to voice, but movement or eye opening to physical stimulation -5 = Unarousable: No response to voice or physical stimulation Sedation Yes Sedation Type precedex RASS Goal Score -2 RASS Actual Score [-2] Light sedation Intervention to attain goal Comfort Care Call Greene Within Reach Oral Care Teeth Brushing,Clorhexidine Oral Rinse,Oral Cavity Moisturizer HOB Angle (degrees) 45 Patient Turned Midline *If no, document why not Abnormal Lab Results - Last 48 hrs 04/18/20 04:22: Sodium 133 L, Creatinine Less than 0.40 L, Calcium 7.7 L, Phosphorus 1.3 L 04/18/20 04:22: RBC 3.34 L, Hgb 10.7 L, Hct 32.3 L, MCH 31.9 H, Band Neuts % (Manual) 38 H, Lymphocytes % (Manual) 2 L, Myelocytes % 2 H 04/19/20 03:48: Sodium 134 L, Creatinine Less than 0.40 L, Calcium 7.4 L 04/19/20 03:48: RBC 3.03 L, Hgb 9.5 L, Hct 28.8 L, MCH 31.2 H, MPV 7.2 L, Band Neuts % (Manual) 28 H, Lymphocytes % (Manual) 10 L Microbiology - Entire Visit 04/15/20 08:31 Sputum Respiratory Culture - Final Mouna albicans 04/15/20 07:50 Venous blood - Right Arm Blood Culture - Preliminary NO GROWTH AT 48 HOURS 04/15/20 07:30 Venous blood - Right Arm Blood Culture - Preliminary NO GROWTH AT 48 HOURS 04/15/20 09:22 Urine Straight Catheter Urine Culture - Final NO GROWTH AT 48 HOURS 04/08/20 14:19 Central Line - Right Common Femoral Vein Blood Culture - Final NO GROWTH IN 5 DAYS 04/08/20 14:19 Venous blood - Left Arm Blood Culture - Final NO GROWTH IN 5 DAYS 04/04/20 08:30 Sputum Respiratory Culture - Final 03/18/20 13:02 Venous blood - Left Arm Blood Culture - Final NO GROWTH IN 5 DAYS 03/18/20 12:57 Venous blood - Right Arm Blood Culture - Final NO GROWTH IN 5 DAYS 03/19/20 11:40 Bronchial Washing Respiratory Culture - Final 03/18/20 18:53 Urine lópez catheter Urine Culture - Final NO GROWTH AT 36 HOURS EKG Reviewed by me: Yes (Sinus rhythm on telemetry) Hospitalist ROS - Review of Systems ROS unobtainable: due to mental status - Medication Medications: Active Medications Generic Name Dose Route Start Last Admin Trade Name Freq PRN Reason Stop Dose Admin Acetaminophen 650 mg 04/05/20 05:02 04/18/20 09:03 Acetaminophen 650 Mg/20.3 Ml Udcup PER TUBE 650 mg Q6H PRN Administration Fever or Pain Acetaminophen 650 mg 04/15/20 07:30 04/15/20 07:47 Acetaminophen 650 Mg Suppository [place] 650 mg Q4H PRN Administration Headache/Fever or Pain Alprazolam 0.5 mg 04/13/20 09:00 04/19/20 16:17 Alprazolam 0.5 Mg Tab PO 0.5 mg QID BETTY Administration Ascorbic Acid 500 mg 03/19/20 09:00 04/19/20 08:10 Ascorbic Acid 500 Mg Chewable Tablet PO 500 mg DAILY BETTY Administration Bisacodyl 10 mg 03/30/20 08:10 04/05/20 05:09 Bisacodyl 10 Mg Supp [place] 10 mg DAILYPRN PRN Administration Constipation Cholecalciferol 400 units 03/19/20 09:00 04/19/20 08:10 Cholecalciferol (Vitamin D3) 400 Units Tab PO 400 units DAILY BETTY Administration Enoxaparin Sodium 60 mg 04/01/20 21:00 04/19/20 08:13 Enoxaparin Sodium 60 Mg/0.6 Ml Syringe SC 60 mg 0900,2100 BETTY Administration Guaifenesin 200 mg 03/30/20 08:10 04/01/20 00:06 Guaifenesin Sf Soln 200 Mg/10 Ml Udcup PO 200 mg Q4H PRN Administration Cough Dexmedetomidine HCl 400 mcg/ 100 mls @ 0 mls/hr 03/28/20 08:15 04/19/20 01:47 Sodium Chloride IVPB 100 mls INF BETTY Administration Protocol Per Protocol Linezolid 600 mg/ Device 300 mls @ 150 mls/hr 04/13/20 09:00 04/19/20 08:13 IVPB 04/20/20 09:01 300 mls Q12HR BETTY Administration Meropenem 1 gm/ Device 50 mls @ 100 mls/hr 04/15/20 08:00 04/19/20 16:12 IVPB 50 mls 0800,1600,2200 BETTY Administration Potassium Chloride/Sodium Chloride 1,000 ml in 1,000 mls @ 100 mls/hr 04/15/20 16:45 04/19/20 11:50 Ns 0.9% W/ 20 Meq Kcl IV 1,000 mls .Q10H BETTY Administration Micafungin Sodium 100 mg/ 100 mls @ 100 mls/hr 04/17/20 11:00 04/19/20 11:54 Sodium Chloride IVPB 100 mls 1100 BETTY Administration Lorazepam 1 mg 04/14/20 09:01 04/19/20 13:27 Lorazepam 2 Mg/Ml Vial SLOW IVP 1 mg Q4H PRN Administration Agitation Morphine Sulfate 4 mg 04/13/20 08:44 04/19/20 09:03 Morphine 2 Mg/Ml Vial SLOW IVP 4 mg Q1H PRN Administration Breakthrough Pain/Agitation Pantoprazole Sodium 40 mg 04/15/20 21:00 04/19/20 08:13 Pantoprazole 40 Mg Vial IVP 40 mg Q12HR BETTY Administration Polyethylene Glycol 17 gm 03/30/20 08:11 03/31/20 13:34 Polyethylene Glycol 3350 17 Gm Packet PO 17 gm DAILYPRN PRN Administration Constipation Propofol 1,000 mg 04/19/20 16:56 04/19/20 17:08 Propofol 1,000 Mg/100 Ml Vial IV 1,000 mg INF PRN Administration TO ACHIEVE GOAL RASS Protocol Risperidone 1 mg 04/19/20 09:00 04/19/20 11:54 Risperidone 1 Mg Tab PO 1 mg BID BETTY Administration Sodium Chloride 10 ml 03/19/20 09:00 04/19/20 13:41 Flush - Normal Saline 10 Ml Syringe IVF 10 ml Q12HR BETTY Administration Thiamine HCl 100 mg 03/19/20 09:00 04/19/20 08:12 Thiamine 100 Mg Tab PO 100 mg DAILY BETTY Administration Zinc Sulfate 220 mg 03/19/20 09:00 04/19/20 08:12 Zinc Sulfate 220 Mg Cap PO 220 mg DAILY BETTY Administration Hospitalist Exam Vitals: Vital Signs (12 hours) Temp Pulse Resp BP Pulse Ox 04/19/20 18:41 106 H 81/61 L 04/19/20 16:00 98.6 F 36 H 04/19/20 14:25 81 04/19/20 12:00 98.6 F 19 04/19/20 11:40 84 04/19/20 08:00 85 L Weight Admit Weight 155 lb Weight 147 lb 4.301 oz Most Recent Monitor Data Heart Rate from ECG 105 NIBP 98/60 NIBP BP-Mean 72 Respiration from ECG 38 SpO2 97 General Appearance: ill appearing Neck: supple, no JVD Heart: RRR, no gallops Heart - other findings: Trach/PEG Respiratory: no wheezes, rhonchi Gastrointestinal: soft, non-distended, no guarding, no rigidity Extremities: no cyanosis Neurological - other findings: Neuroexam limited due to sedation Hosp A/P (1) Septic shock Code(s): A41.9 - SEPSIS, UNSPECIFIED ORGANISM; R65.21 - SEVERE SEPSIS WITH SEPTIC SHOCK Status: Resolved (2) Severe sepsis Code(s): A41.9 - SEPSIS, UNSPECIFIED ORGANISM; R65.20 - SEVERE SEPSIS WITHOUT SEPTIC SHOCK Status: Acute (3) Acute hypoxemic respiratory failure due to COVID-19 Code(s): U07.1 - COVID-19; J96.01 - ACUTE RESPIRATORY FAILURE WITH HYPOXIA Status: Acute (4) Pneumonia due to COVID-19 virus Code(s): U07.1 - COVID-19; J12.82 - PNEUMONIA DUE TO CORONAVIRUS DISEASE 2019 Status: Acute (5) Ileus Code(s): K56.7 - ILEUS, UNSPECIFIED Status: Acute (6) Electrolyte abnormality Code(s): E87.8 - OTH DISORDERS OF ELECTROLYTE AND FLUID BALANCE, NEC Status: Acute - Plan 70-year-old male with no past history presented on 03/18 with shortness of breath along with productive cough. He tested positive for COVID-19 on 03/06. He was intubated in the ER on 03/18. Underwent tracheostomy and PEG tube placement on 04/11. 70-year-old male with no past medical history presented to the hospital on 03/18 with shortness of breath and productive cough. He was diagnosed with COVID-19 12 days prior to admission. Patient was intubated on the day of admission. He was started on broad-spectrum antibiotics along with steroids with intermittent pressors. He subsequently underwent tracheostomy and PEG tube placement on 04/11. Severe sepsis/septic shock with acute hypoxic respiratory failure due to COVID- 19 pneumonia. Continue empiric antibiotics per critical care. On mechanical ventilation. Reduce IV fluid. A.m. labs Hypomagnesemia/hypophosphatemia Monitor electrolytes and replace accordingly Ileus Continue gentle hydration. Resume tube feeds when tolerating Other issues per previous notes
[2020-04-19] MEDS: Acetaminophen 650 MG/20.3 ML UDCUP PER TUBE PRN (21:16)
[2020-04-20] MEDS: Acetaminophen 650 MG/20.3 ML UDCUP PER TUBE PRN ×2 (03:48→12:12)
[2020-04-20] MEDS: NS 0.9% w/ 20 MEQ KCL 1,000 ML/1,000 ML BAG IV SCH ×2 (03:49→10:22)
[2020-04-20 04:24] LABS: Anion Gap 12 mmol/L (10-20); BUN (Urea Nitrogen) 12 mg/dL (8.4-25.7); Calc. Creatinine Clearance 156 mL/min (70-130); Calcium 7.7 mg/dL (7.8-10.44); Carbon Dioxide 24 mmol/L (23-31); Chloride 102 mmol/L (98-107); Glucose 94 mg/dL (83-110); Magnesium 1.8 mg/dL (1.6-2.6); Potassium 3.6 mmol/L (3.5-5.1); Sodium 134 mmol/L (136-145)
[2020-04-20 04:26] LABS: Phosphorus 1.8 mg/dL (2.3-4.7)
[2020-04-20 04:30] LABS: Band 28 % (5-11); Eosinophils 1 % (0-10); Hemoglobin 10.6 g/dL (14.0-18.0); Hypochromia SLIGHT = 6-15 cells (100X) (0-5/hpf); Lymphocytes 11 % (21-51); MDiff Complete? YES; Mean Corpuscular HGB CONC 32.4 g/dL (32.0-36.0); Mean Corpuscular Hemoglobin 30.6 pg (27.0-31.0); Mean Corpuscular Volume 94.5 fL (78.0-98.0); Mean Platelet Volume 7.3 fL (7.4-10.4); Monocytes 7 % (0-10); Neutrophil 52 % (42-75); Nucleated RBC 2 % (0); Platelet Count 395 thou/uL (130-400); Platelet Morphology Comment Appears Adequate; RBC Distribution Width 14.8 % (11.5-14.5); Reactive Lymphocytes 1 % (0-10); Red Blood Cell (RBC) Count 3.46 mill/uL (4.70-6.10); White Blood Cell (WBC) Count 11.9 thou/uL (4.8-10.8)
[2020-04-20] MEDS ORDERED: Magnesium 2 GM/50 ML 2 GM in Premix Bag 1 BAG IVPB SCH (05:00)
[2020-04-20] MEDS: PHOS-NAK 1 PKT PACK PO SCH ×2 (05:17→08:58)
[2020-04-20] MEDS: Ascorbic Acid 500 mg Chewable Tablet PO SCH (08:55)
[2020-04-20] MEDS: Cholecalciferol (Vitamin D3) 400 UNITS TAB PO SCH (08:55)
[2020-04-20] MEDS: predniSONE 20 MG TAB PO SCH (08:55)
[2020-04-20] MEDS: Thiamine 100 MG TAB PO SCH (08:55)
[2020-04-20] MEDS: risperiDONE 1 MG TAB PO SCH ×2 (08:55→21:10)
[2020-04-20] MEDS: Zinc Sulfate 220 MG CAP PO SCH (08:55)
[2020-04-20] MEDS: MEROPENEM 1 GM/50 ML 1 GM in Premix Bag 1 BAG IVPB SCH ×3 (08:57→21:27)
[2020-04-20] MEDS: Pantoprazole 40 MG VIAL IVP SCH ×2 (08:59→21:10)
[2020-04-20] MEDS: Linezolid 600 MG in Premix Bag 1 BAG IVPB SCH (09:08)
[2020-04-20] MEDS: ALPRAZolam 0.5 MG TAB PO SCH ×4 (09:08→21:03)
[2020-04-20] MEDS: Enoxaparin Sodium 60 MG/0.6 ML SYRINGE SC SCH ×2 (09:08→21:10)
[2020-04-20] MEDS: Propofol 1,000 MG/100 ML VIAL IV PRN ×3 (09:10→18:41)
--- NOTE | 2020-04-20 09:19 | RAD ---
SINGLE VIEW CHEST: Date: 04/20/2020 COMPARISON: 04/19/2020. HISTORY: Pneumonia. FINDINGS: Single view of the chest shows a normal sized cardiomediastinal silhouette. The lines and tubes are u nchanged in position. There are stable scattered mixed multifocal infiltrates in the lungs. Degenerat maria g changes are seen in the spine. Surgical clips are seen in the upper abdomen. IMPRESSION: Stable multifocal infiltrates. POS: EAA
--- NOTE | 2020-04-20 10:01 | PRG ---
DATE OF SERVICE: SUBJECTIVE: Intubated in the vent, sedated. OBJECTIVE: VITAL SIGNS: Temperature is 99.9, pulse 85, blood pressure 90/63, respirations 18. I's and O's have been consistently positive. CHEST: Rhonchi and crackles. CARDIAC: Normal S1. ABDOMEN: No masses. IMAGING: X-ray still shows bilateral infiltrates, little bit more pronounced in the right lung. LABORATORY DATA: Unremarkable. White count 11,000. ASSESSMENT: Simmons positive pneumonia, status post trach and PEG; encephalopathy. PLAN: Trying to get placement, otherwise supportive care. He is on several different broad-spectrum antibiotics after he was found to have febrile illness. He is on micafungin, meropenem. His Zyvox was discontinued. There was no evidence of any Staph at this time. One-half hour of critical care time. Job ID: [id number]
[2020-04-20] MEDS: Micafungin 100 MG in Sodium Chloride 0.9% 100 ML IVPB SCH (11:01)
[2020-04-20] MEDS: Lorazepam 2 MG/ML VIAL SLOW IVP PRN (12:04)
[2020-04-20] MEDS: Loperamide HCl 1 MG/7.5 ML UDCUP PO PRN (16:31)
--- NOTE | 2020-04-20 16:46 | PDOC.HOSPP ---
- Subjective Encounter Date: 04/20/20 Encounter Time: 13:00 non-verbal Subjective: Patient seen and examined for respiratory failure. Remains on mechanical ventilation. Events noted - Objective Vital Signs & Weight: Vital Signs (12 hours) Temp Pulse Resp BP 04/20/20 14:00 38 H 04/20/20 12:42 101.6 F H 113 H 36 H 94/62 04/20/20 12:12 101.4 F H 129 H 46 H 131/84 04/20/20 12:00 101.4 F H 46 H 04/20/20 11:48 125 H 04/20/20 10:00 46 H 04/20/20 08:00 100.1 F H 34 H 04/20/20 06:50 85 92/63 Weight Admit Weight 155 lb Weight 142 lb 3.17 oz Most Recent Monitor Data Heart Rate from ECG 113 NIBP 85/64 NIBP BP-Mean 71 Respiration from ECG 36 SpO2 99 I&O: 04/19/20 04/20/20 04/21/20 06:59 06:59 06:59 Intake Total 4963 4472.8 779 Output Total 3860 6110 3150 Balance 1103 -1637.2 -2371 Result Diagrams: 04/20/20 03:30 04/20/20 03:30 Additional Labs: Abnormal Lab Results - Last 48 hrs 04/19/20 03:48: Sodium 134 L, Creatinine Less than 0.40 L, Calcium 7.4 L 04/19/20 03:48: RBC 3.03 L, Hgb 9.5 L, Hct 28.8 L, MCH 31.2 H, MPV 7.2 L, Band Neuts % (Manual) 28 H, Lymphocytes % (Manual) 10 L 04/20/20 03:30: Sodium 134 L, Creatinine 0.41 L, Calcium 7.7 L 04/20/20 03:30: WBC 11.9 H, RBC 3.46 L, Hgb 10.6 L, Hct 32.7 L, RDW 14.8 H, MPV 7.3 L, Band Neuts % (Manual) 28 H, Lymphocytes % (Manual) 11 L, Nucleated RBCs # (Man) 2 H 04/20/20 03:30: Phosphorus 1.8 L Microbiology - Entire Visit 04/20/20 10:40 Stool C. difficile GDH Antigen & Toxins - Final 04/15/20 07:50 Venous blood - Right Arm Blood Culture - Final NO GROWTH IN 5 DAYS 04/15/20 07:30 Venous blood - Right Arm Blood Culture - Final NO GROWTH IN 5 DAYS 04/15/20 08:31 Sputum Respiratory Culture - Final Mouna albicans 04/15/20 09:22 Urine Straight Catheter Urine Culture - Final NO GROWTH AT 48 HOURS 04/08/20 14:19 Central Line - Right Common Femoral Vein Blood Culture - Final NO GROWTH IN 5 DAYS 04/08/20 14:19 Venous blood - Left Arm Blood Culture - Final NO GROWTH IN 5 DAYS 04/04/20 08:30 Sputum Respiratory Culture - Final 03/18/20 13:02 Venous blood - Left Arm Blood Culture - Final NO GROWTH IN 5 DAYS 03/18/20 12:57 Venous blood - Right Arm Blood Culture - Final NO GROWTH IN 5 DAYS 03/19/20 11:40 Bronchial Washing Respiratory Culture - Final 03/18/20 18:53 Urine lópez catheter Urine Culture - Final NO GROWTH AT 36 HOURS Vent - Assess Status Start: 03/18/20 22:01 Freq: Q2HR Status: Active Protocol: Document 04/20/20 14:00 LAB (Rec: 04/20/20 15:28 LAB [id number]) Ventilator Status/Info Patient/Vent Settings Endotracheal Tube Insertion Site Tracheostomy ETT Position (cm) Trach Cuff Inflated Yes Ventilator Mode SIMV FIO2 45 Vent TV Set 470 Delivered TV 486 Patient TV (Spontaneous) 495 Vent RR 12 Patient RR (12-20) 38 Peak Pressure (cmH2O) 30 PEEP (cm H2O) 7 PSV 15 Sedation (RASS) Bond Agitation-Sedation Scale (RASS): +4 = Combative: Combative, violent, immediate danger to staff +3 = Very agitated: Pulls to remove tubes or catheter; aggressive +2 = Agitated: Frequent non-purposeful movement, fights ventilator +1 = Restless: Anxious, apprehensive, movements not aggressive 0 = Alert and Calm: Spontaneously pays attention to caregiver -1 = Drowsy: Not fully alert, but has sustained awakening to voice -2 = Light sedation: Briefly awakens to voice (eyes contact < 10 secs) -3 = Moderate sedation: Movement or eye opening to voice (no eye contact) -4 = Deep sedation: No response to voice, but movement or eye opening to physical stimulation -5 = Unarousable: No response to voice or physical stimulation Sedation Yes Sedation Type DIPRIVAN RASS Goal Score -2 RASS Actual Score [+2] Agitated Intervention to attain goal RATE ADJUSTED+PRN Comfort Care Call Greene Within Reach Oral Care HOB Angle (degrees) 30 Patient Turned Midline *If no, document why not Vent - Assess Status Start: 04/18/20 09:19 Freq: Q2H Status: Active Protocol: Document 04/18/20 16:00 RVP (Rec: 04/18/20 17:13 RVP [id number]) Ventilator Status/Info Patient/Vent Settings Endotracheal Tube Insertion Site Tracheostomy ETT Position (cm) Trach Cuff Inflated Yes Ventilator Mode SIMV FIO2 35 Vent TV Set 470 Delivered TV 603 Patient TV (Spontaneous) 514 Vent RR 10 Patient RR (12-20) 27 Peak Pressure (cmH2O) 22 PEEP (cm H2O) 5 PSV 10 Sedation (RASS) Bond Agitation-Sedation Scale (RASS): +4 = Combative: Combative, violent, immediate danger to staff +3 = Very agitated: Pulls to remove tubes or catheter; aggressive +2 = Agitated: Frequent non-purposeful movement, fights ventilator +1 = Restless: Anxious, apprehensive, movements not aggressive 0 = Alert and Calm: Spontaneously pays attention to caregiver -1 = Drowsy: Not fully alert, but has sustained awakening to voice -2 = Light sedation: Briefly awakens to voice (eyes contact < 10 secs) -3 = Moderate sedation: Movement or eye opening to voice (no eye contact) -4 = Deep sedation: No response to voice, but movement or eye opening to physical stimulation -5 = Unarousable: No response to voice or physical stimulation Sedation Yes Sedation Type precedex RASS Goal Score -2 RASS Actual Score [-2] Light sedation Intervention to attain goal Comfort Care Call Greene Within Reach Oral Care Teeth Brushing,Clorhexidine Oral Rinse,Oral Cavity Moisturizer HOB Angle (degrees) 45 Patient Turned Midline *If no, document why not Radiology Reviewed by me: Yes (Chest x-raybilateral infiltrate) EKG Reviewed by me: Yes (Sinus tach E on telemetry) Hospitalist ROS - Review of Systems ROS unobtainable: due to mental status - Medication Medications: Active Medications Generic Name Dose Route Start Last Admin Trade Name Freq PRN Reason Stop Dose Admin Acetaminophen 650 mg 04/05/20 05:02 04/20/20 12:12 Acetaminophen 650 Mg/20.3 Ml Udcup PER TUBE 650 mg Q6H PRN Administration Fever or Pain Acetaminophen 650 mg 04/15/20 07:30 04/15/20 07:47 Acetaminophen 650 Mg Suppository [place] 650 mg Q4H PRN Administration Headache/Fever or Pain Alprazolam 0.5 mg 04/13/20 09:00 04/20/20 16:35 Alprazolam 0.5 Mg Tab PO 0.5 mg QID BETTY Administration Ascorbic Acid 500 mg 03/19/20 09:00 04/20/20 08:55 Ascorbic Acid 500 Mg Chewable Tablet PO 500 mg DAILY BETTY Administration Bisacodyl 10 mg 03/30/20 08:10 04/05/20 05:09 Bisacodyl 10 Mg Supp [place] 10 mg DAILYPRN PRN Administration Constipation Cholecalciferol 400 units 03/19/20 09:00 04/20/20 08:55 Cholecalciferol (Vitamin D3) 400 Units Tab PO 400 units DAILY BETTY Administration Enoxaparin Sodium 60 mg 04/01/20 21:00 04/20/20 09:08 Enoxaparin Sodium 60 Mg/0.6 Ml Syringe SC 60 mg 0900,2100 BETTY Administration Guaifenesin 200 mg 03/30/20 08:10 04/01/20 00:06 Guaifenesin Sf Soln 200 Mg/10 Ml Udcup PO 200 mg Q4H PRN Administration Cough Dexmedetomidine HCl 400 mcg/ 100 mls @ 0 mls/hr 03/28/20 08:15 04/20/20 04:39 Sodium Chloride IVPB 100 mls INF BETTY Administration Protocol Per Protocol Meropenem 1 gm/ Device 50 mls @ 100 mls/hr 04/15/20 08:00 04/20/20 15:31 IVPB 50 mls 0800,1600,2200 BETTY Administration Micafungin Sodium 100 mg/ 100 mls @ 100 mls/hr 04/17/20 11:00 04/20/20 11:01 Sodium Chloride IVPB 100 mls 1100 BETTY Administration Potassium Chloride/Sodium Chloride 1,000 ml in 1,000 mls @ 70 mls/hr 04/19/20 19:40 04/20/20 10:22 Ns 0.9% W/ 20 Meq Kcl IV 1,000 mls .[id number] BETTY Administration Loperamide HCl 1 mg 04/18/20 10:25 04/20/20 16:31 Loperamide Hcl 1 Mg/7.5 Ml Udcup PO 1 mg Q4H PRN Administration Diarrhea/Loose Stools Lorazepam 1 mg 04/14/20 09:01 04/20/20 12:04 Lorazepam 2 Mg/Ml Vial SLOW IVP 1 mg Q4H PRN Administration Agitation Morphine Sulfate 4 mg 04/13/20 08:44 04/19/20 09:03 Morphine 2 Mg/Ml Vial SLOW IVP 4 mg Q1H PRN Administration Breakthrough Pain/Agitation Pantoprazole Sodium 40 mg 04/15/20 21:00 04/20/20 08:59 Pantoprazole 40 Mg Vial IVP 40 mg Q12HR BETTY Administration Polyethylene Glycol 17 gm 03/30/20 08:11 03/31/20 13:34 Polyethylene Glycol 3350 17 Gm Packet PO 17 gm DAILYPRN PRN Administration Constipation Prednisone 40 mg 04/20/20 08:00 04/20/20 08:55 Prednisone 20 Mg Tab PO 40 mg QAM-WM BETTY Administration Propofol 1,000 mg 04/19/20 16:56 04/20/20 14:49 Propofol 1,000 Mg/100 Ml Vial IV 1,000 mg INF PRN Administration TO ACHIEVE GOAL RASS Protocol Risperidone 1 mg 04/19/20 09:00 04/20/20 08:55 Risperidone 1 Mg Tab PO 1 mg BID BETTY Administration Sodium Chloride 10 ml 03/19/20 09:00 04/20/20 08:55 Flush - Normal Saline 10 Ml Syringe IVF 10 ml Q12HR BETTY Administration Thiamine HCl 100 mg 03/19/20 09:00 04/20/20 08:55 Thiamine 100 Mg Tab PO 100 mg DAILY BETTY Administration Zinc Sulfate 220 mg 03/19/20 09:00 04/20/20 08:55 Zinc Sulfate 220 Mg Cap PO 220 mg DAILY BETTY Administration Hospitalist Exam Vitals: Vital Signs (12 hours) Temp Pulse Resp BP 04/20/20 14:00 38 H 04/20/20 12:42 101.6 F H 113 H 36 H 94/62 04/20/20 12:12 101.4 F H 129 H 46 H 131/84 04/20/20 12:00 101.4 F H 46 H 04/20/20 11:48 125 H 04/20/20 10:00 46 H 04/20/20 08:00 100.1 F H 34 H 04/20/20 06:50 85 92/63 Weight Admit Weight 155 lb Weight 142 lb 3.17 oz Most Recent Monitor Data Heart Rate from ECG 113 NIBP 85/64 NIBP BP-Mean 71 Respiration from ECG 36 SpO2 99 General Appearance: ill appearing Neck: supple Neck - other findings: Tracheostomy present Heart: no gallops, no rubs Respiratory: no wheezes, rales, rhonchi Gastrointestinal: soft, no guarding, no rigidity Gastrointestinal - other findings: PEG tube present Extremities: no cyanosis Neurological - other findings: Neuro/psychunable to assess due to current mentation Hosp A/P (1) Septic shock Code(s): A41.9 - SEPSIS, UNSPECIFIED ORGANISM; R65.21 - SEVERE SEPSIS WITH SEPTIC SHOCK Status: Resolved (2) Severe sepsis Code(s): A41.9 - SEPSIS, UNSPECIFIED ORGANISM; R65.20 - SEVERE SEPSIS WITHOUT SEPTIC SHOCK Status: Acute (3) Acute hypoxemic respiratory failure due to COVID-19 Code(s): U07.1 - COVID-19; J96.01 - ACUTE RESPIRATORY FAILURE WITH HYPOXIA Status: Acute (4) Pneumonia due to COVID-19 virus Code(s): U07.1 - COVID-19; J12.82 - PNEUMONIA DUE TO CORONAVIRUS DISEASE 2019 Status: Acute (5) Ileus Code(s): K56.7 - ILEUS, UNSPECIFIED Status: Acute (6) Electrolyte abnormality Code(s): E87.8 - OTH DISORDERS OF ELECTROLYTE AND FLUID BALANCE, NEC Status: Acute - Plan DVT proph w/lovenox, DVT proph w/SCDs 70-year-old male with no past medical history presented to the hospital on 03/18 with shortness of breath and productive cough. He was diagnosed with COVID-19 12 days prior to admission. Patient was intubated on the day of admission. He was started on broad-spectrum antibiotics along with steroids with intermittent pressors. He subsequently underwent tracheostomy and PEG tube placement on 04/11. Severe sepsis/septic shock with acute hypoxic respiratory failure due to COVID- 19 pneumonia. Continue empiric antibiotics per critical care due to intermittent fever. Zyvox discontinued today. On micafungin and meropenem. On mechanical ventilation. Continue supportive care a.m. labs Hypomagnesemia/hypophosphatemia Replace magnesium and phosphorus Ileus Restart tube feeding Other issues per previous notes The son was updated earlier by RN. I attempted to call son Liam at [phone] with no answer
[2020-04-21] MEDS: Propofol 1,000 MG/100 ML VIAL IV PRN ×5 (00:46→22:33)
[2020-04-21 05:22] LABS: Band 1 % (5-11); Eosinophils 2 % (0-10); Hemoglobin 10.5 g/dL (14.0-18.0); Lymphocytes 19 % (21-51); MDiff Complete? YES; Mean Corpuscular HGB CONC 32.3 g/dL (32.0-36.0); Mean Corpuscular Hemoglobin 30.7 pg (27.0-31.0); Mean Platelet Volume 7.5 fL (7.4-10.4); Metamyelocyte 3 % (0-0); Monocytes 3 % (0-10); Neutrophil 72 % (42-75); Platelet Count 406 thou/uL (130-400); Platelet Morphology Comment Appears Adequate; RBC Morphology Normal; Red Blood Cell (RBC) Count 3.42 mill/uL (4.70-6.10); White Blood Cell (WBC) Count 10.7 thou/uL (4.8-10.8)
[2020-04-21 05:29] LABS: Anion Gap 13 mmol/L (10-20); BUN (Urea Nitrogen) 12 mg/dL (8.4-25.7); Calc. Creatinine Clearance 155 mL/min (70-130); Calcium 7.7 mg/dL (7.8-10.44); Carbon Dioxide 23 mmol/L (23-31); Chloride 103 mmol/L (98-107); Glucose 96 mg/dL (83-110); Magnesium 2.1 mg/dL (1.6-2.6); Phosphorus 2.3 mg/dL (2.3-4.7); Sodium 135 mmol/L (136-145)
[2020-04-21] MEDS: NS 0.9% w/ 20 MEQ KCL 1,000 ML/1,000 ML BAG IV SCH ×2 (06:32→14:36)
[2020-04-21] MEDS: predniSONE 20 MG TAB PO SCH (07:36)
[2020-04-21] MEDS: MEROPENEM 1 GM/50 ML 1 GM in Premix Bag 1 BAG IVPB SCH ×3 (07:46→22:33)
--- NOTE | 2020-04-21 09:12 | PRG ---
DATE OF SERVICE: 04/21/2020 SUBJECTIVE: This patient remains on mechanical ventilation through a tracheostomy. There has been no acute changes overnight. His current ventilator settings are SIMV rate 12, total volume 470, PEEP 7, FiO2 of 45%. OBJECTIVE: VITAL SIGNS: Temperature 98.8, pulse 99, blood pressure , O2 saturation 94%. Intake for 24 hours is 4017, output 4670. HEENT: Unremarkable. NECK: Trach in good position. LUNGS: Fairly clear anteriorly. CARDIOVASCULAR: S1 and S2. Regular. ABDOMEN: Soft. EXTREMITIES: No edema. LABORATORY DATA: White blood cell count 10.7, hematocrit 32.5, and platelet count 406. Sodium 135, potassium 4, chloride 103, CO2 of 23, BUN 12, creatinine 0.4, and glucose 96. ASSESSMENT: 1. COVID-19 pneumonia. 2. Acute hypoxic respiratory failure requiring mechanical ventilation. 3. Encephalopathy. PLAN: 1. Wean slowly as tolerated. 2. Continue meropenem and micafungin for the next couple of days. 3. Continue anticoagulation. Job ID: [id number]
--- NOTE | 2020-04-21 09:23 | RAD ---
XR Chest 1 View Portable History: Pneumonia Comparison: Radiograph prior day Findings: Right IJ central venous catheter tip projects over the mid SVC. Airspace opacities are zahra lar. No pneumothorax. Moderate right effusion. Peripheral left lower lobe linear interstitial thickening. Tracheostomy tube tip at the clavicular level. Impression: Similar examination of the chest without improved lung aeration.
[2020-04-21] MEDS: ALPRAZolam 0.5 MG TAB PO SCH ×4 (09:39→21:03)
[2020-04-21] MEDS: Cholecalciferol (Vitamin D3) 400 UNITS TAB PO SCH (09:39)
[2020-04-21] MEDS: Thiamine 100 MG TAB PO SCH (09:39)
[2020-04-21] MEDS: risperiDONE 1 MG TAB PO SCH ×2 (09:39→21:03)
[2020-04-21] MEDS: Zinc Sulfate 220 MG CAP PO SCH (09:39)
[2020-04-21] MEDS: Ascorbic Acid 500 mg Chewable Tablet PO SCH (09:39)
[2020-04-21] MEDS: Pantoprazole 40 MG VIAL IVP SCH ×2 (09:40→21:02)
[2020-04-21] MEDS: Enoxaparin Sodium 60 MG/0.6 ML SYRINGE SC SCH ×2 (09:40→21:02)
[2020-04-21] MEDS: Loperamide HCl 1 MG/7.5 ML UDCUP PO PRN (10:51)
[2020-04-21] MEDS: Micafungin 100 MG in Sodium Chloride 0.9% 100 ML IVPB SCH (10:52)
[2020-04-21] MEDS: Lorazepam 2 MG/ML VIAL SLOW IVP PRN (14:59)
--- NOTE | 2020-04-21 16:25 | PDOC.HOSPP ---
- Subjective Encounter Date: 04/21/20 Encounter Time: 09:00 Subjective: is on vent, has sedation on and son at bedside - Objective Vital Signs & Weight: Vital Signs (12 hours) Temp Pulse Resp BP Pulse Ox 04/21/20 16:10 128 H 04/21/20 14:00 48 H 04/21/20 12:00 99.2 F 39 H 04/21/20 11:47 116 H 04/21/20 10:00 26 H 04/21/20 08:56 111/76 04/21/20 08:00 99.3 F 34 H 100 04/21/20 07:27 100 04/21/20 06:00 30 H Weight Admit Weight 155 lb Weight 137 lb 12.623 oz Most Recent Monitor Data Heart Rate from ECG 122 NIBP 122/73 NIBP BP-Mean 89 Respiration from ECG 42 SpO2 97 I&O: 04/20/20 04/21/20 04/22/20 06:59 06:59 06:59 Intake Total 4472.8 4017 440 Output Total 6110 4670 1525 Balance -1637.2 -653 -1085 Result Diagrams: 04/21/20 04:00 04/21/20 04:00 Hospitalist ROS - Medication Medications: Active Medications Generic Name Dose Route Start Last Admin Trade Name Freq PRN Reason Stop Dose Admin Acetaminophen 650 mg 04/05/20 05:02 04/20/20 12:12 Acetaminophen 650 Mg/20.3 Ml Udcup PER TUBE 650 mg Q6H PRN Administration Fever or Pain Acetaminophen 650 mg 04/15/20 07:30 04/15/20 07:47 Acetaminophen 650 Mg Suppository [place] 650 mg Q4H PRN Administration Headache/Fever or Pain Alprazolam 0.5 mg 04/13/20 09:00 04/21/20 12:43 Alprazolam 0.5 Mg Tab PO 0.5 mg QID BETTY Administration Ascorbic Acid 500 mg 03/19/20 09:00 04/21/20 09:39 Ascorbic Acid 500 Mg Chewable Tablet PO 500 mg DAILY BETTY Administration Bisacodyl 10 mg 03/30/20 08:10 04/05/20 05:09 Bisacodyl 10 Mg Supp [place] 10 mg DAILYPRN PRN Administration Constipation Cholecalciferol 400 units 03/19/20 09:00 04/21/20 09:39 Cholecalciferol (Vitamin D3) 400 Units Tab PO 400 units DAILY BETTY Administration Enoxaparin Sodium 60 mg 04/01/20 21:00 04/21/20 09:40 Enoxaparin Sodium 60 Mg/0.6 Ml Syringe SC 60 mg 0900,2100 BETTY Administration Guaifenesin 200 mg 03/30/20 08:10 04/01/20 00:06 Guaifenesin Sf Soln 200 Mg/10 Ml Udcup PO 200 mg Q4H PRN Administration Cough Dexmedetomidine HCl 400 mcg/ 100 mls @ 0 mls/hr 03/28/20 08:15 04/20/20 04:39 Sodium Chloride IVPB 100 mls INF BETTY Administration Protocol Per Protocol Meropenem 1 gm/ Device 50 mls @ 100 mls/hr 04/15/20 08:00 04/21/20 15:34 IVPB 50 mls 0800,1600,2200 BETTY Administration Micafungin Sodium 100 mg/ 100 mls @ 100 mls/hr 04/17/20 11:00 04/21/20 10:52 Sodium Chloride IVPB 100 mls 1100 BETTY Administration Potassium Chloride/Sodium Chloride 1,000 ml in 1,000 mls @ 70 mls/hr 04/19/20 19:40 04/21/20 14:36 Ns 0.9% W/ 20 Meq Kcl IV 1,000 mls .[id number] BETTY Administration Loperamide HCl 1 mg 04/18/20 10:25 04/21/20 10:51 Loperamide Hcl 1 Mg/7.5 Ml Udcup PO 1 mg Q4H PRN Administration Diarrhea/Loose Stools Lorazepam 1 mg 04/14/20 09:01 04/21/20 14:59 Lorazepam 2 Mg/Ml Vial SLOW IVP 1 mg Q4H PRN Administration Agitation Morphine Sulfate 4 mg 04/13/20 08:44 04/19/20 09:03 Morphine 2 Mg/Ml Vial SLOW IVP 4 mg Q1H PRN Administration Breakthrough Pain/Agitation Pantoprazole Sodium 40 mg 04/15/20 21:00 04/21/20 09:40 Pantoprazole 40 Mg Vial IVP 40 mg Q12HR BETTY Administration Polyethylene Glycol 17 gm 03/30/20 08:11 03/31/20 13:34 Polyethylene Glycol 3350 17 Gm Packet PO 17 gm DAILYPRN PRN Administration Constipation Prednisone 40 mg 04/20/20 08:00 04/21/20 07:36 Prednisone 20 Mg Tab PO 40 mg QAM-WM BETTY Administration Propofol 1,000 mg 04/19/20 16:56 04/21/20 12:59 Propofol 1,000 Mg/100 Ml Vial IV 1,000 mg INF PRN Administration TO ACHIEVE GOAL RASS Protocol Risperidone 1 mg 04/19/20 09:00 04/21/20 09:39 Risperidone 1 Mg Tab PO 1 mg BID BETTY Administration Sodium Chloride 10 ml 03/19/20 09:00 04/21/20 09:39 Flush - Normal Saline 10 Ml Syringe IVF 10 ml Q12HR BETTY Administration Thiamine HCl 100 mg 03/19/20 09:00 04/21/20 09:39 Thiamine 100 Mg Tab PO 100 mg DAILY BETTY Administration Zinc Sulfate 220 mg 03/19/20 09:00 04/21/20 09:39 Zinc Sulfate 220 Mg Cap PO 220 mg DAILY BETTY Administration Hospitalist Exam Vitals: Vital Signs (12 hours) Temp Pulse Resp BP Pulse Ox 04/21/20 16:10 128 H 04/21/20 14:00 48 H 04/21/20 12:00 99.2 F 39 H 04/21/20 11:47 116 H 04/21/20 10:00 26 H 04/21/20 08:56 111/76 04/21/20 08:00 99.3 F 34 H 100 04/21/20 07:27 100 04/21/20 06:00 30 H Weight Admit Weight 155 lb Weight 137 lb 12.623 oz Most Recent Monitor Data Heart Rate from ECG 122 NIBP 122/73 NIBP BP-Mean 89 Respiration from ECG 42 SpO2 97 General Appearance: ill appearing Eye: PERRL, anicteric sclera ENT: no oropharyngeal lesions, dry oral mucosa Neck: no JVD Neck - other findings: trach+ Heart: RRR, no murmur Respiratory: no wheezes, no rales Gastrointestinal: soft, non-tender, non-distended, normal bowel sounds Gastrointestinal - other findings: peg+ Extremities: no cyanosis, no edema Neurological: cranial nerve grossly intact, no focal deficits Hosp A/P (1) Pneumonia due to COVID-19 virus Code(s): U07.1 - COVID-19; J12.82 - PNEUMONIA DUE TO CORONAVIRUS DISEASE 2019 Status: Acute (2) Acute respiratory failure with hypoxia Code(s): J96.01 - ACUTE RESPIRATORY FAILURE WITH HYPOXIA Status: Acute (3) Metabolic encephalopathy Code(s): G93.41 - METABOLIC ENCEPHALOPATHY Status: Acute (4) Pneumomediastinum Code(s): J98.2 - INTERSTITIAL EMPHYSEMA Status: Resolved (5) Septic shock Code(s): A41.9 - SEPSIS, UNSPECIFIED ORGANISM; R65.21 - SEVERE SEPSIS WITH SEPTI C SHOCK Status: Resolved (6) Physical deconditioning Code(s): R53.81 - OTHER MALAISE Status: Acute (7) Ileus Code(s): K56.7 - ILEUS, UNSPECIFIED Status: Resolved - Plan is on micafungin, merrem, protonix, prednisone, lovenox, risperdone bid, thiamine, risperdal, vit c and D3. is s/p trach and peg 04/11/20, he got intubated on 03/18/2020. weaning per pulm advice d/w and son Liam at bedside awaiting ltac bed, he has been accepted to [facility] ileus has resolved prognosis guarded, has severe deconditioning
[2020-04-21] MEDS: Acetaminophen 650 MG/20.3 ML UDCUP PER TUBE PRN (19:45)
[2020-04-22] MEDS: NS 0.9% w/ 20 MEQ KCL 1,000 ML/1,000 ML BAG IV SCH ×2 (04:15→17:16)
[2020-04-22 04:38] LABS: Phosphorus 2.7 mg/dL (2.3-4.7)
[2020-04-22 04:40] LABS: Anion Gap 12 mmol/L (10-20); BUN (Urea Nitrogen) 12 mg/dL (8.4-25.7); Calc. Creatinine Clearance 150 mL/min (70-130); Calcium 7.7 mg/dL (7.8-10.44); Carbon Dioxide 24 mmol/L (23-31); Chloride 102 mmol/L (98-107); Glucose 87 mg/dL (83-110); Magnesium 1.9 mg/dL (1.6-2.6); Potassium 3.9 mmol/L (3.5-5.1); Sodium 134 mmol/L (136-145)
[2020-04-22 05:01] LABS: Band 26 % (5-11); Hemoglobin 10.8 g/dL (14.0-18.0); Hypochromia SLIGHT = 6-15 cells (100X) (0-5/hpf); Lymphocytes 1 % (21-51); MDiff Complete? YES; Mean Corpuscular HGB CONC 32.7 g/dL (32.0-36.0); Mean Corpuscular Hemoglobin 31.1 pg (27.0-31.0); Mean Corpuscular Volume 94.9 fL (78.0-98.0); Mean Platelet Volume 7.4 fL (7.4-10.4); Metamyelocyte 1 % (0-0); Monocytes 4 % (0-10); Neutrophil 68 % (42-75); Nucleated RBC 1 % (0); Platelet Count 423 thou/uL (130-400); Platelet Morphology Comment Appears Increased; Red Blood Cell (RBC) Count 3.49 mill/uL (4.70-6.10); White Blood Cell (WBC) Count 13.1 thou/uL (4.8-10.8)
[2020-04-22] MEDS ORDERED: Magnesium 2 GM/50 ML 2 GM in Premix Bag 1 BAG IVPB SCH (06:30)
[2020-04-22] MEDS: Propofol 1,000 MG/100 ML VIAL IV PRN ×3 (06:46→21:25)
--- NOTE | 2020-04-22 08:45 | PRG ---
DATE OF SERVICE: 04/22/2020 SUBJECTIVE: The patient remains on mechanical ventilation through tracheostomy. There has been no acute changes overnight. OBJECTIVE: VITAL SIGNS: His heart rate is 105, blood pressure 96/70, O2 sat 96%, respiratory rate 38. He is currently on mechanical ventilation on SIMV rate 12, tidal volume 470, PEEP 7, pressure support 15, FiO2 45%. His minute ventilation is about 16 L/minute. His total intake for last 24 hours has been 3438, output 3415. HEENT: Unchanged. NECK: Trach in good position. LUNGS: Shallow breath sounds with crackles. CARDIAC: S1 and S2. Slightly tachycardic. ABDOMEN: Soft and nontender. EXTREMITIES: No clubbing or cyanosis. Very minimal edema present. LABORATORY DATA: White blood cell count 13.1, hematocrit 33.1, and platelet count 423. Sodium 134, potassium 3.9, chloride 102, CO2 24, BUN 12, creatinine 0.4, glucose 87. IMAGING STUDIES: His x-ray shows no significant change. ASSESSMENT: 1. COVID-19 pneumonia. 2. Acute hypoxic respiratory failure requiring mechanical ventilation and tracheostomy placement. 3. Improved encephalopathy. PLAN: Given his high minute ventilation, I do not think he is weanable beyond his current parameters. Today will be his last day on meropenem. He should finish micafungin in about 2 days. I reviewed his orders in the chart and see nothing changed at this time. Job ID: [id number]
[2020-04-22] MEDS: ALPRAZolam 0.5 MG TAB PO SCH ×4 (08:56→20:07)
[2020-04-22] MEDS: Thiamine 100 MG TAB PO SCH (08:56)
[2020-04-22] MEDS: predniSONE 20 MG TAB PO SCH (08:56)
[2020-04-22] MEDS: risperiDONE 1 MG TAB PO SCH ×2 (08:56→20:07)
[2020-04-22] MEDS: Zinc Sulfate 220 MG CAP PO SCH (08:56)
[2020-04-22] MEDS: Ascorbic Acid 500 mg Chewable Tablet PO SCH (08:56)
[2020-04-22] MEDS: MEROPENEM 1 GM/50 ML 1 GM in Premix Bag 1 BAG IVPB SCH ×3 (08:56→21:19)
[2020-04-22] MEDS: Cholecalciferol (Vitamin D3) 400 UNITS TAB PO SCH (08:56)
[2020-04-22] MEDS: Enoxaparin Sodium 60 MG/0.6 ML SYRINGE SC SCH ×2 (08:57→20:07)
[2020-04-22] MEDS: Pantoprazole 40 MG VIAL IVP SCH ×2 (08:57→20:08)
--- NOTE | 2020-04-22 10:39 | RAD ---
PORTABLE CHEST: HISTORY: Followup pneumonia. COMPARISON: Prior day's exam. FINDINGS: Tracheostomy tube is in satisfactory position. Right-sided central line unchanged. Medial to the ce ntral line is a rectangular-shaped density presumably extrinsic to the patient. Parenchymal infiltra mitali are stable. IMPRESSION: Stable overall exam. POS: OFF
[2020-04-22] MEDS: Micafungin 100 MG in Sodium Chloride 0.9% 100 ML IVPB SCH (11:08)
--- NOTE | 2020-04-22 16:13 | PDOC.HOSPP ---
- Subjective Encounter Date: 04/22/20 Encounter Time: 09:20 Subjective: is on vent, sedated, opens eyes, is too weak to move extremities - Objective Vital Signs & Weight: Vital Signs (12 hours) Temp Pulse Resp 04/22/20 15:37 105 H 04/22/20 14:00 29 H 04/22/20 12:00 100.4 F H 38 H 04/22/20 10:39 110 H 04/22/20 10:00 39 H 04/22/20 08:00 100.0 F H 36 H 04/22/20 06:28 102 H 04/22/20 06:00 29 H Weight Admit Weight 155 lb Weight 138 lb 14.259 oz Most Recent Monitor Data Heart Rate from ECG 108 NIBP 104/82 NIBP BP-Mean 89 Respiration from ECG 31 SpO2 100 I&O: 04/21/20 04/22/20 04/23/20 06:59 06:59 06:59 Intake Total 4014 3436 500 Output Total 4617 9956 [facility] Balance 653 -6645 Result Diagrams: 04/22/20 04:00 04/22/20 04:00 Hospitalist ROS - Medication Medications: Active Medications Generic Name Dose Route Start Last Admin Trade Name Freq PRN Reason Stop Dose Admin Acetaminophen 650 mg 04/05/20 05:02 04/21/20 19:45 Acetaminophen 650 Mg/20.3 Ml Udcup PER TUBE 650 mg Q6H PRN Administration Fever or Pain Acetaminophen 650 mg 04/15/20 07:30 04/15/20 07:47 Acetaminophen 650 Mg Suppository [place] 650 mg Q4H PRN Administration Headache/Fever or Pain Alprazolam 0.5 mg 04/13/20 09:00 04/22/20 12:43 Alprazolam 0.5 Mg Tab PO 0.5 mg QID BETTY Administration Ascorbic Acid 500 mg 03/19/20 09:00 04/22/20 08:56 Ascorbic Acid 500 Mg Chewable Tablet PO 500 mg DAILY BETTY Administration Bisacodyl 10 mg 03/30/20 08:10 04/05/20 05:09 Bisacodyl 10 Mg Supp [place] 10 mg DAILYPRN PRN Administration Constipation Cholecalciferol 400 units 03/19/20 09:00 04/22/20 08:56 Cholecalciferol (Vitamin D3) 400 Units Tab PO 400 units DAILY BETTY Administration Enoxaparin Sodium 60 mg 04/01/20 21:00 04/22/20 08:57 Enoxaparin Sodium 60 Mg/0.6 Ml Syringe SC 60 mg 0900,2100 BETTY Administration Guaifenesin 200 mg 03/30/20 08:10 04/01/20 00:06 Guaifenesin Sf Soln 200 Mg/10 Ml Udcup PO 200 mg Q4H PRN Administration Cough Dexmedetomidine HCl 400 mcg/ 100 mls @ 0 mls/hr 03/28/20 08:15 04/20/20 04:39 Sodium Chloride IVPB 100 mls INF BETTY Administration Protocol Per Protocol Meropenem 1 gm/ Device 50 mls @ 100 mls/hr 04/15/20 08:00 04/22/20 08:56 IVPB 50 mls 0800,1600,2200 BETTY Administration Micafungin Sodium 100 mg/ 100 mls @ 100 mls/hr 04/17/20 11:00 04/22/20 11:08 Sodium Chloride IVPB 100 mls 1100 BETTY Administration Potassium Chloride/Sodium Chloride 1,000 ml in 1,000 mls @ 70 mls/hr 04/19/20 19:40 04/22/20 04:15 Ns 0.9% W/ 20 Meq Kcl IV 1,000 mls .[id number] BETTY Administration Loperamide HCl 1 mg 04/18/20 10:25 04/21/20 10:51 Loperamide Hcl 1 Mg/7.5 Ml Udcup PO 1 mg Q4H PRN Administration Diarrhea/Loose Stools Lorazepam 1 mg 04/14/20 09:01 04/21/20 14:59 Lorazepam 2 Mg/Ml Vial SLOW IVP 1 mg Q4H PRN Administration Agitation Morphine Sulfate 4 mg 04/13/20 08:44 04/19/20 09:03 Morphine 2 Mg/Ml Vial SLOW IVP 4 mg Q1H PRN Administration Breakthrough Pain/Agitation Pantoprazole Sodium 40 mg 04/15/20 21:00 04/22/20 08:57 Pantoprazole 40 Mg Vial IVP 40 mg Q12HR BETTY Administration Polyethylene Glycol 17 gm 03/30/20 08:11 03/31/20 13:34 Polyethylene Glycol 3350 17 Gm Packet PO 17 gm DAILYPRN PRN Administration Constipation Prednisone 40 mg 04/20/20 08:00 04/22/20 08:56 Prednisone 20 Mg Tab PO 40 mg QAM-WM BETTY Administration Propofol 1,000 mg 04/19/20 16:56 04/22/20 12:46 Propofol 1,000 Mg/100 Ml Vial IV 1,000 mg INF PRN Administration TO ACHIEVE GOAL RASS Protocol Risperidone 1 mg 04/19/20 09:00 04/22/20 08:56 Risperidone 1 Mg Tab PO 1 mg BID BETTY Administration Sodium Chloride 10 ml 03/19/20 09:00 04/22/20 08:57 Flush - Normal Saline 10 Ml Syringe IVF 10 ml Q12HR BETTY Administration Thiamine HCl 100 mg 03/19/20 09:00 04/22/20 08:56 Thiamine 100 Mg Tab PO 100 mg DAILY BETTY Administration Zinc Sulfate 220 mg 03/19/20 09:00 04/22/20 08:56 Zinc Sulfate 220 Mg Cap PO 220 mg DAILY BETTY Administration Hospitalist Exam Vitals: Vital Signs (12 hours) Temp Pulse Resp 04/22/20 15:37 105 H 04/22/20 14:00 29 H 04/22/20 12:00 100.4 F H 38 H 04/22/20 10:39 110 H 04/22/20 10:00 39 H 04/22/20 08:00 100.0 F H 36 H 04/22/20 06:28 102 H 04/22/20 06:00 29 H Weight Admit Weight 155 lb Weight 138 lb 14.259 oz Most Recent Monitor Data Heart Rate from ECG 108 NIBP 104/82 NIBP BP-Mean 89 Respiration from ECG 31 SpO2 100 General Appearance: ill appearing Eye: PERRL, anicteric sclera ENT: no oropharyngeal lesions, dry oral mucosa Neck: supple, no JVD Heart: RRR, no murmur Respiratory: no wheezes, no rales, rhonchi Gastrointestinal: soft, non-tender, non-distended, normal bowel sounds Extremities: no cyanosis, no edema Neurological: cranial nerve grossly intact, no focal deficits Hosp A/P (1) Pneumonia due to COVID-19 virus Code(s): U07.1 - COVID-19; J12.82 - PNEUMONIA DUE TO CORONAVIRUS DISEASE 2019 Status: Acute (2) Acute respiratory failure with hypoxia Code(s): J96.01 - ACUTE RESPIRATORY FAILURE WITH HYPOXIA Status: Acute (3) Metabolic encephalopathy Code(s): G93.41 - METABOLIC ENCEPHALOPATHY Status: Acute (4) Pneumomediastinum Code(s): J98.2 - INTERSTITIAL EMPHYSEMA Status: Resolved (5) Septic shock Code(s): A41.9 - SEPSIS, UNSPECIFIED ORGANISM; R65.21 - SEVERE SEPSIS WITH SEPTIC SHOCK Status: Resolved (6) Physical deconditioning Code(s): R53.81 - OTHER MALAISE Status: Acute (7) Ileus Code(s): K56.7 - ILEUS, UNSPECIFIED Status: Resolved - Plan is on micafungin, merrem, protonix, prednisone, lovenox, risperdone bid, thiamine, risperdal, vit c and D3. is s/p trach and peg 04/11/20, he got intubated on 03/18/2020. weaning per pulm advice d/w and son Liam at bedside on 04/21. awaiting ltac bed, he has been accepted to [facility], may dc anytime if bed becomes available if cleared by pulm. ileus has resolved prognosis guarded, has severe deconditioning
[2020-04-23 04:24] LABS: #Basophils 0.1 thou/uL (0.0-0.2); #Eosinphils 0.3 thou/uL (0.0-0.7); #Lymphocytes 1.3 thou/uL (1.20-3.40); #Monocytes 0.3 thou/uL (0.11-0.59); #Neutrophils 9.6 thou/uL (1.40-6.50); %Basophils 0.6 % (0.0-1.0); %Eosinophils 2.6 % (0.0-10.0); %Lymphocytes 11.6 % (21.0-51.0); %Monocytes 2.3 % (0.0-10.0); Hemoglobin 10.4 g/dL (14.0-18.0); Mean Corpuscular HGB CONC 31.8 g/dL (32.0-36.0); Mean Corpuscular Volume 94.2 fL (78.0-98.0); Mean Platelet Volume 7.3 fL (7.4-10.4); Platelet Count 420 thou/uL (130-400); RBC Distribution Width 14.6 % (11.5-14.5); Red Blood Cell (RBC) Count 3.47 mill/uL (4.70-6.10); White Blood Cell (WBC) Count 11.6 thou/uL (4.8-10.8)
[2020-04-23 04:40] LABS: Anion Gap 11 mmol/L (10-20); BUN (Urea Nitrogen) 15 mg/dL (8.4-25.7); Calc. Creatinine Clearance 150 mL/min (70-130); Calcium 7.7 mg/dL (7.8-10.44); Carbon Dioxide 26 mmol/L (23-31); Chloride 101 mmol/L (98-107); Glucose 102 mg/dL (83-110); Potassium 3.9 mmol/L (3.5-5.1); Sodium 134 mmol/L (136-145)
[2020-04-23] MEDS: predniSONE 20 MG TAB PO SCH (07:06)
[2020-04-23] MEDS: NS 0.9% w/ 20 MEQ KCL 1,000 ML/1,000 ML BAG IV SCH (07:06)
[2020-04-23] MEDS: MEROPENEM 1 GM/50 ML 1 GM in Premix Bag 1 BAG IVPB SCH (07:06)
--- NOTE | 2020-04-23 07:45 | RAD ---
XR Chest 1 View Portable History: Pneumonia Comparison: Radiograph prior day Findings: Tracheostomy tube tip is similar location as well as a right IJ central venous catheter tip . No enteric tube is present. There is significant improvement of the extensive airspace opacities. Relative to 1 week prior airspa ce opacities are similar. Impression: Similar examination of the chest. No pneumothorax or pneumomediastinum.
--- NOTE | 2020-04-23 08:52 | PRG ---
DATE OF SERVICE: 04/23/2020 SUBJECTIVE: Farrukh Macias is a 70-year-old gentleman, trach and PEG. OBJECTIVE: VITAL SIGNS: Temperature 97, respiratory rate 22, sats are 90% to 100% on 40%, PEEP of 7, blood pressure 105/67. I's and O's positive. CHEST: No wheezing. No crackles. CARDIAC: Normal S1 . IMAGING DATA: X-ray still shows significant right-sided infiltrate. ASSESSMENT AND PLAN: Simmons positive pneumonia, respiratory failure, encephalopathy. He is slowly getting better. Awaiting placement. In the meantime, he is on Demadex, risperidone, broad-spectrum antibiotics, even though all cultures are negative. We will follow. One-half hour of critical care time. Job ID: [id number]
[2020-04-23] MEDS: Ascorbic Acid 500 mg Chewable Tablet PO SCH (09:51)
[2020-04-23] MEDS: Cholecalciferol (Vitamin D3) 400 UNITS TAB PO SCH (09:52)
[2020-04-23] MEDS: ALPRAZolam 0.5 MG TAB PO SCH ×4 (09:52→22:23)
[2020-04-23] MEDS: Enoxaparin Sodium 60 MG/0.6 ML SYRINGE SC SCH ×2 (09:52→22:24)
[2020-04-23] MEDS: Pantoprazole 40 MG VIAL IVP SCH ×2 (09:53→22:24)
[2020-04-23] MEDS: risperiDONE 1 MG TAB PO SCH ×2 (09:53→22:23)
[2020-04-23] MEDS: Micafungin 100 MG in Sodium Chloride 0.9% 100 ML IVPB SCH ×2 (11:00→12:27)
[2020-04-23] MEDS: Lorazepam 2 MG/ML VIAL SLOW IVP PRN (12:29)
[2020-04-23] MEDS: Loperamide HCl 1 MG/7.5 ML UDCUP PO PRN (12:29)
--- NOTE | 2020-04-23 14:59 | PDOC.HOSPP ---
- Subjective Encounter Date: 04/23/20 Encounter Time: 09:30 Subjective: is on vent, sedated awakens, very lethargic - Objective Vital Signs & Weight: Vital Signs (12 hours) Temp Pulse Resp 04/23/20 10:50 68 04/23/20 08:00 97.9 F 22 H 04/23/20 06:00 23 H 04/23/20 04:57 65 04/23/20 04:00 98.4 F 22 H Weight Admit Weight 155 lb Weight 133 lb 9.602 oz Most Recent Monitor Data Heart Rate from ECG 76 NIBP 105/67 NIBP BP-Mean 79 Respiration from ECG 23 SpO2 100 I&O: 04/22/20 04/23/20 04/24/20 06:59 06:59 06:59 Intake Total 3438 3455 240 Output Total 3415 3205 105 Balance 23 250 135 Result Diagrams: 04/23/20 04:00 04/23/20 04:00 Hospitalist ROS - Medication Medications: Active Medications Generic Name Dose Route Start Last Admin Trade Name Freq PRN Reason Stop Dose Admin Acetaminophen 650 mg 04/05/20 05:02 04/21/20 19:45 Acetaminophen 650 Mg/20.3 Ml Udcup PER TUBE 650 mg Q6H PRN Administration Fever or Pain Acetaminophen 650 mg 04/15/20 07:30 04/15/20 07:47 Acetaminophen 650 Mg Suppository [place] 650 mg Q4H PRN Administration Headache/Fever or Pain Alprazolam 0.5 mg 04/13/20 09:00 04/23/20 14:37 Alprazolam 0.5 Mg Tab PO 0.5 mg QID BETTY Administration Ascorbic Acid 500 mg 03/19/20 09:00 04/23/20 09:51 Ascorbic Acid 500 Mg Chewable Tablet PO 500 mg DAILY BETTY Administration Bisacodyl 10 mg 03/30/20 08:10 04/05/20 05:09 Bisacodyl 10 Mg Supp [place] 10 mg DAILYPRN PRN Administration Constipation Cholecalciferol 400 units 03/19/20 09:00 04/23/20 09:52 Cholecalciferol (Vitamin D3) 400 Units Tab PO 400 units DAILY BETTY Administration Enoxaparin Sodium 60 mg 04/01/20 21:00 04/23/20 09:52 Enoxaparin Sodium 60 Mg/0.6 Ml Syringe SC 60 mg 0900,2100 BETTY Administration Guaifenesin 200 mg 03/30/20 08:10 04/01/20 00:06 Guaifenesin Sf Soln 200 Mg/10 Ml Udcup PO 200 mg Q4H PRN Administration Cough Dexmedetomidine HCl 400 mcg/ 100 mls @ 0 mls/hr 03/28/20 08:15 04/23/20 08:28 Sodium Chloride IVPB 100 mls INF BETTY Administration Protocol Per Protocol Micafungin Sodium 100 mg/ 100 mls @ 100 mls/hr 04/17/20 11:00 04/23/20 12:27 Sodium Chloride IVPB 100 mls 1100 BETTY Administration Potassium Chloride/Sodium Chloride 1,000 ml in 1,000 mls @ 70 mls/hr 04/19/20 19:40 04/23/20 07:06 Ns 0.9% W/ 20 Meq Kcl IV 1,000 mls .[id number] BETTY Administration Loperamide HCl 1 mg 04/18/20 10:25 04/23/20 12:29 Loperamide Hcl 1 Mg/7.5 Ml Udcup PO 1 mg Q4H PRN Administration Diarrhea/Loose Stools Lorazepam 1 mg 04/14/20 09:01 04/23/20 12:29 Lorazepam 2 Mg/Ml Vial SLOW IVP 1 mg Q4H PRN Administration Agitation Morphine Sulfate 4 mg 04/13/20 08:44 04/19/20 09:03 Morphine 2 Mg/Ml Vial SLOW IVP 4 mg Q1H PRN Administration Breakthrough Pain/Agitation Pantoprazole Sodium 40 mg 04/15/20 21:00 04/23/20 09:53 Pantoprazole 40 Mg Vial IVP 40 mg Q12HR BETTY Administration Polyethylene Glycol 17 gm 03/30/20 08:11 03/31/20 13:34 Polyethylene Glycol 3350 17 Gm Packet PO 17 gm DAILYPRN PRN Administration Constipation Prednisone 40 mg 04/20/20 08:00 04/23/20 07:06 Prednisone 20 Mg Tab PO 40 mg QAM-WM BETTY Administration Propofol 1,000 mg 04/19/20 16:56 04/22/20 21:25 Propofol 1,000 Mg/100 Ml Vial IV 1,000 mg INF PRN Administration TO ACHIEVE GOAL RASS Protocol Risperidone 1 mg 04/19/20 09:00 04/23/20 09:53 Risperidone 1 Mg Tab PO 1 mg BID BETTY Administration Sodium Chloride 10 ml 03/19/20 09:00 04/23/20 09:53 Flush - Normal Saline 10 Ml Syringe IVF 10 ml Q12HR BETTY Administration Hospitalist Exam Vitals: Vital Signs (12 hours) Temp Pulse Resp 04/23/20 10:50 68 04/23/20 08:00 97.9 F 22 H 04/23/20 06:00 23 H 04/23/20 04:57 65 04/23/20 04:00 98.4 F 22 H Weight Admit Weight 155 lb Weight 133 lb 9.602 oz Most Recent Monitor Data Heart Rate from ECG 76 NIBP 105/67 NIBP BP-Mean 79 Respiration from ECG 23 SpO2 100 General Appearance: ill appearing Eye: PERRL, anicteric sclera ENT: no oropharyngeal lesions, moist mucosa Neck: supple, no JVD Heart: RRR, no murmur Respiratory: no wheezes, no rales Gastrointestinal: soft, non-tender, non-distended, normal bowel sounds Extremities: no cyanosis, no edema Neurological: cranial nerve grossly intact, no focal deficits Hosp A/P (1) Pneumonia due to COVID-19 virus Code(s): U07.1 - COVID-19; J12.82 - PNEUMONIA DUE TO CORONAVIRUS DISEASE 2019 Status: Acute (2) Acute respiratory failure with hypoxia Code(s): J96.01 - ACUTE RESPIRATORY FAILURE WITH HYPOXIA Status: Acute (3) Metabolic encephalopathy Code(s): G93.41 - METABOLIC ENCEPHALOPATHY Status: Acute (4) Pneumomediastinum Code(s): J98.2 - INTERSTITIAL EMPHYSEMA Status: Resolved (5) Septic shock Code(s): A41.9 - SEPSIS, UNSPECIFIED ORGANISM; R65.21 - SEVERE SEPSIS WITH SEPTIC SHOCK Status: Resolved (6) Physical deconditioning Code(s): R53.81 - OTHER MALAISE Status: Acute (7) Ileus Code(s): K56.7 - ILEUS, UNSPECIFIED Status: Resolved - Plan is on micafungin, merrem, protonix, prednisone, lovenox, risperdone bid, thiamine, risperdal, vit c and D3. is s/p trach and peg 04/11/20, he got intubated on 03/18/2020. wbc is down and bands are receding. weaning per pulm advice d/w and son Liam at bedside on 04/21. awaiting ltac bed, he has been accepted to [facility], may dc anytime if bed becomes available if cleared by pulm. ileus has resolved prognosis guarded, has severe deconditioning
[2020-04-23] MEDS: Propofol 1,000 MG/100 ML VIAL IV PRN ×2 (15:18→18:32)
[2020-04-23] MEDS: Meropenem 1 GM in Sodium Chloride 0.9% 100 ML IVPB SCH ×2 (15:39→22:24)
[2020-04-23 16:03] VITALS: BMI 18.6
[2020-04-24] MEDS: NS 0.9% w/ 20 MEQ KCL 1,000 ML/1,000 ML BAG IV SCH (02:26)
[2020-04-24 04:56] LABS: #Eosinphils 0.3 thou/uL (0.0-0.7); #Lymphocytes 1.5 thou/uL (1.20-3.40); #Monocytes 0.2 thou/uL (0.11-0.59); %Basophils 0.3 % (0.0-1.0); %Eosinophils 3.3 % (0.0-10.0); %Lymphocytes 14.7 % (21.0-51.0); %Monocytes 1.7 % (0.0-10.0); Hemoglobin 10.6 g/dL (14.0-18.0); Mean Corpuscular HGB CONC 32.6 g/dL (32.0-36.0); Mean Corpuscular Hemoglobin 30.7 pg (27.0-31.0); Mean Corpuscular Volume 94.2 fL (78.0-98.0); Mean Platelet Volume 7.8 fL (7.4-10.4); Platelet Count 421 thou/uL (130-400); RBC Distribution Width 14.7 % (11.5-14.5); Red Blood Cell (RBC) Count 3.45 mill/uL (4.70-6.10)
[2020-04-24 05:32] LABS: Anion Gap 10 mmol/L (10-20); BUN (Urea Nitrogen) 16 mg/dL (8.4-25.7); Calc. Creatinine Clearance 145 mL/min (70-130); Calcium 7.9 mg/dL (7.8-10.44); Carbon Dioxide 25 mmol/L (23-31); Chloride 105 mmol/L (98-107); Glucose 124 mg/dL (83-110); Potassium 3.6 mmol/L (3.5-5.1); Sodium 136 mmol/L (136-145)
--- NOTE | 2020-04-24 08:11 | RAD ---
CHEST 1 VIEW: Date: 04/24/2020 COMPARISON: 04/23/2020. HISTORY: Pneumonia. FINDINGS: Redemonstration of tracheostomy and right-sided jugular vascular catheter. Normal cardiac silhouette. There is a small right effusion. There are diffuse interstitial and alveolar opacities. No pneumotho rax. IMPRESSION: Stable multilobar pneumonia. POS: PPP
[2020-04-24] MEDS ORDERED: Albumin 25% 25 GM/100 ML BOT IVPB ONE (08:19)
--- NOTE | 2020-04-24 08:41 | PRG ---
DATE OF SERVICE: 04/24/2020 SUBJECTIVE: Farrukh Macias remains in the ICU, on Diprivan, Precedex, risperidone, and Xanax. Yesterday, he was appropriate. OBJECTIVE: VITAL SIGNS: His temperature is 98, pulse 76, blood pressure is low at 80/60, and sats are 99%. CHEST: Rhonchi and crackles. CARDIAC: Normal S1 and S2. No gallops. ABDOMEN: No masses. DIAGNOSTIC STUDIES: X-ray still shows a right-sided infiltrate. Labs otherwise unremarkable. ASSESSMENT: 1. Respiratory failure status post tracheostomy and percutaneous endoscopic gastrostomy. 2. Encephalopathy. PLAN: 1. We are discontinuing his daily lab. 2. At this stage, continue supportive care and PT. 3. Decrease the steroids tomorrow. 4. Try and decrease sedation as possible, eventually placement. TIME SPENT: One-half hour of critical care time. Job ID: [id number]
[2020-04-24] MEDS: Enoxaparin Sodium 60 MG/0.6 ML SYRINGE SC SCH ×2 (09:11→20:38)
[2020-04-24] MEDS: predniSONE 20 MG TAB PO SCH (09:11)
[2020-04-24] MEDS: Ascorbic Acid 500 mg Chewable Tablet PO SCH (09:11)
[2020-04-24] MEDS: risperiDONE 1 MG TAB PO SCH ×2 (09:12→20:38)
[2020-04-24] MEDS: Cholecalciferol (Vitamin D3) 400 UNITS TAB PO SCH (09:12)
[2020-04-24] MEDS: Pantoprazole 40 MG VIAL IVP SCH ×2 (09:12→20:38)
[2020-04-24] MEDS: ALPRAZolam 0.5 MG TAB PO SCH ×4 (09:13→20:38)
[2020-04-24] MEDS ORDERED: Meropenem 1 GM in Sodium Chloride 0.9% 100 ML IVPB SCH ×2 (09:45→16:00)
[2020-04-24 10:17] VITALS: BP 77/51
[2020-04-24] MEDS ORDERED: Sodium Chloride 0.9% 1,000 ML IV SCH (11:00)
[2020-04-24] MEDS: Propofol 1,000 MG/100 ML VIAL IV PRN ×2 (11:30→17:10)
[2020-04-24] MEDS ORDERED: Lorazepam 2 MG/ML VIAL ONE (11:47)
[2020-04-24] MEDS: Micafungin 100 MG in Sodium Chloride 0.9% 100 ML IVPB SCH (11:54)
[2020-04-24] MEDS ORDERED: Lorazepam 2 MG/ML VIAL SLOW IVP SCH (12:15)
[2020-04-24] MEDS: Meropenem 1 GM in Sodium Chloride 0.9% 100 ML IVPB SCH (13:41)
--- NOTE | 2020-04-24 15:42 | PDOC.HOSPP ---
- Subjective Encounter Date: 04/24/20 Encounter Time: 08:15 Subjective: awakens to touch, is on vent and sedated and son at bedside - Objective Vital Signs & Weight: Vital Signs (12 hours) Temp Pulse Resp BP Pulse Ox 04/24/20 14:32 124 H 04/24/20 14:00 31 H 04/24/20 13:00 98.8 F 04/24/20 12:00 39 H 04/24/20 10:14 66 77/51 L 04/24/20 10:00 26 H 04/24/20 08:34 69 77/54 L 04/24/20 08:00 30 H 97 04/24/20 07:00 97.8 F 04/24/20 06:00 21 H 04/24/20 04:00 98.4 F 22 H Weight Admit Weight 155 lb Weight 131 lb 6.4 oz Most Recent Monitor Data Heart Rate from ECG 108 NIBP 93/68 NIBP BP-Mean 76 Respiration from ECG 32 SpO2 98 I&O: 04/23/20 04/24/20 04/25/20 06:59 06:59 06:59 Intake Total 3455 2050.8 1120 Output Total 3205 2130 1625 Balance 250 -79.2 -505 Result Diagrams: 04/24/20 03:40 04/24/20 03:40 Hospitalist ROS - Medication Medications: Active Medications Generic Name Dose Route Start Last Admin Trade Name Freq PRN Reason Stop Dose Admin Acetaminophen 650 mg 04/05/20 05:02 04/21/20 19:45 Acetaminophen 650 Mg/20.3 Ml Udcup PER TUBE 650 mg Q6H PRN Administration Fever or Pain Acetaminophen 650 mg 04/15/20 07:30 04/15/20 07:47 Acetaminophen 650 Mg Suppository IA 650 mg Q4H PRN Administration Headache/Fever or Pain Alprazolam 0.5 mg 04/13/20 09:00 04/24/20 13:52 Alprazolam 0.5 Mg Tab PO 0.5 mg QID BETTY Administration Ascorbic Acid 500 mg 03/19/20 09:00 04/24/20 09:11 Ascorbic Acid 500 Mg Chewable Tablet PO 500 mg DAILY BETTY Administration Bisacodyl 10 mg 03/30/20 08:10 04/05/20 05:09 Bisacodyl 10 Mg Supp IA 10 mg DAILYPRN PRN Administration Constipation Cholecalciferol 400 units 03/19/20 09:00 04/24/20 09:12 Cholecalciferol (Vitamin D3) 400 Units Tab PO 400 units DAILY BETTY Administration Enoxaparin Sodium 60 mg 04/01/20 21:00 04/24/20 09:11 Enoxaparin Sodium 60 Mg/0.6 Ml Syringe SC 60 mg 0900,2100 BETTY Administration Guaifenesin 200 mg 03/30/20 08:10 04/01/20 00:06 Guaifenesin Sf Soln 200 Mg/10 Ml Udcup PO 200 mg Q4H PRN Administration Cough Dexmedetomidine HCl 400 mcg/ 100 mls @ 0 mls/hr 03/28/20 08:15 04/24/20 05:43 Sodium Chloride IVPB 100 mls INF BETTY Administration Protocol Per Protocol Micafungin Sodium 100 mg/ 100 mls @ 100 mls/hr 04/17/20 11:00 04/24/20 11:54 Sodium Chloride IVPB 100 mls 1100 BETTY Administration Loperamide HCl 1 mg 04/18/20 10:25 04/23/20 12:29 Loperamide Hcl 1 Mg/7.5 Ml Udcup PO 1 mg Q4H PRN Administration Diarrhea/Loose Stools Morphine Sulfate 4 mg 04/13/20 08:44 04/19/20 09:03 Morphine 2 Mg/Ml Vial SLOW IVP 4 mg Q1H PRN Administration Breakthrough Pain/Agitation Pantoprazole Sodium 40 mg 04/15/20 21:00 04/24/20 09:12 Pantoprazole 40 Mg Vial IVP 40 mg Q12HR BETTY Administration Polyethylene Glycol 17 gm 03/30/20 08:11 03/31/20 13:34 Polyethylene Glycol 3350 17 Gm Packet PO 17 gm DAILYPRN PRN Administration Constipation Prednisone 40 mg 04/20/20 08:00 04/24/20 09:11 Prednisone 20 Mg Tab PO 40 mg QAM-WM BETTY Administration Propofol 1,000 mg 04/19/20 16:56 04/24/20 11:30 Propofol 1,000 Mg/100 Ml Vial IV 1,000 mg INF PRN Administration TO ACHIEVE GOAL RASS Protocol Risperidone 1 mg 04/19/20 09:00 04/24/20 09:12 Risperidone 1 Mg Tab PO 1 mg BID BETTY Administration Sodium Chloride 10 ml 03/19/20 09:00 04/24/20 09:23 Flush - Normal Saline 10 Ml Syringe IVF 10 ml Q12HR BETTY Administration Hospitalist Exam Vitals: Vital Signs (12 hours) Temp Pulse Resp BP Pulse Ox 04/24/20 14:32 124 H 04/24/20 14:00 31 H 04/24/20 13:00 98.8 F 04/24/20 12:00 39 H 04/24/20 10:14 66 77/51 L 04/24/20 10:00 26 H 04/24/20 08:34 69 77/54 L 04/24/20 08:00 30 H 97 04/24/20 07:00 97.8 F 04/24/20 06:00 21 H 04/24/20 04:00 98.4 F 22 H Weight Admit Weight 155 lb Weight 131 lb 6.4 oz Most Recent Monitor Data Heart Rate from ECG 108 NIBP 93/68 NIBP BP-Mean 76 Respiration from ECG 32 SpO2 98 Eye: PERRL, anicteric sclera ENT: no oropharyngeal lesions, dry oral mucosa Neck: no JVD Neck - other findings: trach+ Heart: RRR, no murmur Respiratory: no wheezes, no rales Gastrointestinal: soft, non-tender, non-distended, normal bowel sounds Gastrointestinal - other findings: peg+ Extremities: no cyanosis, no edema Neurological: cranial nerve grossly intact, no focal deficits Hosp A/P (1) Pneumonia due to COVID-19 virus Code(s): U07.1 - COVID-19; J12.82 - PNEUMONIA DUE TO CORONAVIRUS DISEASE 2019 Status: Acute (2) Acute respiratory failure with hypoxia Code(s): J96.01 - ACUTE RESPIRATORY FAILURE WITH HYPOXIA Status: Acute (3) Metabolic encephalopathy Code(s): G93.41 - METABOLIC ENCEPHALOPATHY Status: Acute (4) Pneumomediastinum Code(s): J98.2 - INTERSTITIAL EMPHYSEMA Status: Resolved (5) Septic shock Code(s): A41.9 - SEPSIS, UNSPECIFIED ORGANISM; R65.21 - SEVERE SEPSIS WITH SEPTIC SHOCK Status: Resolved (6) Physical deconditioning Code(s): R53.81 - OTHER MALAISE Status: Acute (7) Ileus Code(s): K56.7 - ILEUS, UNSPECIFIED Status: Resolved - Plan is on micafungin, merrem, protonix, prednisone, lovenox, risperdone bid, thiamine, risperdal, vit c and D3. is s/p trach and peg 04/11/20, he got intubated on 03/18/2020. wbc is down and bands are receding, antibiotics may be dc'd in am. weaning per pulm advice d/w and son Liam at bedside on 04/21, 04/24. may dc anytime to ltac, is ok for dc. ileus has resolved prognosis guarded, has severe deconditioning
[2020-04-24] MEDS: Loperamide HCl 1 MG/7.5 ML UDCUP PO PRN (17:47)
[2020-04-24] MEDS: MEROPENEM 1 GM/50 ML 1 GM in Premix Bag 1 BAG IVPB SCH (18:11)
[2020-04-24] MEDS: Lorazepam 2 MG/ML VIAL SLOW IVP PRN (22:40)
[2020-04-24] MEDS ORDERED: Vecuronium 10 MG VIAL IVP PRN (23:32)
--- NOTE | 2020-04-24 23:36 | RAD ---
Chest AP view INDICATION: History of respiratory distress and tachypnea COMPARISON: Prior exam dated April 24, 2020 at 4:39 AM FINDINGS: Lungs: Multifocal pneumonia is stable Cardiac silhouette: The cardiomediastinal silhouette appears within normal limits. Pulmonary vasculature: Normal Pleural spaces: No pleural effusion or pneumothorax is demonstrated. Upper abdomen: No abnormality seen. Osseous structures: No acute osseous abnormality. Additional findings: Tracheostomy tube and right IJ central venous catheter is unchanged. IMPRESSION: Stable multifocal pneumonia. Stable tubes and lines.
[2020-04-25] MEDS: MEROPENEM 1 GM/50 ML 1 GM in Premix Bag 1 BAG IVPB SCH ×2 (01:17→08:46)
[2020-04-25] MEDS: Lorazepam 2 MG/ML VIAL SLOW IVP PRN (08:44)
[2020-04-25] MEDS ORDERED: predniSONE 20 MG TAB PO SCH (08:45)
[2020-04-25] MEDS: risperiDONE 1 MG TAB PO SCH (08:46)
[2020-04-25] MEDS: Enoxaparin Sodium 60 MG/0.6 ML SYRINGE SC SCH (08:46)
[2020-04-25] MEDS: Cholecalciferol (Vitamin D3) 400 UNITS TAB PO SCH (08:46)
[2020-04-25] MEDS: ALPRAZolam 0.5 MG TAB PO SCH (08:46)
[2020-04-25] MEDS: predniSONE 20 MG TAB PO SCH (09:00)
[2020-04-25] MEDS ORDERED: Pantoprazole 40 MG GRANULES PACKET PER TUBE SCH (09:00)
[2020-04-25] MEDS: Propofol 1,000 MG/100 ML VIAL IV PRN (09:05)
--- NOTE | 2020-04-25 09:21 | PRG ---
DATE OF SERVICE: 04/25/2020 SUBJECTIVE: Ravin Macias is a 70-year-old gentleman who had last night marked respiratory distress, tachypneic at 40 a minute, had been paralyzed one time. The nurses called me. He then settled down with sats down to 96% and FiO2 was decreased to 40%, PEEP of 8. OBJECTIVE: VITAL SIGNS: This morning his pulse is 71, 40% FiO2, sats are 90%, blood pressure . CHEST: Rhonchi, crackles. CARDIAC: Normal S1, S2. IMPRESSION: Respiratory failure, krause positive pneumonia, major encephalopathy, major anxiety. PLAN: He is status post trach and PEG. His x-ray looks relatively stable. in the process of trying to get a place for him. One-half hour of critical time. Job ID: [id number]
[2020-04-25 10:48] VITALS: TEMP 98.9
--- NOTE | 2020-04-25 17:09 | PDOC.HOSPP ---
- Subjective Encounter Date: 04/25/20 Encounter Time: 07:45 Subjective: on vent, sedated, responds minimally - Objective Vital Signs & Weight: Vital Signs (12 hours) Temp Pulse Resp Pulse Ox 04/25/20 08:00 98.9 F 30 H 95 04/25/20 07:46 71 04/25/20 06:00 21 H Weight Admit Weight 155 lb Weight 130 lb 11.2 oz Most Recent Monitor Data Heart Rate from ECG 108 NIBP 110/59 NIBP BP-Mean 76 Respiration from ECG 16 SpO2 93 I&O: 04/24/20 04/25/20 04/26/20 06:59 06:59 06:59 Intake Total 2050.8 3453.6 240 Output Total 2130 3280 250 Balance -79.2 173.6 -10 Result Diagrams: 04/24/20 03:40 04/24/20 03:40 Hospitalist Exam Vitals: Vital Signs (12 hours) Temp Pulse Resp Pulse Ox 04/25/20 08:00 98.9 F 30 H 95 04/25/20 07:46 71 04/25/20 06:00 21 H Weight Admit Weight 155 lb Weight 130 lb 11.2 oz Most Recent Monitor Data Heart Rate from ECG 108 NIBP 110/59 NIBP BP-Mean 76 Respiration from ECG 16 SpO2 93 General Appearance: ill appearing Eye: PERRL, anicteric sclera ENT: no oropharyngeal lesions, dry oral mucosa Neck: no JVD Neck - other findings: trach+ Heart: RRR, no murmur Respiratory: no wheezes, no rales, rhonchi Gastrointestinal: soft, non-tender, non-distended, normal bowel sounds Gastrointestinal - other findings: peg+ Extremities: no cyanosis, no edema Neurological: cranial nerve grossly intact, no focal deficits Hosp A/P (1) Pneumonia due to COVID-19 virus Code(s): U07.1 - COVID-19; J12.82 - PNEUMONIA DUE TO CORONAVIRUS DISEASE 2019 Status: Acute (2) Acute respiratory failure with hypoxia Code(s): J96.01 - ACUTE RESPIRATORY FAILURE WITH HYPOXIA Status: Acute (3) Metabolic encephalopathy Code(s): G93.41 - METABOLIC ENCEPHALOPATHY Status: Acute (4) Pneumomediastinum Code(s): J98.2 - INTERSTITIAL EMPHYSEMA Status: Resolved (5) Septic shock Code(s): A41.9 - SEPSIS, UNSPECIFIED ORGANISM; R65.21 - SEVERE SEPSIS WITH SEPTIC SHOCK Status: Resolved (6) Physical deconditioning Code(s): R53.81 - OTHER MALAISE Status: Acute (7) Ileus Code(s): K56.7 - ILEUS, UNSPECIFIED Status: Resolved - Plan is on micafungin, zyvox, protonix, prednisone, lovenox, risperdone bid, thiamine, vit c and D3. is s/p trach and peg 04/11/20, he got intubated on 03/18/2020. wbc is down and bands are receding, antibiotics/antifungal may be dc'd in 4 days. weaning per pulm advice d/w and son Liam at bedside on 04/21, 04/24. may dc anytime to ltac, is ok for dc. ileus has resolved prognosis guarded, has severe deconditioning
--- NOTE | 2020-04-25 17:38 | DIS ---
DATE OF ADMISSION: 03/18/2020 DATE OF DISCHARGE: 04/25/2020 DISCHARGE DISPOSITION: To [facility] in [place]. PRIMARY DISCHARGE DIAGNOSES: 1. Coronavirus disease 2019 pneumonia. 2. Acute respiratory failure with hypoxia with trach and on the ventilator. 3. Metabolic encephalopathy due to Coronavirus disease 2019 virus. 4. Pneumomediastinum, resolved. 5. Septic shock on arrival, resolved. 6. Severe physical deconditioning. 7. Ileus, resolved. PROCEDURES DONE DURING HOSPITALIZATION: The patient got intubated on 03/18/2020. He had his trach and PEG placed on 04/11/2020. CT angio chest done on the day of admission showed severe COVID pneumonia. No pneumothorax or pneumomediastinum. No evidence of PE was seen. CT brain done on the day of admission showed no acute hemorrhage. Moderate microvascular ischemic changes were seen. The patient has had 8 [employer] tracheostomy and PEG tube placed on 04/11/2020. He has had right internal jugular vein central line placed on the same day by Dr. Perkins. Multiple blood cultures were negative. Respiratory culture drawn on 04/15/2020, grew Mouna albicans. There were many budding yeast. Stool for C difficile on 04/20/2020 was negative. H and H 10 and 32, platelet count 421, MCV was 94, white count of 10 on the , had 80% neutrophils on the same day. BUN and creatinine 16 and 0.4. CRP on arrival was 30.74. Last CRP done was on the , which was 23. Albumin levels were 2.2 on the April 17. The patient was positive for COVID on 03/06/2020. DISCHARGE MEDICATIONS: 1. Lovenox 40 mg subcu q.12 hourly for DVT prophylaxis. 2. MiraLax 17 g daily. 3. Micafungin 100 mg IV piggyback daily for another 4 more days. 4. Prednisone 40 mg p.o. daily. 5. Protonix 40 mg twice daily. 6. Risperdal 0.5 mg twice daily. This was started this hospitalization for acute encephalopathy due to COVID. 7. Senokot-S 2 tablets twice daily. 8. Vitamin C 500 mg p.o. daily. 9. Zyvox 600 mg IV twice daily for another 6 days. ALLERGIES: NO KNOWN DRUG ALLERGIES. INPATIENT CONSULT: Dr. Martin for Pulmonology, Dr. Perkins for General Surgery. BRIEF COURSE DURING HOSPITALIZATION: The patient initially got admitted on the March 18 for shortness of breath. He was diagnosed with COVID on the March 06. The patient had a temperature of 102 and was in an altered state and was restless. He apparently got agitated and confused in the ER and got intubated. Since then, the patient has been on the ventilator and was not weanable. He has extensive infiltrates due to COVID-19 virus. Tracheostomy and PEG tube were placed on the April [address] Perkins. Despite trach, the patient was still not weanable. He has had severe physical deconditioning as well. Case Management consultation was requested for LTAC referral for further weaning and physical therapy. He has been accepted to [facility] in [place] and will be shortly discharged. Please see a [id number] documentation for the day of discharge on [facility]. A total of 35 minutes was spent on discharge plan. All through his stay his son, Liam, and were given updates during his stay here. Job ID: [id number]
[2020-04-26] MEDS ORDERED: predniSONE 20 MG TAB PO SCH (08:00)
== END 2020-04-25 09:35 | DRG 4 ==
LOC: ERS 12:38 → ERHOLD 17:29 → CCU 21:44
PROVIDERS: ADMIT Internal Medicine; ATTEND Internal Medicine
PROC: 5A1955Z Respiratory Ventilation, Greater than 96 Consecutive Hours (ICD-10-PCS; 2020-03-18)
PROC: 06HY33Z Insertion of Infusion Device into Lower Vein, Percutaneous Approach (ICD-10-PCS; 2020-03-18)
PROC: 0D9670Z Drainage of Stomach with Drainage Device, Via Natural or Artificial Opening (ICD-10-PCS; 2020-03-18)
PROC: 0BH17EZ Insertion of Endotracheal Airway into Trachea, Via Natural or Artificial Opening (ICD-10-PCS; 2020-03-18)
PROC: XW13325 Transfusion of Convalescent Plasma (Nonautologous) into Peripheral Vein, Percutaneous Approach, New Technology Group 5 (ICD-10-PCS; 2020-03-20)
PROC: 0B110F4 Bypass Trachea to Cutaneous with Tracheostomy Device, Open Approach (ICD-10-PCS; principal; 2020-04-11)
PROC: 0DH63UZ Insertion of Feeding Device into Stomach, Percutaneous Approach (ICD-10-PCS; 2020-04-11)
PROC: 02HV33Z Insertion of Infusion Device into Superior Vena Cava, Percutaneous Approach (ICD-10-PCS; 2020-04-11)
DX: A41.9 Sepsis, unspecified organism (principal); R65.21 Severe sepsis with septic shock; J96.01 Acute respiratory failure with hypoxia; G93.41 Metabolic encephalopathy; U07.1 COVID-19; J12.82 Pneumonia due to coronavirus disease 2019; E46 Unspecified protein-calorie malnutrition; Z68.1 Body mass index [BMI] 19.9 or less, adult; K56.7 Ileus, unspecified; E87.1 Hypo-osmolality and hyponatremia; E87.6 Hypokalemia; Z78.1 Physical restraint status; Z51.5 Encounter for palliative care; R73.9 Hyperglycemia, unspecified; T38.0X5A Adverse effect of glucocorticoids and synthetic analogues, initial encounter; R74.01 Elevation of levels of liver transaminase levels; J98.2 Interstitial emphysema; E87.8 Other disorders of electrolyte and fluid balance, not elsewhere classified; E83.39 Other disorders of phosphorus metabolism; F41.9 Anxiety disorder, unspecified; E83.42 Hypomagnesemia
CPT/HCPCS: 31500; 36415; 36416; 36430; 36556; 36600; 51702; 70450; 71045; 71275; 74018; 80048; 80053; 80076; 80202; 81001; 81003; 81015; 82140; 82550; 82728; 82805; 83605; 83735; 84100; 84443; 84484; 85007; 85025; 85027; 85379; 85610; 85730; 86140; 86850; 86900; 86901; 87040; 87070; 87086; 87205; 87324; 87449; 89220; 93005; 93010; 94002; 94003; 94760; 96361; 96365; 96375; C1751; C9113; J0456; J0692; J0696; J1100; J1650; J1815; J1940; J2020; J2060; J2185; J2248; J2250; J2270; J2310; J2405; J2543; J2704; J2765; J3010; J3370; J3475; J3480; J3490; J7030; J7050; J7512; J8540; P9017; P9047; Q9967; S0020; S0028